=== PATIENT | female | born 1960 | race Caucasian/White ===

== ENCOUNTER → 2020-04-13 08:40 | Outpatient (REF) | payer MEDICAID, SELFPAY ==
--- NOTE | 2020-04-13 | NM_ITS ---
Myocardial perfusion study Indication: Chest pain with risk factors to evaluate for myocardial ischemia Technique: The patient was brought in for a Lexiscan perfusion study on 04/13/2020. Patient performed low-level exercise and was injected 0.4 mg of Lexiscan intravenously. Within a minute of injection, 25 mCi of sestamibi was given intravenously. Images were obtained using the SPECT gamma camera interlaced with the gating device. Images were obtained in supine position. Resting perfusion study was performed on 04/16/2020. Patient was administered 25 mCi of sestamibi intravenously at rest. Images were then obtained in supine position. Images obtained with and without CT attenuation. Total DLP 76 MGY-CM. Images were processed with the software and compared side to side in short axis, horizontal long axis and vertical long axis views. Findings: The stress perfusion study showed normal uptake of radiotracer in all segments of LV myocardium on non attenuated corrected images. There is suggestion of left ventricle hypertrophy.. The gated study shows normal LV systolic function with calculated LVEF of 63%. LV cavity is normal in size. The gated study shows normal systolic wall thickening and contraction of segments. Resting study shows no change in perfusion pattern compared to stress perfusion study on non attenuated images. Gating at rest reveals normal systolic wall motion with ejection fraction at 73%. The findings are consistent with normal myocardial perfusion. NM/NM janes perf SPECT rest & str Impression: 1. Myocardial perfusion imaging study shows normal myocardial perfusion 2. Gated LVEF is 63% 3. Transient ischemic dilatation not present EKG is nondiagnostic for ischemia
--- NOTE | 2020-04-13 08:45 | CA_ITS ---
Acquisition Time: 2020-04-13 09:14:09 Total Exercise Time: 00:02:18 Test Indications: CP Medications: SEE CHART Protocol: SÁNCHEZ Max HR: 155 BPM 96% of Pred: 161 BPM Max BP: 174/086 mmHG Max Work Load: 3.6 METS Started with exercise stress nuclear, however pt only able to stay on the Treadmill for 2 minutes. Moderate shortness of breath. Rescue inhaler used. Test switched to Lexiscan Pt tolerated well. Denies any anginal sx. EKG withouit any arrhythmias. non-diagnostic for ischemia. Nuclear images to follow. Normotyensive response to test. Test reviewed with Dr. Burch Referred By: Isaac Obando Overread By: Maurizio Chacon
== END ==
LOC: HO.CARD 08:40
PROVIDERS: Visit Provider Internal Medicine Cardiovascular Disease
DX: R07.9 Chest pain, unspecified (principal)
CPT/HCPCS: 78452; 93017; A9500; J2785

== ENCOUNTER → 2020-04-18 10:22 | Outpatient (BNVA) | payer MEDICAID, SELFPAY | PROVIDERS: PCP Family Medicine; Referring Provider Family Medicine; Visit Provider Obstetrics & Gynecology | DX: Z76.89 Persons encountering health services in other specified circumstances (principal) ==

== ENCOUNTER → 2020-05-09 14:03 | Outpatient (BNVA) | payer MEDICAID, SELFPAY | PROVIDERS: PCP Family Medicine; Visit Provider Internal Medicine | DX: J44.9 Chronic obstructive pulmonary disease, unspecified (principal); F17.210 Nicotine dependence, cigarettes, uncomplicated; Z71.6 Tobacco abuse counseling | CPT/HCPCS: 99202 ==

== ENCOUNTER 2020-05-15 10:09 | Outpatient (REF) | payer MEDICAID, SELFPAY ==
--- NOTE | 2020-05-15 10:14 | XR_ITS ---
EXAMINATION: XR CHEST CLINICAL INFORMATION: COPD COMPARISON: None TECHNIQUE: 2 views of the chest were obtained. FINDINGS: No significant abnormality is noted involving the heart, lungs, mediastinum, bony thorax or soft tissues. XR/XR chest 2V IMPRESSION: Unremarkable chest exam.
== END 2020-05-15 10:10 | disposition home or self-care (01) ==
LOC: HO.XRAY 10:09
PROVIDERS: PCP Family Medicine; Visit Provider Internal Medicine
DX: J44.9 Chronic obstructive pulmonary disease, unspecified (principal); F17.200 Nicotine dependence, unspecified, uncomplicated
CPT/HCPCS: 71046

== ENCOUNTER 2020-05-21 12:59 | Outpatient (REF) | payer MEDICAID, SELFPAY ==
--- NOTE | 2020-05-21 17:26 | PFT_ITS ---
Forced vital capacity normal. FEV1 is moderately reduced. HVM36-12 markedly reduced. Post bronchodilator therapy, no significant change. Total lung capacity and residual volume normal. Diffusion capacity, moderately decreased. CONCLUSION: Moderately severe obstructive airway disorder. No response to bronchodilator therapy. Clinical correlation recommended. Roc Saunders MD MSB/MODL / [id number]
== END 2020-05-21 13:00 | disposition home or self-care (01) ==
LOC: HO.RESP 12:59
PROVIDERS: PCP Family Medicine; Visit Provider Internal Medicine
DX: J44.9 Chronic obstructive pulmonary disease, unspecified (principal); F17.200 Nicotine dependence, unspecified, uncomplicated
CPT/HCPCS: 94060; 94727; 94729

== ENCOUNTER → 2020-06-21 10:23 | Outpatient (BNVA) | payer MEDICAID, SELFPAY | PROVIDERS: PCP Family Medicine; Visit Provider Internal Medicine | DX: J44.9 Chronic obstructive pulmonary disease, unspecified (principal); F17.210 Nicotine dependence, cigarettes, uncomplicated; Z71.6 Tobacco abuse counseling | CPT/HCPCS: 99212 ==

== ENCOUNTER → 2020-08-21 10:32 | Outpatient (BNVA) | payer MEDICAID, SELFPAY | PROVIDERS: PCP Family Medicine; Visit Provider Internal Medicine | DX: J44.9 Chronic obstructive pulmonary disease, unspecified (principal); F17.200 Nicotine dependence, unspecified, uncomplicated; Z79.899 Other long term (current) drug therapy; Z71.6 Tobacco abuse counseling | CPT/HCPCS: 99212 ==

== ENCOUNTER 2020-10-05 07:55 | Emergency (ER) | payer MEDICAID, SELFPAY ==
[2020-10-05 08:13] VITALS: BP 177/101; PULSE 97; RESP 18; TEMP 37; O2SAT 92; BMI 29.7
[2020-10-05 08:14] LABS: Glucose, Whole Blood 395 mg/dL (60-115)
--- NOTE | 2020-10-05 08:18 | ECG_ITS ---
Test Reason : GENERAL MEDICINE Blood Pressure : / mmHG Vent. Rate : 070 BPM Atrial Rate : 070 BPM P-R Int : 148 ms QRS Dur : 070 ms QT Int : 418 ms P-R-T Axes : 065 032 067 degrees QTc Int : 451 ms Normal sinus rhythm Normal ECG When compared with ECG of 30-MAY-2013 14:00, Premature atrial complexes are no longer Present T wave amplitude has decreased in Anterior leads Referred By: Caron Mosley Electronically Signed By:Lakhwinder Celeste
--- NOTE | 2020-10-05 08:37 | ED_ITS ---
HPI - General Adult General Chief complaint: General Medical Stated complaint: DIABETES EVAL Time Seen by Provider: 10/05/20 08:18 Source: patient Mode of arrival: ambulatory History of Present Illness HPI narrative: 60-year-old female with a past medical history of asthma, COPD, hepatitis C, HTN, liver cirrhosis, sent to ED from PCP for elevated blood glucose of 578 noted at office visit yesterday. Patient reports polyuria and polydipsia times a few weeks. Reports is being evaluated for bilateral lower extremity swelling, started on Bactrim yesterday for RLE cellulitis. Reports family history of diabetes, no known personal history. Denies fever, chills, cough, CP/SOB, abdominal pain, nausea/vomiting, diarrhea, numbness, tingling, headache Onset (ago): week(s) Related Data Home Medications Medication Instructions Recorded Confirmed amlodipine 5 mg tablet 5 mg PO DAILY 04/18/20 04/18/20 chlorthalidone 25 mg tablet 25 mg PO DAILY 04/18/20 04/18/20 albuterol sulfate 90 mcg/actuation 2 puff INHALATION Q6H PRN 05/09/20 aerosol inhaler methadone 40 mg soluble tablet 10 mg PO Q6-8H PRN 08/21/20 Previous Rx's Medication Instructions Recorded umeclidinium 62.5 mcg/actuation 1 inh INHALATION DAILY #30 ea 06/26/20 blister powder for inhalation blood-glucose meter [FreeStyle #1 ea 10/05/20 [place] Lite] metformin 500 mg PO BID 30 Days #60 tab 10/05/20 Allergies Allergy/AdvReac Type Severity Reaction Status Date / Time No Known Allergies Allergy Verified 08/21/20 10:40 [No Known Allergies*] Review of Systems Review of Systems: Constitutional: No Weight loss, No Fever, No Chills, No Fatigue, No Malaise ENT/Mouth: No Ear Pain, No Nasal Congestion, No Sinus Pain, No sore throat, No Rhinorrhea Eyes: No Eye Pain Cardiovascular: No Chest Pain, No SOB, No Dyspnea on Exertion, +Edema, No Palpitations Respiratory: No Cough, No Dyspnea Gastrointestinal: No Nausea, No Vomiting, No Diarrhea, No Constipation, No Abdominal pain Genitourinary: No Dysuria, + Urinary Frequency, No Hematuria, No Flank Pain Musculoskeletal: No joint pain, No Myalgias, No Joint Swelling Skin: No Skin Lesions, No rash Neuro: No Weakness, No Numbness, No Headache Endocrine: + Polyuria, + Polydipsia Yes all other systems are reviewed and are negative [facility] Past Medical History Attestation statement: The following information was validated with the patient. Medical History Asthma COPD (chronic obstructive pulmonary disease) COPD (chronic obstructive pulmonary disease) Hepatitis C HTN (hypertension) Smoker Social History Social History Alcohol intake: never Smoking Status: Current every day smoker Packs Per Day: 0.5 Cigarettes Per Day: 12 Use of substances other than those prescribed or required for medical reasons: No Advance Directives: No Advance Directives Information Provided: No Sexual orientation: Straight/Heterosexual Gender identity: female Physical Exam Vital Signs: Vital Signs: Last Vital Signs Temp 98.5 F 10/05/20 11:39 Pulse 70 10/05/20 11:39 Resp 16 10/05/20 11:39 BP 132/79 10/05/20 11:39 Pulse Ox 92 10/05/20 11:39 Body Mass Index 29.7 Const: General: cooperative and healthy appearing Orientation/consciousness: patient oriented x3 Limitations: no limitations HENMT: Head: Yes normal to inspection Ears: hearing grossly normal bilaterally General nose exam: Normal external nose present Face and sinus: Yes normal facial exam Eyes: General: appearance normal, both eyes and all related structures Pupils: Equal, round and reactive pupils present EOM: EOMs intact bilaterally Neck: Neck: Yes normal visual inspection and Yes no meningeal signs Resp: Effort & Inspection: normal respiratory effort Auscultation: clear to auscultation bilaterally, no rales, no rhonchi and no wheezes Cardio: Rate: regular rate Heart sounds: S1 normal heart sound present and S2 normal heart sound present GI: Inspection: Yes normal to inspection Palpation (GI): Soft to palpation, nontender, no guarding and not rigid Skin: Other: + picking wounds with a superficial/overlying cellulitis noted to RLE Neuro: General: patient oriented x3, gait normal, tone normal, moves all extremities, no meningeal signs and no focal motor deficits Cranial nerves: Yes Equal, round and reactive pupils present Gait exam (Neuro): Normal gait present Extrem: Other: +1 b/l LE pitting edema. No calf ttp General: Yes normal to inspection, Yes no calf tenderness and Yes normal gait Course Course Course Narrative: - Sodium low at 132 > corrected for hyperglycemia 137. Glucose 420, no anion gap, acetone negative > no evidence of DKA >> will give 2L IVF and repeat POC - AST/ALT chronically elevated, UA with glucose and ketones -Repeat POC 283 after IVF. Discussed with patient will initiate metformin, strict return precautions discussed including need for close follow-up with PCP/monitoring. She verbalized understanding feel safe for discharge home Medical Decision Making MDM Narrative Medical decision making narrative: 60-year-old female with a past medical history of asthma, COPD, hepatitis C, HTN, liver cirrhosis, sent to ED from PCP for elevated blood glucose of 578 noted at office visit yesterday. Patient reports polyuria and polydipsia times a few weeks. On exam hypertensive, NAD/ nontoxic. Concern for new onset diabetes. Rule out DKA/HHS/metabolic abnormalities. Lower concern for infectious etiology Plan: EKG, labs, UA, IVF, reassess Lab Data Result diagrams: 10/05/20 09:31 10/05/20 09:31 Labs: Lab Results 10/05/20 10/05/20 10/05/20 Range/Units 08:10 09:31 09:31 WBC 7.9 (4.8-10.8) X10*3/uL RBC 4.66 (4.20-5.50) X10*6/uL Hgb 14.3 (12.0-16.0) g/dl Hct 42.4 (37-47) % MCV 91.0 (80-98) fL MCH 30.7 (27.0-33.0) pg MCHC 33.7 (31.0-35.0) g/dl RDW 12.8 (11.0-16.0) % Plt Count 123 L (160-400) X10*3/uL MPV 10.7 (9.4-12.3) fL Immature Gran % (Auto) 0.6 H (0.0-0.4) % Neut % (Auto) 69.1 (45-73) % Lymph % (Auto) 19.3 L (20-40) % [place] % (Auto) 8.1 (2-11) % Eos % (Auto) 2.3 (0-4) % Baso % (Auto) 0.6 (0-2) % Lymph # (Auto) 1.5 (1.2-4.9) X10*3/uL [place] # (Auto) 0.6 (0.1-1.2) X10*3/uL Eos # (Auto) 0.2 (0.0-0.4) X10*3/uL Baso # (Auto) 0.1 (0.0-0.2) X10*3/uL Abs Immat Gran (auto) 0.05 H (0.00-0.03) X10*3/uL Absolute Neuts (auto) 5.5 (2.0-8.3) X10*3/uL Absolute Nucleated RBC 0.000 (0.0-0.012) X10*3/uL Nucleated RBC % (auto) 0.0 (0.0-0.2) /100WBC Hold Blue Top VBG pH (7.32-7.43) VBG pCO2 mmHg VBG pO2 mmHg VBG HCO3 (22-26) mmol/L VBG O2 Saturation % VBG Base Excess mmol/L Sodium 132 L (135-145) mmol/L Potassium 4.1 (3.3-5.1) mmol/L Chloride 89 L (96-108) mmol/L Carbon Dioxide 28 (22-29) mmol/L Anion Gap 19 (12-20) BUN 11 (9-16) mg/dL Creatinine 1.03 (0.5-1.4) mg/dL Estim Creat Clear Calc 57.5 Estimated GFR 55 POC Glucose 395 H* (60-115) mg/dL Random Glucose 420 H* (60-115) mg/dL Calcium 9.5 (8.4-10.2) mg/dL Magnesium 1.7 (1.6-2.6) mg/dL Total Bilirubin 1.2 H (0.0-1.0) mg/dL Direct Bilirubin 0.3 (0.0-0.5) mg/dL AST 76 H (5-31) U/L ALT 43 H (0-31) U/L Alkaline Phosphatase 116 (39-117) U/L B-Natriuretic Peptide (<100) pg/mL Total Protein 8.6 H (6.5-8.0) g/dL Albumin 4.0 (3.5-5.0) g/dL Lipase (8-78) U/L Urine Color Urine Appearance Urine pH (5.0-8.0) Ur Specific [place] (1.005-1.025) Urine Protein (NEG-TRACE) MG/DL Urine Glucose (UA) (NEG) MG/DL Urine Ketones (NEG) MG/DL Urine Blood (NEG) Urine Nitrite (NEG) Ur Leukocyte Esterase (NEG) Urine RBC (0) /HPF Urine WBC (0-4) /HPF Ur Squamous Epith Cells /LPF Urine Bacteria /LPF Acetone, Qual Negative (Negative) 10/05/20 10/05/20 10/05/20 Range/Units 09:31 09:31 09:31 WBC (4.8-10.8) X10*3/uL RBC (4.20-5.50) X10*6/uL Hgb (12.0-16.0) g/dl Hct (37-47) % MCV (80-98) fL MCH (27.0-33.0) pg MCHC (31.0-35.0) g/dl RDW (11.0-16.0) % Plt Count (160-400) X10*3/uL MPV (9.4-12.3) fL Immature Gran % (Auto) (0.0-0.4) % Neut % (Auto) (45-73) % Lymph % (Auto) (20-40) % [place]ink[place] % (Auto) (2-11) % Eos % (Auto) (0-4) % Baso % (Auto) (0-2) % Lymph # (Auto) (1.2-4.9) X10*3/uL [place] # (Auto) (0.1-1.2) X10*3/uL Eos # (Auto) (0.0-0.4) X10*3/uL Baso # (Auto) (0.0-0.2) X10*3/uL Abs Immat Gran (auto) (0.00-0.03) X10*3/uL Absolute Neuts (auto) (2.0-8.3) X10*3/uL Absolute Nucleated RBC (0.0-0.012) X10*3/uL Nucleated RBC % (auto) (0.0-0.2) /100WBC Hold Blue Top SEE NOTE VBG pH (7.32-7.43) VBG pCO2 mmHg VBG pO2 mmHg VBG HCO3 (22-26) mmol/L VBG O2 Saturation % VBG Base Excess mmol/L Sodium (135-145) mmol/L Potassium (3.3-5.1) mmol/L Chloride (96-108) mmol/L Carbon Dioxide (22-29) mmol/L Anion Gap (12-20) BUN (9-16) mg/dL Creatinine (0.5-1.4) mg/dL Estim Creat Clear Calc Estimated GFR POC Glucose (60-115) mg/dL Random Glucose (60-115) mg/dL Calcium (8.4-10.2) mg/dL Magnesium (1.6-2.6) mg/dL Total Bilirubin (0.0-1.0) mg/dL Direct Bilirubin (0.0-0.5) mg/dL AST (5-31) U/L ALT (0-31) U/L Alkaline Phosphatase (39-117) U/L B-Natriuretic Peptide 53 (<100) pg/mL Total Protein (6.5-8.0) g/dL Albumin (3.5-5.0) g/dL Lipase 27 (8-78) U/L Urine Color Urine Appearance Urine pH (5.0-8.0) Ur Specific [place] (1.005-1.025) Urine Protein (NEG-TRACE) MG/DL Urine Glucose (UA) (NEG) MG/DL Urine Ketones (NEG) MG/DL Urine Blood (NEG) Urine Nitrite (NEG) Ur Leukocyte Esterase (NEG) Urine RBC (0) /HPF Urine WBC (0-4) /HPF Ur Squamous Epith Cells /LPF Urine Bacteria /LPF Acetone, Qual (Negative) 10/05/20 10/05/20 10/05/20 Range/Units 09:32 09:38 11:42 WBC (4.8-10.8) X10*3/uL RBC (4.20-5.50) X10*6/uL Hgb (12.0-16.0) g/dl Hct (37-47) % MCV (80-98) fL MCH (27.0-33.0) pg MCHC (31.0-35.0) g/dl RDW (11.0-16.0) % Plt Count (160-400) X10*3/uL MPV (9.4-12.3) fL Immature Gran % (Auto) (0.0-0.4) % Neut % (Auto) (45-73) % Lymph % (Auto) (20-40) % [place] % (Auto) (2-11) % Eos % (Auto) (0-4) % Baso % (Auto) (0-2) % Lymph # (Auto) (1.2-4.9) X10*3/uL [place] # (Auto) (0.1-1.2) X10*3/uL Eos # (Auto) (0.0-0.4) X10*3/uL Baso # (Auto) (0.0-0.2) X10*3/uL Abs Immat Gran (auto) (0.00-0.03) X10*3/uL Absolute Neuts (auto) (2.0-8.3) X10*3/uL Absolute Nucleated RBC (0.0-0.012) X10*3/uL Nucleated RBC % (auto) (0.0-0.2) /100WBC Hold Blue Top VBG pH 7.40 (7.32-7.43) VBG pCO2 53 mmHg VBG pO2 60 mmHg VBG HCO3 33 H (22-26) mmol/L VBG O2 Saturation 89.0 % VBG Base Excess 7.0 mmol/L Sodium (135-145) mmol/L Potassium (3.3-5.1) mmol/L Chloride (96-108) mmol/L Carbon Dioxide (22-29) mmol/L Anion Gap (12-20) BUN (9-16) mg/dL Creatinine (0.5-1.4) mg/dL Estim Creat Clear Calc Estimated GFR POC Glucose 337 H (60-115) mg/dL Random Glucose (60-115) mg/dL Calcium (8.4-10.2) mg/dL Magnesium (1.6-2.6) mg/dL Total Bilirubin (0.0-1.0) mg/dL Direct Bilirubin (0.0-0.5) mg/dL AST (5-31) U/L ALT (0-31) U/L Alkaline Phosphatase (39-117) U/L B-Natriuretic Peptide (<100) pg/mL Total Protein (6.5-8.0) g/dL Albumin (3.5-5.0) g/dL Lipase (8-78) U/L Urine Color YELLOW Urine Appearance HAZY Urine pH 7.0 (5.0-8.0) Ur Specific [place] 1.015 (1.005-1.025) Urine Protein NEG (NEG-TRACE) MG/DL Urine Glucose (UA) 500 H (NEG) MG/DL Urine Ketones 15 (NEG) MG/DL Urine Blood 1+ H (NEG) Urine Nitrite NEG (NEG) Ur Leukocyte Esterase NEG (NEG) Urine RBC 1-4 (0) /HPF Urine WBC 0-2 (0-4) /HPF Ur Squamous Epith Cells 2+ /LPF Urine Bacteria TRACE /LPF Acetone, Qual (Negative) 10/05/20 Range/Units 12:54 WBC (4.8-10.8) X10*3/uL RBC (4.20-5.50) X10*6/uL Hgb (12.0-16.0) g/dl Hct (37-47) % MCV (80-98) fL MCH (27.0-33.0) pg MCHC (31.0-35.0) g/dl RDW (11.0-16.0) % Plt Count (160-400) X10*3/uL MPV (9.4-12.3) fL Immature Gran % (Auto) (0.0-0.4) % Neut % (Auto) (45-73) % Lymph % (Auto) (20-40) % [place] % (Auto) (2-11) % Eos % (Auto) (0-4) % Baso % (Auto) (0-2) % Lymph # (Auto) (1.2-4.9) X10*3/uL [place] # (Auto) (0.1-1.2) X10*3/uL Eos # (Auto) (0.0-0.4) X10*3/uL Baso # (Auto) (0.0-0.2) X10*3/uL Abs Immat Gran (auto) (0.00-0.03) X10*3/uL Absolute Neuts (auto) (2.0-8.3) X10*3/uL Absolute Nucleated RBC (0.0-0.012) X10*3/uL Nucleated RBC % (auto) (0.0-0.2) /100WBC Hold Blue Top VBG pH (7.32-7.43) VBG pCO2 mmHg VBG pO2 mmHg VBG HCO3 (22-26) mmol/L VBG O2 Saturation % VBG Base Excess mmol/L Sodium (135-145) mmol/L Potassium (3.3-5.1) mmol/L Chloride (96-108) mmol/L Carbon Dioxide (22-29) mmol/L Anion Gap (12-20) BUN (9-16) mg/dL Creatinine (0.5-1.4) mg/dL Estim Creat Clear Calc Estimated GFR POC Glucose 318 H (60-115) mg/dL Random Glucose (60-115) mg/dL Calcium (8.4-10.2) mg/dL Magnesium (1.6-2.6) mg/dL Total Bilirubin (0.0-1.0) mg/dL Direct Bilirubin (0.0-0.5) mg/dL AST (5-31) U/L ALT (0-31) U/L Alkaline Phosphatase (39-117) U/L B-Natriuretic Peptide (<100) pg/mL Total Protein (6.5-8.0) g/dL Albumin (3.5-5.0) g/dL Lipase (8-78) U/L Urine Color Urine Appearance Urine pH (5.0-8.0) Ur Specific [place] (1.005-1.025) Urine Protein (NEG-TRACE) MG/DL Urine Glucose (UA) (NEG) MG/DL Urine Ketones (NEG) MG/DL Urine Blood (NEG) Urine Nitrite (NEG) Ur Leukocyte Esterase (NEG) Urine RBC (0) /HPF Urine WBC (0-4) /HPF Ur Squamous Epith Cells /LPF Urine Bacteria /LPF Acetone, Qual (Negative) Discharge Plan Discharge Clinical Impression: Diabetes mellitus, new onset Patient Disposition: Home, Self-Care Instructions: Diabetes and Nutrition (ED), Diabetes and Exercise (ED) Additional Instructions: You have new onset diabetes, metformin is the oral diabetic medication, take as prescribed. You need to have close follow-up with her primary care doctor You should also be monitoring her sugars closely at home See her doctor within the next week Stay hydrated at home If he develops fever, increased urination, increased thirst, sugars are running too low, less than 100, or to hide greater than 300 return to the ED Prescriptions: New metformin 500 mg tablet 500 mg PO BID 30 Days Qty: 60 RF: 0 (DME) blood-glucose meter [FreeStyle [place] Lite] Kit See Rx Instructions .ROUTE .MEDSUPPLY Qty: 1 RF: 0 No Action Incruse Ellipta 62.5 mcg/actuation blister with device 1 inh inhalation DAILY Qty: 30 RF: 2 chlorthalidone 25 mg tablet 25 mg PO DAILY RF: 0 amlodipine 5 mg tablet 5 mg PO DAILY RF: 0 methadone 40 mg tablet,soluble 10 mg PO Q6-8H PRNRF: 0 albuterol sulfate [ProAir HFA] 90 mcg/actuation HFA aerosol inhaler 2 puff inhalation Q6H PRNRF: 0 Referrals: Adrianne Moffett MD [Primary Care Provider] - 2 days
[2020-10-05] MEDS: 0.9 % Sodium Chloride 1,000 ML 999 ML IVCONT ×2 (09:33→11:50)
[2020-10-05 09:42] LABS: Hemoglobin 14.3 g/dl (12.0-16.0); Red Cell Distribution Width 12.8 % (11.0-16.0)
[2020-10-05 09:44] LABS: Basophils Absolute Auto 0.1 X10*3/uL (0.0-0.2); Basophils Percent Auto 0.6 % (0-2); Eosinophils Absolute Auto 0.2 X10*3/uL (0.0-0.4); Eosinophils Percent Auto 2.3 % (0-4); Hematocrit 42.4 % (37-47); Imm Gran Abs Auto 0.05 X10*3/uL (0.00-0.03); Imm Gran Pct Auto 0.6 % (0.0-0.4); Lymphocytes Absolute Auto 1.5 X10*3/uL (1.2-4.9); Lymphocytes Percent Auto 19.3 % (20-40); Mean Corpuscular HGB Conc 33.7 g/dl (31.0-35.0); Mean Corpuscular Hemoglobin 30.7 pg (27.0-33.0); Mean Platelet Volume 10.7 fL (9.4-12.3); Monocytes Absolute Auto 0.6 X10*3/uL (0.1-1.2); Monocytes Percent Auto 8.1 % (2-11); Neutrophils Absolute Auto 5.5 X10*3/uL (2.0-8.3); Neutrophils Percent Auto 69.1 % (45-73); Platelet Count 123 X10*3/uL (160-400); Red Blood Count 4.66 X10*6/uL (4.20-5.50); White Blood Count 7.9 X10*3/uL (4.8-10.8)
[2020-10-05 09:45] LABS: MANUAL DIFF FLAG NO
[2020-10-05 09:46] LABS: Glucose Urine UA 500 MG/DL (NEG); Leukocyte Esterase Urine NEG (NEG); Nitrite Urine NEG (NEG); Specific Gravity - Urine 1.015 (1.005-1.025); Urine Blood 1+ (NEG); Urine Ketones 15 MG/DL (NEG); Urine Protein NEG (NEG-TRACE)
[2020-10-05 09:46] LABS: VBG HCO3 33 mmol/L (22-26); VBG pCO2 53 mmHg; VBG pO2 60 mmHg
[2020-10-05 09:47] LABS: Appearance Urine HAZY; Color Urine YELLOW
[2020-10-05 09:47] LABS: Venous Blood Gas Refer to POC result
[2020-10-05 09:58] LABS: Bacteria Urine TRACE /LPF; Squamous Epithelial Cell Urine 2+ /LPF; WBC Urine 0-2 /HPF (0-4)
[2020-10-05 10:12] LABS: Lipase 27 U/L (8-78)
[2020-10-05 10:18] LABS: Alanine Aminotransferase 43 U/L (0-31); Alkaline Phosphatase 116 U/L (39-117); Anion Gap 19 (12-20); Aspartate Amino Transferase 76 U/L (5-31); Bilirubin Direct 0.3 mg/dL (0.0-0.5); Bilirubin Total 1.2 mg/dL (0.0-1.0); Blood Urea Nitrogen 11 mg/dL (9-16); Calcium 9.5 mg/dL (8.4-10.2); Carbon Dioxide 28 mmol/L (22-29); Chloride 89 mmol/L (96-108); Creatinine Clr Calc Pharmacy 57.5; Estimated Glomerular Filt Rate 55; Glucose Random 420 mg/dL (60-115); Magnesium 1.7 mg/dL (1.6-2.6); Potassium 4.1 mmol/L (3.3-5.1); Sodium 132 mmol/L (135-145); Total Protein 8.6 g/dL (6.5-8.0)
[2020-10-05 10:19] LABS: B Type Natriuretic Peptide 53 pg/mL (<100)
[2020-10-05 10:22] LABS: Acetone, serum QL Negative (Negative)
[2020-10-05 11:39] VITALS: BP 132/79; PULSE 70; RESP 16; TEMP 36.9; O2SAT 92
[2020-10-05 11:51] LABS: Glucose, Whole Blood 337 mg/dL (60-115)
--- NOTE | 2020-10-05 11:52 | PC.NURSE ---
Pt denies complaints, requested and given water, second L of NS hung and infusing per emar. Pt appears to be no apparent distress, rr even and unlabored. Call ruiz within reach.
[2020-10-05 13:00] LABS: Glucose, Whole Blood 318 mg/dL (60-115)
--- NOTE | 2020-10-05 14:10 | PC.NURSE ---
POC 283 RN chandan Reardon
[2020-10-05 14:14] LABS: Glucose, Whole Blood 283 mg/dL (60-115)
== END 2020-10-05 14:41 | disposition home or self-care (01) ==
PROVIDERS: Physician Assistant; Emergency Provider Emergency Medicine; PCP Family Medicine
DX: E11.9 Type 2 diabetes mellitus without complications (principal); R35.8 Other polyuria; F17.210 Nicotine dependence, cigarettes, uncomplicated; Z71.6 Tobacco abuse counseling; Z79.899 Other long term (current) drug therapy
CPT/HCPCS: 36415; 80048; 80076; 81001; 82009; 82947; 83690; 83735; 83880; 85025; 93005; 96360; 99284

== ENCOUNTER 2020-10-09 15:22 | Outpatient (REF) | payer MEDICAID, SELFPAY ==
--- NOTE | ~2020-10-09 | US_ITS ---
EXAMINATION: RIGHT LOWER EXTREMITY DEEP VENOUS ULTRASOUND CLINICAL INFORMATION: Right lower extremity edema. COMPARISON: None. TECHNIQUE: Duplex Doppler imaging with compression maneuvers were performed of the right lower extremity deep venous system. FINDINGS: The visualized common femoral, femoral and popliteal veins demonstrate normal compressibility and color flow without evidence of venous thrombosis. Visualized portions of the calf veins demonstrate normal color fill-in suggesting patency. The right peroneal vein was not clearly visualized. There is no evidence of a Avendano's cyst. US/US venous duplex LE RT IMPRESSION: No evidence of deep venous thrombosis involving the right lower extremity.
== END 2020-10-09 15:23 | disposition home or self-care (01) ==
LOC: HO.US 15:22
PROVIDERS: Visit Provider Nurse Practitioner Family
DX: M25.471 Effusion, right ankle (principal)
CPT/HCPCS: 93971

== ENCOUNTER 2020-10-16 07:43 | Outpatient (REF) | payer MEDICAID, SELFPAY ==
[2020-10-16 08:57] LABS: Alanine Aminotransferase 102 U/L (0-31); Albumin Level 4.1 g/dL (3.5-5.0); Alkaline Phosphatase 85 U/L (39-117); Anion Gap 17 (12-20); Aspartate Amino Transferase 143 U/L (5-31); Blood Urea Nitrogen 11 mg/dL (9-16); Calcium 9.9 mg/dL (8.4-10.2); Carbon Dioxide 28 mmol/L (22-29); Chloride 95 mmol/L (96-108); Cholesterol 152 mg/dL; Estimated Glomerular Filt Rate 55; Glucose Random 124 mg/dL (60-115); HDL Cholesterol 16 mg/dL; LDL Cholesterol Calculated 108 mg/dl; Potassium 3.6 mmol/L (3.3-5.1); Sodium 136 mmol/L (135-145); Total Protein 8.2 g/dL (6.5-8.0); Triglycerides 142 mg/dL
[2020-10-16 08:58] LABS: Estimated Average Glucose 266 mg/dL; Hemoglobin A1c % 10.9 %
[2020-10-16 09:06] LABS: Creatinine Urine 172.28 mg/dL; Microalbum/Creatinine Ratio Ur 6.9 ug/mg cr
[2020-10-16 09:18] LABS: Thyroid Stimulating Hormone 2.98 uIU/mL (0.32-4.0)
== END 2020-10-16 07:44 | disposition home or self-care (01) ==
LOC: HO.LAB 07:43
PROVIDERS: PCP Family Medicine; Visit Provider Family Medicine
DX: E11.9 Type 2 diabetes mellitus without complications (principal)
CPT/HCPCS: 36415; 80053; 80061; 82043; 83036; 84443

== ENCOUNTER → 2020-11-28 09:49 | Outpatient (BNVA) | payer MEDICAID, SELFPAY | PROVIDERS: PCP Family Medicine; Visit Provider Nurse Practitioner Gerontology | DX: E11.9 Type 2 diabetes mellitus without complications (principal); I10 Essential (primary) hypertension; E66.3 Overweight; F17.200 Nicotine dependence, unspecified, uncomplicated; Z79.4 Long term (current) use of insulin | CPT/HCPCS: 82947; 99212 ==

== ENCOUNTER → 2020-12-27 09:58 | Outpatient (BNVA) | payer MEDICAID, SELFPAY | PROVIDERS: PCP Family Medicine; Visit Provider Internal Medicine | DX: J44.9 Chronic obstructive pulmonary disease, unspecified (principal); F17.200 Nicotine dependence, unspecified, uncomplicated | CPT/HCPCS: 99212 ==

== ENCOUNTER 2021-05-28 12:07 | Emergency (ER) | payer MEDICAID, SELFPAY ==
[2021-05-28] VITALS (7 sets, daily range): BP systolic 127–167; BP diastolic 68–93; PULSE 75–84; RESP 17–22; TEMP 36.5–36.9; O2SAT 93–95; BMI 30.6
--- NOTE | ~2021-05-28 | XR_ITS ---
EXAMINATION: XR CHEST CLINICAL INFORMATION: Shortness of breath. COMPARISON: Chest radiograph done on 05/15/2020. TECHNIQUE: 2 views of the chest were obtained. FINDINGS: Interval development of small volume right-sided pleural effusion is noted with nonspecific right lung base airspace disease. The remainder of the lung mccoy are clear, unchanged. The cardiomediastinal silhouette is within normal limit. Visualized upper abdomen is unremarkable. XR/XR chest 2V IMPRESSION: Interval development of small volume right-sided pleural effusion, new since 05/15/2020.
--- NOTE | ~2021-05-28 | CT_ITS ---
EXAMINATION: CT ANGIOGRAM OF THE CHEST WITH CONTRAST (CT PULMONARY ANGIOGRAM FOR PE) CLINICAL INFORMATION: Shortness of breath. COMPARISON: Chest CT from 07/26/2013. Chest CT from 10/12/2013 currently cannot be retrieved. CXR from 05/28/2020. TECHNIQUE: Prior to contrast administration, noncontrast localization images were obtained. Subsequently, multidetector volumetric imaging was performed from the thoracic inlet to below the diaphragms following the administration of 65 mL Omnipaque 350 intravenous contrast. No contrast reaction reported. Sagittal, coronal, and MIP oblique sagittal reformatted images were obtained on the CT workstation, uploaded to PACS, and reviewed. This CT examination was performed using dose optimization techniques as appropriate, variously including the following: *Automated exposure control *Adjustment of mA and/or kV according to patient size (this includes techniques or standardized protocols for targeted exams where dose is matched to indication/reason for exam; i.e. extremities or head) *Use of iterative reconstruction technique DLP: Total exam dose-length product 317 mGy-cm FINDINGS: LUNGS AND PLEURA: Trachea and central airways are widely patent and normal in caliber. Mild amount of mucus layers along the wall of the trachea and right mainstem bronchus. Mild centrilobular emphysema. Small 0.3 cm opacity along the left major fissure is likely a perifissural lymph node. No suspicious lung nodule or mass. Small right pleural effusion has a loculated appearance, and there is atelectasis in the periphery of the right lower lobe. Also, mild atelectasis is present in the periphery of the right middle lobe, inferior lingula and lateral left lower lobe. No focal consolidation. QUALITY OF STUDY/CONTRAST BOLUS: The contrast bolus is borderline suboptimal. A density of 175-185 HU is achieved at the level of the main pulmonary artery. CARDIOVASCULAR: Pulmonary arteries are normal in size. No evidence of embolic filling defects in the main or lobar pulmonary arteries. Also, there are no convincing emboli within the segmental vessels. The evaluation of the peripheral vessels is suboptimal. The heart size is normal. No pericardial effusion. Mild thoracic aorta atherosclerosis without aneurysm or dissection. MEDIASTINUM/LOWER NECK: The esophagus and visualized portion of the thyroid gland are normal. No mediastinal mass. LYMPHATICS: No axillary or internal mammary lymphadenopathy. A mildly enlarged subcarinal lymph node is 1.2 cm in short axis dimension. All of the visualized hilar lymph nodes measure less than 1 cm in short axis dimension. UPPER ABDOMEN: No contrast reflux into the inferior vena cava. Adrenal glands are normal. No acute findings in the visualized solid or hollow viscera of the upper abdomen. OSSEOUS STRUCTURES: The thoracic vertebra have normal height and alignment. No fracture or subluxation. No suspicious osseous lesion within the thorax. CT/CT angio chest PE protocol IMPRESSION: * The quality of the contrast bolus is not optimal for evaluation of the peripheral vessels. However, no evidence of pulmonary embolism in the central pulmonary vessels. * Small right pleural effusion has a loculated appearance. Atelectasis is present in the periphery of the right lower lobe. No focal airspace disease. No pneumonia is seen. * A mildly enlarged subcarinal lymph node of 1.2 cm short axis dimension is likely a reactive lymph node. The hilar lymph nodes are in the normal size range.
--- NOTE | 2021-05-28 14:16 | ECG_ITS ---
Test Reason : SHORTNESS OF BREATH Blood Pressure : / mmHG Vent. Rate : 071 BPM Atrial Rate : 071 BPM P-R Int : 124 ms QRS Dur : 084 ms QT Int : 440 ms P-R-T Axes : 064 026 057 degrees QTc Int : 478 ms Normal sinus rhythm Nonspecific ST abnormality Abnormal ECG When compared with ECG of 05-OCT-2020 09:03, No significant change was found Referred By: Generic ED Physician Electronically Signed By:MEGHAN DUMONT MD
[2021-05-28 14:50] LABS: MANUAL DIFF FLAG NO
[2021-05-28 14:53] LABS: Basophils Absolute Auto 0.1 X10*3/uL (0.0-0.2); Basophils Percent Auto 0.6 % (0-2); Eosinophils Absolute Auto 0.5 X10*3/uL (0.0-0.4); Eosinophils Percent Auto 3.8 % (0-4); Hematocrit 37.1 % (37.0-47.0); Hemoglobin 12.6 g/dl (12.0-16.0); Imm Gran Abs Auto 0.08 X10*3/uL (0.00-0.03); Imm Gran Pct Auto 0.6 % (0.0-0.4); Lymphocytes Absolute Auto 2.4 X10*3/uL (1.2-4.9); Mean Corpuscular Hemoglobin 31.4 pg (27.0-33.0); Mean Corpuscular Volume 92.5 fL (80.0-98.0); Mean Platelet Volume 9.2 fL (9.4-12.3); Monocytes Absolute Auto 1.1 X10*3/uL (0.1-1.2); Monocytes Percent Auto 9.1 % (2-11); Neutrophils Absolute Auto 8.4 x10*3/uL (2.0-8.3); Neutrophils Percent Auto 66.9 % (45-73); Platelet Count 186 X10*3/uL (160-400); Red Blood Count 4.01 X10*6/uL (4.20-5.50); Red Cell Distribution Width 12.8 % (11.0-16.0); White Blood Count 12.6 X10*3/uL (4.8-10.8)
[2021-05-28 15:06] LABS: Anion Gap 18 (12-20); Blood Urea Nitrogen 8 mg/dL (9-16); Calcium 9.5 mg/dL (8.4-10.2); Carbon Dioxide 27 mmol/L (22-29); Chloride 97 mmol/L (96-108); Creatinine Clr Calc Pharmacy 73.2; Estimated Glomerular Filt Rate > 60; Glucose Random 109 mg/dL (60-115); Potassium 3.5 mmol/L (3.3-5.1); Sodium 138 mmol/L (135-145)
[2021-05-28 15:11] LABS: B Type Natriuretic Peptide 38 pg/mL (<100); Troponin-I High Sensitivity 3.9 ng/L (<3.5-17.0)
--- NOTE | 2021-05-28 18:00 | PC.NURSE ---
c/o 3 days of sob. i feel like I have pneumonia skin pwd. unlabored resp at rest.
[2021-05-28] MEDS: Albuterol Sulfate (0.083%) 2.5 MG/3 ML VIAL.NEB INHALE (18:15)
--- NOTE | 2021-05-28 18:16 | ED_ITS ---
HPI - SOB/Dyspnea General Chief Complaint: Dyspnea Stated Complaint: SOB Time Seen by Provider: 05/28/21 17:56 History of Present Illness HPI Narrative: 61 years old with a history of diabetes. History of hypertension. History of COPD is a smoker for many years. Presented today with having shortness of breath slight cough. Patient vaccinated for COVID. Complaining of chest pain over the right chest worse with deep breath. No diaphoresis. No focal weakness. Never had a stress test. Patient from home. No travel history no leg swelling. Not on hormone replacement. No history of blood clots in the past. No history of cancer. Patient from home. Related Data Home Medications Medication Instructions Recorded Confirmed amlodipine 5 mg tablet 5 mg PO DAILY 04/18/20 11/28/20 chlorthalidone 25 mg tablet 25 mg PO DAILY 04/18/20 11/28/20 albuterol sulfate 90 mcg/actuation 2 puff INHALATION Q6H PRN 05/09/20 11/28/20 aerosol inhaler (ProAir HFA) methadone 40 mg soluble tablet 10 mg PO Q6-8H PRN 08/21/20 11/28/20 insulin glargine 100 unit/mL (3 10 unit SUBCUT QPM 11/28/20 11/28/20 mL) subcutaneous pen (Lantus Solostar U-100 Insulin) Previous Rx's Medication Instructions Recorded blood-glucose meter (FreeStyle #1 ea 10/05/20 Gilbert Lite) metformin 500 mg tablet 500 mg PO BID 30 Days #60 tab 10/05/20 umeclidinium 62.5 mcg/actuation 1 inh PO DAILY #30 ea 03/12/21 blister powder for inhalation (Incruse Ellipta) doxycycline hyclate 100 mg capsule 100 mg PO BID 7 Days #14 cap 05/28/21 prednisone 10 mg tablet 10 mg PO DAILY #40 tab 05/28/21 Allergies Allergy/AdvReac Type Severity Reaction Status Date / Time No Known Allergies Allergy Verified 12/27/20 10:06 [No Known Allergies*] Review of Systems Review of Systems: Positive shortness of breath positive coughing has positive history of COPD Yes all other systems are reviewed and are negative PMFSH Past Medical History Attestation statement: The following information was validated with the patient. Medical History Asthma Cirrhosis COPD (chronic obstructive pulmonary disease) COPD (chronic obstructive pulmonary disease) DM2 (diabetes mellitus, type 2) Essential hypertension Hepatitis C HTN (hypertension) Overweight Smoker Surgical History Hx of section Hx of tubal ligation Family History Family History Father No problems noted. Mother Heart problem Cancer Maternal Grandmother Diabetes Brother Diabetes Sister Diabetes Brother Diabetes Social History Social History Household Members: Friend(s) Alcohol intake: current Alcohol intake frequency: a few times a month Patient Tobacco Use Status: Current everyday Tobacco user Cigarette Packs Per Day: 0.5 Cigarettes Per Day: 12 Use of substances other than those prescribed or required for medical reasons: Yes Substance Use Type: Opiates Advance Directives: No Advance Directives Information Provided: Yes Sexual orientation: Straight/Heterosexual Gender identity: Female Physical Exam Vital Signs: Vital Signs: Last Vital Signs Temp 97.7 F 05/28/21 22:46 Pulse 76 05/28/21 22:46 Resp 17 05/28/21 22:46 BP 131/68 05/28/21 22:46 Pulse Ox 93 05/28/21 22:46 BMI result Body Mass Index 30.6 Appearance: Alert. Oriented X3. No acute distress. Eyes: Pupils equal, round and reactive to light. ENT: Pharynx normal. Neck: Normal inspection. Neck supple. No lymph nodes noted. No crepitus CVS: Normal heart rate and rhythm. Pulses normal. Normal S1 and S2 Respiratory: No respiratory distress. diminished breath sounds bilaterally. No Wheezing. No rales Abdomen: Soft and nontender. No rigidity. No distention. good BS x4 Skin: Skin warm and dry. Normal skin color. Normal skin turgor. Extremities: No lower extremity edema. Neurovascular intact to all extremities. No Lacerations. No Rash Neuro: Oriented X 3. No motor deficit. No sensory deficit. Moving all extermities. No slurred speech MDM - SOB/Dyspnea MDM Narrative Medical decision making narrative: Patient given steroid. Nebulized treatment. COVID test was negative. Symptom improved. D-dimer was elevated. CTA was done there is no gross PE noted. There is a small pleural effusion noted on the right side question that is causing patient's symptoms. Will start patient on antibiotics for upper respiratory symptoms. Will have patient closely follow up on an outpatient basis. Patient told to stop smoking. Will start patient on a steroid taper. Being discharged home with a diagnosis COPD exacerbation. Patient's EKG showed a sinus pattern heart rate was 70 RI cares QT within normal limits is nonspecific T-wave flattening noted. Patient in no distress being discharged home Differential Diagnosis Differential diagnosis: Likely acute exacerbation of chronic obstructive airways disease Medical Records Attestation: I reviewed the patient's medical records. Lab Data Attestation: I reviewed the patient's lab results. Result diagrams: 05/28/21 14:44 05/28/21 14:44 Labs: Lab Results 05/28/21 05/28/21 05/28/21 Range/Units 14:44 14:44 14:44 WBC 12.6 H (4.8-10.8) X10*3/uL RBC 4.01 L (4.20-5.50) X10*6/uL Hgb 12.6 (12.0-16.0) g/dl Hct 37.1 (37.0-47.0) % MCV 92.5 (80.0-98.0) fL MCH 31.4 (27.0-33.0) pg MCHC 34.0 (31.0-35.0) g/dl RDW 12.8 (11.0-16.0) % Plt Count 186 (160-400) X10*3/uL MPV 9.2 L (9.4-12.3) fL Immature Gran % (Auto) 0.6 H (0.0-0.4) % Neut % (Auto) 66.9 (45-73) % Lymph % (Auto) 19.0 L (20-40) % Williams % (Auto) 9.1 (2-11) % Eos % (Auto) 3.8 (0-4) % Baso % (Auto) 0.6 (0-2) % Lymph # (Auto) 2.4 (1.2-4.9) X10*3/uL Williams # (Auto) 1.1 (0.1-1.2) X10*3/uL Eos # (Auto) 0.5 H (0.0-0.4) X10*3/uL Baso # (Auto) 0.1 (0.0-0.2) X10*3/uL Abs Immat Gran (auto) 0.08 H (0.00-0.03) X10*3/uL Absolute Neuts (auto) 8.4 H (2.0-8.3) x10*3/uL Absolute Nucleated RBC 0.000 (0.0-0.012) X10*3/uL Nucleated RBC % (auto) 0.0 (0.0-0.2) /100WBC D-Dimer High Sensitivty NG/ML Sodium 138 (135-145) mmol/L Potassium 3.5 (3.3-5.1) mmol/L Chloride 97 (96-108) mmol/L Carbon Dioxide 27 (22-29) mmol/L Anion Gap 18 (12-20) BUN 8 L (9-16) mg/dL Creatinine 0.81 (0.5-1.4) mg/dL Estim Creat Clear Calc 73.2 Estimated GFR > 60 Random Glucose 109 (60-115) mg/dL Calcium 9.5 (8.4-10.2) mg/dL Troponin I High Sens 3.9 (<3.5-17.0) ng/L B-Natriuretic Peptide 38 (<100) pg/mL Urine Color Urine Appearance Urine pH (5.0-8.0) Ur Specific [place] (1.005-1.025) Urine Protein (NEG-TRACE) MG/DL Urine Glucose (UA) (NEG) MG/DL Urine Ketones (NEG) MG/DL Urine Blood (NEG) Urine Nitrite (NEG) Ur Leukocyte Esterase (NEG) Urine RBC (0) /HPF Urine WBC (0-4) /HPF Ur Squamous Epith Cells /LPF Urine Bacteria /LPF Urine Mucus /LPF COVID-19 (NAMRATA) (Negative) COVID-19 Clin Com 05/28/21 05/28/21 05/28/21 Range/Units 17:59 18:18 19:55 WBC (4.8-10.8) X10*3/uL RBC (4.20-5.50) X10*6/uL Hgb (12.0-16.0) g/dl Hct (37.0-47.0) % MCV (80.0-98.0) fL MCH (27.0-33.0) pg MCHC (31.0-35.0) g/dl RDW (11.0-16.0) % Plt Count (160-400) X10*3/uL MPV (9.4-12.3) fL Immature Gran % (Auto) (0.0-0.4) % Neut % (Auto) (45-73) % Lymph % (Auto) (20-40) % Williams % (Auto) (2-11) % Eos % (Auto) (0-4) % Baso % (Auto) (0-2) % Lymph # (Auto) (1.2-4.9) X10*3/uL Williams # (Auto) (0.1-1.2) X10*3/uL Eos # (Auto) (0.0-0.4) X10*3/uL Baso # (Auto) (0.0-0.2) X10*3/uL Abs Immat Gran (auto) (0.00-0.03) X10*3/uL Absolute Neuts (auto) (2.0-8.3) x10*3/uL Absolute Nucleated RBC (0.0-0.012) X10*3/uL Nucleated RBC % (auto) (0.0-0.2) /100WBC D-Dimer High Sensitivty 608 NG/ML Sodium (135-145) mmol/L Potassium (3.3-5.1) mmol/L Chloride (96-108) mmol/L Carbon Dioxide (22-29) mmol/L Anion Gap (12-20) BUN (9-16) mg/dL Creatinine (0.5-1.4) mg/dL Estim Creat Clear Calc Estimated GFR Random Glucose (60-115) mg/dL Calcium (8.4-10.2) mg/dL Troponin I High Sens (<3.5-17.0) ng/L B-Natriuretic Peptide (<100) pg/mL Urine Color YELLOW Urine Appearance HAZY Urine pH 6.5 (5.0-8.0) Ur Specific [place] 1.020 (1.005-1.025) Urine Protein NEG (NEG-TRACE) MG/DL Urine Glucose (UA) NEG (NEG) MG/DL Urine Ketones NEG (NEG) MG/DL Urine Blood 1+ H (NEG) Urine Nitrite NEG (NEG) Ur Leukocyte Esterase NEG (NEG) Urine RBC 0-2 (0) /HPF Urine WBC 0-2 (0-4) /HPF Ur Squamous Epith Cells 3+ /LPF Urine Bacteria 1+ /LPF Urine Mucus TRACE /LPF COVID-19 (NAMRATA) Negative (Negative) COVID-19 Clin Com See Note Discharge Plan Discharge Clinical Impression: COPD (chronic obstructive pulmonary disease), Pleural effusion, Smoker Patient Disposition: Home, Self-Care Instructions: How to Stop Smoking (ED), COPD (Chronic Obstructive Pulmonary Disease) (ED), Pleural Effusion (ED) Prescriptions: New prednisone 10 mg tablet 10 mg PO DAILY Qty: 40 RF: 0 doxycycline hyclate 100 mg capsule 100 mg PO BID 7 Days Qty: 14 RF: 0 No Action Incruse Ellipta 62.5 mcg/actuation blister with device 1 inh PO DAILY Qty: 30 RF: 2 metformin 500 mg tablet 500 mg PO BID 30 Days Qty: 60 RF: 0 (DME) blood-glucose meter [[email or web address] Gilbert Lite] Kit See Rx Instructions .ROUTE .MEDSUPPLY Qty: 1 RF: 0 Lantus Solostar U-100 Insulin 100 unit/mL (3 mL) insulin pen 10 unit subcut QPM RF: 0 chlorthalidone 25 mg tablet 25 mg PO DAILY RF: 0 amlodipine 5 mg tablet 5 mg PO DAILY RF: 0 methadone 40 mg tablet,soluble 10 mg PO Q6-8H PRNRF: 0 albuterol sulfate [ProAir HFA] 90 mcg/actuation HFA aerosol inhaler 2 puff inhalation Q6H PRNRF: 0 Referrals: Adrianne Moffett MD [Primary Care Provider] - 2 days
[2021-05-28 18:23] LABS: COVID-19 Test Negative (Negative); IDNOW Serial# 55D5AD1C
[2021-05-28 18:32] LABS: D Dimer High Sensitivity 608 NG/ML
[2021-05-28] MEDS: predniSONE 20 MG TABLET 60 MG PO (19:46)
[2021-05-28 20:13] LABS: Appearance Urine HAZY; Color Urine YELLOW; Glucose Urine UA NEG (NEG); Leukocyte Esterase Urine NEG (NEG); Nitrite Urine NEG (NEG); PH 6.5 (5.0-8.0); UACC Culture Trigger NO; Urine Blood 1+ (NEG); Urine Ketones NEG (NEG); Urine Protein NEG (NEG-TRACE)
[2021-05-28 20:19] LABS: Mucus Urine TRACE /LPF; Squamous Epithelial Cell Urine 3+ /LPF
[2021-05-28 20:20] LABS: Bacteria Urine 1+ /LPF; RBC Urine 0-2 /HPF (0); WBC Urine 0-2 /HPF (0-4)
[2021-05-28] MEDS: iohexoL 350 MG/ML 100 ML INFUS..BTL 65 ML IV (20:42)
== END 2021-05-29 00:30 | disposition home or self-care (01) ==
PROVIDERS: Emergency Provider Emergency Medicine Emergency Medical Services; PCP Family Medicine
DX: J44.9 Chronic obstructive pulmonary disease, unspecified (principal); J90 Pleural effusion, not elsewhere classified; F17.200 Nicotine dependence, unspecified, uncomplicated; Z20.822 Contact with and (suspected) exposure to COVID-19; R06.02 Shortness of breath; E11.9 Type 2 diabetes mellitus without complications; I10 Essential (primary) hypertension; E78.5 Hyperlipidemia, unspecified; Z79.4 Long term (current) use of insulin; Z79.899 Other long term (current) drug therapy
CPT/HCPCS: 36415; 71046; 71275; 80048; 81001; 83880; 84484; 85025; 85379; 87635; 93005; 94640; 99284; Q9967

== ENCOUNTER → 2021-06-13 08:25 | Outpatient (BNVA) | payer MEDICAID, SELFPAY | PROVIDERS: PCP Family Medicine; Visit Provider Nurse Practitioner Gerontology ==

== ENCOUNTER → 2021-07-12 15:50 | Outpatient (BNVA) | payer MEDICAID, SELFPAY | PROVIDERS: PCP Family Medicine; Visit Provider Registered Nurse Diabetes Educator ==

== ENCOUNTER 2021-07-24 15:05 | Outpatient (REF) | payer MEDICAID, SELFPAY ==
--- NOTE | ~2021-07-24 | US_ITS ---
EXAMINATION: US COMPLETE ABDOMEN WITH LIVER ELASTOGRAPHY CLINICAL INFORMATION: Chronic hepatitis C and history of alcohol use COMPARISON: Previous ultrasounds most recent August 2019 and MRI of the abdomen January [address] of the January 2000 and TECHNIQUE: Real-time imaging of the abdominal viscera. Noninvasive ultrasound liver fibrosis assessment is performed using [employer] ElastPQ point quantification shear wave elastography (2D-SWE) with a C5-2 MHz transducer. Multiple elastography samples are obtained. FINDINGS: PANCREAS: Not well visualized due to bowel gas ABDOMINAL AORTA: Not well visualized due to bowel gas INFERIOR VENA CAVA: Not well visualized due to bowel gas.. LIVER: Liver echotexture is increased. The liver is enlarged. The liver is normal in contour. No focal liver lesion or biliary duct dilatation. The right lobe measures 19 cm in length. The left lobe measures 14 cm in length. Portal flow is normal/hepatopedal Shear wave liver elastography median stiffness is 1.5 m/s (reference: normal median stiffness is 1.3 m/s or less). IQR/median stiffness to assess sampling precision is 0.12 (reference: good quality data set is IQR/median stiffness of 0.15 or less). GALLBLADDER: The gallbladder is contracted. No gallstones are seen. COMMON BILE DUCT: Normal in caliber measuring 0.6 cm in diameter. RIGHT KIDNEY: Normal. No hydronephrosis. No renal calculi or focal parenchymal lesions. The kidney measures 9.6 cm in maximum dimension. LEFT KIDNEY: Normal. No hydronephrosis. No renal calculi or focal parenchymal lesions. The kidney measures 10.2 cm in maximum dimension. SPLEEN: Normal. The spleen measures 10.2 cm in maximum dimension. FREE FLUID: None. US/US abdomen comp w elastography IMPRESSION: 1. Impression: Enlarged echogenic liver. Contracted gallbladder. Limited visualization of the pancreas, aorta and IVC. 2. Liver elastography: Adequate liver sampling. In the absence of other known clinical signs, rules out compensated advanced chronic liver disease. REFERENCE: Society of Radiologists in Ultrasound Liver Stiffness Thresholds (2019): LIVER STIFFNESS THRESHOLDS: *Liver Stiffness equal or less than 1.3 m/s: High probability of being normal. *Liver Stiffness less than 1.7 m/s: In the absence of other known clinical signs, rules out compensated advanced chronic liver disease. *Liver Stiffness 1.7-2.1 m/s: Suggestive of compensated advanced chronic liver disease but need further test for confirmation. *Liver Stiffness over 2.1 m/s: Rules in compensated advanced chronic liver disease. *Liver Stiffness over 2.4 m/s: Suggestive of clinically significant portal hypertension. QUALITY OF DATA SET: *IQR/Median value equal or less than 0.15 implies a quality data set. *IQR/Median value over 0.15 implies a poor quality data set. SIGNIFICANT CHANGE FROM PRIOR EXAM: Significant change if liver stiffness measurement is 10% or greater from prior exam. OTHER CONSIDERATIONS: The stage of liver fibrosis may be overestimated in the setting of acute hepatitis, liver inflammation, elevated liver function tests, hepatic vascular congestion, obstructive cholestasis, non-fasting state, and infiltrative diseases such as amyloidosis and lymphoma. In some patients with NAFLD, the liver stiffness thresholds for compensated advanced chronic liver disease may be lower. In causes other than viral hepatitis and NAFLD, liver stiffness thresholds are not well established.
== END 2021-07-24 15:06 | disposition home or self-care (01) ==
LOC: HO.US 15:05
PROVIDERS: Visit Provider Internal Medicine
DX: B18.2 Chronic viral hepatitis C (principal); K70.9 Alcoholic liver disease, unspecified
CPT/HCPCS: 76705; 76981

== ENCOUNTER → 2021-07-31 13:24 | Outpatient (BNVA) | payer MEDICAID, SELFPAY | PROVIDERS: PCP Family Medicine; Visit Provider Internal Medicine | DX: J44.9 Chronic obstructive pulmonary disease, unspecified (principal); F17.210 Nicotine dependence, cigarettes, uncomplicated | CPT/HCPCS: 99212 ==

== ENCOUNTER → 2021-08-27 14:26 | Outpatient (BNVA) | payer MEDICAID, SELFPAY | PROVIDERS: PCP Family Medicine; Visit Provider Registered Nurse Diabetes Educator | DX: E11.9 Type 2 diabetes mellitus without complications (principal); Z79.4 Long term (current) use of insulin | CPT/HCPCS: 99211 ==

== ENCOUNTER → 2021-09-16 09:46 | Outpatient (BNVA) | payer MEDICAID, SELFPAY | PROVIDERS: PCP Family Medicine; Visit Provider Nurse Practitioner Gerontology | DX: E11.9 Type 2 diabetes mellitus without complications (principal); I10 Essential (primary) hypertension; E66.3 Overweight; Z68.29 Body mass index [BMI] 29.0-29.9, adult; F17.210 Nicotine dependence, cigarettes, uncomplicated; Z79.4 Long term (current) use of insulin; Z79.899 Other long term (current) drug therapy | CPT/HCPCS: 82947; 83036; 99212 ==

== ENCOUNTER 2021-10-09 13:57 | Outpatient (REF) | payer MEDICAID, SELFPAY ==
[2021-10-12 14:45] LABS: HPV mRNA E6/E7 rflx Not Detected (Not Detected)
== END 2021-10-09 13:58 | disposition home or self-care (01) ==
LOC: HO.LAB 13:57
PROVIDERS: PCP Family Medicine; Visit Provider Obstetrics & Gynecology
DX: Z01.419 Encounter for gynecological examination (general) (routine) without abnormal findings (principal); F17.210 Nicotine dependence, cigarettes, uncomplicated
CPT/HCPCS: 87624; 88142; 99212

== ENCOUNTER → 2021-12-19 13:09 | Outpatient (BNVA) | payer MEDICAID, SELFPAY | PROVIDERS: PCP Family Medicine; Visit Provider Internal Medicine | DX: J44.9 Chronic obstructive pulmonary disease, unspecified (principal); F17.210 Nicotine dependence, cigarettes, uncomplicated | CPT/HCPCS: 99212 ==

== ENCOUNTER 2022-02-28 08:25 | Outpatient (REF) | payer MEDICAID, SELFPAY ==
[2022-02-28 09:34] LABS: Alanine Aminotransferase 25 U/L (0-31); Albumin Level 4.4 g/dL (3.5-5.0); Alkaline Phosphatase 107 U/L (39-117); Anion Gap 16 (12-20); Aspartate Amino Transferase 46 U/L (5-31); Bilirubin Total 0.5 mg/dL (0.0-1.0); Blood Urea Nitrogen 9 mg/dL (9-16); Calcium 9.4 mg/dL (8.4-10.2); Carbon Dioxide 29 mmol/L (22-29); Chloride 97 mmol/L (96-108); Cholesterol 79 mg/dL; Estimated Glomerular Filt Rate > 60; Glucose Fasting 95 mg/dL (60-99); HDL Cholesterol 24 mg/dL; LDL Cholesterol Calculated 36 mg/dl; Potassium 3.9 mmol/L (3.3-5.1); Sodium 138 mmol/L (135-145); Total Protein 8.7 g/dL (6.5-8.0); Triglycerides 96 mg/dL
[2022-02-28 09:52] LABS: Free T4 (Free Thyroxine) 0.89 ng/dL (0.71-1.85); Thyroid Stimulating Hormone 5.59 uIU/mL (0.32-4.0)
[2022-02-28 10:33] LABS: Creatinine Urine 55.65 mg/dL; Microalbumin Urine < 5.0 mg/L
[2022-03-03 02:12] LABS: LDL Cholesterol Direct 38 mg/dL (<100)
[2022-03-03 07:06] LABS: C Peptide 2.41 ng/mL (0.80-3.85)
[2022-03-07 15:27] LABS: Glutamic acid decarboxylase Ab 40 IU/mL (<5)
[2022-03-21 23:41] LABS: Islet Cell Antibody Screen NEGATIVE (NEGATIVE)
== END 2022-02-28 08:26 | disposition home or self-care (01) ==
LOC: HO.LAB 08:25
PROVIDERS: Nurse Practitioner Gerontology; PCP Family Medicine; Visit Provider Internal Medicine Endocrinology, Diabetes & Metabolism
DX: E11.9 Type 2 diabetes mellitus without complications (principal); Z79.4 Long term (current) use of insulin
CPT/HCPCS: 36415; 80053; 80061; 82043; 83721; 84439; 84443; 84681; 86255; 86341

== ENCOUNTER 2022-03-05 07:50 | Outpatient (REF) | payer MEDICAID, SELFPAY ==
[2022-03-05 08:26] LABS: Anion Gap 17 (12-20); Blood Urea Nitrogen 11 mg/dL (9-16); Calcium 9.5 mg/dL (8.4-10.2); Carbon Dioxide 29 mmol/L (22-29); Chloride 95 mmol/L (96-108); Estimated Glomerular Filt Rate > 60; Glucose Random 96 mg/dL (60-115); Potassium 3.6 mmol/L (3.3-5.1); Sodium 137 mmol/L (135-145)
[2022-03-05 08:51] LABS: Free T4 (Free Thyroxine) 1.13 ng/dL (0.71-1.85); Thyroid Stimulating Hormone 5.39 uIU/mL (0.32-4.0)
[2022-03-07 18:46] LABS: Thyroid Peroxidase Antibodies 1 IU/mL (<9)
== END 2022-03-05 07:51 | disposition home or self-care (01) ==
LOC: HO.LAB 07:50
PROVIDERS: Absent Provider Nurse Practitioner Gerontology; PCP Family Medicine; Visit Provider Internal Medicine Endocrinology, Diabetes & Metabolism
DX: E11.9 Type 2 diabetes mellitus without complications (principal); Z79.4 Long term (current) use of insulin
CPT/HCPCS: 36415; 80048; 84439; 84443; 86376

== ENCOUNTER → 2022-03-07 14:28 | Outpatient (BNVA) | payer MEDICAID, SELFPAY | PROVIDERS: PCP Family Medicine; Visit Provider Internal Medicine Endocrinology, Diabetes & Metabolism | DX: E11.9 Type 2 diabetes mellitus without complications (principal); R79.89 Other specified abnormal findings of blood chemistry; Z79.4 Long term (current) use of insulin | CPT/HCPCS: 82947; 83036; 99212 ==

== ENCOUNTER 2022-04-16 11:42 | Outpatient (REF) | payer MEDICAID, SELFPAY ==
[2022-04-16 14:32] LABS: Free T4 (Free Thyroxine) 1.19 ng/dL (0.71-1.85); Thyroid Stimulating Hormone 1.55 uIU/mL (0.32-4.0)
== END 2022-04-16 11:43 | disposition home or self-care (01) ==
LOC: HO.10HDL 11:42
PROVIDERS: Visit Provider Internal Medicine Endocrinology, Diabetes & Metabolism
DX: R79.89 Other specified abnormal findings of blood chemistry (principal)
CPT/HCPCS: 36415; 84439; 84443; 99211; 99499

== ENCOUNTER → 2022-04-30 08:43 | Outpatient (BNVA) | payer MEDICAID, SELFPAY | PROVIDERS: PCP Family Medicine; Visit Provider Registered Nurse Diabetes Educator | DX: E11.9 Type 2 diabetes mellitus without complications (principal); Z79.4 Long term (current) use of insulin | CPT/HCPCS: 99211 ==

== ENCOUNTER → 2022-06-23 13:44 | Outpatient (BNVA) | payer MEDICAID, SELFPAY | PROVIDERS: PCP Family Medicine; Visit Provider Internal Medicine | DX: J44.9 Chronic obstructive pulmonary disease, unspecified (principal); F17.210 Nicotine dependence, cigarettes, uncomplicated | CPT/HCPCS: 99212 ==

== ENCOUNTER 2022-07-04 13:36 | Outpatient (REF) | payer MEDICAID, SELFPAY ==
--- NOTE | ~2022-07-04 | CT_ITS ---
EXAMINATION: CT CHEST SCREENING CLINICAL INFORMATION: Nicotine dependence. COMPARISON: None. TECHNIQUE: Multidetector volumetric CT imaging of the chest is performed without contrast using low dose technique. Additional 2D coronal and sagittal reformatted images and axial 3D maximum intensity projection (MIP) images are generated on the CT workstation. This CT examination was performed using dose optimization techniques as appropriate, variously including the following: *Automated exposure control *Adjustment of mA and/or kV according to patient size (this includes techniques or standardized protocols for targeted exams where dose is matched to indication/reason for exam; i.e. extremities or head) *Use of iterative reconstruction technique DLP: 44 mGy-cm. FINDINGS: LUNGS: The lungs are well expanded and clear of acute pneumonic process. There is a 2 mm nodule in the lingula axial image 29/4. No additional lung nodules visualized. MEDIASTINUM: The thyroid lobes are slightly asymmetrical with right slightly larger than left. The central trachea and the bronchi are widely patent. There are small shotty lymph nodes in the mediastinum. CORONARY ARTERY CALCIFICATION: None visualized on this study. PLEURA: There is no pleural effusion. No pleural mass or thickening. AXILLA: There are small shotty lymph nodes in the axilla. The chest wall is unremarkable. UPPER ABDOMEN: Visualized liver, spleen, pancreas and bilateral adrenal glands are unremarkable. OSSEOUS STRUCTURES: Unremarkable. CT/CT lung screening IMPRESSION: 2 mm nodule in the lingula. Otherwise unremarkable. ASSESSMENT: Lung-RADS category 2: Benign. RECOMMENDATION: Low-dose annual CT chest.
== END 2022-07-04 13:37 | disposition home or self-care (01) ==
LOC: HO.CT 13:36
PROVIDERS: PCP Family Medicine; Visit Provider Physician Assistant Medical
DX: Z12.2 Encounter for screening for malignant neoplasm of respiratory organs (principal); F17.210 Nicotine dependence, cigarettes, uncomplicated
CPT/HCPCS: 71271; G0296

== ENCOUNTER → 2022-09-17 12:14 | Outpatient (BNVA) | payer MEDICAID, SELFPAY | PROVIDERS: PCP Family Medicine; Visit Provider Internal Medicine Endocrinology, Diabetes & Metabolism | DX: E11.9 Type 2 diabetes mellitus without complications (principal); R79.89 Other specified abnormal findings of blood chemistry; Z79.4 Long term (current) use of insulin | CPT/HCPCS: 82947; 83036; 99212 ==

== ENCOUNTER 2022-09-18 12:15 | Outpatient (REF) | payer MEDICAID, SELFPAY ==
[2022-09-18 14:15] LABS: Free T4 (Free Thyroxine) 0.87 ng/dL (0.71-1.85); Thyroid Stimulating Hormone 2.43 uIU/mL (0.32-4.0)
== END 2022-09-18 12:16 | disposition home or self-care (01) ==
LOC: HO.LAB 12:15
PROVIDERS: PCP Family Medicine; Visit Provider Internal Medicine Endocrinology, Diabetes & Metabolism
DX: R79.89 Other specified abnormal findings of blood chemistry (principal)
CPT/HCPCS: 36415; 84439; 84443

== ENCOUNTER 2022-11-08 08:00 | Outpatient (REF) | payer MEDICAID, SELFPAY ==
--- NOTE | ~2022-11-08 | MM_ITS ---
EXAMINATION: MM SCREENING DIGITAL BREAST TOMOSYNTHESIS, BILATERAL CLINICAL INFORMATION: Screening. Asymptomatic. History breast cancer, mother. The lifetime risk of breast cancer based on the Tyrer-Cuzick Model is 17%. COMPARISON: Mammography: 09/15/2016, 12/26/2014 TECHNIQUE: Digital breast tomosynthesis is performed in both the craniocaudal and mediolateral oblique views along with computer-aided detection (CAD). Synthesized 2D images are generated from the tomosynthesis. FINDINGS: The breasts are heterogeneously dense, which may obscure small masses (ACR BI-RADS breast composition Category c). There are no significant masses, abnormal calcifications, or other abnormalities. Parenchymal pattern is similar to prior studies. There is no developing density or architectural abnormality. The axilla and skin contours are unremarkable. No significant changes. MM/MM tomosynthesis screening BI IMPRESSION: No mammographic evidence of malignancy. ASSESSMENT: BI-RADS 1: Negative RECOMMENDATION: Routine annual mammography screening. This patient's information was entered into a reminder system with a target due date for their next mammogram.
== END 2022-11-08 08:01 | disposition home or self-care (01) ==
LOC: HO.MAMMO 08:00
PROVIDERS: PCP Family Medicine; Visit Provider Family Medicine
DX: Z12.31 Encounter for screening mammogram for malignant neoplasm of breast (principal)
CPT/HCPCS: 77063; 77067

== ENCOUNTER 2022-11-21 09:54 | Emergency (ER) | payer MEDICAID, SELFPAY ==
[2022-11-21 10:01] VITALS: BP 116/39; PULSE 83; RESP 19; TEMP 36.1; O2SAT 96; BMI 30.1
--- NOTE | 2022-11-21 10:49 | ED.GENADULT ---
HPI - General Adult General Chief complaint: General Medical Stated complaint: both leg pain Time Seen by Provider: 11/21/22 10:47 Source: patient Mode of arrival: ambulatory Limitations: no limitations History of Present Illness HPI narrative: Patient is 62 years old with history of ASD, hypertension, hepatitis-C, COPD, alcoholic cirrhosis comes in for 6 months of leg swelling and abdominal fullness and about 35 lb weight gain with no shortness of breath no kidney problems patient has decreased drinking alcohol now. Patient able to see her PCP since swelling started no chest pain or palpitation Related Data Home Medications Medication Instructions Recorded Confirmed chlorthalidone 25 mg tablet 25 mg PO DAILY 04/18/20 06/23/22 albuterol sulfate 90 mcg/actuation 2 puff inhalation Q6H PRN Wheezing 05/09/20 06/23/22 aerosol inhaler (ProAir HFA) amlodipine 2.5 mg tablet 2.5 mg PO DAILY 09/16/21 06/23/22 atorvastatin 40 mg tablet 40 mg PO BEDTIME 12/19/21 06/23/22 triamcinolone acetonide 0.5 % appl topical BID 12/19/21 06/23/22 topical cream nicotine 21 mg/24 hr daily 1 patch topical DAILY 03/07/22 06/23/22 transdermal patch clonidine HCl 0.1 mg tablet 0.1 mg PO BEDTIME 09/17/22 cyclobenzaprine 10 mg tablet 10 mg PO Q8H PRN 09/17/22 trazodone 50 mg tablet 50 mg PO BEDTIME PRN insomnia 09/17/22 Previous Rx's Medication Instructions Recorded lancets 28 gauge (FreeStyle #200 ea 09/16/21 Lancets) blood sugar diagnostic (FreeStyle #120 ea 10/22/21 Lite Strips) acetone (urine) test (Ketone Urine #50 ea 04/16/22 Test strips) insulin lispro 100 unit/mL 8 unit (0.08 mL) subcut TID #15 mL 06/03/22 subcutaneous pen umeclidinium 62.5 mcg/actuation 1 inh inhalation DAILY copd #30 ea 06/23/22 blister powder for inhalation (Incruse Ellipta) levothyroxine 75 mcg tablet 75 mcg PO DAILY #90 tabs 09/01/22 blood-glucose meter (FreeStyle #1 ea 09/17/22 [place] Lite kit) flash glucose scanning reader #1 ea 09/17/22 (FreeStyle Leonardo 2 [place]) flash glucose sensor (FreeStyle #2 ea 09/17/22 Leonardo 2 Sensor kit) pen needle, diabetic 32 gauge x #125 ea 09/17/22 (BD Ultra-Fine Nimco Pen Needle) insulin glargine 100 unit/mL (3 20 unit (0.2 mL) subcut QPM #15 mL 10/09/22 mL) subcutaneous pen (Lantus Solostar U-100 Insulin) magnesium oxide 400 mg PO DAILY #30 tabs 11/21/22 potassium chloride 20 mEq 20 meq PO DAILY #30 tabs 11/21/22 tablet,extended release spironolactone 50 mg tablet 50 mg PO QAM #30 tabs 11/21/22 Allergies Allergy/AdvReac Type Severity Reaction Status Date / Time No Known Allergies Allergy Verified 11/21/22 10:01 [No Known Allergies*] Review of Systems Review of Systems: Yes all other systems are reviewed and are negative PMFSH Past Medical History Medical History Cirrhosis COPD (chronic obstructive pulmonary disease) Diabetes mellitus (~2020) Dysplasia of cervix, low grade (SHELLIE 1) (~2016) Elevated TSH Essential hypertension Hepatitis C HTN (hypertension) Nicotine dependence, cigarettes, uncomplicated Osteopenia (~2014) Overweight Tubular adenoma of colon (~2014) Surgical History History of cervical biopsy (~2016) History of section History of colonoscopy (~2014) History of liver biopsy (~2008) History of tubal ligation History of unilateral salpingectomy Family History Family History Father No problems noted. Mother Heart problem Cancer Maternal Grandmother Diabetes Brother Diabetes Sister Diabetes Brother Diabetes Social History Social History Household Members: Friend(s) Alcohol intake: current Alcohol intake frequency: a few times a month Patient Tobacco Use Status: Current everyday Tobacco user Cigarette Packs Per Day: 0.5 Years Smoked: (onset 12yo, x 50yrs, max 2ppd, now 1/2ppd - 50+PYH) Substance Use Type: Opiates Advance Directives: Yes Advance Directives Information Provided: Yes Advance Directives on File: No Sexual orientation: Straight/Heterosexual Gender identity: Female Physical Exam ED Vital Signs: Vital Signs - 24 hr 11/21/22 10:01 11/21/22 10:56 11/21/22 11:52 Temperature 97 F 97.8 F Pulse Rate 83 82 71 Respiratory Rate 19 18 16 Blood Pressure 116/39 L 122/66 101/54 L Pulse Oximetry 96 96 98 Oxygen Delivery Method Room Air Room Air BMI result Body Mass Index 30.1 Appearance: Alert. Oriented X3. No acute distress. Eyes: PERRLA, No Nystagmus no pallor or icterus ENT: Pharynx normal. Oral Mucosa moist Neck: Normal inspection. Neck supple. CVS: Normal heart rate and rhythm. Pulses normal. Respiratory: No respiratory distress. Equal air entry bilateral, no wheezing/rales/rhonchi Abdomen: Soft and nontender. Ascites++ hepatomegaly Bowel sounds are present, no CVA tenderness Skin: Skin warm and dry. Normal skin color. Normal skin turgor. Extremities: 3+ lower extremity edema. No calf tenderness Neuro: Oriented X 3. No motor deficit. No sensory deficit.No cerebellar signs , cranial nerves II-XII intact Medications Administered Discontinued Medications Generic Name Dose Route Start Last Admin Trade Name Freq PRN Reason Stop Dose Admin Potassium Chloride 40 meq in 100 mls @ 100 mls/hr 11/21/22 12:16 11/21/22 14:17 Potassium Chloride/H20 IV 11/21/22 13:15 Not Given ONCE ONE Magnesium Sulfate/Dextrose 1 gm in 100 mls @ 100 mls/hr 11/21/22 12:16 11/21/22 15:53 Magnesium Sulfate/D5w IV 11/21/22 13:15 Infused ONCE ONE Infusion Potassium Chloride 10 meq in 100 mls @ 100 mls/hr 11/21/22 13:45 11/21/22 15:49 Potassium Chloride/H20 IV 11/21/22 15:44 100 mls/hr Q1H GAYLA Administration Magnesium Oxide 400 mg 11/21/22 12:19 11/21/22 12:27 Magnesium Oxide 400 Mg Tablet PO 11/21/22 12:20 400 mg ONCE ONE Administration Potassium Bicarbonate 50 meq 11/21/22 12:19 11/21/22 12:27 Potassium Bicarbonate/Cit Ac 25 Meq Tablet.Eff PO 11/21/22 12:20 50 meq ONCE ONE Administration Potassium Bicarbonate 25 meq 11/21/22 15:18 11/21/22 15:49 Potassium Bicarbonate/Cit Ac 25 Meq Tablet.Eff PO 11/21/22 15:19 25 meq ONCE ONE Administration Spironolactone 25 mg 11/21/22 12:16 11/21/22 12:27 Spironolactone 25 Mg Tablet PO 11/21/22 12:17 25 mg ONCE ONE Administration Protocol Medical Decision Making Medical Decision Making [facility] Narrative: Patient with hypokalemia and hypomagnesemia with background of alcoholic cirrhosis with peripheral edema and ascites. With stable vitals will replace potassium and magnesium discharge patient home on spironolactone advised to follow-up with president [employer] Lab Data [facility] Lab Attestation statement: I reviewed the patient's lab results. 11/21/22 11:21 11/21/22 11:21 Labs: Lab Results 11/21/22 11/21/22 11/21/22 Range/Units 11:21 11:21 11:21 WBC 8.4 (4.8-10.8) X10*3/uL RBC 3.82 L (4.20-5.50) X10*6/uL Hgb 10.0 L D (12.0-16.0) g/dl Hct 31.4 L (37.0-47.0) % MCV 82.2 (80.0-98.0) fL MCH 26.2 L (27.0-33.0) pg MCHC 31.8 (31.0-35.0) g/dl RDW 15.6 (11.0-16.0) % Plt Count 215 (160-400) X10*3/uL MPV 10.4 (9.4-12.3) fL Immature Gran % (Auto) 0.6 H (0.0-0.4) % Neut % (Auto) 73.6 H (45-73) % Lymph % (Auto) 14.3 L (20-40) % [place] % (Auto) 7.9 (2-11) % Eos % (Auto) 2.9 (0-4) % Baso % (Auto) 0.7 (0-2) % Lymph # (Auto) 1.2 (1.2-4.9) X10*3/uL [place] # (Auto) 0.7 (0.1-1.2) X10*3/uL Eos # (Auto) 0.2 (0.0-0.4) X10*3/uL Baso # (Auto) 0.1 (0.0-0.2) X10*3/uL Abs Immat Gran (auto) 0.05 H (0.00-0.03) X10*3/uL Absolute Neuts (auto) 6.2 (2.0-8.3) x10*3/uL Absolute Nucleated RBC 0.000 (0.0-0.012) X10*3/uL Nucleated RBC % (auto) 0.0 (0.0-0.2) /100WBC PT 14.1 H (10.0-13.1) SEC INR 1.2 H (0.9-1.1) Sodium 131 L (135-145) mmol/L Potassium 2.6 L D (3.3-5.1) mmol/L Chloride 87 L (96-108) mmol/L Carbon Dioxide 33 H (22-29) mmol/L Anion Gap 14 (12-20) BUN 6 L (9-16) mg/dL Creatinine 0.79 (0.5-1.4) mg/dL Estim Creat Clear Calc 73.5 Estimated GFR > 60 Random Glucose 238 H (60-115) mg/dL Calcium 8.8 D (8.4-10.2) mg/dL Magnesium 1.4 L* (1.6-2.6) mg/dL Total Bilirubin 0.8 (0.0-1.0) mg/dL AST 53 H (5-31) U/L ALT 33 H (0-31) U/L Alkaline Phosphatase 99 (39-117) U/L Ammonia (13-55) umol/L Troponin I High Sens (<3.5-17.0) ng/L B-Natriuretic Peptide (<100) pg/mL Total Protein 6.9 (6.5-8.0) g/dL Albumin 3.1 L (3.5-5.0) g/dL 11/21/22 11/21/22 11/21/22 Range/Units 11:21 11:21 11:21 WBC (4.8-10.8) X10*3/uL RBC (4.20-5.50) X10*6/uL Hgb (12.0-16.0) g/dl Hct (37.0-47.0) % MCV (80.0-98.0) fL MCH (27.0-33.0) pg MCHC (31.0-35.0) g/dl RDW (11.0-16.0) % Plt Count (160-400) X10*3/uL MPV (9.4-12.3) fL Immature Gran % (Auto) (0.0-0.4) % Neut % (Auto) (45-73) % Lymph % (Auto) (20-40) % [place] % (Auto) (2-11) % Eos % (Auto) (0-4) % Baso % (Auto) (0-2) % Lymph # (Auto) (1.2-4.9) X10*3/uL [place] # (Auto) (0.1-1.2) X10*3/uL Eos # (Auto) (0.0-0.4) X10*3/uL Baso # (Auto) (0.0-0.2) X10*3/uL Abs Immat Gran (auto) (0.00-0.03) X10*3/uL Absolute Neuts (auto) (2.0-8.3) x10*3/uL Absolute Nucleated RBC (0.0-0.012) X10*3/uL Nucleated RBC % (auto) (0.0-0.2) /100WBC PT (10.0-13.1) SEC INR (0.9-1.1) Sodium (135-145) mmol/L Potassium (3.3-5.1) mmol/L Chloride (96-108) mmol/L Carbon Dioxide (22-29) mmol/L Anion Gap (12-20) BUN (9-16) mg/dL Creatinine (0.5-1.4) mg/dL Estim Creat Clear Calc Estimated GFR Random Glucose (60-115) mg/dL Calcium (8.4-10.2) mg/dL Magnesium (1.6-2.6) mg/dL Total Bilirubin (0.0-1.0) mg/dL AST (5-31) U/L ALT (0-31) U/L Alkaline Phosphatase (39-117) U/L Ammonia 25 (13-55) umol/L Troponin I High Sens 7.1 (<3.5-17.0) ng/L B-Natriuretic Peptide 173 H (<100) pg/mL Total Protein (6.5-8.0) g/dL Albumin (3.5-5.0) g/dL Independent Interpretation I performed an independent interpretation of an: EKG Interpretation: Normal sinus rhythm heart rate 81 beats per minute normal axis normal intervals nonspecific ST T wave changes no acute ischemia Discharge Plan Discharge Clinical Impression: Cirrhosis of liver, Leg edema, Acute hypokalemia, Hypomagnesemia Patient Disposition: Home, Self-Care Instructions: Cirrhosis (ED), Hypokalemia (ED), Hypomagnesemia (ED), Edema (ED) Additional Instructions: Follow-up with president [employer] for further evaluation Spironolactone 1 tablet daily Potassium tablets and magnesium tablets daily Stop drinking alcohol Prescriptions: New spironolactone 50 mg tablet 50 mg PO QAM Qty: 30 0RF magnesium oxide 400 mg magnesium tablet 400 mg PO DAILY Qty: 30 0RF potassium chloride 20 mEq tablet extended release 20 meq PO DAILY Qty: 30 0RF No Action (DME) FreeStyle Lite Strips Strip See Rx Instructions Not Applicable BID Qty: 120 11RF Rx Instructions: As directed 4 x/day (DME) Ketone Urine Test Strip See Rx Instructions .Route Qty: 50 3RF Rx Instructions: As directed insulin lispro 100 unit/mL insulin pen 8 unit subcut TID Qty: 15 4RF levothyroxine 75 mcg tablet 75 mcg PO DAILY Qty: 90 1RF (DME) pen needle, diabetic [BD Ultra-Fine Nimco Pen Needle] 32 gauge x 5/32 needle See Rx Instructions .ROUTE .MEDSUPPLY Qty: 125 11RF Rx Instructions: As directed four times a day insulin glargine [Lantus Solostar U-100 Insulin] 100 unit/mL (3 mL) insulin pen 20 unit subcut QPM Qty: 15 4RF chlorthalidone 25 mg tablet 25 mg PO DAILY albuterol sulfate [ProAir HFA] 90 mcg/actuation HFA aerosol inhaler 2 puff inhalation Q6H PRN (Reason: Wheezing) triamcinolone acetonide 0.5 % cream topical BID atorvastatin 40 mg tablet 40 mg PO BEDTIME Incruse Ellipta 62.5 mcg/actuation blister with device 1 inh inhalation DAILY Qty: 30 5RF cyclobenzaprine 10 mg tablet 10 mg PO Q8H PRN clonidine HCl 0.1 mg tablet 0.1 mg PO BEDTIME trazodone 50 mg tablet 50 mg PO BEDTIME PRN (Reason: insomnia) (DME) FreeStyle Leonardo 2 [place] Misc See Rx Instructions .Route Qty: 1 0RF Rx Instructions: As directed (DME) FreeStyle Leonardo 2 Sensor Kit See Rx Instructions .Route Qty: 2 6RF Rx Instructions: As directed change every 14 days (DME) blood-glucose meter [FreeStyle [place] Lite] Kit See Rx Instructions .ROUTE .MEDSUPPLY Qty: 1 0RF Rx Instructions: As directed amlodipine 2.5 mg tablet 2.5 mg PO DAILY (DME) lancets [FreeStyle Lancets] 28 gauge misc See Rx Instructions .ROUTE .MEDSUPPLY Qty: 200 11RF Rx Instructions: 4 times a day nicotine 21 mg/24 hr patch 24 hour 1 patch topical DAILY Referrals: Moses El MD [Physician] - 1 week
[2022-11-21 10:56] VITALS: BP 122/66; PULSE 82; RESP 18; O2SAT 96
--- NOTE | 2022-11-21 10:57 | ECG_ITS ---
Test Reason : EDEMA Blood Pressure : / mmHG Vent. Rate : 081 BPM Atrial Rate : 081 BPM P-R Int : 154 ms QRS Dur : 072 ms QT Int : 410 ms P-R-T Axes : 075 049 061 degrees QTc Int : 476 ms Normal sinus rhythm Nonspecific ST abnormality Abnormal ECG When compared with ECG of 28-MAY-2021 15:53, No significant change was found Referred By: Jose Frias Electronically Signed By:Lakhwinder Celeste
--- NOTE | 2022-11-21 11:28 | PC.NURSE ---
Pt reporting hx of ETOH, and treated hep c, pt reporting she has a dx of ascites, at bedside, labs ordered and obtained
[2022-11-21 11:36] LABS: MANUAL DIFF FLAG NO
[2022-11-21 11:42] LABS: Basophils Absolute Auto 0.1 X10*3/uL (0.0-0.2); Basophils Percent Auto 0.7 % (0-2); Eosinophils Absolute Auto 0.2 X10*3/uL (0.0-0.4); Eosinophils Percent Auto 2.9 % (0-4); Hematocrit 31.4 % (37.0-47.0); Imm Gran Abs Auto 0.05 X10*3/uL (0.00-0.03); Imm Gran Pct Auto 0.6 % (0.0-0.4); Lymphocytes Absolute Auto 1.2 X10*3/uL (1.2-4.9); Lymphocytes Percent Auto 14.3 % (20-40); Mean Corpuscular HGB Conc 31.8 g/dl (31.0-35.0); Mean Corpuscular Hemoglobin 26.2 pg (27.0-33.0); Mean Corpuscular Volume 82.2 fL (80.0-98.0); Mean Platelet Volume 10.4 fL (9.4-12.3); Monocytes Absolute Auto 0.7 X10*3/uL (0.1-1.2); Monocytes Percent Auto 7.9 % (2-11); Neutrophils Absolute Auto 6.2 x10*3/uL (2.0-8.3); Neutrophils Percent Auto 73.6 % (45-73); Platelet Count 215 X10*3/uL (160-400); Red Blood Count 3.82 X10*6/uL (4.20-5.50); Red Cell Distribution Width 15.6 % (11.0-16.0); White Blood Count 8.4 X10*3/uL (4.8-10.8)
[2022-11-21 11:51] LABS: Ammonia 25 umol/L (13-55); INTERNATIONAL NORM RATIO 1.2 (0.9-1.1); Prothrombin Time 14.1 SEC (10.0-13.1)
[2022-11-21 11:52] VITALS: BP 101/54; PULSE 71; RESP 16; TEMP 36.6; O2SAT 98
[2022-11-21 12:02] LABS: Alanine Aminotransferase 33 U/L (0-31); Albumin Level 3.1 g/dL (3.5-5.0); Alkaline Phosphatase 99 U/L (39-117); Anion Gap 14 (12-20); Aspartate Amino Transferase 53 U/L (5-31); Bilirubin Total 0.8 mg/dL (0.0-1.0); Blood Urea Nitrogen 6 mg/dL (9-16); Calcium 8.8 mg/dL (8.4-10.2); Carbon Dioxide 33 mmol/L (22-29); Chloride 87 mmol/L (96-108); Creatinine Clr Calc Pharmacy 73.5; Estimated Glomerular Filt Rate > 60; Glucose Random 238 mg/dL (60-115); Magnesium 1.4 mg/dL (1.6-2.6); Potassium 2.6 mmol/L (3.3-5.1); Sodium 131 mmol/L (135-145); Total Protein 6.9 g/dL (6.5-8.0)
[2022-11-21 12:03] LABS: B Type Natriuretic Peptide 173 pg/mL (<100)
[2022-11-21 12:06] LABS: Troponin-I High Sensitivity 7.1 ng/L (<3.5-17.0)
[2022-11-21] MEDS: Magnesium Oxide 400 MG TABLET PO (12:27)
[2022-11-21] MEDS: Magnesium Sulfate/D5W 1 GM/100 ML PIGGYBACK IV (12:27)
[2022-11-21] MEDS: Spironolactone 25 MG TABLET PO (12:27)
[2022-11-21] MEDS: Potassium Bicarbonate/Cit AC 25 MEQ TABLET.EFF 50 MEQ PO (12:27)
[2022-11-21] MEDS: Potassium Chloride/H20 10 MEQ/100 ML PIGGYBACK 100 MEQ IV ×2 (14:17→15:49)
[2022-11-21] MEDS: Potassium Bicarbonate/Cit AC 25 MEQ TABLET.EFF PO (15:49)
[2022-11-21 15:56] VITALS: BP 106/59; PULSE 92; RESP 16; O2SAT 93
== END 2022-11-21 17:59 | disposition home or self-care (01) ==
PROVIDERS: Emergency Provider Internal Medicine; PCP Family Medicine
DX: K74.60 Unspecified cirrhosis of liver (principal); E83.42 Hypomagnesemia; R60.0 Localized edema; R06.02 Shortness of breath; R94.31 Abnormal electrocardiogram [ECG] [EKG]; I10 Essential (primary) hypertension; Z79.899 Other long term (current) drug therapy
CPT/HCPCS: 36415; 80053; 82140; 83735; 83880; 84484; 85025; 85610; 93005; 96365; 96366; 96375; 99285; J3475

== ENCOUNTER → 2022-12-05 08:19 | Outpatient (BNVA) | payer MEDICAID, SELFPAY | PROVIDERS: PCP Family Medicine; Visit Provider Registered Nurse Diabetes Educator | DX: E11.9 Type 2 diabetes mellitus without complications (principal) | CPT/HCPCS: 99211 ==

== ENCOUNTER 2023-07-27 09:10 | Outpatient (REF) | payer MEDICAID, SELFPAY ==
[2023-07-27 09:51] LABS: MANUAL DIFF FLAG NO
[2023-07-27 10:03] LABS: Basophils Absolute Auto 0.1 X10*3/uL (0.0-0.2); Basophils Percent Auto 0.7 % (0-2); Eosinophils Absolute Auto 0.2 X10*3/uL (0.0-0.4); Eosinophils Percent Auto 1.7 % (0-4); Hematocrit 43.2 % (37.0-47.0); Hemoglobin 14.3 g/dl (12.0-16.0); Imm Gran Abs Auto 0.08 X10*3/uL (0.00-0.03); Imm Gran Pct Auto 0.6 % (0.0-0.4); Lymphocytes Absolute Auto 1.9 X10*3/uL (1.2-4.9); Lymphocytes Percent Auto 14.9 % (20-40); Mean Corpuscular HGB Conc 33.1 g/dl (31.0-35.0); Mean Corpuscular Hemoglobin 28.1 pg (27.0-33.0); Mean Platelet Volume 10.1 fL (9.4-12.3); Monocytes Absolute Auto 0.6 X10*3/uL (0.1-1.2); Monocytes Percent Auto 5.1 % (2-11); Neutrophils Absolute Auto 9.7 x10*3/uL (2.0-8.3); Platelet Count 180 X10*3/uL (160-400); Red Blood Count 5.08 X10*6/uL (4.20-5.50); White Blood Count 12.6 X10*3/uL (4.8-10.8)
[2023-07-27 10:12] LABS: INTERNATIONAL NORM RATIO 1.2 (0.9-1.1)
[2023-07-27 10:41] LABS: B Type Natriuretic Peptide 66 pg/mL (<100)
[2023-07-27 12:14] LABS: Alanine Aminotransferase 10 U/L (0-31); Albumin Level 3.9 g/dL (3.5-5.0); Alkaline Phosphatase 105 U/L (39-117); Anion Gap 17 (12-20); Aspartate Amino Transferase 30 U/L (5-31); Bilirubin Direct 0.5 mg/dL (0.0-0.5); Bilirubin Total 0.9 mg/dL (0.0-1.0); Blood Urea Nitrogen 14 mg/dL (9-16); Carbon Dioxide 31 mmol/L (22-29); Chloride 85 mmol/L (96-108); Cholesterol 123 mg/dL (<200); Estimated Glomerular Filt Rate 39; Glucose Random 283 mg/dL (60-115); HDL Cholesterol 17 mg/dL (>40); LDL Cholesterol Calculated 76 mg/dL (<100); Potassium 3.4 mmol/L (3.3-5.1); Sodium 130 mmol/L (135-145); Total Protein 9.1 g/dL (6.5-8.0); Triglycerides 153 mg/dL (<150)
[2023-07-27 12:18] LABS: Calcium 14.2 mg/dL (8.4-10.2)
[2023-07-27 13:12] LABS: Free T4 (Free Thyroxine) 0.99 ng/dL (0.71-1.85)
[2023-07-27 14:15] LABS: Creatinine Urine 94.88 mg/dL; Microalbum/Creatinine Ratio Ur 10.5 ug/mg cr (<30)
[2023-07-28 12:38] LABS: Alpha Fetoprotein 5.7 ng/mL
== END 2023-07-27 09:11 | disposition home or self-care (01) ==
LOC: HO.LAB 09:10
PROVIDERS: PCP Family Medicine; Visit Provider Family Medicine
DX: R60.0 Localized edema (principal); E13.9 Other specified diabetes mellitus without complications; I10 Essential (primary) hypertension; B18.2 Chronic viral hepatitis C
CPT/HCPCS: 36415; 80048; 80061; 80076; 82043; 82105; 82570; 83880; 84439; 84443; 85025; 85610

== ENCOUNTER 2023-08-20 09:23 | Outpatient (AMB) | payer MEDICAID, SELFPAY ==
[2023-08-20 09:24] VITALS: BP 118/72; PULSE 62; BMI 24.3
--- NOTE | 2023-08-20 09:24 | MHC.OFFVIS ---
Intake Vital Signs 08/20/23 09:24 Height 5 ft 3 in Weight 137 lb 2.04 oz BMI 24.3 BP 118/72 Blood Pressure Location Lt brachial Position Sitting Pulse 62 Pulse Source Pulse Oximeter Intake Visit Reasons: DM- Intake Note: Patient presents today to follow up on D2MT. Last Diabetic Eye exam:11/2022 Last Podiatry Visit: Doesn't have one Random Glucose: 171 mg/dl HgA1c: 11.1% Film Critic Required: No Accompanied by: Self / Same As Patient Allergies No Known Allergies [No Known Allergies*] Allergy (Verified 08/20/23 09:31) Medication List - Last Reconciled 08/20/23 by Jhoan Victoria MD acetone (urine) test (Ketone Urine Test strips) As directed albuterol sulfate 90 mcg/actuation (ProAir HFA) 2 puffs inhalation Q6H PRN amlodipine 2.5 mg PO DAILY atorvastatin 40 mg PO BEDTIME blood sugar diagnostic (FreeStyle Lite Strips) As directed 4 x/day blood-glucose meter (FreeStyle [place] Lite kit) As directed chlorthalidone 25 mg PO DAILY clonidine HCl 0.1 mg PO BEDTIME flash glucose scanning reader (FreeStyle Leonardo 2 [place]) As directed flash glucose sensor (FreeStyle Leonardo 2 Sensor kit) DIRECTED CHANGE EVERY 14 DAYS insulin lispro 8 units (0.08 mL) subcut TID lancets (FreeStyle Lancets) 4 times a day Lantus Solostar U-100 Insulin (insulin glargine) 30 units (0.3 mL) subcut QPM NS levothyroxine 75 mcg PO DAILY nicotine 1 patch topical DAILY pen needle, diabetic (BD Ultra-Fine Nimco Pen Needle) As directed four times a day spironolactone 50 mg PO QAM triamcinolone acetonide 0.5% appl topical BID umeclidinium 62.5 mcg/actuation (Incruse Ellipta) 1 inh inhalation DAILY HPI HPI Comments History of Present Illness Details Patient is 63-year-old female with DM type 1 JT diagnosed 10/05/2020, who presents for management of diabetes. Past medical history: Diabetes type 1, hypertension, COPD, asthma, hepatitis-C, cirrhosis Micro and macrovascular complications: Diabetes medications: Lantus 20 units daily, Humalog 8-6-8 units ac Blood glucose monitoring: Leonardo download shows she is using the sensor 70% of the time. Average glucose is 283 with G mi of 10.1% and variability 25.8%. Glucose is in target range 12% of the time with hyperglycemia occurring 88% of the time and no hypoglycemia. Pen shows elevated points of care throughout the day with spike in blood sugar post-breakfast No hypoglycemia Symptoms reported: denies numbness, denies tingling, cramping in lower extremities Hypoglycemia: denies symptoms, no nightmares Hyperglycemia: denies urinary frequency, +nocturia 0-2 times, occasional polydypsia Sister and brother and grandmother have Type 2 Last ophthalmology evaluation: 11/2022 Laboratory Tests 10/16/20 05/28/21 08:00 14:44 Creatinine 0.81 Estimated GFR > 60 Hemoglobin A1c % 10.9 Some wt gain and muscle aches Not Taking 75 ug of levothyroxine QD for hypothyroidism [facility] Medical History (Updated 08/20/23 @ 09:37 by Jhoan Victoria MD) Uncontrolled type 1 diabetes mellitus with hyperglycemia, with long-term current use of insulin Diabetes mellitus (~2020) Osteopenia (~2014) Nicotine dependence, cigarettes, uncomplicated Tubular adenoma of colon (~2014) Elevated TSH Dysplasia of cervix, low grade (SHELLIE 1) (~2016) Overweight Cirrhosis Essential hypertension COPD (chronic obstructive pulmonary disease) HTN (hypertension) Hepatitis C Surgical History History of unilateral salpingectomy History of section History of tubal ligation History of cervical biopsy (~2016) History of colonoscopy (~2014) History of liver biopsy (~2008) Family History Father No problems noted. Mother Heart problem Cancer Maternal Grandmother Diabetes Brother Diabetes Sister Diabetes Brother Diabetes Social History Household Members: Friend(s) Alcohol intake: current Alcohol intake frequency: a few times a month Patient Tobacco Use Status: Current everyday Tobacco user Cigarette Packs Per Day: 0.5 Years Smoked: (onset 12yo, x 50yrs, max 2ppd, now 1/2ppd - 50+PYH) Substance Use Type: Opiates Sexual orientation: Straight/Heterosexual Gender identity: Female Female Reproductive History Menstrual Age of Menarche: 13 Physical Exam Vital Signs: Last Vital Signs Pulse 62 08/20/23 09:24 BP 118/72 08/20/23 09:24 BMI result Body Mass Index 24.3 Absence of Cushingoid features. Absence of acromegalic features. Neck exam reveals nl size thyroid about 15 gms. No thyroid nodules palpable. No carotid bruits present. Lungs CTA. Heart S1 S2, Reg R/R. No M/R/ G. Skin exam reveals absence of vitiligo or acanthosis nigricans. Abdominal exam reveals Soft NT/ND with NA BS. No organomegaly present. Neck Other: . Extrem Other: Visual exam of foot performed. No ulcerations or open lesions. No onchomycosis, no callouses.Pulses 2 + distally Sensation intact to monofilament exam. Vibratory sensation sensed is idecreased with 128 Hz tuning fork Results AMB Hemoglobin A1c AMB Hemoglobin A1c 11.1 % Last Edit by CLINT Vickers on 08/20/23 09:53 Results Reviewed Results Reviewed: Laboratory Last Values Glucose (Clinic) 171 mg/dL (60-115) H 08/20/23 09:35 Hgb A1c (Clinic) 11.1 % (4.0-6.0) H 08/20/23 09:52 Assessment & Plan Assessment & Plan (1) DM2 (diabetes mellitus, type 2): Onset Date: ~2020 Code(s): E11.9 - Type 2 diabetes mellitus without complications Qualifiers: Diabetes mellitus complication status: without complication Diabetes mellitus watermaster insulin use: with watermaster use Qualified Code(s): E11.9 - Type 2 diabetes mellitus without complications; Z79.4 - assisted (current) use of insulin Plan: See plan for type 1 diabetes (2) Elevated TSH: Code(s): R79.89 - Other specified abnormal findings of blood chemistry Plan: Will restart levothyroxine 75 mcg recheck TSH and free T4 in 6 weeks time (3) Diabetes mellitus: Onset Date: ~2020 Comment: (Type 1 DM - dx 2020 - on insulin) Code(s): E11.9 - Type 2 diabetes mellitus without complications Plan: See plan for type 1 diabetes (4) Uncontrolled type 1 diabetes mellitus with hyperglycemia, with long-term current use of insulin: Code(s): E10.65 - Type 1 diabetes mellitus with hyperglycemia Plan: This is a 63-year-old white female with a history of type 1 diabetes Jt in the setting of liver failure and cirrhosis currently being treated with basal-bolus insulin with poor glycemic control and no known microvascular or macrovascular complication Plan is to increase the Lantus to 40 units . . Will have patient follow up with health promotion educator. Could consider use of a iLet pump in this patient who will be long-term insulin dependent. Orders: Orders Thyroid Stimulating Hormone 6 Weeks R7. - Other specified abnormal findings of blood chemistry AMB Hemoglobin A1c Today E10.65 - Type 1 diabetes mellitus with hyperglycemia, E11.9 - Type 2 diabetes mellitus without complications, Z13.9 - Encounter for screening, unspecified Free T4 (Free Thyroxine) 6 Weeks R7. - Other specified abnormal findings of blood chemistry Medications: New levothyroxine 75 mcg PO DAILY 30 tabs 5RF Changed From Lantus Solostar U-100 Insulin (insulin glargine) 20 units (0.2 mL) subcut QPM 15 mL 4RF NS To Lantus Solostar U-100 Insulin (insulin glargine) 30 units (0.3 mL) subcut QPM 15 mL 4RF NS Coding Level of Care Code Est Pt Level 4 (91891) Diagnoses Type 2 diabetes mellitus without complication, with long-term current use of insulin E11.9; Z79.4 Diabetes mellitus complication status: without complication Diabetes mellitus [facility] insulin use: with [facility] use Elevated TSH R79.89 Diabetes mellitus E11.9 Uncontrolled type 1 diabetes mellitus with hyperglycemia, with long-term current use of insulin E10.65
[2023-08-20 09:40] LABS: Glucose, Whole Blood 171 mg/dL (60-115)
== END 2023-08-20 09:48 | disposition home or self-care (01) ==
PROVIDERS: PCP Family Medicine; Referring Provider Family Medicine; Visit Provider Internal Medicine Endocrinology, Diabetes & Metabolism
DX: E13.65 Other specified diabetes mellitus with hyperglycemia (principal); Z79.4 Long term (current) use of insulin; R79.89 Other specified abnormal findings of blood chemistry
CPT/HCPCS: 99214

== ENCOUNTER → 2023-08-20 09:23 | Outpatient (BNVA) | payer MEDICAID, SELFPAY | PROVIDERS: PCP Family Medicine; Referring Provider Family Medicine; Visit Provider Internal Medicine Endocrinology, Diabetes & Metabolism | DX: E10.65 Type 1 diabetes mellitus with hyperglycemia (principal); R79.89 Other specified abnormal findings of blood chemistry; Z79.4 Long term (current) use of insulin | CPT/HCPCS: 82947; 83036; 99212 ==

== ENCOUNTER 2023-09-03 11:24 | Outpatient (REF) | payer MEDICAID, SELFPAY ==
[2023-09-03 12:45] LABS: Parathyroid Hormone Intact 10.5 pg/mL (8.7-77.1)
[2023-09-03 12:46] LABS: Estimated Glomerular Filt Rate > 60
[2023-09-03 13:02] LABS: Free T4 (Free Thyroxine) 0.99 ng/dL (0.71-1.85)
[2023-09-03 13:05] LABS: Thyroid Stimulating Hormone 2.04 uIU/mL (0.32-4.0); Vitamin D 25-OH Total 22.9 ng/mL (>30)
== END 2023-09-03 11:25 | disposition home or self-care (01) ==
LOC: HO.LAB 11:24
PROVIDERS: Internal Medicine Endocrinology, Diabetes & Metabolism; PCP Family Medicine; Visit Provider Family Medicine
DX: E83.52 Hypercalcemia (principal); R79.89 Other specified abnormal findings of blood chemistry
CPT/HCPCS: 36415; 82306; 82310; 82565; 83970; 84439; 84443

== ENCOUNTER 2023-09-08 12:21 | Outpatient (AMB) | payer MEDICAID, SELFPAY ==
--- NOTE | 2023-09-08 12:41 | A.OFFVIS_ITS ---
Intake Intake Visit Reasons: DM/CONFIRMED Brand Development Manager Required: No Accompanied by: Self / Same As Patient Allergies No Known Allergies [No Known Allergies*] Allergy (Verified 08/20/23 09:31) HPI Comprehensive Diabetes Asmnt Most Recent Diabetes Results: Microalb/Creat Ratio 10.5 ug/mg cr (<30) 07/27/23 Cholesterol 123 mg/dL (<200) 07/27/23 HDL Cholesterol 17 mg/dL (>40) L 07/27/23 Triglycerides 153 mg/dL (<150) H 07/27/23 Creatinine 0.83 mg/dL (0.5-1.4) 09/03/23 Blood Urea Nitrogen 14 mg/dL (9-16) 07/27/23 Sodium 130 mmol/L (135-145) L 07/27/23 Potassium 3.4 mmol/L (3.3-5.1) 07/27/23 Chloride 85 mmol/L (96-108) L 07/27/23 Carbon Dioxide 31 mmol/L (22-29) H 07/27/23 Calcium 10.0 mg/dL (8.4-10.2) 09/03/23 AST 30 U/L (5-31) 07/27/23 ALT 10 U/L (0-31) 07/27/23 Total Protein 9.1 g/dL (6.5-8.0) H 07/27/23 Albumin 3.9 g/dL (3.5-5.0) 07/27/23 [facility] Medical History (Updated 08/20/23 @ 09:37 by Jhoan Victoria MD) Uncontrolled type 1 diabetes mellitus with hyperglycemia, with long-term current use of insulin Diabetes mellitus (~2020) Osteopenia (~2014) Nicotine dependence, cigarettes, uncomplicated Tubular adenoma of colon (~2014) Elevated TSH Dysplasia of cervix, low grade (SHELLIE 1) (~2016) Overweight Cirrhosis Essential hypertension COPD (chronic obstructive pulmonary disease) HTN (hypertension) Hepatitis C Surgical History History of unilateral salpingectomy History of section History of tubal ligation History of cervical biopsy (~2016) History of colonoscopy (~2014) History of liver biopsy (~2008) Family History Father No problems noted. Mother Heart problem Cancer Maternal Grandmother Diabetes Brother Diabetes Sister Diabetes Brother Diabetes Social History Household Members: Friend(s) Alcohol intake: current Alcohol intake frequency: a few times a month Patient Tobacco Use Status: Current everyday Tobacco user Cigarette Packs Per Day: 0.5 Years Smoked: (onset 12yo, x 50yrs, max 2ppd, now 1/2ppd - 50+PYH) Substance Use Type: Opiates Sexual orientation: Straight/Heterosexual Gender identity: Female Female Reproductive History Menstrual Age of Menarche: 13 Assessment & Plan Assessment & Plan (1) Uncontrolled type 1 diabetes mellitus with hyperglycemia, with long-term current use of insulin: Code(s): E10.65 - Type 1 diabetes mellitus with hyperglycemia Plan: Pump Assessment: Type of DM: JT Dx at age: 61 Previous DKA: no Current Insulin Rx: MDI Patient takes insulin as prescribed: yes Patient?uses [facility] to did not bring reader to today's visit for sina fernandez Patient? reports glycemic control as: poor Most recent Hgb A1C: .1%, 08/20/23 Frequency of low BG: A few times a week Low BG treatment: Fruit juice Frequency of high BG: Daily Does patient check Ketones? No Has pt been on a pump in the past? No Patient reports her glucoses have improved since Dr. Victoria raised her Lantus to 30 units daily She is currently taking Humalog 8 units before meals, although reports frequently skipping lunch Instructed patient not to take Humalog if she is not eating TDD: 57 units Reviewed insulin pump basics today with Patient. Explained pros and cons of insulin pumps. Showed pt various pumps, infusion sets, and cgms currently available. Reviewed need to wear pump 24/7 and need to change infusion set every 3 days. Also stressed importance of frequent BG checks, 4x daily minimum or use pump that is integrated with CGM.? Patient demonstrated motivation for continued insulin pump education and understands the need to complete education prior to starting insulin pump for best outcome. Pt is interested in the iLet, is not ready to commit will follow-up with clinical staff educator in 1 month Patient Instructions: Bring [facility] Follow-up with clinical staff educator in 1 month Coding Level of Care Code Est Pt Level 1 (71876) Diagnoses Uncontrolled type 1 diabetes mellitus with hyperglycemia, with long-term current use of insulin E10.65
== END 2023-09-08 12:44 | disposition home or self-care (01) ==
PROVIDERS: PCP Family Medicine; Visit Provider Registered Nurse Diabetes Educator
DX: E10.65 Type 1 diabetes mellitus with hyperglycemia (principal)

== ENCOUNTER → 2023-09-08 12:21 | Outpatient (BNVA) | payer MEDICAID, SELFPAY | PROVIDERS: PCP Family Medicine; Visit Provider Registered Nurse Diabetes Educator | DX: E10.65 Type 1 diabetes mellitus with hyperglycemia (principal); Z46.81 Encounter for fitting and adjustment of insulin pump; Z79.4 Long term (current) use of insulin | CPT/HCPCS: 99211 ==

== ENCOUNTER 2023-12-03 09:48 | Inpatient (IN) | payer MEDICAID, SELFPAY ==
--- NOTE | ~2023-12-03 | CT_ITS ---
EXAMINATION: CT ABDOMEN AND PELVIS WITH CONTRAST CLINICAL INFORMATION: Vomiting. Weight loss. COMPARISON: Previous CT of the abdomen from 2007, MRI of the abdomen from 2007 and abdominal ultrasound most recent 2021 TECHNIQUE: Multidetector volumetric images were obtained from the superior aspect of the liver through the pubic symphysis following administration 85 mL of Omnipaque 350 intravenous contrast. Sagittal and coronal reformatted images were obtained on the technologist's workstation. Oral contrast: Yes This CT examination was performed using dose optimization techniques as appropriate, variously including the following: *Automated exposure control *Adjustment of mA and/or kV according to patient size (this includes techniques or standardized protocols for targeted exams where dose is matched to indication/reason for exam; i.e. extremities or head) *Use of iterative reconstruction technique DLP: 402 mGy-cm FINDINGS: LUNG BASES: The visualized lung bases are unremarkable. LIVER, GALLBLADDER, AND BILIARY TREE: Slightly enlarged fatty liver. Liver normal in contour. No focal hepatic lesion or intrahepatic biliary duct dilatation. The proximal common bile duct does not appear dilated measuring 6 mm. There is dilatation of the distal common bile duct measuring up to 1.3 cm. This is a new finding from previous MRI from 2007. The gallbladder is enlarged. No gallstones are seen. There is trace ascites adjacent to the liver. PANCREAS: Slightly prominent main pancreatic duct measuring 4 mm. Pancreas otherwise normal. SPLEEN: Unremarkable. ADRENAL GLANDS: Unremarkable. KIDNEYS AND URETERS: The kidneys are normal in size, shape, and attenuation. No hydronephrosis, hydroureter. Small 1 mm nonobstructing stone in the lower pole of the left kidney. No perinephric stranding. BLADDER: Unremarkable. GASTROINTESTINAL TRACT: [place] mild colitis of the distal colon small and large bowel otherwise normal. The appendix is not seen. ABDOMINAL WALL: Small periportal, peripancreatic and retroperitoneal lymph nodes. No enlarged lymph nodes. LYMPH NODES: Normal. VASCULAR: Unremarkable. PELVIC VISCERA: Unremarkable. OSSEOUS STRUCTURES: Degenerative changes of the spine and hip joints. CT/CT abdomen pelvis w IV con IMPRESSION: Slightly enlarged fatty liver. Dilated distal common bile duct. No intrahepatic biliary duct dilatation and the proximal common bile duct is normal in caliber. This is a new finding from previous MRI 2007. Distended gallbladder. No gallstones seen by CT. Follow-up ultrasound and MRCP recommended. Question mild colitis of the distal colon. Fleischner guidelines were followed.
--- NOTE | ~2023-12-03 | US_ITS ---
EXAMINATION: US ABDOMEN LIMITED CLINICAL INFORMATION: Vomiting. Abnormal CT.. COMPARISON: None available. TECHNIQUE: Real-time imaging of the gallbladder and common bile duct only per order. FINDINGS: GALLBLADDER: There is a ring down artifact at the fundus of the gallbladder consistent with a focus of adenomyomatosis. Tumefactive sludge at the fundus of the gallbladder measuring 1.7 cm. No gallstone. No gallbladder wall thickening or pericholecystic fluid. COMMON BILE DUCT: Normal in caliber measuring 0.6 cm in diameter. FREE FLUID: None. US/US abdomen limited IMPRESSION: Tumefactive sludge at the fundus of the gallbladder. No gallstone or acute change of gallbladder wall. No bile duct dilatation.
--- NOTE | ~2023-12-03 | XR_ITS ---
EXAMINATION: XR CHEST CLINICAL INFORMATION: Unexpected weight loss COMPARISON: 05/28/2021 TECHNIQUE: Frontal view of the chest was obtained. FINDINGS: Lungs are well expanded and clear. No evidence of pulmonary mass, consolidation or pleural effusion. Cardiomediastinal silhouette has normal size and contour. Pulmonary vascular pattern is normal. No acute osseous abnormality. XR/XR chest 1V IMPRESSION: No evidence of pulmonary mass or hilar lymphadenopathy. No acute cardiopulmonary disease.
[2023-12-03 10:27] VITALS: BP 118/76; PULSE 117; RESP 16; TEMP 36; O2SAT 95; BMI 23.6
--- NOTE | 2023-12-03 11:08 | ECG_ITS ---
Test Reason : WEAKNESS Blood Pressure : / mmHG Vent. Rate : 115 BPM Atrial Rate : 115 BPM P-R Int : 128 ms QRS Dur : 070 ms QT Int : 376 ms P-R-T Axes : 075 058 062 degrees QTc Int : 520 ms Sinus tachycardia with Premature atrial complexes with Aberrant conduction Biatrial enlargement Nonspecific ST abnormality Prolonged QT Abnormal ECG When compared with ECG of 21-NOV-2022 11:30, Premature ventricular complexes Nonspecific ST changes Referred By: Carmen Collins Electronically Signed By:Lakhwinder Celeste
--- NOTE | 2023-12-03 11:17 | ED.NAVMDI ---
HPI - Nausea/Vomiting/Diarrhea General Chief complaint: Nausea/Vomiting/Diarrhea Stated complaint: Vomiting Time Seen by Provider: 12/03/23 10:54 Source: patient Mode of arrival: ambulatory Limitations: no limitations History of Present Illness ED Provider: FADUMO MORFIN Narrative: 63 yo female with PMH of DM on insulin, COPD, HTN, osteopenia here with c/o vomiting x 3 weeks no fevers, diarrhea, pain, notes she looks at food tries to eat and vomits. No change in meds. This has never happened before. MD elicited complaint: nausea and vomiting Onset (ago): week(s) (3) Description of vomiting: food contents and watery Associated abdominal pain: No Location of pain: none Severity: moderate Exacerbating factors: eating Relieving factors: none Associated symptoms: loss of appetite, malaise, nausea/vomiting, weakness and other (weight loss) Related Data Home Medications ?Medication ?Instructions ?Recorded ?Confirmed chlorthalidone 25 mg tablet 25 mg PO DAILY 04/18/20 06/23/22 albuterol sulfate 90 mcg/actuation 2 puff inhalation Q6H PRN Wheezing 05/09/20 06/23/22 aerosol inhaler (ProAir HFA) amlodipine 2.5 mg tablet 2.5 mg PO DAILY 09/16/21 06/23/22 atorvastatin 40 mg tablet 40 mg PO BEDTIME 12/19/21 06/23/22 triamcinolone acetonide 0.5 % appl topical BID 12/19/21 06/23/22 topical cream nicotine 21 mg/24 hr daily 1 patch topical DAILY 03/07/22 06/23/22 transdermal patch clonidine HCl 0.1 mg tablet 0.1 mg PO BEDTIME 09/17/22 Previous Rx's ?Medication ?Instructions ?Recorded lancets 28 gauge (FreeStyle #200 ea 09/16/21 Lancets) blood sugar diagnostic (FreeStyle #120 ea 10/22/21 Lite Strips) acetone (urine) test (Ketone Urine #50 ea 04/16/22 Test strips) umeclidinium 62.5 mcg/actuation 1 inh inhalation DAILY copd #30 ea 06/23/22 blister powder for inhalation (Incruse Ellipta) blood-glucose meter (FreeStyle #1 ea 09/17/22 [place] Lite kit) flash glucose scanning reader #1 ea 09/17/22 (FreeStyle Leonardo 2 [place]) spironolactone 50 mg tablet 50 mg PO QAM #30 tabs 11/21/22 insulin lispro 100 unit/mL 8 unit (0.08 mL) subcut TID #15 mL 07/02/23 subcutaneous pen Lantus Solostar U-100 Insulin 100 30 unit (0.3 mL) subcut QPM #15 mL 08/20/23 unit/mL (3 mL) subcutaneous pen (insulin glargine) levothyroxine 75 mcg tablet 75 mcg PO DAILY #30 tabs 08/20/23 pen needle, diabetic 32 gauge x #120 ea 10/15/23 (BD Nimco 2nd Gen Pen Needle) flash glucose sensor (FreeStyle #2 kits 11/26/23 Leonardo 2 Sensor kit) Allergies Allergy/AdvReac Type Severity Reaction Status Date / Time No Known Allergies Allergy Verified 12/03/23 10:30 [No Known Allergies*] Review of Systems Review of Systems: Constitutional : No Fever, No Chills, pos fatigue, pos weight loss ENT/Mouth : No sore throat, No Rhinorrhea Eyes: No Swelling, No Redness Cardiovascular : No Chest Pain, No SOB, NoEdema Respiratory : No Cough, No Sputum, No Wheezing Gastrointestinal : Positive Nausea, Positive Vomiting, no Diarrhea, positive abdominal Pain, No Hematochezia, No Melena Genitourinary : No Dysuria, No Urinary Frequency, No Hematuria, No Urgency Musculoskeletal : No joint pain, No Myalgias, No Joint Swelling Skin : No Skin Lesions, No rash Neuro : pos Weakness, No Numbness, No Dizziness, No Headache Psych : No Anxiety/Panic, No Depression All other systems reviewed and are negative. [facility] Past Medical History Attestation statement: The following information was validated with the patient. Source: old records reviewed Medical History Uncontrolled type 1 diabetes mellitus with hyperglycemia, with long-term current use of insulin Diabetes mellitus (~2020) Osteopenia (~2014) Nicotine dependence, cigarettes, uncomplicated Tubular adenoma of colon (~2014) Elevated TSH Dysplasia of cervix, low grade (SHELLIE 1) (~2016) Overweight Cirrhosis Essential hypertension COPD (chronic obstructive pulmonary disease) HTN (hypertension) Hepatitis C Surgical History History of unilateral salpingectomy History of section History of tubal ligation History of cervical biopsy (~2016) History of colonoscopy (~2014) History of liver biopsy (~2008) Family History Family History Father No problems noted. Mother Heart problem Cancer Maternal Grandmother Diabetes Brother Diabetes Sister Diabetes Brother Diabetes Social History Social History Household Members: Friend(s) Alcohol intake: current Alcohol intake frequency: a few times a month Patient Tobacco Use Status: Current everyday Tobacco user Cigarette Packs Per Day: 0.5 Years Smoked: (onset 12yo, x 50yrs, max 2ppd, now 1/2ppd - 50+PYH) Substance Use Type: Opiates Advance Directives: No Advance Directives Information Provided: Yes Sexual orientation: Straight/Heterosexual Gender identity: Female Physical Exam Vital Signs: Vital Signs: Last Vital Signs Temp 98.2 F 12/03/23 14:31 Pulse 100 12/03/23 14:31 Resp 15 12/03/23 14:31 BP 123/77 12/03/23 14:31 Pulse Ox 94 12/03/23 14:31 O2 Del Method Room Air 12/03/23 14:31 BMI result Body Mass Index 23.6 Appearance: Alert. Oriented X3. No acute distress. frail and thin Eyes: Pupils equal, round and reactive to light. ENT: Pharynx very dry MM Neck: Normal inspection. Neck supple. CVS: Normal heart rate and rhythm. Pulses normal. Respiratory: No respiratory distress. Breath sounds normal. Abdomen: Soft and nontender. Skin: Skin warm and dry. Normal skin color. poor skin turgor. Extremities: No lower extremity edema. No calf ttp Neuro: Oriented X 3. No motor deficit. No sensory deficit. Course Course Course Narrative: given lactic and wbc count possible infection suspected 1244pm IV ceftriaxone ordered Reevaluation(s) Reevaluation #1: signed out to Altagracia pending US Medications Administered Generic Name Dose Route Start Last Admin Trade Name Freq PRN Reason Stop Dose Admin Potassium Chloride 10 meq in 100 mls @ 100 mls/hr 12/03/23 12:45 12/03/23 15:10 Potassium Chloride/H20 IV 12/03/23 16:44 100 mls/hr Q1H GAYLA Administration Discontinued Medications Generic Name Dose Route Start Last Admin Trade Name Magan PRN Reason Stop Dose Admin Sodium Chloride 1,000 mls @ 999 mls/hr 12/03/23 11:08 12/03/23 12:45 Ns IV 12/03/23 12:08 Infused .Q1H1M ONE Infusion Magnesium Sulfate 2 gm in 50 mls @ 25 mls/hr 12/03/23 11:21 12/03/23 14:04 Magnesium Sulfate/H2o IV 12/03/23 13:20 Infused ONCE ONE Infusion Sodium Chloride 1,000 mls @ 999 mls/hr 12/03/23 12:36 12/03/23 14:44 Ns IV 12/03/23 13:36 Infused .Q1H1M ONE Infusion Ceftriaxone Sodium 1 gm/ 50 mls @ 100 mls/hr 12/03/23 12:36 12/03/23 14:04 Sodium Chloride IV 12/03/23 13:05 Infused ONCE ONE Infusion Iohexol 100 ml 12/03/23 13:31 12/03/23 13:32 Iohexol 350 Mg/Ml 100 Ml Infus..Btl IV 12/03/23 13:32 85 ml ONCE ONE Administration Ondansetron HCl 4 mg 12/03/23 11:08 12/03/23 11:45 Ondansetron Hcl 4 Mg/2 Ml Vial IVPUSH 12/03/23 11:09 4 mg ONCE ONE Administration Potassium Chloride 40 meq 12/03/23 14:53 12/03/23 15:19 Potassium Chloride Packet 20 Meq Packet PO 12/03/23 14:54 40 meq ONCE ONE Administration Medical Decision Making Medical Decision Making [facility] Narrative: 63 yo female with PMH of DM on insulin, COPD, HTN, osteopenia here with c/o n/v and poor PO intake with 30lb weight loss she is a smoker denies new med changes at this time will need basic labs, IVF, given qtc lyte check and magnesium empirically. CXR and CT scan for mass ordered. Possible dehydration, mass, lyte abnormality, gastritis. Differential Diagnosis Differential Diagnoses: The differential diagnosis associated with the presentation includes gastritis, dehydration, lyte abnormality, mass Admission/Observation Consideration of admission/observation: Escalation of care including admission/observation considered plan to admit given lyte abnormalities Lab Data [facility] Lab Attestation statement: I reviewed the patient's lab results. 12/03/23 11:18 12/03/23 12:06 Labs: Lab Results 12/03/23 12/03/23 12/03/23 Range/Units 11:18 12:06 12:31 WBC 18.7 H (4.8-10.8) X10*3/uL RBC 5.02 (4.20-5.50) X10*6/uL Hgb 14.8 (12.0-16.0) g/dl Hct 41.8 (37.0-47.0) % MCV 83.3 (80.0-98.0) fL MCH 29.5 (27.0-33.0) pg MCHC 35.4 H (31.0-35.0) g/dl RDW 13.0 (11.0-16.0) % Plt Count 228 D (160-400) X10*3/uL MPV 9.3 L (9.4-12.3) fL Immature Gran % (Auto) 0.6 H (0.0-0.4) % Neut % (Auto) 87.4 H (45-73) % Lymph % (Auto) 6.9 L (20-40) % Schleicher % (Auto) 4.4 (2-11) % Eos % (Auto) 0.2 (0-4) % Baso % (Auto) 0.5 (0-2) % Lymph # (Auto) 1.3 (1.2-4.9) X10*3/uL Schleicher # (Auto) 0.8 (0.1-1.2) X10*3/uL Eos # (Auto) 0.0 (0.0-0.4) X10*3/uL Baso # (Auto) 0.1 (0.0-0.2) X10*3/uL Abs Immat Gran (auto) 0.11 H (0.00-0.03) X10*3/uL Absolute Neuts (auto) 16.4 H (2.0-8.3) x10*3/uL Absolute Nucleated RBC 0.000 (0.0-0.012) X10*3/uL Nucleated RBC % (auto) 0.0 (0.0-0.2) /100WBC Sodium 131 L (135-145) mmol/L Potassium 2.5 L* D (3.3-5.1) mmol/L Chloride 80 L (96-108) mmol/L Carbon Dioxide 37 H (22-29) mmol/L Anion Gap 17 (12-20) BUN 10 (9-16) mg/dL Creatinine 0.93 (0.5-1.4) mg/dL Estim Creat Clear Calc 51.9 Estimated GFR > 60 POC Glucose (60-115) mg/dL Random Glucose 109 (60-115) mg/dL Lactic Acid 3.1 H* (0.5-2.0) mmol/L Lactic Acid F/U @ 2Hr (0.5-2.0) mmol/L Calcium 10.3 H (8.4-10.2) mg/dL Magnesium 1.2 L* (1.6-2.6) mg/dL Total Bilirubin 1.0 (0.0-1.0) mg/dL Direct Bilirubin 0.6 H (0.0-0.5) mg/dL AST 44 H (5-31) U/L ALT 13 (0-31) U/L Alkaline Phosphatase 108 (39-117) U/L Total Protein 8.3 H (6.5-8.0) g/dL Albumin 3.7 (3.5-5.0) g/dL Lipase 12 (8-78) U/L Urine Color Yellow Urine Appearance Clear Urine pH 7.5 (5.0-9.0) Ur Specific [place] <= 1.005 (1.005-1.025) Urine Protein Negative (Neg-Trace) mg/dL Urine Glucose (UA) Negative (Negative) mg/dL Urine Ketones Negative (Negative) mg/dL Urine Blood Negative (Negative) Urine Nitrite Negative (Negative) Ur Leukocyte Esterase Negative (Negative) 12/03/23 12/03/23 Range/Units 14:06 14:36 WBC (4.8-10.8) X10*3/uL RBC (4.20-5.50) X10*6/uL Hgb (12.0-16.0) g/dl Hct (37.0-47.0) % MCV (80.0-98.0) fL MCH (27.0-33.0) pg MCHC (31.0-35.0) g/dl RDW (11.0-16.0) % Plt Count (160-400) X10*3/uL MPV (9.4-12.3) fL Immature Gran % (Auto) (0.0-0.4) % Neut % (Auto) (45-73) % Lymph % (Auto) (20-40) % Schleicher % (Auto) (2-11) % Eos % (Auto) (0-4) % Baso % (Auto) (0-2) % Lymph # (Auto) (1.2-4.9) X10*3/uL Schleicher # (Auto) (0.1-1.2) X10*3/uL Eos # (Auto) (0.0-0.4) X10*3/uL Baso # (Auto) (0.0-0.2) X10*3/uL Abs Immat Gran (auto) (0.00-0.03) X10*3/uL Absolute Neuts (auto) (2.0-8.3) x10*3/uL Absolute Nucleated RBC (0.0-0.012) X10*3/uL Nucleated RBC % (auto) (0.0-0.2) /100WBC Sodium (135-145) mmol/L Potassium (3.3-5.1) mmol/L Chloride (96-108) mmol/L Carbon Dioxide (22-29) mmol/L Anion Gap (12-20) BUN (9-16) mg/dL Creatinine (0.5-1.4) mg/dL Estim Creat Clear Calc Estimated GFR POC Glucose 104 (60-115) mg/dL Random Glucose (60-115) mg/dL Lactic Acid (0.5-2.0) mmol/L Lactic Acid F/U @ 2Hr 2.2 H* (0.5-2.0) mmol/L Calcium (8.4-10.2) mg/dL Magnesium (1.6-2.6) mg/dL Total Bilirubin (0.0-1.0) mg/dL Direct Bilirubin (0.0-0.5) mg/dL AST (5-31) U/L ALT (0-31) U/L Alkaline Phosphatase (39-117) U/L Total Protein (6.5-8.0) g/dL Albumin (3.5-5.0) g/dL Lipase (8-78) U/L Urine Color Urine Appearance Urine pH (5.0-9.0) Ur Specific [place] (1.005-1.025) Urine Protein (Neg-Trace) mg/dL Urine Glucose (UA) (Negative) mg/dL Urine Ketones (Negative) mg/dL Urine Blood (Negative) Urine Nitrite (Negative) Ur Leukocyte Esterase (Negative) Independent Interpretation I performed an independent interpretation of an: EKG and CT Scan (CBD and GB abnormalities - US reccomended) Interpretation: Rate: 115 Rhythm: sinus tach [place]: normal Normal P waves. Normal JAMES. Normal QRS complex. ST T wave : no GERMAN, nonspecific ST T wave changes likely due to prolonged qtc qTC: 520 prior studies: qtc prolonged The study has been interpreted contemporaneously by me. . Radiology Impression Discussion of test interpretation with radiology: I have reviewed the radiologist's reading. Independent Historian Clinical information obtained from an independent historian. History obtained from or confirmed by: Friend Critical Care Time Critical Care Time Critical Care Time: Yes Total Critical Care Time: 60 Attestation: IV magnesium replacement, IV potassium, IVF x 2L, review of records I attest to this time spent taking care of the patient Discharge Plan Discharge Clinical Impression: Hypokalemia, Hypomagnesemia Nausea & vomiting Qualifiers: Vomiting type: unspecified Qualified Code(s): R11.2 - Nausea with vomiting, unspecified Patient Disposition: Admitted As Inpatient Print Language: Tuvaluan
[2023-12-03 11:32] LABS: MANUAL DIFF FLAG NO
[2023-12-03 11:33] LABS: Basophils Absolute Auto 0.1 X10*3/uL (0.0-0.2); Basophils Percent Auto 0.5 % (0-2); Eosinophils Percent Auto 0.2 % (0-4); Hematocrit 41.8 % (37.0-47.0); Hemoglobin 14.8 g/dl (12.0-16.0); Imm Gran Abs Auto 0.11 X10*3/uL (0.00-0.03); Imm Gran Pct Auto 0.6 % (0.0-0.4); Lymphocytes Absolute Auto 1.3 X10*3/uL (1.2-4.9); Lymphocytes Percent Auto 6.9 % (20-40); Mean Corpuscular HGB Conc 35.4 g/dl (31.0-35.0); Mean Corpuscular Hemoglobin 29.5 pg (27.0-33.0); Mean Corpuscular Volume 83.3 fL (80.0-98.0); Mean Platelet Volume 9.3 fL (9.4-12.3); Monocytes Absolute Auto 0.8 X10*3/uL (0.1-1.2); Monocytes Percent Auto 4.4 % (2-11); Neutrophils Absolute Auto 16.4 x10*3/uL (2.0-8.3); Neutrophils Percent Auto 87.4 % (45-73); Platelet Count 228 X10*3/uL (160-400); Red Blood Count 5.02 X10*6/uL (4.20-5.50); White Blood Count 18.7 X10*3/uL (4.8-10.8)
[2023-12-03] MEDS: 0.9 % Sodium Chloride 1,000 ML 999 ML IV ×2 (11:38→13:39)
[2023-12-03] MEDS: ondansetron HCL 4 MG/2 ML VIAL IVPUSH (11:45)
[2023-12-03] MEDS: Magnesium Sulfate/H2O 2 GM/50 ML PIGGYBACK IV ×3 (11:58→23:46)
[2023-12-03 12:37] LABS: Appearance Urine Clear; Color Urine Yellow; Glucose Urine UA Negative (Negative); Leukocyte Esterase Urine Negative (Negative); Nitrite Urine Negative (Negative); PH 7.5 (5.0-9.0); Specific Gravity - Urine <= 1.005 (1.005-1.025); Urine Blood Negative (Negative); Urine Ketones Negative (Negative); Urine Protein Negative (Neg-Trace)
[2023-12-03 12:37] LABS: Alanine Aminotransferase 13 U/L (0-31); Albumin Level 3.7 g/dL (3.5-5.0); Alkaline Phosphatase 108 U/L (39-117); Anion Gap 17 (12-20); Aspartate Amino Transferase 44 U/L (5-31); Bilirubin Direct 0.6 mg/dL (0.0-0.5); Blood Urea Nitrogen 10 mg/dL (9-16); Calcium 10.3 mg/dL (8.4-10.2); Carbon Dioxide 37 mmol/L (22-29); Chloride 80 mmol/L (96-108); Creatinine Clr Calc Pharmacy 51.9; Estimated Glomerular Filt Rate > 60; Glucose Random 109 mg/dL (60-115); Lipase 12 U/L (8-78); Magnesium 1.2 mg/dL (1.6-2.6); Potassium 2.5 mmol/L (3.3-5.1); Sodium 131 mmol/L (135-145); Total Protein 8.3 g/dL (6.5-8.0)
[2023-12-03 12:38] LABS: Lactic Acid 3.1 mmol/L (0.5-2.0)
[2023-12-03] MEDS: iohexoL 350 MG/ML 100 ML INFUS..BTL IV (13:32)
[2023-12-03] MEDS: cefTRIAXone sodium 1 GM in 0.9 % Sodium Chloride 50 ML IV (13:38)
[2023-12-03] MEDS: Potassium Chloride/H20 10 MEQ/100 ML PIGGYBACK 100 MEQ IV ×4 (14:02→17:21)
[2023-12-03 14:10] LABS: Glucose, Whole Blood 104 mg/dL (60-115)
[2023-12-03 14:12] LABS: Reflex Lactate? Lactic Acid Added
[2023-12-03 14:31] VITALS: BP 123/77; PULSE 100; RESP 15; TEMP 36.8; O2SAT 94
[2023-12-03 14:54] LABS: ~Lactic Acid-LAB USE ONLY 2.2 mmol/L (0.5-2.0)
[2023-12-03] MEDS: Potassium Chloride Packet 20 MEQ PACKET 40 MEQ PO (15:19)
[2023-12-03 16:00] VITALS: BP 117/77; PULSE 95; RESP 16; TEMP 36.6; O2SAT 95
[2023-12-03 16:39] LABS: Reflex Lactate? 2 Y
--- NOTE | 2023-12-03 17:08 | PM.IMHP ---
History of Present Illness Date of Service: 12/03/23 Attending physician on admission: [facility] [employer] Chief Complaint: Nausea, vomiting x3 weeks Pt is a 63-year-old female with a PMH significant for HTN, insulin-dependent type 2 diabetes,?hypothyroidism, and alcohol use disorder who presents to the ED for evaluation of nausea and vomiting x3 weeks. Reports not eating or drinking much of anything during this time; states gets nauseous just at the sight of food, and will vomit whenever she eats or drinks anything. States she is never experienced similar prolonged episode before. Does get some lightheadedness and dizziness if she gets up too fast. Denies fever, chills. No diarrhea or abdominal pain. However, patient states she has continued to drink alcohol during this time. States she drinks ?two white Russians? daily, though admits to occasionally waking up with tremors that are alleviated with alcohol. Reports beginning drinking around 10:00 and then throughout the rest of the day. Denies past history of alcohol withdrawal. No headache. Denies diaphoresis or increased anxiety. No auditory or visual hallucinations. In the ED pt was tachycardia up to 117, vitals otherwise WNL and stable. Labs were significant for leukocytosis of 18.7, sodium 131, potassium 2.5, chloride 80, bicarb 37, lactic acid 3.1 with repeat 2.2, magnesium 1.2, and AST 44. UA negative for UTI. CXR showed no acute cardiopulmonary disease. CT?of abdomen and pelvis found slightly enlarged fatty liver with dilated distal CBD, and question of mild colitis of distal colon. Abdominal ultrasound found tumefactive sludge at fundus of the gallbladder with no gallstone or acute change of gallbladder wall and no bile duct dilation. EKG demonstrated sinus tachycardia with PACs and aberrant conduction and prolonged QTc of 520. Pt was treated with IVF, ondansetron, magnesium, ceftriaxone, potassium chloride 40 mEq IV and 40 mEq p.o. Pt will be admitted to the hospital for treatment and further evaluation of significant electrolyte abnormalities in the setting of intractable nausea and vomiting. Review of Systems Review of Systems: Nausea, vomiting x3 weeks Lightheadedness and dizziness Denies fever, chills No abdominal pain Denies chest pain/pressure, palpitations No shortness a breath or difficulty breathing FORMERLY [facility], [facility] Medical History Uncontrolled type 1 diabetes mellitus with hyperglycemia, with long-term current use of insulin Diabetes mellitus (~2020) Osteopenia (~2014) Nicotine dependence, cigarettes, uncomplicated Tubular adenoma of colon (~2014) Elevated TSH Dysplasia of cervix, low grade (SHELLIE 1) (~2016) Overweight Cirrhosis Essential hypertension COPD (chronic obstructive pulmonary disease) HTN (hypertension) Hepatitis C Family History Father No problems noted. Mother Heart problem Cancer Maternal Grandmother Diabetes Brother Diabetes Sister Diabetes Brother Diabetes Surgical History History of unilateral salpingectomy History of section History of tubal ligation History of cervical biopsy (~2016) History of colonoscopy (~2014) History of liver biopsy (~2008) Social History Household Members: Children Household Members Other:: adult step- son and pt. sister. Housing: House Do you presently have visiting nurse or other home services: No Alcohol intake: current Alcohol intake frequency: 0-2 drinks per day Alcohol type: hard liquor Patient Tobacco Use Status: Current everyday Tobacco user Tobacco use type: Cigarette Cigarette Packs Per Day: 0.5 Years Smoked: (onset 12yo, x 50yrs, max 2ppd, now 1/2ppd - 50+PYH) Smoked in Last 30 Days: Yes Patient Interested in Nicotine Replacement: Yes Patient Given Instructions on How to Stop Smoking: Yes Date Education Initiated: 12/03/23 Second Hand Smoke Exposure: Yes Use of substances other than those prescribed or required for medical reasons: No Substance Use Type: Opiates Any prior treatment program specific to substance use: No Have you been hit, kicked, punched, or otherwise hurt by someone within the past year? If so, by whom?: No Do you feel safe in your current relationship?: Yes Is there a partner from a previous relationship who is making you feel unsafe now?: No Advance Directives: No Advance Directives Information Provided: Yes Do you have a plan to hurt others: No Plan Recently lost weight without trying: Yes How much weight loss: 24-33 pounds Eating poorly because of decreased appetite: Yes Nutrition screen score: 6 Nutrition Risks: Anorexia and Poor intake 0-25% >4 days Patient : No : No Poor oral hygiene: No Sexual orientation: Straight/Heterosexual Gender identity: Female Meds Allergies Allergy/AdvReac Type Severity Reaction Status Date / Time No Known Allergies Allergy Verified 12/03/23 10:30 [No Known Allergies*] Active Medications: Current Medications Pharmacy Consult (Consult Rx Etoh Phenob Im/Po) 1 each MISCELLANE ONCE PRN; Protocol PRN Reason: Consult order Phenobarbital (Phenobarbital 15 Mg Tablet) 45 mg PO BID GAYLA; Protocol Stop: 12/05/23 21:01 Phenobarbital (Phenobarbital 30 Mg Tablet) 30 mg PO BID GAYLA; Protocol Stop: 12/07/23 21:01 Phenobarbital (Phenobarbital 30 Mg Tablet) 30 mg PO DAILY GAYLA; Protocol Stop: 12/09/23 09:01 Phenobarbital Sodium (Phenobarbital Sodium 130 Mg/Ml Vial Im Q3hx2) 157 mg IM Q3H GAYLA; Protocol Stop: 12/03/23 23:01 Home Medications ?Medication ?Instructions ?Recorded ?Confirmed ?Last Taken ?Type chlorthalidone 25 mg tablet 25 mg PO BEDTIME 04/18/20 12/03/23 Unknown History amlodipine 2.5 mg tablet 2.5 mg PO DAILY 09/16/21 12/03/23 12/03/23 09:00 History triamcinolone acetonide 0.5 % 1 appl topical BID 12/19/21 12/03/23 12/03/23 09:00 History topical cream nicotine 21 mg/24 hr daily 1 patch topical DAILY 03/07/22 12/03/23 Unknown History transdermal patch cholecalciferol (vitamin D3) 25 25 mcg PO DAILY 12/03/23 12/03/23 12/03/23 09:00 History mcg (1,000 unit) tablet (Vitamin D3) insulin glargine 100 unit/mL (3 20 unit subcut BEDTIME 12/03/23 12/03/23 Unknown History mL) subcutaneous pen (Lantus Solostar U-100 Insulin) insulin lispro 100 unit/mL 6 unit subcut BID@1200,1700 12/03/23 12/03/23 Unknown History subcutaneous pen insulin lispro 100 unit/mL 8 unit subcut DAILY@0800 12/03/23 12/03/23 12/03/23 08:00 History subcutaneous pen levothyroxine 75 mcg tablet 75 mcg PO DAILY@0600 12/03/23 12/03/23 12/03/23 06:00 History spironolactone 50 mg tablet 50 mg PO BEDTIME 12/03/23 12/03/23 Unknown History Physical Exam Vital Signs and Narrative: Vital Signs: Last Vital Signs Temp 97.8 F 12/03/23 16:00 Pulse 95 12/03/23 16:00 Resp 16 12/03/23 16:00 BP 117/77 12/03/23 16:00 Pulse Ox 95 12/03/23 16:00 O2 Del Method Room Air 12/03/23 16:00 BMI result Body Mass Index 23.6 Constitutional: Alert, in no acute distress. Mental Status: Oriented to person, place and time. Eyes: Pupils are equal, round, and reactive to light. Ear, Nose, and Throat: Oropharynx clear, mucous membranes moist. Ears and nose without deformities. Trachea midline. Respiratory: Clear to auscultation bilaterally. No wheezing, rales, or rhonchi. Cardiovascular: S1, S2 regular. No murmurs, rubs, or gallops. Gastrointestinal: Abdomen soft, non-tender, non-distended. Normal bowel sounds. Neurologic: Cranial nerves II-XII are grossly intact bilaterally. No focal neurological deficits. Moves all extremities spontaneously. No tremors noted. Skin: Warm, dry. Extremities: No edema. Psychiatric: Normal mood and affect. Results Labs 12/03/23 11:18 12/03/23 19:18 Labs: Laboratory Results - last 24 hr 12/03/23 12/03/23 12/03/23 11:18 12:06 12:31 MCV 83.3 MCH 29.5 MCHC 35.4 H RDW 13.0 Plt Count 228 D MPV 9.3 L Immature Gran % (Auto) 0.6 H Neut % (Auto) 87.4 H Lymph % (Auto) 6.9 L [place]son % (Auto) 4.4 Eos % (Auto) 0.2 Baso % (Auto) 0.5 Lymph # (Auto) 1.3 [place]son # (Auto) 0.8 Eos # (Auto) 0.0 Baso # (Auto) 0.1 Abs Immat Gran (auto) 0.11 H Absolute Neuts (auto) 16.4 H Absolute Nucleated RBC 0.000 Nucleated RBC % (auto) 0.0 Anion Gap 17 Estim Creat Clear Calc 51.9 Estimated GFR > 60 POC Glucose Random Glucose 109 Lactic Acid 3.1 H* Lactic Acid F/U @ 2Hr Calcium 10.3 H Magnesium 1.2 L* Total Bilirubin 1.0 Direct Bilirubin 0.6 H AST 44 H ALT 13 Alkaline Phosphatase 108 Total Protein 8.3 H Albumin 3.7 Lipase 12 Urine Color Yellow Urine Appearance Clear Urine pH 7.5 Ur Specific [place] <= 1.005 Urine Protein Negative Urine Glucose (UA) Negative Urine Ketones Negative Urine Blood Negative Urine Nitrite Negative Ur Leukocyte Esterase Negative 12/03/23 12/03/23 14:06 14:36 MCV MCH MCHC RDW Plt Count MPV Immature Gran % (Auto) Neut % (Auto) Lymph % (Auto) Woodson % (Auto) Eos % (Auto) Baso % (Auto) Lymph # (Auto) [place]son # (Auto) Eos # (Auto) Baso # (Auto) Abs Immat Gran (auto) Absolute Neuts (auto) Absolute Nucleated RBC Nucleated RBC % (auto) Anion Gap Estim Creat Clear Calc Estimated GFR POC Glucose 104 Random Glucose Lactic Acid Lactic Acid F/U @ 2Hr 2.2 H* Calcium Magnesium Total Bilirubin Direct Bilirubin AST ALT Alkaline Phosphatase Total Protein Albumin Lipase Urine Color Urine Appearance Urine pH Ur Specific [place] Urine Protein Urine Glucose (UA) Urine Ketones Urine Blood Urine Nitrite Ur Leukocyte Esterase Imaging Radiologist's Impressions: Impressions Chest X-Ray 12/03/23 11:17 IMPRESSION: No evidence of pulmonary mass or hilar lymphadenopathy. No acute cardiopulmonary disease. Abdomen/Pelvis CT 12/03/23 13:33 IMPRESSION: Slightly enlarged fatty liver. Dilated distal common bile duct. No intrahepatic biliary duct dilatation and the proximal common bile duct is normal in caliber. This is a new finding from previous MRI 2007. Distended gallbladder. No gallstones seen by CT. Follow-up ultrasound and MRCP recommended. Question mild colitis of the distal colon. Fleischner guidelines were followed. Abdomen Ultrasound 12/03/23 15:51 IMPRESSION: Tumefactive sludge at the fundus of the gallbladder. No gallstone or acute change of gallbladder wall. No bile duct dilatation. Assessment and Plan (1) Hypomagnesemia: Status: Acute (2) Hypokalemia: Status: Acute (3) Nausea & vomiting: Qualifiers: Vomiting type: unspecified Qualified Code(s): R11.2 - Nausea with vomiting, unspecified Status: Acute Plan Pt is a 63-year-old female with a PMH significant for HTN, insulin-dependent type 2 diabetes,?hypothyroidism, and alcohol use disorder who presents to the ED for evaluation of nausea and vomiting x3 weeks. Pt will be admitted to the hospital for treatment and further evaluation of significant electrolyte abnormalities in the setting of intractable nausea and vomiting. Intractable nausea and vomiting Unclear etiology: CT and U/S negative for acute abdomen Possibly secondary to alcohol use disorder Patient received IVF and ondansetron in the ED Was started on broad-spectrum antibiotics However, no clear indication for acute infection: UA negative, CXR negative, CT/ultrasound negative Does not meet sepsis criteria: No clear acute infection, tachycardia secondary to dehydration, leukocytosis reactive due to N/V Will hold on additional antibiotics at this time Will treat with antiemetics Clear liquid diet for now, advance as tolerated Blood cultures Hypokalemia Patient's potassium 2.5 at time of presentation In the setting intractable nausea and vomiting with reduced p.o. intake, continuing chlorthalidone Received 40 mEq IV and 40 mEq p.o. in the ED Follow up potassium, replenish as necessary Hypomagnesemia Magnesium 1.2 presentation In the setting intractable nausea and vomiting with reduced p.o. intake, continuing chlorthalidone Received 2 mg IV in the ED Will give additional mg IV x2 doses Follow Mag Lactic acidosis, resolved Initial lactic 3.1 with repeat 2.2 and 1.9 after IVF Secondary to N/V, not sepsis Hyponatremia Sodium 131 at time presentation In the setting intractable nausea and vomiting with reduced p.o. intake, continuing chlorthalidone Patient received IVF in the ED Follow BMP Alcohol use disorder Pt reports drinking at least 2 white Russians daily Currently not in withdrawal, but at high risk for potential withdrawal Started on phenobarb protocol in the ED Will monitor on CIWA Check lytes, Mag, I/O Thiamine, multivitamin, folic acid Addiction medicine consult Monitor on telemetry Insulin-dependent type [address] on sliding scale insulin for now Hold Lantus due to reduced p.o. intake, currently unclear liquid diet Resume basal insulin as warranted Hypothyroidism Continue levothyroxine HTN Continue amlodipine, spironolactone Hold chlorthalidone DNR/DNI, verified with patient Attending:?Dr. Araujo DVT Prophylaxis: Lovenox Pt will require a hospitalization of at least two nights for treatment of?hypokalemia and hypomagnesemia in the setting of intractable nausea vomiting. Due to patient's significant electrolyte abnormalities, she will require close monitoring of labs, electrolyte resuscitation as warranted, and close monitoring of cardiac functioning. Quality Stroke Does the patient have a stroke diagnosis?: No VTE Prior VTE?: No VTE Risk Level:: Medical - moderate - high VTE Device Contraindication: Treatment Not Indicated VTE Drug Contraindication: N/A - Med Ordered
--- NOTE | 2023-12-03 17:22 | PHA.MEDREC ---
Pharmacy Consult ? Medication Reconciliation Pharmacy has completed the medication reconciliation.
[2023-12-03 17:24] LABS: ~Lactic Acid-LAB USE ONLY 1.9 mmol/L (0.5-2.0)
[2023-12-03] MEDS: PHENobarbitaL sodium 130 MG/ML IM ONCE 209 MG IM (17:28)
[2023-12-03 17:29] LABS: Cancel Lactic Acid Canceled
[2023-12-03] MEDS: Thiamine HCL 100 MG TABLET PO (18:36)
[2023-12-03] MEDS: Folic Acid 1 MG TABLET PO (18:37)
[2023-12-03] MEDS: Nicotine 21 MG PATCH.TD24 TRANSDERMA (18:37)
[2023-12-03] MEDS: Multivitamin TABLET 1 TAB PO (18:37)
--- NOTE | 2023-12-03 19:21 | PC.NURSE ---
63 year old female presenting from home with 3 weeks of nausea/vomiting and minimal PO intake. Pt sts that she feeld dehydrated on arrival to exam room. Pt denies constipation/ diarrhea, no complaints of pain. a&o x4, able to ambulate independently.
[2023-12-03 19:41] VITALS: BP 126/82; PULSE 86; RESP 18; TEMP 36.4; O2SAT 93
[2023-12-03 19:44] LABS: Anion Gap 15 (12-20); Carbon Dioxide 27 mmol/L (22-29); Chloride 92 mmol/L (96-108); Magnesium 1.8 mg/dL (1.6-2.6); Potassium 3.1 mmol/L (3.3-5.1); Sodium 131 mmol/L (135-145)
[2023-12-03] MEDS: PHENobarbitaL sodium 130 MG/ML VIAL IM Q3Hx2 157 MG IM ×2 (20:15→23:31)
[2023-12-03] MEDS: Famotidine 20 MG TABLET PO (20:18)
--- NOTE | 2023-12-03 20:29 | PC.NURSE ---
report given to SENTHIL Antonio
[2023-12-03 20:52] LABS: Glucose, Whole Blood 107 mg/dL (60-115)
[2023-12-03 21:27] LABS: Glucose, Whole Blood 125 mg/dL (60-115)
[2023-12-03 21:40] VITALS: BP 139/78; PULSE 95; RESP 22; TEMP 36.3; O2SAT 92
[2023-12-03] MEDS: 0.9 % Sodium Chloride Flush 3 ML SYRINGE IVFLUSH (23:32)
[2023-12-04] VITALS: BP 121/77; PULSE 77; RESP 20; TEMP 36.1; O2SAT 92
[2023-12-04 03:42] VITALS: BP 125/71; PULSE 91; RESP 20; TEMP 36.1; O2SAT 96
[2023-12-04 07:18] LABS: Hematocrit 37.4 % (37.0-47.0); Hemoglobin 13.3 g/dl (12.0-16.0); Mean Corpuscular HGB Conc 35.6 g/dl (31.0-35.0); Mean Corpuscular Hemoglobin 30.3 pg (27.0-33.0); Mean Corpuscular Volume 85.2 fL (80.0-98.0); Mean Platelet Volume 10.1 fL (9.4-12.3); Platelet Count 181 X10*3/uL (160-400); Red Blood Count 4.39 X10*6/uL (4.20-5.50); Red Cell Distribution Width 13.2 % (11.0-16.0); White Blood Count 12.2 X10*3/uL (4.8-10.8)
[2023-12-04 07:25] LABS: Anion Gap 12 (12-20); Blood Urea Nitrogen 9 mg/dL (9-16); Carbon Dioxide 27 mmol/L (22-29); Chloride 94 mmol/L (96-108); Creatinine Clr Calc Pharmacy 61.8; Estimated Glomerular Filt Rate > 60; Glucose Random 127 mg/dL (60-115); Potassium 3.1 mmol/L (3.3-5.1); Sodium 130 mmol/L (135-145)
[2023-12-04 07:26] LABS: Glucose, Whole Blood 144 mg/dL (60-115)
[2023-12-04 07:30] VITALS: BP 125/74; PULSE 88; RESP 18; TEMP 36; O2SAT 98
[2023-12-04 07:40] LABS: Calcium 8.9 mg/dL (8.4-10.2)
[2023-12-04 08:07] LABS: Magnesium 2.1 mg/dL (1.6-2.6)
[2023-12-04] MEDS: Potassium Chloride ER 20 MEQ TAB.ER.PRT 40 MEQ PO (08:43)
[2023-12-04] MEDS: Folic Acid 1 MG TABLET PO (08:43)
[2023-12-04] MEDS: amLODIPine Besylate 2.5 MG TABLET PO (08:43)
[2023-12-04] MEDS: Thiamine HCL 100 MG TABLET PO (08:43)
[2023-12-04] MEDS: Famotidine 20 MG TABLET PO (08:43)
[2023-12-04] MEDS: Spironolactone 25 MG TABLET PO (08:43)
[2023-12-04] MEDS: Cholecalciferol (Vitamin D3) 25 MCG TABLET PO (08:44)
[2023-12-04] MEDS: Multivitamin TABLET 1 TAB PO (08:44)
[2023-12-04] MEDS: PHENobarbitaL 15 MG TABLET 45 MG PO (08:45)
[2023-12-04] MEDS: 0.9 % Sodium Chloride Flush 3 ML SYRINGE IVFLUSH ×2 (08:45→16:32)
[2023-12-04] MEDS: Nicotine 21 MG PATCH.TD24 TRANSDERMA (08:46)
--- NOTE | 2023-12-04 09:32 | MHC.CM.PN ---
Pt self-care, lives at home with her sister and step-son. Pt has a HCP, copy requested. Pt will transport herself home (car is in lot). PCP: Dr. Adrianne Moffett
[2023-12-04 10:11] VITALS: BMI 23.6
--- NOTE | 2023-12-04 10:15 | MHC.CLN ---
RE: CONSULT PT IS MODERATELY MALNOURISHED-NONSEVERE MALNUTRITION IN THE CONTEXT OF SOCIAL/ENVIRONMENTAL/BEHAVIOR PT WITH MILDLY DEPLETED SUBCUTANEOUS FAT AND MUSCLE MASS WITH 22% SIGNIFICANT WT LOSS X1 YEAR AND AT LEAST 3 WEEKS OF POOR PO INTAKE R/T N/V DIET RX: REGULAR-APPROPRIATE RECOMMEND ADDING ENSURE BID TO INCREASE KCALS SUPP TO PROVIDE 700KCALS, 40G PROTEIN MONITOR PO INTAKE AND ENCOURAGE SUPPLEMENTS SEE ALSO FULL CLINICAL NUTRITION ASSESSMENT
[2023-12-04 11:10] LABS: Glucose, Whole Blood 149 mg/dL (60-115)
[2023-12-04 11:26] VITALS: BP 109/79; PULSE 91; RESP 18; TEMP 36.1; O2SAT 96
--- NOTE | 2023-12-04 13:20 | MHC.RECOVRN ---
Met with pt in 470 after consult placed to Addiction Medicine for alcohol use. Pt had presented to the ED reporting nausea and vomiting x 3 weeks with no PO intake. Upon evaluation, pt admitted for electrolyte abnormalities and nausea/vomiting. Pt had been initiated on phenobarbital protocol. Pt sitting in bed, awake, alert, easily engages in conversation, appears comfortable. Pt reports feeling much better. Pt reports alcohol use, 2 white Russians daily x 6 months. Pt reports her significant other almost a year ago and she has been battling depression. Pt states I'm doing much better though. Pt reports she recently has increased motivation and is getting out of her room, going around the house, going in the pool. Pt reports prior to 6 months ago she only had alcohol on special occasions. Pt reports she has never had a problem with alcohol in the past. Has not received any treatment for AUD. Pt denies concerns regarding her alcohol use, states I can stop, denies needing support. Pt denies hx alcohol withdrawal symptoms. Pt reports she lives with her sister and her step son who are both very supportive and do not drink alcohol. Pt reports family hx AUD-mother. Pt is accepting of written recovery resources and information as well as t/w contact information if needed. Pt denies questions or concerns for t/w. Discussed with Yvette Coffman APRN.
[2023-12-04 15:25] LABS: Anion Gap 14 (12-20); Carbon Dioxide 27 mmol/L (22-29); Chloride 94 mmol/L (96-108); Potassium 3.3 mmol/L (3.3-5.1); Sodium 132 mmol/L (135-145)
[2023-12-04 15:44] VITALS: BP 114/73; PULSE 98; RESP 18; TEMP 36.6; O2SAT 96
[2023-12-04 16:35] LABS: Glucose, Whole Blood 119 mg/dL (60-115)
--- NOTE | 2023-12-08 14:28 | P.DS_ITS ---
DS: Providers Provider Date of Service: 12/04/23 Date of admission: 12/03/23 17:40 Primary care physician: Adrianne Moffett MD Consults: 12/03/23 18:09 Addiction Medicine Routine Consulting Provider: Addiction Covering Reason for consultation: Alcohol use disorder DS: Diagnosis Discharge Diagnosis (1) Hypomagnesemia: Status: Acute (2) Hypokalemia: Status: Acute (3) Nausea & vomiting: Status: Acute DS: Summary Status at Discharge Cognitive/behavioral status at discharge: admission Chief Complaint: Nausea, vomiting x3 weeks Pt is a 63-year-old female with a PMH significant for HTN, insulin-dependent type 2 diabetes,?hypothyroidism, and alcohol use disorder who presents to the ED for evaluation of nausea and vomiting x3 weeks. Reports not eating or drinking much of anything during this time; states gets nauseous just at the sight of food, and will vomit whenever she eats or drinks anything. States she is never experienced similar prolonged episode before. Does get some lightheadedness and dizziness if she gets up too fast. Denies fever, chills. No diarrhea or abdominal pain. However, patient states she has continued to drink alcohol during this time. States she drinks ?two white Russians? daily, though admits to occasionally waking up with tremors that are alleviated with alcohol. Reports beginning drinking around 10:00 and then throughout the rest of the day. Denies past history of alcohol withdrawal. No headache. Denies diaphoresis or increased anxiety. No auditory or visual hallucinations. In the ED pt was tachycardia up to 117, vitals otherwise WNL and stable. Labs were significant for leukocytosis of 18.7, sodium 131, potassium 2.5, chloride 80, bicarb 37, lactic acid 3.1 with repeat 2.2, magnesium 1.2, and AST 44. UA negative for UTI. CXR showed no acute cardiopulmonary disease. CT?of abdomen and pelvis found slightly enlarged fatty liver with dilated distal CBD, and question of mild colitis of distal colon. Abdominal ultrasound found tumefactive sludge at fundus of the gallbladder with no gallstone or acute change of gallbladder wall and no bile duct dilation. EKG demonstrated sinus tachycardia with PACs and aberrant conduction and prolonged QTc of 520. Pt was treated with IVF, ondansetron, magnesium, ceftriaxone, potassium chloride 40 mEq IV and 40 mEq p.o. Pt will be admitted to the hospital for treatment and further evaluation of significant electrolyte abnormalities in the setting of intractable nausea and v omiting. Hospital course: She presented with nausea and vomitting in the setting of alcohol use and found to have low potassium and low magnessium and was admitted for replacement and was phenobarbital to prevent alcohol. Her potassium and magnesium were replaced and by the next day she was doing better and discharged home with potassium and magnesium supplement and stop drinking Time Attestation Discharge Coordination Time (in mins): 35 Quality: Safe Use of Opioids Does Pt have an Active Cancer Diagnosis on the Problem List?: No Quality: Stroke Does the patient have a stroke diagnosis?: No Physical Exam Vital Signs: Vital Signs: Last Vital Signs Temp 97.8 F 12/04/23 15:44 Pulse 98 12/04/23 15:44 Resp 18 12/04/23 15:44 BP 114/73 12/04/23 15:44 Pulse Ox 96 12/04/23 15:44 O2 Del Method Room Air 12/04/23 15:44 BMI result Body Mass Index 23.6 Discharge Plan Discharge Anticipated Discharge Date/Time: 12/04/23 17:15 Patient Disposition: Home, Self-Care Discharge Diagnosis: Hypomagnesemia, hypokalemia, nausea vomiting Referrals: Adrianne Moffett MD [Primary Care Provider] - 1 Week Discharge Medications: New amlodipine [Norvasc] 5 mg tablet 5 mg PO DAILY Qty: 90 0RF Continued (DME) FreeStyle Lite Strips Strip See Rx Instructions Not Applicable BID Qty: 120 11RF Rx Instructions: As directed 4 x/day (DME) Ketone Urine Test Strip See Rx Instructions .Route Qty: 50 3RF Rx Instructions: As directed (DME) pen needle, diabetic [BD Nimco 2nd Gen Pen Needle] 32 gauge x 5/32 needle See Rx Instructions .ROUTE .COMPLEX Qty: 120 12RF Dose Instruction: DIRECTED 4 TIMES A DAY Rx Instructions: DIRECTED 4 TIMES A DAY (DME) FreeStyle Leonardo 2 Sensor Kit See Rx Instructions .ROUTE .COMPLEX Qty: 2 6RF Dose Instruction: DIRECTED CHANGE EVERY 14 DAYS Rx Instructions: DIRECTED CHANGE EVERY 14 DAYS levothyroxine 75 mcg tablet 75 mcg PO DAILY@0600 spironolactone 50 mg tablet 50 mg PO BEDTIME insulin glargine [Lantus Solostar U-100 Insulin] 100 unit/mL (3 mL) insulin pen 20 unit subcut BEDTIME insulin lispro 100 unit/mL insulin pen 6 unit subcut BID@1200,1700 cholecalciferol (vitamin D3) [Vitamin D3] 25 mcg (1,000 unit) Tablet 25 mcg PO DAILY insulin lispro 100 unit/mL insulin pen 8 unit subcut DAILY@0800 triamcinolone acetonide 0.5 % cream 1 appl topical BID (DME) FreeStyle Leonardo 2 [employer] Misc See Rx Instructions .Route Qty: 1 0RF Rx Instructions: As directed (DME) blood-glucose meter [FreeStyle [place] Lite] Kit See Rx Instructions .ROUTE .MEDSUPPLY Qty: 1 0RF Rx Instructions: As directed (DME) lancets [FreeStyle Lancets] 28 gauge misc See Rx Instructions .ROUTE .MEDSUPPLY Qty: 200 11RF Rx Instructions: 4 times a day nicotine 21 mg/24 hr patch 24 hour 1 patch topical DAILY Discontinued chlorthalidone 25 mg tablet 25 mg PO BEDTIME amlodipine 2.5 mg tablet 2.5 mg PO DAILY Discharge Orders: Discharge Order (Routine); Ordered 12/04/23 Ordered By: Shahriar Araujo Diet: Diabetic diet Activity on Discharge: As tolerated Stand Alone Forms: Patient Portal Discharge page Print Language: Nigerian Care Plan Goals: recovery from nausea, vomiting, low sodium low potassium Health Concerns: alchol use, hypokalemia, hypomagnesemia Plan of Treatment: avoid alcohol, drink plenty of fluid, if nausea vomitting return, come back to emergency stop taking Chlorthalidone this is causeing your potassium to be low Norvasc dose is increased to 5 mg daily to bettre control your blood pressure Assessment: see above Discharge Date/Time: 12/04/23 17:38
--- NOTE | 2023-12-08 15:28 | PM.EVENT ---
Event Note Date of Service: 12/08/23 Event Note: Got call from lab about low potassium of 2.6 and mag of 1.4, patient was recently discharged and given potassium and mag supplement. I reached her by phone and she said she has not taken the potassium or mag. I told her given low level of potassium and magnesium that she should come to the ED for replacement and that she's at risk of arrhythmia and possibly if potassium and or magnesium get much lower, she wanted to go see her doctor instead next week and I told her it was urgent for her to to have treatment today and therefore should seek emergency care. Time Spent With Patient Time: Total time managing care of this patient today ____ minutes.
== END 2023-12-04 17:38 | disposition home or self-care (01) | DRG 425 ==
LOC: HO.ED 16:06 → HO.EDOVER 17:54 → HO.IMC 20:21
PROVIDERS: Emergency Medicine; Admitting Provider Student in an Organized Health Care Education/Training Program; Emergency Provider Internal Medicine; PCP Family Medicine; Visit Provider Internal Medicine
DX: E83.42 Hypomagnesemia (principal); E03.9 Hypothyroidism, unspecified; E87.6 Hypokalemia; F17.210 Nicotine dependence, cigarettes, uncomplicated; F10.90 Alcohol use, unspecified, uncomplicated; R11.2 Nausea with vomiting, unspecified; Z71.6 Tobacco abuse counseling; E11.9 Type 2 diabetes mellitus without complications; Z79.4 Long term (current) use of insulin; Z79.890 Hormone replacement therapy; Z79.899 Other long term (current) drug therapy
CPT/HCPCS: 36415; 71045; 74177; 76705; 80048; 80051; 80076; 81003; 82947; 83605; 83690; 83735; 85025; 85027; 87040; 93005; 99222; 99285; J0696; J2405; J2560; J3475; J3480; Q9967

== ENCOUNTER → 2023-12-03 11:08 | Outpatient (BNV) | payer MEDICAID, SELFPAY | PROVIDERS: Admitting Provider Student in an Organized Health Care Education/Training Program; Emergency Provider Internal Medicine; PCP Family Medicine; Visit Provider Internal Medicine Cardiovascular Disease | DX: R53.1 Weakness (principal) | CPT/HCPCS: 93010 ==

== ENCOUNTER → 2023-12-03 17:40 | Outpatient (BNV) | payer MEDICAID, SELFPAY | PROVIDERS: Admitting Provider Student in an Organized Health Care Education/Training Program; Emergency Provider Internal Medicine; PCP Family Medicine; Visit Provider Student in an Organized Health Care Education/Training Program | DX: E83.42 Hypomagnesemia (principal); E87.6 Hypokalemia; R11.2 Nausea with vomiting, unspecified | CPT/HCPCS: 99223; 99239; 99499 ==

== ENCOUNTER 2023-12-08 11:10 | Outpatient (REF) | payer MEDICAID, SELFPAY ==
[2023-12-08 12:49] LABS: Anion Gap 16 (12-20); Blood Urea Nitrogen 4 mg/dL (9-16); Calcium 8.5 mg/dL (8.4-10.2); Carbon Dioxide 29 mmol/L (22-29); Chloride 94 mmol/L (96-108); Estimated Glomerular Filt Rate > 60; Glucose Fasting 152 mg/dL (60-99); Sodium 136 mmol/L (135-145)
[2023-12-08 13:10] LABS: Magnesium 1.4 mg/dL (1.6-2.6); Potassium 2.6 mmol/L (3.3-5.1)
== END 2023-12-08 11:11 | disposition home or self-care (01) ==
LOC: HO.LAB 11:10
PROVIDERS: PCP Family Medicine; Visit Provider Internal Medicine
DX: E83.42 Hypomagnesemia (principal); E87.6 Hypokalemia
CPT/HCPCS: 36415; 80048; 83735

== ENCOUNTER 2024-01-01 14:22 | Outpatient (AMB) | payer MEDICAID, SELFPAY ==
--- NOTE | 2024-01-01 14:23 | A.OFFVIS_ITS ---
Vital Signs 01/01/24 14:24 Height 5 ft 3 in Weight 119 lb 0.794 oz BMI 21.1 BP 112/72 Blood Pressure Location Rt brachial Position Sitting Pulse 82 Pulse Source Pulse Oximeter Intake Visit Reasons: Type 2 DM-confirmed Intake Note: New Patient presents today to establish treatment for Type 2 Diabetes Mellitus: Last diabetic eye exam was on: Jan, 2023 Last Podiatry Exam was on: Does not see a Head Of Housekeeping Most recent HbA1c: 5.8%, 01/01/2024 Random Glucose- 138mg/dL, Today Insole And Heel Stiffener Required: No Accompanied by: Self / Same As Patient Allergies No Known Allergies [No Known Allergies*] Allergy (Verified 01/01/24 14:23) HPI Comments Details: Patient is 63-year-old female with DM type 1 JT diagnosed 10/05/2020, who presents for management of diabetes. She was hospitalized at the end of November after 3 weeks of nausea and vomiting and little food intake. Magnesium and potassium were low, lactic acid elevated. She had started consuming alcohol this spring has result of the stress of losing her old man . She has not had any alcohol this month. Dexcom average glucose: [115 ] Glucose Managment indicator - % TIme in range: [ Thinks0 % ] % very high (above 250) Three % high ?(181-250) 95% target [2 ] % low (69-55) [0 ] % ?very low (below 54) Details [ she is running slightly low at night and low after lunch] Past medical history: Diabetes type 1, hypertension, COPD, asthma, hepatitis-C, cirrhosis Micro and macrovascular complications: Diabetes medications: Lantus 20 units daily, Humalog 8-6-6 unit No hypoglycemia s Symptoms reported: + numbness, + tingling, cramping in lower extremities smokes 1/2 pack per day Hypoglycemia: denies symptoms, no nightmares Hyperglycemia: denies urinary frequency, +nocturia 0-2 times, occasional polydypsia Sister and brother and grandmother have Type 2 She would like referral to Podiatry as she has thickened and elongated nails. She is followed by a liver specialist (Dr. Villarreal) and sees a vascular surgeon on an annual basis. She has had prior stenting in the past. Last ophthalmology evaluation: 11/2022 [facility] Medical History (Updated 01/01/24 @ 17:18 by Jeni Guerrero NP) Hypothyroidism Congenital hypothyroidism Uncontrolled type 1 diabetes mellitus with hyperglycemia, with long-term current use of insulin Diabetes mellitus (~2020) Osteopenia (~2014) Nicotine dependence, cigarettes, uncomplicated Tubular adenoma of colon (~2014) Elevated TSH Dysplasia of cervix, low grade (SHELLIE 1) (~2016) Overweight Cirrhosis Essential hypertension COPD (chronic obstructive pulmonary disease) HTN (hypertension) Hepatitis C Surgical History History of unilateral salpingectomy History of section History of tubal ligation History of cervical biopsy (~2016) History of colonoscopy (~2014) History of liver biopsy (~2008) Family History Father No problems noted. Mother Heart problem Cancer Maternal Grandmother Diabetes Brother Diabetes Sister Diabetes Brother Diabetes Social History Household Members: Children Household Members Other:: adult step- son and pt. sister. Housing: House Do you presently have visiting nurse or other home services: No Alcohol intake: current Alcohol intake frequency: 0-2 drinks per day Alcohol type: hard liquor Patient Tobacco Use Status: Current everyday Tobacco user Tobacco use type: Cigarette Cigarette Packs Per Day: 0.5 Years Smoked: (onset 12yo, x 50yrs, max 2ppd, now 1/2ppd - 50+PYH) Second Hand Smoke Exposure: Yes Substance Use Type: Opiates service: No Sexual orientation: Straight/Heterosexual Gender identity: Female Female Reproductive History Menstrual Age of Menarche: 13 Physical Exam Vital Signs: Last Vital Signs Pulse 82 01/01/24 14:24 BP 112/72 01/01/24 14:24 BMI result Body Mass Index 21.1 Const General: cooperative Orientation/consciousness: oriented to person Limitations: no limitations Neck Thyroid: Thyroid normal Resp Effort & Inspection: normal respiratory effort Auscultation: clear to auscultation bilaterally Cardio Rate: regular rate Rhythm: regular rhythm Heart sounds: S1 normal heart sound present and S2 normal heart sound present Neuro General: oriented to person Extrem Other: Visual exam of foot performed. No ulcerations or open lesions. + onchomycosis, + callouses. Sensation intact to monofilament exam. Vibratory sensation is normal with 128 Hz tuning fork. Results AMB Hemoglobin A1c AMB Hemoglobin A1c 5.8 % Last Edit by CLINT Kraft on 01/01/24 14:46 Results Reviewed Results Reviewed: Laboratory Last Values Glucose (Clinic) 138 mg/dL (60-115) H 01/01/24 14:32 Hgb A1c (Clinic) 5.8 % (4.0-6.0) 01/01/24 14:45 Laboratory Tests 09/17/22 11/21/22 08/20/23 12:39 11:21 09:52 Potassium Creatinine Estimated GFR Hgb A1c (Clinic) 13.5 H 11.1 H Lactic Acid F/U @ 2Hr Lactic Acid F/U @ 4Hr Calcium Magnesium AST 53 H ALT 33 H 25-OH Vitamin D Total TSH Free T4 PTH Intact 09/03/23 12/03/23 12/03/23 11:40 14:36 16:56 Potassium Creatinine Estimated GFR Hgb A1c (Clinic) Lactic Acid F/U @ 2Hr 2.2 H* Lactic Acid F/U @ 4Hr 1.9 Calcium Magnesium AST ALT 25-OH Vitamin D Total 22.9 L TSH 2.04 Free T4 0.99 PTH Intact 10.5 12/04/23 12/04/23 12/08/23 06:32 15:04 11:24 Potassium 3.3 2.6 L* D Creatinine 0.83 Estimated GFR > 60 Hgb A1c (Clinic) Lactic Acid F/U @ 2Hr Lactic Acid F/U @ 4Hr Calcium 8.9 D Magnesium 2.1 1.4 L* AST ALT 25-OH Vitamin D Total TSH Free T4 PTH Intact Assessment & Plan Assessment & Plan (1) Uncontrolled type 1 diabetes mellitus with hyperglycemia, with long-term current use of insulin: Code(s): E10.65 - Type 1 diabetes mellitus with hyperglycemia Category: Medical Plan: A1c 5.9% with some overnight lows and lows after lunch. We will change medications as follows: Change Lantus to Tresiba 18 units Humalog Breakfast 8 units Lunch 4 units Supper 6 units Changed to a freestyle Leonardo 3. She will contact us if she continues to have lows. Counseled to continue to abstain from all alcohol and encouraged to attend AA meetings. She feels like she is doing better with her grief and has social supports. I will refer to podiatry.. (2) Hypothyroidism: Code(s): E03.9 - Hypothyroidism, unspecified Category: Medical Plan: Has been taking thyroid medication daily on an empty stomach. Due for labs. Orders: Orders AMB Hemoglobin A1c Today E11.9 - Type 2 diabetes mellitus without complications Thyroid Stimulating Hormone 2 Weeks E10.65 - Type 1 diabetes mellitus with hyperglycemia Creatinine Urine 2 Weeks E10.65 - Type 1 diabetes mellitus with hyperglycemia Lipid Panel 2 Weeks E10.65 - Type 1 diabetes mellitus with hyperglycemia Free T4 (Free Thyroxine) 2 Weeks E10.65 - Type 1 diabetes mellitus with hyperglycemia Comprehensive [place]. Panel Fast 2 Weeks E10.65 - Type 1 diabetes mellitus with hyperglycemia Microalbumin, Random (w Creat) 2 Weeks E10.65 - Type 1 diabetes mellitus with hyperglycemia Medications: New insulin degludec (Tresiba FlexTouch U-100 insulin) 18 units (0.18 mL) subcut DAILY 30 days 6 mL 6RF E10.65 - Type 1 diabetes mellitus with hyperglycemia blood-glucose meter,continuous (FreeStyle Leonardo 3 [place]) As directed 1 ea 0RF blood-glucose sensor (FreeStyle Leonardo 3 Sensor device) As directed 2 ea 11RF Refilled acetone (urine) test (Ketone Urine Test strips) As directed 50 ea 3RF Discontinued flash glucose scanning reader (FreeStyle Leonardo 2 [place]) Discontinued Reason: Doctor's Order As directed 1 ea 0RF flash glucose sensor (FreeStyle Leonardo 2 Sensor kit) Discontinued Reason: Doctor's Order DIRECTED CHANGE EVERY 14 DAYS 2 kits 6RF Coding Level of Care Code Est Pt Level 5 (08510) Complex EM visit Add On G2211 Diagnoses Uncontrolled type 1 diabetes mellitus with hyperglycemia, with long-term current use of insulin E10.65 Hypothyroidism E03.9 Time Spent (min) 45 Comment Time spent reviewing labs/previous provider notes, face to face, chart documentation
[2024-01-01 14:24] VITALS: BP 112/72; PULSE 82; BMI 21.1
[2024-01-01 14:36] LABS: Glucose, Whole Blood 138 mg/dL (60-115)
== END 2024-01-01 14:57 | disposition home or self-care (01) ==
PROVIDERS: PCP Family Medicine; Visit Provider Nurse Practitioner Adult Health
DX: E10.65 Type 1 diabetes mellitus with hyperglycemia (principal); E03.9 Hypothyroidism, unspecified; E11.9 Type 2 diabetes mellitus without complications
CPT/HCPCS: 99215

== ENCOUNTER → 2024-01-01 14:22 | Outpatient (BNVA) | payer MEDICAID, SELFPAY | PROVIDERS: PCP Family Medicine; Visit Provider Physician Assistant | DX: E10.65 Type 1 diabetes mellitus with hyperglycemia (principal); E03.9 Hypothyroidism, unspecified; Z79.4 Long term (current) use of insulin | CPT/HCPCS: 82947; 83036; 99212 ==

== ENCOUNTER 2024-03-26 10:03 | Inpatient (IN) | payer MEDICAID, SELFPAY ==
[2024-03-26] VITALS (14 sets, daily range): BP systolic 105–152; BP diastolic 63–92; PULSE 74–104; RESP 12–18; TEMP 34.5–37.1; O2SAT 94–96; BMI 20.4
--- NOTE | ~2024-03-26 | CT_ITS ---
CT HEAD WITHOUT IV CONTRAST CLINICAL INFORMATION: AMS, etoh COMPARISON: No prior CT scan available for comparison. TECHNIQUE: Department standard protocol. This CT examination was performed using dose optimization techniques as appropriate, variously including the following: *Automated exposure control *Adjustment of mA and/or kV according to patient size (this includes techniques or standardized protocols for targeted exams where dose is matched to indication/reason for exam; i.e. extremities or head) *Use of iterative reconstruction technique DLP: 584 mGy-cm FINDINGS: CEREBRAL HEMISPHERES: There is no evidence of intra-axial or extra-axial mass, hemorrhage or acute infarct. BRAIN PARENCHYMA: Normal perez-white matter differentiation. SUBDURAL SPACE: No bleed. BASAL GANGLIA AND PINEAL GLAND: Unremarkable VENTRICLES: Symmetric and normal in size. CEREBELLUM AND BRAINSTEM: No space-occupying mass, hemorrhage or acute infarct. CEREBELLOPONTINE ANGLES: No lesion found. ORBITS: No intraorbital mass. VESSELS: Unremarkable SKULL BASE: Unremarkable INCLUDED SINUSES AT SKULL BASE: Clear SKULL AND SKIN: No fracture or bone lesion found. CT/CT head/brain wo IV con IMPRESSION: No CT evidence of intracranial space-occupying mass, bleed or infarct. Electronically signed by: Africa Sweeney MD 03/26/2024 12:33 PM EDT
--- NOTE | ~2024-03-26 | XR_ITS ---
EXAMINATION: XR CHEST 1 VIEW CLINICAL INFORMATION: ams COMPARISON: Prior x-ray December 03, 2023 TECHNIQUE: Single portable frontal view. Tubes and lines: None Lungs and pleura: Nonspecific mild interstitial reticulonodular opacification middle and lower lobes, no dense focal consolidation lobar pneumonia. Heart and mediastinum: The mediastinum is within normal limits.. Bones/soft tissue: Skeletal structures included are normal for patient's age. XR/XR chest 1V IMPRESSION: 1. Nonspecific mild interstitial reticulonodular opacification middle and lower lobes. 2. No dense focal consolidation lobar pneumonia. 3. No pleural effusion. Electronically signed by: Africa Sweeney MD 03/26/2024 12:28 PM EDT
--- NOTE | 2024-03-26 10:10 | ED_ITS ---
HPI - Recheck/Abnormal Lab/Rx General Chief Complaint: Recheck/Abnormal Lab/Rx Stated Complaint: LOW BLOOD SUGAR Time Seen by Provider: 03/26/24 10:10 Source: patient, family, EMS, RN notes reviewed and old records reviewed Mode of arrival: EMS History of Present Illness ED Provider: Caron Jenkins PA-C HPI narrative: 64-year-old female with a past medical history of hypothyroid, insulin-dependent diabetic, cirrhosis, HTN, COPD, hepatitis-C, ETOH abuse, presenting to the ED via EMS s/p sister called due to patient being unresponsive with altered mental status and ?witnessed seizure-like activity with whole-body shaking and 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 Patient hypoglycemic with a POC if 31 on EMS arrival, improved to 72 after 100 mL of D10. Most history obtained from aunt/sister, state patient with decreased p.o. intake, drinks ETOH daily, 1-2 cups, last drink this morning. Aunt states glucose was 60 prior to bed last night and she did not eat. Patient is poor historian, notably confused. Patient does not know why she is in the emergency department, and did not know that she was a diabetic on this internal communications writer's evaluation Related Data Home Medications ?Medication ?Instructions ?Recorded ?Confirmed levothyroxine 75 mcg tablet 75 mcg PO DAILY@0600 12/03/23 03/26/24 spironolactone 50 mg tablet 50 mg PO BEDTIME 12/03/23 03/26/24 insulin lispro 100 unit/mL 8 unit subcut TID 03/26/24 03/26/24 subcutaneous pen Previous Rx's ?Medication ?Instructions ?Recorded lancets 28 gauge (FreeStyle #200 ea 09/16/21 Lancets) blood sugar diagnostic (FreeStyle #120 ea 10/22/21 Lite Strips) blood-glucose meter (FreeStyle #1 ea 09/17/22 [place] Lite kit) pen needle, diabetic 32 gauge x #120 ea 10/15/23 (BD Nimco 2nd Gen Pen Needle) amlodipine 5 mg tablet (Norvasc) 5 mg PO DAILY #90 tabs 12/04/23 acetone (urine) test (Ketone Urine #50 ea 01/01/24 Test strips) blood-glucose meter,continuous #1 ea 01/01/24 (FreeStyle Leonardo 3 [place]) blood-glucose sensor (FreeStyle #2 ea 01/01/24 Leonardo 3 Sensor device) insulin degludec 100 unit/mL (3 18 unit (0.18 mL) subcut DAILY 30 01/01/24 mL) subcutaneous pen (Tresiba days #6 mL FlexTouch U-100 insulin) Allergies Allergy/AdvReac Type Severity Reaction Status Date / Time No Known Allergies Allergy Verified 03/26/24 10:07 [No Known Allergies*] Review of Systems 2 Review of Systems: Yes all other systems are reviewed and are negative Constitutional: Constitutional: Reports as per [facility] Past Medical History Attestation statement: The following information was validated with the patient. Source: old records reviewed Medical History Hypothyroidism Congenital hypothyroidism Uncontrolled type 1 diabetes mellitus with hyperglycemia, with long-term current use of insulin Diabetes mellitus (~2020) Osteopenia (~2014) Nicotine dependence, cigarettes, uncomplicated Tubular adenoma of colon (~2014) Elevated TSH Dysplasia of cervix, low grade (SHELLIE 1) (~2016) Overweight Cirrhosis Essential hypertension COPD (chronic obstructive pulmonary disease) HTN (hypertension) Hepatitis C Surgical History History of unilateral salpingectomy History of section History of tubal ligation History of cervical biopsy (~2016) History of colonoscopy (~2014) History of liver biopsy (~2008) Family History Family History Father No problems noted. Mother Heart problem Cancer Maternal Grandmother Diabetes Brother Diabetes Sister Diabetes Brother Diabetes Social History Social History Household Members: Children Household Members Other:: adult step- son and pt. sister. Housing: House Do you presently have visiting nurse or other home services: No Alcohol intake: current Alcohol intake frequency: 3 or more drinks per day Alcohol type: hard liquor Patient Tobacco Use Status: Current everyday Tobacco user Tobacco use type: Cigarette Cigarette Packs Per Day: 0.5 Years Smoked: (onset 12yo, x 50yrs, max 2ppd, now 1/2ppd - 50+PYH) Smoked in Last 30 Days: Yes Second Hand Smoke Exposure: Yes Use of substances other than those prescribed or required for medical reasons: Unknown Substance Use Type: Opiates Advance Directives: Yes Advance Directives Information Provided: No Advance Directives on File: No Do you have a plan to hurt others: No Plan Nutrition Risks: No Nutritional Risk Patient : No service: No Sexual orientation: Straight/Heterosexual Gender identity: Female Physical Exam 2 Vital Signs: Vital Signs: Last Vital Signs Temp 98.4 F 03/26/24 15:55 Pulse 91 03/26/24 15:55 Resp 16 03/26/24 15:55 BP 114/76 03/26/24 15:55 Pulse Ox 94 03/26/24 15:55 O2 Del Method Room Air 03/26/24 15:55 BMI result Body Mass Index 20.4 Const: Other: + ETOH odor on breath General: cooperative, healthy appearing and no acute distress O rientation/consciousness: oriented to person, oriented to place and No oriented to time (did not know year or President) HEENT: Head: Yes normal to inspection and Yes atraumatic Ears: hearing grossly normal bilaterally General nose exam: Normal external nose present Face and sinus: Yes normal facial exam Throat: Yes posterior oropharynx normal Eyes: General: appearance normal, both eyes and all related structures P upils: Equal, round and reactive pupils present EOM: EOMs intact bilaterally Neck: Neck: Yes normal visual inspection and Yes no meningeal signs Resp: Effort & Inspection: normal respiratory effort and no respiratory distress Auscultation: clear to auscultation bilaterally Cardio: Rate: regular rate Heart sounds: S1 normal heart sound present and S2 normal heart sound present GI: Inspection: Yes normal to inspection Palpation (GI): Soft to palpation, nontender, no guarding, not rigid and Ascites present : General: Yes no CVA tenderness Back/Spine/Pelvis: Other: No midline cervical/thoracic/lumbar spinous tenderness/step-off or deformity Back: no CVA tenderness Skin: Rashes: no rashes Wounds: no wounds Neuro: General: oriented to person, oriented to place, No oriented to time (did not know year or President), tone normal and no meningeal signs Cranial nerves: Yes CN's II-XII intact bilaterally and Yes Equal, round and reactive pupils present Gait exam (Neuro): Normal gait present Extrem: Other: Bilateral LE nonpitting edema Course Course Course Narrative: -1158--WBC count 11.8. Potassium low at 2.9 > p.o. repletion ordered AST/alk phos mildly elevated likely from chronic ETOH -troponin > 5.6 will obtain 3 hour repeat -ethanol 29. Lactic acid 5.2 > likely from alcoholic ketosis -viral studies negative XR chest 1V IMPRESSION: 1. Nonspecific mild interstitial reticulonodular opacification middle and lower lobes. 2. No dense focal consolidation lobar pneumonia. 3. No pleural effusion. > empiric IV cefepime given CT head/brain wo IV con IMPRESSION: No CT evidence of intracranial space-occupying mass, bleed or infarct. > plan to admit for further management. Will initiate phenobarb protocol -continued low suspicion for meningitis/encephalitis. No photophobia, headache, stiff neck Medications Administered Generic Name Dose Route Start Last Admin Trade Name Freq PRN Reason Stop Dose Admin Clonidine HCl 0.1 mg 03/26/24 15:00 03/26/24 14:10 Clonidine Hcl 0.1 Mg Tablet PO 0.1 mg TID GAYLA Administration Protocol Folic Acid 1 mg 03/26/24 13:45 03/26/24 14:05 Folic Acid 1 Mg Tablet PO 03/29/24 13:44 1 mg DAILY GAYLA Administration Piperacillin Sod/Tazobactam 50 mls @ 100 mls/hr 03/26/24 13:45 03/26/24 14:47 Sod 3.375 gm/ Sodium Chloride IV Infused Q6H GAYLA Infusion Insulin Human Lispro 0 unit 03/26/24 16:30 03/26/24 16:10 Insulin Lispro 100 Unit/Ml 3 Ml Vial SUBCUT Not Given [facility] Protocol Multivitamins/Vitamin C 1 tab 03/26/24 13:45 03/26/24 14:06 Multivitamin Tablet PO 03/29/24 13:44 1 tab DAILY GAYLA Administration Nicotine 21 mg 03/26/24 14:45 03/26/24 15:57 Nicotine 21 Mg Patch.Td24 TRANSDERMA 21 mg DAILY GAYLA Administration Omeprazole 20 mg 03/26/24 13:45 03/26/24 14:06 Omeprazole 20 Mg Capsule.Dr PO 20 mg DAILY@0630 GAYLA Administration Potassium Chloride 40 meq 03/26/24 16:00 03/26/24 15:57 Potassium Chloride Er 20 Meq Tab.Er.Prt PO 03/26/24 20:01 40 meq Q4H GAYLA Administration Sodium Chloride 3 ml 03/26/24 16:00 03/26/24 15:53 0.9 % Sodium Chloride Flush 3 Ml Syringe IVFLUSH Not Given QSHIFT GAYLA Thiamine HCl 100 mg 03/26/24 13:45 03/26/24 14:06 Thiamine Hcl 100 Mg Tablet PO 03/29/24 13:44 100 mg DAILY GAYLA Administration Discontinued Medications Generic Name Dose Route Start Last Admin Trade Name Freq PRN Reason Stop Dose Admin Sodium Chloride 1,000 mls @ 999 mls/hr 03/26/24 10:30 03/26/24 12:30 Ns IV 03/26/24 11:30 Infused .Q1H1M GAYLA Infusion Cefepime HCl 2 gm in 50 mls @ 100 mls/hr 03/26/24 10:27 03/26/24 11:58 Maxipime IV 03/26/24 10:56 Infused ONCE ONE Infusion Lactated Ringer's 1,000 mls @ 999 mls/hr 03/26/24 11:30 03/26/24 13:13 Lr IV 03/26/24 12:30 Infused .Q1H1M GAYLA Infusion Magnesium Sulfate/Dextrose 1 gm in 100 mls @ 100 mls/hr 03/26/24 13:34 03/26/24 15:05 Magnesium Sulfate/D5w IV 03/26/24 14:33 Infused ONCE ONE Infusion Lorazepam 1 mg 03/26/24 10:58 03/26/24 12:20 Lorazepam 1 Mg Tablet PO 1 mg Q4H PRN Administration Alcohol Withdrawal Phenobarbital Sodium 228 mg 03/26/24 14:00 03/26/24 14:06 Phenobarbital Sodium 130 Mg/Ml Im Once IM 03/26/24 14:01 228 mg ONCE ONE Administration Protocol Potassium Chloride 60 meq 03/26/24 12:00 03/26/24 12:12 Potassium Chloride Er 20 Meq Tab.Er.Prt PO 03/26/24 12:01 60 meq ONCE ONE Administration Medical Decision Making Medical Decision Making MDM Narrative: 64-year-old female with a past medical history of hypothyroid, insulin-dependent diabetic, cirrhosis, HTN, COPD, hepatitis-C, ETOH abuse, presenting to the ED via EMS s/p sister called due to patient being unresponsive with altered mental status and ?witnessed seizure-like activity with whole-body shaking and 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 Patient hypoglycemic with a POC if 31. On exam tachycardic, hypotensive 94.9 rectally, A&O x2, confused, poor historian, EtOH odor on breath. Concern for ETOH withdrawal seizure vs alcohol intoxication vs encephalopathy vs ICH vs metabolic/infectious etiologies. Low suspicion for severe sepsis at this time. Lower suspicion for encephalitis/meningitis Plan: EKG, labs, UA, CXR, head CT, tox screen, anticipate admission Please refer to course for remaining clinical decision making, interpretation of labs/imaging results, and discussions with consultants and/or family members. Differential Diagnosis Differential Diagnoses: The differential diagnosis associated with the presentation includes As above Admission/Observation Consideration of admission/observation: Escalation of care including admission/observation considered Consult Healthcare Provider Management of the patient was discussed with: Hospitalist Lab Data MDM Lab Attestation statement: I reviewed the patient's lab results. 03/26/24 10:48 03/26/24 11:04 Labs: Lab Results 03/26/24 03/26/24 03/26/24 Range/Units 10:08 10:20 10:34 WBC (4.8-10.8) X10*3/uL RBC (4.20-5.50) X10*6/uL Hgb (12.0-16.0) g/dl Hct (37.0-47.0) % MCV (80.0-98.0) fL MCH (27.0-33.0) pg MCHC (31.0-35.0) g/dl RDW (11.0-16.0) % Plt Count (160-400) X10*3/uL MPV (9.4-12.3) fL Immature Gran % (Auto) (0.0-0.4) % Neut % (Auto) (45-73) % Lymph % (Auto) (20-40) % [place] % (Auto) (2-11) % Eos % (Auto) (0-4) % Baso % (Auto) (0-2) % Lymph # (Auto) (1.2-4.9) X10*3/uL [place] # (Auto) (0.1-1.2) X10*3/uL Eos # (Auto) (0.0-0.4) X10*3/uL Baso # (Auto) (0.0-0.2) X10*3/uL Abs Immat Gran (auto) (0.00-0.03) X10*3/uL Absolute Neuts (auto) (2.0-8.3) x10*3/uL Absolute Nucleated RBC (0.0-0.012) X10*3/uL Nucleated RBC % (auto) (0.0-0.2) /100WBC Hold Purple Top PT (10.9-12.4) SEC INR (0.9-1.1) Sodium (135-145) mmol/L Potassium (3.3-5.1) mmol/L Chloride (96-108) mmol/L Carbon Dioxide (22-29) mmol/L Anion Gap (12-20) BUN (9-16) mg/dL Creatinine (0.5-1.4) mg/dL Estim Creat Clear Calc Estimated GFR POC Glucose 46 L* 40 L* 200 H (60-115) mg/dL Random Glucose (60-115) mg/dL Lactic Acid (0.5-2.0) mmol/L Calcium (8.4-10.2) mg/dL Magnesium (1.6-2.6) mg/dL Total Bilirubin (0.0-1.0) mg/dL Direct Bilirubin (0.0-0.5) mg/dL AST (5-31) U/L ALT (0-31) U/L Alkaline Phosphatase (39-117) U/L Ammonia (13-55) umol/L Total Creatine Kinase (26-140) U/L Troponin I High Sens (<3.5-17.0) ng/L B-Natriuretic Peptide (<100) pg/mL Total Protein (6.5-8.0) g/dL Albumin (3.5-5.0) g/dL Lipase (8-78) U/L Ethyl Alcohol mg/dL Influenza Type A (PCR) (Negative) Influenza Type B (PCR) (Negative) RSV RNA Qual (PCR) (Negative) SARS-CoV-2 RNA (RT-PCR) (Negative) 03/26/24 03/26/24 03/26/24 Range/Units 10:48 11:04 11:37 WBC 11.8 H (4.8-10.8) X10*3/uL RBC 4.44 (4.20-5.50) X10*6/uL Hgb 13.2 (12.0-16.0) g/dl Hct 38.5 (37.0-47.0) % MCV 86.7 (80.0-98.0) fL MCH 29.7 (27.0-33.0) pg MCHC 34.3 (31.0-35.0) g/dl RDW 15.6 (11.0-16.0) % Plt Count 237 D (160-400) X10*3/uL MPV 9.2 L (9.4-12.3) fL Immature Gran % (Auto) 0.8 H (0.0-0.4) % Neut % (Auto) 75.1 H (45-73) % Lymph % (Auto) 15.2 L (20-40) % [place] % (Auto) 7.1 (2-11) % Eos % (Auto) 0.9 (0-4) % Baso % (Auto) 0.9 (0-2) % Lymph # (Auto) 1.8 (1.2-4.9) X10*3/uL [place] # (Auto) 0.8 (0.1-1.2) X10*3/uL Eos # (Auto) 0.1 (0.0-0.4) X10*3/uL Baso # (Auto) 0.1 (0.0-0.2) X10*3/uL Abs Immat Gran (auto) 0.09 H (0.00-0.03) X10*3/uL Absolute Neuts (auto) 8.9 H (2.0-8.3) x10*3/uL Absolute Nucleated RBC 0.000 (0.0-0.012) X10*3/uL Nucleated RBC % (auto) 0.0 (0.0-0.2) /100WBC Hold Purple Top SEE NOTE PT 13.4 H (10.9-12.4) SEC INR 1.2 H (0.9-1.1) Sodium 138 (135-145) mmol/L Potassium 2.9 L* (3.3-5.1) mmol/L Chloride 101 (96-108) mmol/L Carbon Dioxide 26 (22-29) mmol/L Anion Gap 14 (12-20) BUN 6 L (9-16) mg/dL Creatinine 0.77 (0.5-1.4) mg/dL Estim Creat Clear Calc 65.5 Estimated GFR > 60 POC Glucose 116 H (60-115) mg/dL Random Glucose 152 H (60-115) mg/dL Lactic Acid 5.2 H* (0.5-2.0) mmol/L Calcium 8.4 (8.4-10.2) mg/dL Magnesium 1.7 (1.6-2.6) mg/dL Total Bilirubin 0.4 (0.0-1.0) mg/dL Direct Bilirubin 0.2 (0.0-0.5) mg/dL AST 33 H (5-31) U/L ALT 14 (0-31) U/L Alkaline Phosphatase 180 H (39-117) U/L Ammonia 38 (13-55) umol/L Total Creatine Kinase 35 (26-140) U/L Troponin I High Sens 5.6 (<3.5-17.0) ng/L B-Natriuretic Peptide 80 (<100) pg/mL Total Protein 6.8 (6.5-8.0) g/dL Albumin 2.8 L (3.5-5.0) g/dL Lipase 12 (8-78) U/L Ethyl Alcohol 29 mg/dL Influenza Type A (PCR) NEGATIVE (Negative) Influenza Type B (PCR) NEGATIVE (Negative) RSV RNA Qual (PCR) NEGATIVE (Negative) SARS-CoV-2 RNA (RT-PCR) NEGATIVE (Negative) Independent Interpretation I performed an independent interpretation of an: EKG (My interpretation EKG normal sinus rhythm rate of 94. QTC 510. Nonspecific change in ST segment in inferior leads. No STEMI. ), Plain X-Ray and CT Scan Radiology Impression Discussion of test interpretation with radiology: I have reviewed the radiologist's reading. Independent Historian Clinical information obtained from an independent historian. History obtained from or confirmed by: EMS and Other (aunt and sister) External Record Review External record reviewed: Inpatient record, Office record, Outpatient record, Prior outpatient labs, Prior outpatient radiology, Primary care record and Outside ED record Tests considered The following testing was considered but not selected: As above Chronic Conditions Patient?s care impacted by: Other Social Determinants Patient?s care significantly limited by Social Determinants of Health including: Inadequate housing, Low income, Alcoholism and drug addiction in family, Problems related to primary support group, Unemployment, Problems related to employment and Other Social Determinant of Health Discharge Plan Discharge Clinical Impression: Encephalopathy Qualifiers: Encephalopathy type: metabolic Qualified Code(s): G93.41 - Metabolic encephalopathy Hypothermia Qualifiers: Encounter type: initial encounter Qualified Code(s): T68.XXXA - Hypothermia, initial encounter Alcohol withdrawal seizure Qualifiers: Complication of substance-induced condition: uncomplicated Qualified Code(s): F 10.930 - Alcohol use, unspecified with withdrawal, uncomplicated Pneumonia Qualifiers: Pneumonia type: aspiration pneumonia Aspiration pneumonia type: due to gastric secretions Laterality: bilateral Patient Disposition: Admitted As Inpatient
--- NOTE | 2024-03-26 10:15 | PC.NURSE ---
ana from home after sister called d/t pt not acting right/not responding x 1 hr. hx DM - POC 31mg/dL upon EMS arrival. s/p 100ml of D10 - POC = 72mg/dL. per pt's sister, pt is compliant w/ insulin but decreased PO intake lately. upon ED arrival - pt presents as a poor historian - AMS. alert and oriented to name only. unable to state where she is, why she's here or unable to guess the date. when asking pt what year it is, she states, i don't have a guess. POC = 46mg/dL upon ED arrival. provider aware. 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 hypotensive. pt noted to be hypothermic after she was noted to be cold to the touch. rectal temp obtained displaying 94.7 - bear hugger applied. effectiveness pending. alcohol noted from pt's breath. provider bedside assessing pt. pt otherwise resting in no apparent distress. no sob/wob noted. respirations even/unlabored.
--- NOTE | 2024-03-26 10:20 | PC.NURSE ---
pt provided w/ orange juice/sugar/crackers after obtaining initial POC upon ED arrival. repeat POC decreased to 40mg/dL. provider notified/aware.
--- NOTE | 2024-03-26 10:22 | ECG_ITS ---
Test Reason : AMS Blood Pressure : / mmHG Vent. Rate : 094 BPM Atrial Rate : 094 BPM P-R Int : 146 ms QRS Dur : 066 ms QT Int : 408 ms P-R-T Axes : 081 072 083 degrees QTc Int : 510 ms Normal sinus rhythm Prolonged QT Abnormal ECG When compared with ECG of 03-DEC-2023 11:16, Aberrant conduction is no longer Present Non-specific change in ST segment in Inferior leads Referred By: Caron Jenkins Electronically Signed By:MEGHAN DUMONT MD
--- NOTE | 2024-03-26 10:35 | PC.NURSE ---
Addendum entered by Lizette Mathias 03/26/24 13:06: *unable to scan dextrose amp as provider is not able to put it in the system. pt did receive entire amp of 25g of 50% dextrose via IV by this RN. Original Note: POC = 200mg/dL post amp of dextrose. provider notified/aware. will reassess shortly.
[2024-03-26 10:56] LABS: MANUAL DIFF FLAG NO
[2024-03-26 10:57] LABS: Basophils Absolute Auto 0.1 X10*3/uL (0.0-0.2); Basophils Percent Auto 0.9 % (0-2); Eosinophils Absolute Auto 0.1 X10*3/uL (0.0-0.4); Eosinophils Percent Auto 0.9 % (0-4); Hematocrit 38.5 % (37.0-47.0); Hemoglobin 13.2 g/dl (12.0-16.0); Imm Gran Abs Auto 0.09 X10*3/uL (0.00-0.03); Imm Gran Pct Auto 0.8 % (0.0-0.4); Lymphocytes Absolute Auto 1.8 X10*3/uL (1.2-4.9); Lymphocytes Percent Auto 15.2 % (20-40); Mean Corpuscular HGB Conc 34.3 g/dl (31.0-35.0); Mean Corpuscular Hemoglobin 29.7 pg (27.0-33.0); Mean Corpuscular Volume 86.7 fL (80.0-98.0); Mean Platelet Volume 9.2 fL (9.4-12.3); Monocytes Absolute Auto 0.8 X10*3/uL (0.1-1.2); Monocytes Percent Auto 7.1 % (2-11); Neutrophils Absolute Auto 8.9 x10*3/uL (2.0-8.3); Neutrophils Percent Auto 75.1 % (45-73); Platelet Count 237 X10*3/uL (160-400); Red Blood Count 4.44 X10*6/uL (4.20-5.50); Red Cell Distribution Width 15.6 % (11.0-16.0); White Blood Count 11.8 X10*3/uL (4.8-10.8)
[2024-03-26 11:03] LABS: Ammonia 38 umol/L (13-55)
[2024-03-26 11:17] LABS: Lactic Acid 5.2 mmol/L (0.5-2.0)
[2024-03-26 11:22] LABS: INTERNATIONAL NORM RATIO 1.2 (0.9-1.1); Prothrombin Time 13.4 SEC (10.9-12.4)
[2024-03-26] MEDS: cefEPime HCl/D5W 2 GM/50 ML PIGGYBACK IV (11:28)
[2024-03-26] MEDS: 0.9 % Sodium Chloride 1,000 ML 999 ML IV (11:29)
--- NOTE | 2024-03-26 11:33 | PC.NURSE ---
pt remains seemingly confused as she continues to ask if she arrived today or yesterday. attempted to reorient but pt remains pleasantly confused. able to follow commands appropriately. neuros intact. pt remains on bear hugger d/t being hypothermic. otherwise vss and up to date. nsr on the quality assurance monitor chassis. IVF/abx administered per provider order. repeat POC = 116 mg/dL. provider notified/aware. no sob/wob noted. respirations remain even/unlabored. plan of care ongoing.
[2024-03-26 11:35] LABS: Influenza A PCR NEGATIVE (Negative); Influenza B PCR NEGATIVE (Negative); Resp Syncy Virus RNA Qual PCR NEGATIVE (Negative); SARS COV2 PCR INHOUSE NEGATIVE (Negative)
[2024-03-26 11:38] LABS: Glucose, Whole Blood 40 mg/dL (60-115)
[2024-03-26 11:38] LABS: Glucose, Whole Blood 200 mg/dL (60-115)
[2024-03-26 11:38] LABS: Glucose, Whole Blood 46 mg/dL (60-115)
[2024-03-26 11:42] LABS: Glucose, Whole Blood 116 mg/dL (60-115)
[2024-03-26 11:44] LABS: Alanine Aminotransferase 14 U/L (0-31); Albumin Level 2.8 g/dL (3.5-5.0); Alkaline Phosphatase 180 U/L (39-117); Anion Gap 14 (12-20); Aspartate Amino Transferase 33 U/L (5-31); Bilirubin Direct 0.2 mg/dL (0.0-0.5); Bilirubin Total 0.4 mg/dL (0.0-1.0); Blood Urea Nitrogen 6 mg/dL (9-16); Calcium 8.4 mg/dL (8.4-10.2); Carbon Dioxide 26 mmol/L (22-29); Chloride 101 mmol/L (96-108); Creatinine Clr Calc Pharmacy 65.5; Estimated Glomerular Filt Rate > 60; Ethanol 29 mg/dL; Glucose Random 152 mg/dL (60-115); Lipase 12 U/L (8-78); Magnesium 1.7 mg/dL (1.6-2.6); Potassium 2.9 mmol/L (3.3-5.1); Sodium 138 mmol/L (135-145); Total Protein 6.8 g/dL (6.5-8.0)
[2024-03-26 11:54] LABS: Troponin-I High Sensitivity 5.6 ng/L (<3.5-17.0)
--- NOTE | 2024-03-26 11:55 | PC.NURSE ---
pt to CT at this time. plan of care ongoing.
[2024-03-26 12:09] LABS: B Type Natriuretic Peptide 80 pg/mL (<100)
[2024-03-26] MEDS: Lactated Ringers 1,000 ML 999 ML IV (12:12)
[2024-03-26] MEDS: Potassium Chloride ER 20 MEQ TAB.ER.PRT 60 MEQ PO (12:12)
[2024-03-26] MEDS: LORazepam 1 MG TABLET PO (12:20)
--- NOTE | 2024-03-26 12:23 | PC.NURSE ---
IVF/medication administered per provider order. prn ativan utilized for withdrawal sx. updated CIWA = 12. provider notified/aware. effectiveness pending in regards to prn utilization. otherwise pt remains hypothermic/on bear hugger. sinus tachy on the campus monitor - HR 100-110bpm. denies chest pain/palpitations. otherwise vss. no sob/wob noted. respirations remain even/unlabored. plan of care ongoing.
[2024-03-26 12:54] LABS: Reflex Lactate? Lactic Acid Added
--- NOTE | 2024-03-26 13:04 | PC.NURSE ---
pt provided w/ orange juice/sugar/crackers during after obtaining initial POC upon ED arrival. repeat POC decreased to 40mg/dL. provider notified/aware.
--- NOTE | 2024-03-26 13:24 | PC.NURSE ---
pt continues to remain hypothermic but temperature via rectally continues to increase. pt remains on bear hugger at this time. otherwise vss and up to date.
[2024-03-26 13:44] LABS: Glucose, Whole Blood 120 mg/dL (60-115)
--- NOTE | 2024-03-26 13:53 | PM.IMHP ---
History of Present Illness Date of Service: 03/26/24 Attending physician on admission: Krystle Wood Chief Complaint: I was brought in because my sister found me unresponsive This is a 64-year-old female with a past medical history significant for uncontrolled at diabetes mellitus type 1, hypertension, COPD with continued nicotine dependence, history of alcohol abuse with withdrawal and metabolic encephalopathy presents to the emergency department today via EMS for an evaluation of unresponsiveness. Sister reportedly called EMS as she found patient unresponsive and question whole-body shaking and foaming at the mouth with concern for seizure-like activity. On EMS arrival blood sugar was noted to be 31, patient is found to be hypothermic and confused. At time of my assessment/interview, patient is observed sitting up in stretcher, she is sleeping however easily arousable to verbal stimuli. She reports that she was brought to the emergency department because ?my sister family unresponsive?. Patient reports that she drank ?a few nips apparent liquor yesterday?. She reports depression however denies SI/HI and denies this being a suicide attempt. CT brain without: No CT evidence of intracranial space occupying mass, bleed or infarct. Chest x-ray:1. Nonspecific mild interstitial reticulonodular opacification middle and lower lobes. 2. No dense focal consolidation lobar pneumonia. 3. No pleural effusion. Initial laboratory results: WBC is 11.8, PT/INR 13.4/1.2, K+ 2.9, BUN/creatinine 6/0.77, POC 116, random glucose 152, lactic acid 5.2 blood cultures obtained and pending, AST/ALT 32/14, alk-phos 180. In the emergency department the above special arm, patient received 228 mg IM phenobarbital once, was started on 170 mg IM phenobarbital x3 doses followed by a p.o. taper, 2 g cefepime, 1 L NS, 1 L LR, 6 mEq p.o. K+ chloride and 25 g D50 was given. The decision was made to admit patient for medical management. Review of Systems Review of Systems: A complete 12 point review of systems was performed and are negative if not noted in HPI. [facility] Medical History Hypothyroidism Congenital hypothyroidism Uncontrolled type 1 diabetes mellitus with hyperglycemia, with long-term current use of insulin Diabetes mellitus (~2020) Osteopenia (~2014) Nicotine dependence, cigarettes, uncomplicated Tubular adenoma of colon (~2014) Elevated TSH Dysplasia of cervix, low grade (SHELLIE 1) (~2016) Overweight Cirrhosis Essential hypertension COPD (chronic obstructive pulmonary disease) HTN (hypertension) Hepatitis C Family History Father No problems noted. Mother Heart problem Cancer Maternal Grandmother Diabetes Brother Diabetes Sister Diabetes Brother Diabetes Surgical History History of unilateral salpingectomy History of section History of tubal ligation History of cervical biopsy (~2016) History of colonoscopy (~2014) History of liver biopsy (~2008) Social History Household Members: Children Household Members Other:: adult step- son and pt. sister. Housing: House Do you presently have visiting nurse or other home services: No Alcohol intake: current Alcohol intake frequency: 3 or more drinks per day Alcohol type: hard liquor Patient Tobacco Use Status: Current everyday Tobacco user Tobacco use type: Cigarette Cigarette Packs Per Day: 0.5 Years Smoked: (onset 12yo, x 50yrs, max 2ppd, now 1/2ppd - 50+PYH) Smoked in Last 30 Days: Yes Second Hand Smoke Exposure: Yes Use of substances other than those prescribed or required for medical reasons: Unknown Substance Use Type: Opiates Advance Directives: Yes Advance Directives Information Provided: No Advance Directives on File: No Do you have a plan to hurt others: No Plan Nutrition Risks: No Nutritional Risk Patient : No service: No Sexual orientation: Straight/Heterosexual Gender identity: Female Meds Allergies Allergy/AdvReac Type Severity Reaction Status Date / Time No Known Allergies Allergy Verified 03/26/24 10:07 [No Known Allergies*] Active Medications: Current Medications Acetaminophen (Acetaminophen 325 Mg Tablet) 650 mg PO Q6H PRN PRN Reason: Pain, Mild (Pain Scale 1-3), fever or headache Acetaminophen (Acetaminophen 325 Mg Tablet) 650 mg PO Q6H PRN PRN Reason: fever Clonidine HCl (Clonidine Hcl 0.1 Mg Tablet) 0.1 mg PO TID GAYLA; Protocol Famotidine (Famotidine 20 Mg Tablet) 20 mg PO BID PRN PRN Reason: heartburn Folic Acid (Folic Acid 1 Mg Tablet) 1 mg PO DAILY [facility] Stop: 03/29/24 13:44 Glucose (Glucose Gel 15 Gm Gel..Gram.) 15 gm PO Q15M PRN; Protocol PRN Reason: per Hypoglycemia Standing Ord. Hydroxyzine HCl (Hydroxyzine Hcl 50 Mg Tablet) 50 mg PO Q8H PRN PRN Reason: anxiety Dextrose (D10) 250 mls @ 750 mls/hr IV Q15M PRN PRN Reason: per Hypoglycemia Standing Ord. Magnesium Sulfate/Dextrose (Magnesium Sulfate/D5w) 1 gm in 100 mls @ 100 mls/hr IV ONCE ONE Stop: 03/26/24 14:33 Dextrose (D10) 250 mls @ 750 mls/hr IV Q15M PRN; Protocol PRN Reason: per Hypoglycemia Standing Ord. Piperacillin Sod/Tazobactam (Sod 3.375 gm/ Sodium Chloride) 50 mls @ 100 mls/hr IV Q6H [facility] Insulin Human Lispro (Insulin Lispro 100 Unit/Ml 3 Ml Vial) 0 unit SUBCUT QIDACHS [facility]; Protocol Lorazepam (Lorazepam 2 Mg/Ml Vial) 2 mg IVPUSH Q15M PRN PRN Reason: status epilepticus Multivitamins/Vitamin C (Multivitamin Tablet) 1 tab PO DAILY [facility] Stop: 03/29/24 13:44 Omeprazole (Omeprazole 20 Mg Capsule.Dr) 20 mg PO DAILY@0630 [facility] Ondansetron HCl (Ondansetron Hcl 4 Mg/2 Ml Vial) 4 mg IVPUSH Q8H PRN PRN Reason: Nausea and Vomiting Pharmacy Consult (Consult Rx Etoh Phenob Im/Po) 1 each MISCELLANE ONCE PRN; Protocol PRN Reason: Consult order Phenobarbital (Phenobarbital 15 Mg Tablet) 45 mg PO BID [facility]; Protocol Stop: 03/28/24 21:01 Phenobarbital (Phenobarbital 15 Mg Tablet) 15 mg PO DAILY [facility]; Protocol Stop: 04/01/24 09:01 Phenobarbital (Phenobarbital 15 Mg Tablet) 15 mg PO BID [facility]; Protocol Stop: 03/30/24 21:01 Phenobarbital Sodium (Phenobarbital Sodium 130 Mg/Ml Im Once) 228 mg IM ONCE ONE; Protocol Stop: 03/26/24 14:01 Phenobarbital Sodium (Phenobarbital Sodium 130 Mg/Ml Vial Im Q3hx2) 170 mg IM Q3H [facility]AY[facility]; Protocol Stop: 03/26/24 20:01 Potassium Chloride (Potassium Chloride Er 20 Meq Tab.Er.Prt) 40 meq PO Q4H [facility] Stop: 03/26/24 20:01 Senna (Sennosides 8.6 Mg Tablet) 17.2 mg PO BEDTIME PRN PRN Reason: constipation Sodium Chloride (0.9 % Sodium Chloride Flush 3 Ml Syringe) 3 ml IVFLUSH QSHIFT [facility]AY[facility] Thiamine HCl (Thiamine Hcl 100 Mg Tablet) 100 mg PO DAILY [facility] Stop: 03/29/24 13:44 Home Medications ?Medication ?Instructions ?Recorded ?Confirmed ?Last Taken ?Type levothyroxine 75 mcg tablet 75 mcg PO DAILY@0600 12/03/23 03/26/24 12/03/23 06:00 History spironolactone 50 mg tablet 50 mg PO BEDTIME 12/03/23 03/26/24 Unknown History insulin lispro 100 unit/mL 8 unit subcut TID 03/26/24 03/26/24 Unknown History subcutaneous pen Physical Exam Vital Signs and Narrative: Vital Signs: Last Vital Signs Temp 96.3 F L 03/26/24 13:24 Pulse 88 03/26/24 13:24 Resp 12 03/26/24 13:24 BP 127/86 03/26/24 13:24 Pulse Ox 95 03/26/24 13:24 O2 Del Method Room Air 03/26/24 13:24 BMI result Body Mass Index 20.4 Const: Other: General: Appears older than stated age, in no acute distress, sleepy however easily arouses to verbal stimuli then answers questions accurately and appropriately. Skin: Warm and well perfused, ecchymotic areas noted to upper extremities Cardiology: Regular rate and rhythm to tachycardia and monitor, no murmurs, rubs, gallops or clicks, no JVD or carotid bruits appreciated Respiratory: Diminished lung sounds throughout, no rales or rhonchi, no increased accessory muscle use noted Abdomen: Soft, non distended, nontender, bowel sounds active in all 4 quadrants, no abdominal guarding or Marsing sign Bilateral upper extremities: No asterixis noted Bilateral lower extremities: No pitting edema noted, no redness, tenderness or swelling noted to bilateral lower extremities. Neuro: Alert and oriented x3, no obvious focal deficits Psych: Currently Calm, appropriate, follows commands, no agitation restlessness noted Results Labs 03/26/24 10:48 03/26/24 11:04 Labs: Laboratory Results - last 24 hr 03/26/24 03/26/24 03/26/24 10:08 10:20 10:34 MCV MCH MCHC RDW Plt Count MPV Immature Gran % (Auto) Neut % (Auto) Lymph % (Auto) Johnson % (Auto) Eos % (Auto) Baso % (Auto) Lymph # (Auto) Johnson # (Auto) Eos # (Auto) Baso # (Auto) Abs Immat Gran (auto) Absolute Neuts (auto) Absolute Nucleated RBC Nucleated RBC % (auto) Hold Purple Top PT INR Anion Gap Estim Creat Clear Calc Estimated GFR POC Glucose 46 L* 40 L* 200 H Random Glucose Lactic Acid Calcium Magnesium Total Bilirubin Direct Bilirubin AST ALT Alkaline Phosphatase Ammonia Total Creatine Kinase Troponin I High Sens B-Natriuretic Peptide Total Protein Albumin Lipase Ethyl Alcohol Influenza Type A (PCR) Influenza Type B (PCR) RSV RNA Qual (PCR) SARS-CoV-2 RNA (RT-PCR) 03/26/24 03/26/24 03/26/24 10:48 11:04 11:37 MCV 86.7 MCH 29.7 MCHC 34.3 RDW 15.6 Plt Count 237 D MPV 9.2 L Immature Gran % (Auto) 0.8 H Neut % (Auto) 75.1 H Lymph % (Auto) 15.2 L Johnson % (Auto) 7.1 Eos % (Auto) 0.9 Baso % (Auto) 0.9 Lymph # (Auto) 1.8 Johnson # (Auto) 0.8 Eos # (Auto) 0.1 Baso # (Auto) 0.1 Abs Immat Gran (auto) 0.09 H Absolute Neuts (auto) 8.9 H Absolute Nucleated RBC 0.000 Nucleated RBC % (auto) 0.0 Hold Purple Top SEE NOTE PT 13.4 H INR 1.2 H Anion Gap 14 Estim Creat Clear Calc 65.5 Estimated GFR > 60 POC Glucose 116 H Random Glucose 152 H Lactic Acid 5.2 H* Calcium 8.4 Magnesium 1.7 Total Bilirubin 0.4 Direct Bilirubin 0.2 AST 33 H ALT 14 Alkaline Phosphatase 180 H Ammonia 38 Total Creatine Kinase 35 Troponin I High Sens 5.6 B-Natriuretic Peptide 80 Total Protein 6.8 Albumin 2.8 L Lipase 12 Ethyl Alcohol 29 Influenza Type A (PCR) NEGATIVE Influenza Type B (PCR) NEGATIVE RSV RNA Qual (PCR) NEGATIVE SARS-CoV-2 RNA (RT-PCR) NEGATIVE 03/26/24 13:40 MCV MCH MCHC RDW Plt Count MPV Immature Gran % (Auto) Neut % (Auto) Lymph % (Auto) Johnson % (Auto) Eos % (Auto) Baso % (Auto) Lymph # (Auto) Johnson # (Auto) Eos # (Auto) Baso # (Auto) Abs Immat Gran (auto) Absolute Neuts (auto) Absolute Nucleated RBC Nucleated RBC % (auto) Hold Purple Top PT INR Anion Gap Estim Creat Clear Calc Estimated GFR POC Glucose 120 H Random Glucose Lactic Acid Calcium Magnesium Total Bilirubin Direct Bilirubin AST ALT Alkaline Phosphatase Ammonia Total Creatine Kinase Troponin I High Sens B-Natriuretic Peptide Total Protein Albumin Lipase Ethyl Alcohol Influenza Type A (PCR) Influenza Type B (PCR) RSV RNA Qual (PCR) SARS-CoV-2 RNA (RT-PCR) Imaging Radiologist's Impressions: Impressions Head CT 03/26/24 10:21 IMPRESSION: No CT evidence of intracranial space-occupying mass, bleed or infarct. Electronically signed by: Africa Sweeney MD 03/26/2024 12:33 PM EDT Chest X-Ray 03/26/24 10:22 IMPRESSION: 1. Nonspecific mild interstitial reticulonodular opacification middle and lower lobes. 2. No dense focal consolidation lobar pneumonia. 3. No pleural effusion. Electronically signed by: Africa Sweeney MD 03/26/2024 12:28 PM EDT RP Assessment and Plan (1) Severe sepsis with acute organ dysfunction: Status: Acute (2) Pneumonia: Qualifiers: Aspiration pneumonia type: due to gastric secretions Laterality: bilateral Pneumonia type: aspiration pneumonia Status: Acute (3) Alcohol withdrawal seizure: Qualifiers: Complication of substance-induced condition: uncomplicated Qualified Code(s): F10.930 - Alcohol use, unspecified with withdrawal, uncomplicated; R56.9 - Unspecified convulsions Status: Acute (4) Hypothermia: Qualifiers: Encounter type: initial encounter Qualified Code(s): T68.XXXA - Hypothermia, initial encounter Status: Acute (5) Encephalopathy: Qualifiers: Encephalopathy type: metabolic Qualified Code(s): G93.41 - Metabolic encephalopathy Status: Acute (6) COPD (chronic obstructive pulmonary disease): Qualifiers: COPD type: unspecified COPD Qualified Code(s): J44.9 - Chronic obstructive pulmonary disease, unspecified Status: Acute (7) Essential hypertension: Status: Acute (8) Diabetes mellitus with hypoglycemia without coma: Qualifiers: Diabetes mellitus type: type 1 Qualified Code(s): E10.649 - Type 1 diabetes mellitus with hypoglycemia without coma Status: Acute Plan ACUTE MEDICAL ISSUES: Severe sepsis with acute organ dysfunction Pneumonia, likely aspiration - On EMS arrival patient meets severe sepsis with acute organ dysfunction as her temperature was documented as 94.1 degrees F, she was tachycardic with a heart rate above 90, lactic acid 5.2 - blood cultures obtained and pending -source of infection being pneumonia. - Continue IV fluids. Repeat lactic in a.m.. - Change antibiotics from cefepime to Zosyn. - Aspiration precautions placed, head of bed to remain elevated 30 degrees Alcohol abuse with withdrawal Alcohol withdrawal seizure? - Alcohol level 29 on arrival. Sister found the patient unresponsive and reported seizure-like activity - Seizure precautions placed. Patient denies alcohol withdrawal seizures previously. - Ativan ordered p.r.n. status epilepticus. Thiamine, folic acid and multivitamin were ordered. - Seizure likely secondary to alcohol withdrawal. Consider Neurology consult if seizures continue. Patient educated on alcohol abstinence. Hypothermia - Temperature documented as 94.1 degrees F in ED arrival - Most recent temperature documented at 97 degrees rectally. - Rosibel lisa. Monitor temperature. Hypokalemia -K+ on arrival 2.9. Will be replaced. Recheck in a.m.. -Patient's magnesium level also noted to be on the lower side of normal, currently 1.7. We will give 1 g magnesium sulfate. Acute metabolic encephalopathy -Likely secondary to all of the above. Ammonia level and range. Currently patient is alert and oriented and is answering my questions appropriately. -CT brain without acute findings. -Fall and aspiration precautions placed. Elevated LFTs -AST/ALT 33/14, alk-phos 180, likely secondary to alcohol use/abuse. -IV fluids ordered. Continue to trend. Patient educated on the importance of abstaining/stopping alcohol use. Diabetes mellitus type 1 with hypoglycemia - On EMS arrival to patient's house earlier today, patient's blood glucose was noted to be 31. - Glucose and ATFL greater than 116, patient did receive dextrose. - Insulin sliding scale with nutrition a.c./HS. Hypoglycemia protocol place. Depression -Patient does report depression however denies SI/HI. -Consider psychiatric consult however at this time she is declining. CHRONISC MEDICAL ISSUES Hypertension -patient reports she takes amlodipine 10 mg p.o. daily, I am unsure if this is accurate, family reports she takes 5 mg, it looks like she was recently discharged in December of this year with 2.5 mg. -we will continue 5 mg for now with holding parameters. Patient also takes spironolactone was held due to hypokalemia. COPD -Not hypoxic or appearing exacerbated. Albuterol ordered p.r.n.. Continue to monitor due to aspiration. Hypothyroidism -patient reports she has not taken her levothyroxine and over a month. Add on TSH levels. Consider resuming prior to discharge. Tobacco abuse Tobacco abuse counseling -Patient reports that she smokes 1 pack of cigarettes daily. Patient was educated on the importance of abstaining/cutting down from nicotine use. -3-10 minutes were spent on smoking cessation. NRT therapy was offered. Patient was confirmed to be a DNR/DNI today at time of admission HCP/emergency contact is patient's daughter Myron Vergara, Quality Stroke Does the patient have a stroke diagnosis?: No VTE Prior VTE?: No VTE Risk Level:: Medical - moderate - high VTE Device Contraindication: N/A - Device Ordered VTE Drug Contraindication: Treatment Not Indicated
[2024-03-26] MEDS: Magnesium Sulfate/D5W 1 GM/100 ML PIGGYBACK IV (14:05)
[2024-03-26] MEDS: Folic Acid 1 MG TABLET PO (14:05)
[2024-03-26] MEDS: Multivitamin TABLET 1 TAB PO (14:06)
[2024-03-26] MEDS: Thiamine HCL 100 MG TABLET PO (14:06)
[2024-03-26] MEDS: PHENobarbitaL sodium 130 MG/ML IM ONCE 228 MG IM (14:06)
[2024-03-26] MEDS: Omeprazole 20 MG CAPSULE.DR PO (14:06)
[2024-03-26] MEDS: cloNIDine HCL 0.1 MG TABLET PO ×2 (14:10→19:57)
[2024-03-26 14:11] LABS: Troponin-I High Sensitivity 4.5 ng/L (<3.5-17.0)
[2024-03-26] MEDS: Piperacillin Sodium/Tazobactam 3.375 GM in 0.9 % Sodium Chloride 50 ML IV ×2 (14:16→19:54)
--- NOTE | 2024-03-26 14:17 | PC.NURSE ---
seizure precautions now in place. medication administered per provider order. pt waiting for bed assignment at this time.
--- NOTE | 2024-03-26 14:17 | PHA.MEDREC ---
Pharmacy Consult ? Medication Reconciliation Pharmacy has completed the medication reconciliation. Pt is AMS, called family at home and confirmed medications she takes at home. Pt's Aunt and Son were able to read off bottles they found at home. Pt has recent claims for amlodipine 2.5 mg, however the only bottles she had at home were for amlodipine 5mg. Family also confirmed Spirinolactone, Insulin lispro 8 units TID, and Tresibe 18 units daily. When asked about Vitamins and Levothyroxine, they denied she was on them, as they do not see any bottles for them. I left levothyroxine on the med rec with recent claims from 11/21/23 for 90 days.
[2024-03-26 14:28] LABS: ~Lactic Acid-LAB USE ONLY 2.2 mmol/L (0.5-2.0)
--- NOTE | 2024-03-26 14:46 | PC.NURSE ---
rectal temp displaying 97.9 - pt taken off of bear hugger at this time per provider order.
[2024-03-26 15:48] LABS: Reflex Lactate? 2 Y
[2024-03-26] MEDS: Potassium Chloride ER 20 MEQ TAB.ER.PRT 40 MEQ PO ×2 (15:57→19:58)
[2024-03-26] MEDS: Nicotine 21 MG PATCH.TD24 TRANSDERMA (15:57)
[2024-03-26 16:10] LABS: Glucose, Whole Blood 83 mg/dL (60-115)
--- NOTE | 2024-03-26 16:10 | PC.NURSE ---
pt's POC noted to be trending downward. most recent POC = 83mg/dL. pt provided w/ orange juice, sugar packets, and crackers. effectiveness pending. vs remains stable/up to date. nsr on the potline monitor. remains on RA w/o difficulty. respirations remain even/unlabored. pt waiting for bed assignment. plan of care ongoing. call ruiz placed within reach.
[2024-03-26 16:15] LABS: ~Lactic Acid-LAB USE ONLY 1.2 mmol/L (0.5-2.0)
[2024-03-26] MEDS: PHENobarbitaL sodium 130 MG/ML VIAL IM Q3Hx2 170 MG IM ×2 (17:42→19:54)
--- NOTE | 2024-03-26 17:54 | PC.NURSE ---
1:1 assist need to ambulate to the bathroom as pt has an unsteady gait. urine obtained/sent to lab.
[2024-03-26 18:05] LABS: Glucose, Whole Blood 70 mg/dL (60-115)
[2024-03-26 18:10] LABS: Appearance Urine Cloudy; Color Urine Yellow; Glucose Urine UA 100 mg/dL (Negative); Leukocyte Esterase Urine Trace (Negative); Nitrite Urine Negative (Negative); PH 8.5 (5.0-9.0); Specific Gravity - Urine 1.015 (1.005-1.025); UMIC TRIGGER UACC YES; Urine Blood Negative (Negative); Urine Ketones Negative (Negative); Urine Protein Negative (Neg-Trace)
[2024-03-26 18:15] LABS: Bacteria Urine 1+ (None Seen); Hyaline Casts Urine 0-2 /LPF (0-2); RBC Urine 0-2 /HPF (0-2); WBC Urine 0-5 /HPF (0-5)
[2024-03-26 18:18] LABS: Amphetamine Screen Urine Not Detected (Not Detect); Barbiturates, Urine POSITIVE (Not Detect); Benzodiazepines Screen Urine Not Detected (Not Detect); Buprenorphine Scr Not Detected (Not Detect); Cannabinoid Screen Urine Not Detected (Not Detect); Cocaine Screen Urine POSITIVE (Not Detect); Fentanyl, urine POSITIVE (Not Detect); Methadone Screen, Urine Not Detected (Not Detect); Opiate Screen Urine POSITIVE (Not Detect); Oxycodone Screen Urine Not Detected (Not Detect); Phencyclidine Screen Urine Not Detected (Not Detect)
[2024-03-26 19:07] LABS: Glucose, Whole Blood 60 mg/dL (60-115)
[2024-03-26] MEDS: Dextrose 10 % 250 ML 750 ML IV ×2 (19:07→22:03)
--- NOTE | 2024-03-26 19:08 | PC.NURSE ---
poc 60, prn dextrose started. aware.
[2024-03-26] MEDS: Dextrose 5 % and Lactated Ring 1,000 ML 80 ML IVCONT (19:43)
[2024-03-26 19:54] LABS: Glucose, Whole Blood 137 mg/dL (60-115)
[2024-03-26 21:02] LABS: Glucose, Whole Blood 85 mg/dL (60-115)
[2024-03-26 21:40] LABS: Glucose, Whole Blood 66 mg/dL (60-115)
--- NOTE | 2024-03-26 21:51 | PM.EVENT ---
Event Note Date of Service: 03/26/24 Event Note: Patient with persistent hypoglycemia. Initiated D5 Time Spent With Patient Time: Total time managing care of this patient today ____ minutes.
--- NOTE | 2024-03-26 22:02 | PC.NURSE ---
poc as documented. MD made aware. gave prn dextrose and per MD increased D5LR infusion rate. pt is arousable to name axox4 nad. call ruiz within reach.
[2024-03-26 22:06] LABS: Glucose, Whole Blood 68 mg/dL (60-115)
[2024-03-26 22:41] LABS: Glucose, Whole Blood 173 mg/dL (60-115)
[2024-03-26 23:04] LABS: Anion Gap 9 (12-20); Carbon Dioxide 25 mmol/L (22-29); Chloride 105 mmol/L (96-108); Magnesium 1.7 mg/dL (1.6-2.6); Potassium 4.8 mmol/L (3.3-5.1); Sodium 134 mmol/L (135-145)
[2024-03-27] VITALS (7 sets, daily range): BP systolic 99–134; BP diastolic 62–82; PULSE 74–86; RESP 16–20; TEMP 36.1–37; O2SAT 95–97; BMI 21.8
[2024-03-27] MEDS: Dextrose 5 % and Lactated Ring 1,000 ML 125 ML IVCONT ×3 (01:01→21:09)
[2024-03-27 01:26] LABS: Glucose, Whole Blood 57 mg/dL (60-115)
[2024-03-27] MEDS: Piperacillin Sodium/Tazobactam 3.375 GM in 0.9 % Sodium Chloride 50 ML IV ×4 (01:33→20:51)
[2024-03-27 03:46] LABS: Glucose, Whole Blood 106 mg/dL (60-115)
[2024-03-27] MEDS: Levothyroxine Sodium 75 MCG TABLET PO (05:46)
[2024-03-27] MEDS: Omeprazole 20 MG CAPSULE.DR PO (05:46)
[2024-03-27 06:25] LABS: Lactic Acid 1.9 mmol/L (0.5-2.0)
[2024-03-27 06:30] LABS: Alanine Aminotransferase 12 U/L (0-31); Albumin Level 2.3 g/dL (3.5-5.0); Alkaline Phosphatase 151 U/L (39-117); Anion Gap 11 (12-20); Aspartate Amino Transferase 27 U/L (5-31); Bilirubin Total 0.5 mg/dL (0.0-1.0); Blood Urea Nitrogen 7 mg/dL (9-16); Calcium 7.9 mg/dL (8.4-10.2); Carbon Dioxide 24 mmol/L (22-29); Chloride 103 mmol/L (96-108); Creatinine Clr Calc Pharmacy 67.1; Estimated Glomerular Filt Rate > 60; Glucose Random 106 mg/dL (60-115); Magnesium 1.8 mg/dL (1.6-2.6); Potassium 4.9 mmol/L (3.3-5.1); Sodium 133 mmol/L (135-145); Total Protein 5.8 g/dL (6.5-8.0)
[2024-03-27 07:20] LABS: Hematocrit 35.4 % (37.0-47.0); Hemoglobin 11.9 g/dl (12.0-16.0); Mean Corpuscular HGB Conc 33.6 g/dl (31.0-35.0); Mean Corpuscular Hemoglobin 29.5 pg (27.0-33.0); Mean Corpuscular Volume 87.6 fL (80.0-98.0); Mean Platelet Volume 9.3 fL (9.4-12.3); Platelet Count 201 X10*3/uL (160-400); Red Blood Count 4.04 X10*6/uL (4.20-5.50); Red Cell Distribution Width 15.5 % (11.0-16.0); White Blood Count 15.6 X10*3/uL (4.8-10.8)
[2024-03-27 07:46] LABS: Glucose, Whole Blood 103 mg/dL (60-115)
[2024-03-27 08:05] LABS: Estimated Average Glucose 94 mg/dL; Hemoglobin A1C 88.8835 umol/L; Hemoglobin A1c % 4.9 % (<6.0); Total Hemoglobin (HGBA1C) 2946.0751 umol/L
[2024-03-27] MEDS: Folic Acid 1 MG TABLET PO (08:08)
[2024-03-27] MEDS: Multivitamin TABLET 1 TAB PO (08:08)
[2024-03-27] MEDS: cloNIDine HCL 0.1 MG TABLET PO (08:08)
[2024-03-27] MEDS: amLODIPine Besylate 5 MG TABLET PO (08:08)
[2024-03-27] MEDS: PHENobarbitaL 15 MG TABLET 45 MG PO ×2 (08:09→20:54)
[2024-03-27] MEDS: Nicotine 21 MG PATCH.TD24 TRANSDERMA (08:09)
[2024-03-27] MEDS: 0.9 % Sodium Chloride Flush 3 ML SYRINGE IVFLUSH ×3 (08:10→21:14)
[2024-03-27 08:23] LABS: Procalcitonin 0.05 ng/mL
--- NOTE | 2024-03-27 11:22 | P.PNIM_ITS ---
Subjective Subjective Date of Service: 03/27/24 Interval History: hypoglycemic overnight, started D5 feels well this AM, mild tremors, no N/V, interested in sobriety Review of Systems Review of Systems: Yes all other systems are reviewed and are negative Physical Exam 2 Vital Signs: Vital Signs: Last Vital Signs Temp 98.2 F 03/27/24 07:47 Pulse 79 03/27/24 07:47 Resp 20 03/27/24 07:47 BP 118/72 03/27/24 07:47 Pulse Ox 95 03/27/24 07:47 O2 Del Method Room Air 03/27/24 07:47 BMI result Body Mass Index 21.8 Gen: in no acute distress HEENT: sclera anicteric, moist mucus membranes Neck: supple Lungs: diminished Heart: regular rate and rhythm, no murmurs Abd: soft, non-tender, non-distended Ext: no edema Skin: warm/well-perfused Neuro: alert and oriented x3, no focal findings, mildly tremulous Psych: appropriate affect Objective Data Active Medications Acetaminophen (Acetaminophen 325 Mg Tablet) 650 mg PO Q6H PRN PRN Reason: Pain, Mild (Pain Scale 1-3), fever or headache Amlodipine Besylate (Amlodipine Besylate 5 Mg Tablet) 5 mg PO DAILY [facility]; Protocol Last Admin: 03/27/24 08:08 Dose: 5 mg Documented By: GWENDOLYN Clonidine HCl (Clonidine Hcl 0.1 Mg Tablet) 0.1 mg PO TID [facility]; Protocol Last Admin: 03/27/24 08:08 Dose: 0.1 mg Documented By: GWENDOLYN Famotidine (Famotidine 20 Mg Tablet) 20 mg PO BID PRN PRN Reason: heartburn Folic Acid (Folic Acid 1 Mg Tablet) 1 mg PO DAILY [facility] Stop: 03/29/24 13:44 Last Admin: 03/27/24 08:08 Dose: 1 mg Documented By: GWENDOLYN Glucose (Glucose Gel 15 Gm Gel..Gram.) 15 gm PO Q15M PRN; Protocol PRN Reason: per Hypoglycemia Standing Ord. Hydroxyzine HCl (Hydroxyzine Hcl 50 Mg Tablet) 50 mg PO Q8H PRN PRN Reason: anxiety Dextrose (D10) 250 mls @ 750 mls/hr IV Q15M PRN PRN Reason: per Hypoglycemia Standing Ord. Last Infusion: 03/26/24 19:30 Dose: Infused Documented By: JOSÉ Dextrose (D10) 250 mls @ 750 mls/hr IV Q15M PRN; Protocol PRN Reason: per Hypoglycemia Standing Ord. Last Infusion: 03/26/24 22:30 Dose: Infused Documented By: JOSÉ Piperacillin Sod/Tazobactam (Sod 3.375 gm/ Sodium Chloride) 50 mls @ 100 mls/hr IV Q6H [facility] Last Infusion: 03/27/24 08:54 Dose: Infused Documented By: GWENDOLYN Dextrose/Lactated Ringer's (D5lr) 1,000 mls @ 125 mls/hr IVCONT .Q8H [facility] Last Admin: 03/27/24 01:01 Dose: 125 mls/hr Documented By: YENNY Thiamine HCl 100 mg/ Sodium (Chloride) 101 mls @ 202 mls/hr IV BID [facility] Insulin Human Lispro (Insulin Lispro 100 Unit/Ml 3 Ml Vial) 0 unit SUBCUT QIDACHS [facility]; Protocol Last Admin: 03/27/24 07:53 Dose: Not Given Documented By: GWENDOLYN Non-Admin Reason: No Insulin Coverage Levothyroxine Sodium (Levothyroxine Sodium 75 Mcg Tablet) 75 mcg PO DAILY@0600 [facility] Last Admin: 03/27/24 05:46 Dose: 75 mcg Documented By: YENNY Lorazepam (Lorazepam 2 Mg/Ml Vial) 2 mg IVPUSH Q15M PRN PRN Reason: status epilepticus Multivitamins/Vitamin C (Multivitamin Tablet) 1 tab PO DAILY [facility] Stop: 03/29/24 13:44 Last Admin: 03/27/24 08:08 Dose: 1 tab Documented By: GWENDOLYN Nicotine (Nicotine 21 Mg Patch.Td24) 21 mg TRANSDERMA DAILY [facility] Last Admin: 03/27/24 08:09 Dose: 21 mg Documented By: GWENDOLYN Omeprazole (Omeprazole 20 Mg Capsule.Dr) 20 mg PO DAILY@0630 [facility] Last Admin: 03/27/24 05:46 Dose: 20 mg Documented By: YENNY Ondansetron HCl (Ondansetron Hcl 4 Mg/2 Ml Vial) 4 mg IVPUSH Q8H PRN PRN Reason: Nausea and Vomiting Pharmacy Consult (Consult Rx Etoh Phenob Im/Po) 1 each MISCELLANE ONCE PRN; Protocol PRN Reason: Consult order Phenobarbital (Phenobarbital 15 Mg Tablet) 45 mg PO BID [facility]; Protocol Stop: 03/28/24 21:01 Last Admin: 03/27/24 08:09 Dose: 45 mg Documented By: GWENDOLYN Phenobarbital (Phenobarbital 15 Mg Tablet) 15 mg PO DAILY [facility]; Protocol Stop: 04/01/24 09:01 Phenobarbital (Phenobarbital 15 Mg Tablet) 15 mg PO BID [facility]; Protocol Stop: 03/30/24 21:01 Senna (Sennosides 8.6 Mg Tablet) 17.2 mg PO BEDTIME PRN PRN Reason: constipation Sodium Chloride (0.9 % Sodium Chloride Flush 3 Ml Syringe) 3 ml IVFLUSH QSHIFT [facility] Last Admin: 03/27/24 08:10 Dose: 3 ml Documented By: GWENDOLYN Labs 03/27/24 05:51 03/27/24 05:51 Labs: Laboratory Results - last 24 hr 03/26/24 03/26/24 03/26/24 10:08 10:20 10:34 MCV MCH MCHC RDW Plt Count MPV Absolute Nucleated RBC Nucleated RBC % (auto) Hold Purple Top PT INR Anion Gap Estim Creat Clear Calc Estimated GFR POC Glucose 46 L* 40 L* 200 H Random Glucose Estimat Average Glucose Hemoglobin A1c % Lactic Acid Lactic Acid F/U @ 2Hr Lactic Acid F/U @ 4Hr Calcium Magnesium Total Bilirubin Direct Bilirubin AST ALT Alkaline Phosphatase Total Creatine Kinase Troponin I High Sens B-Natriuretic Peptide Total Protein Albumin Lipase Procalcitonin TSH Urine Color Urine Appearance Urine pH Ur Specific Pender Urine Protein Urine Glucose (UA) Urine Ketones Urine Blood Urine Nitrite Ur Leukocyte Esterase Urine RBC Urine WBC Ur Squamous Epith Cells Urine Bacteria Hyaline Casts Urine Opiates Screen Ur Buprenorphine Scrn Ur Oxycodone Screen Urine Methadone Screen Urine Fentanyl Screen Ur Barbiturates Screen Ur Phencyclidine Scrn Ur Amphetamines Screen U Benzodiazepines Scrn Urine Cocaine Screen U Marijuana (THC) Screen Ethyl Alcohol Influenza Type A (PCR) Influenza Type B (PCR) RSV RNA Qual (PCR) SARS-CoV-2 RNA (RT-PCR) 03/26/24 03/26/24 03/26/24 10:48 11:04 11:37 MCV MCH MCHC RDW Plt Count MPV Absolute Nucleated RBC Nucleated RBC % (auto) Hold Purple Top SEE NOTE PT 13.4 H INR 1.2 H Anion Gap 14 Estim Creat Clear Calc 65.5 Estimated GFR > 60 POC Glucose 116 H Random Glucose 152 H Estimat Average Glucose Hemoglobin A1c % Lactic Acid Lactic Acid F/U @ 2Hr Lactic Acid F/U @ 4Hr Calcium 8.4 Magnesium 1.7 Total Bilirubin 0.4 Direct Bilirubin 0.2 AST 33 H ALT 14 Alkaline Phosphatase 180 H Total Creatine Kinase 35 Troponin I High Sens 5.6 B-Natriuretic Peptide 80 Total Protein 6.8 Albumin 2.8 L Lipase 12 Procalcitonin TSH Urine Color Urine Appearance Urine pH Ur Specific Pender Urine Protein Urine Glucose (UA) Urine Ketones Urine Blood Urine Nitrite Ur Leukocyte Esterase Urine RBC Urine WBC Ur Squamous Epith Cells Urine Bacteria Hyaline Casts Urine Opiates Screen Ur Buprenorphine Scrn Ur Oxycodone Screen Urine Methadone Screen Urine Fentanyl Screen Ur Barbiturates Screen Ur Phencyclidine Scrn Ur Amphetamines Screen U Benzodiazepines Scrn Urine Cocaine Screen U Marijuana (THC) Screen Ethyl Alcohol 29 Influenza Type A (PCR) NEGATIVE Influenza Type B (PCR) NEGATIVE RSV RNA Qual (PCR) NEGATIVE SARS-CoV-2 RNA (RT-PCR) NEGATIVE 03/26/24 03/26/24 03/26/24 13:40 13:44 15:57 MCV MCH MCHC RDW Plt Count MPV Absolute Nucleated RBC Nucleated RBC % (auto) Hold Purple Top PT INR Anion Gap Estim Creat Clear Calc Estimated GFR POC Glucose 120 H Random Glucose Estimat Average Glucose Hemoglobin A1c % Lactic Acid Lactic Acid F/U @ 2Hr 2.2 H* Lactic Acid F/U @ 4Hr 1.2 Calcium Magnesium Total Bilirubin Direct Bilirubin AST ALT Alkaline Phosphatase Total Creatine Kinase Troponin I High Sens 4.5 B-Natriuretic Peptide Total Protein Albumin Lipase Procalcitonin TSH Urine Color Urine Appearance Urine pH Ur Specific Pender Urine Protein Urine Glucose (UA) Urine Ketones Urine Blood Urine Nitrite Ur Leukocyte Esterase Urine RBC Urine WBC Ur Squamous Epith Cells Urine Bacteria Hyaline Casts Urine Opiates Screen Ur Buprenorphine Scrn Ur Oxycodone Screen Urine Methadone Screen Urine Fentanyl Screen Ur Barbiturates Screen Ur Phencyclidine Scrn Ur Amphetamines Screen U Benzodiazepines Scrn Urine Cocaine Screen U Marijuana (THC) Screen Ethyl Alcohol Influenza Type A (PCR) Influenza Type B (PCR) RSV RNA Qual (PCR) SARS-CoV-2 RNA (RT-PCR) 03/26/24 03/26/24 03/26/24 16:05 17:57 18:01 MCV MCH MCHC RDW Plt Count MPV Absolute Nucleated RBC Nucleated RBC % (auto) Hold Purple Top PT INR Anion Gap Estim Creat Clear Calc Estimated GFR POC Glucose 83 70 Random Glucose Estimat Average Glucose Hemoglobin A1c % Lactic Acid Lactic Acid F/U @ 2Hr Lactic Acid F/U @ 4Hr Calcium Magnesium Total Bilirubin Direct Bilirubin AST ALT Alkaline Phosphatase Total Creatine Kinase Troponin I High Sens B-Natriuretic Peptide Total Protein Albumin Lipase Procalcitonin TSH Urine Color Yellow Urine Appearance Cloudy Urine pH 8.5 Ur Specific Pender 1.015 Urine Protein Negative Urine Glucose (UA) 100 H Urine Ketones Negative Urine Blood Negative Urine Nitrite Negative Ur Leukocyte Esterase Trace H Urine RBC 0-2 Urine WBC 0-5 Ur Squamous Epith Cells 6-10 Urine Bacteria 1+ Hyaline Casts 0-2 Urine Opiates Screen POSITIVE H Ur Buprenorphine Scrn Not Detected Ur Oxycodone Screen Not Detected Urine Methadone Screen Not Detected Urine Fentanyl Screen POSITIVE H Ur Barbiturates Screen POSITIVE H Ur Phencyclidine Scrn Not Detected Ur Amphetamines Screen Not Detected U Benzodiazepines Scrn Not Detected Urine Cocaine Screen POSITIVE H U Marijuana (THC) Screen Not Detected Ethyl Alcohol Influenza Type A (PCR) Influenza Type B (PCR) RSV RNA Qual (PCR) SARS-CoV-2 RNA (RT-PCR) 03/26/24 03/26/24 03/26/24 19:03 19:49 20:58 MCV MCH MCHC RDW Plt Count MPV Absolute Nucleated RBC Nucleated RBC % (auto) Hold Purple Top PT INR Anion Gap Estim Creat Clear Calc Estimated GFR POC Glucose 60 137 H 85 Random Glucose Estimat Average Glucose Hemoglobin A1c % Lactic Acid Lactic Acid F/U @ 2Hr Lactic Acid F/U @ 4Hr Calcium Magnesium Total Bilirubin Direct Bilirubin AST ALT Alkaline Phosphatase Total Creatine Kinase Troponin I High Sens B-Natriuretic Peptide Total Protein Albumin Lipase Procalcitonin TSH Urine Color Urine Appearance Urine pH Ur Specific Pender Urine Protein Urine Glucose (UA) Urine Ketones Urine Blood Urine Nitrite Ur Leukocyte Esterase Urine RBC Urine WBC Ur Squamous Epith Cells Urine Bacteria Hyaline Casts Urine Opiates Screen Ur Buprenorphine Scrn Ur Oxycodone Screen Urine Methadone Screen Urine Fentanyl Screen Ur Barbiturates Screen Ur Phencyclidine Scrn Ur Amphetamines Screen U Benzodiazepines Scrn Urine Cocaine Screen U Marijuana (THC) Screen Ethyl Alcohol Influenza Type A (PCR) Influenza Type B (PCR) RSV RNA Qual (PCR) SARS-CoV-2 RNA (RT-PCR) 03/26/24 03/26/24 03/26/24 21:37 22:02 22:37 MCV MCH MCHC RDW Plt Count MPV Absolute Nucleated RBC Nucleated RBC % (auto) Hold Purple Top PT INR Anion Gap Estim Creat Clear Calc Estimated GFR POC Glucose 66 68 173 H Random Glucose Estimat Average Glucose Hemoglobin A1c % Lactic Acid Lactic Acid F/U @ 2Hr Lactic Acid F/U @ 4Hr Calcium Magnesium Total Bilirubin Direct Bilirubin AST ALT Alkaline Phosphatase Total Creatine Kinase Troponin I High Sens B-Natriuretic Peptide Total Protein Albumin Lipase Procalcitonin TSH Urine Color Urine Appearance Urine pH Ur Specific Pender Urine Protein Urine Glucose (UA) Urine Ketones Urine Blood Urine Nitrite Ur Leukocyte Esterase Urine RBC Urine WBC Ur Squamous Epith Cells Urine Bacteria Hyaline Casts Urine Opiates Screen Ur Buprenorphine Scrn Ur Oxycodone Screen Urine Methadone Screen Urine Fentanyl Screen Ur Barbiturates Screen Ur Phencyclidine Scrn Ur Amphetamines Screen U Benzodiazepines Scrn Urine Cocaine Screen U Marijuana (THC) Screen Ethyl Alcohol Influenza Type A (PCR) Influenza Type B (PCR) RSV RNA Qual (PCR) SARS-CoV-2 RNA (RT-PCR) 03/26/24 03/27/24 03/27/24 22:45 01:22 03:41 MCV MCH MCHC RDW Plt Count MPV Absolute Nucleated RBC Nucleated RBC % (auto) Hold Purple Top PT INR Anion Gap 9 L Estim Creat Clear Calc Estimated GFR POC Glucose 57 L* 106 Random Glucose Estimat Average Glucose Hemoglobin A1c % Lactic Acid Lactic Acid F/U @ 2Hr Lactic Acid F/U @ 4Hr Calcium Magnesium 1.7 Total Bilirubin Direct Bilirubin AST ALT Alkaline Phosphatase Total Creatine Kinase Troponin I High Sens B-Natriuretic Peptide Total Protein Albumin Lipase Procalcitonin TSH Urine Color Urine Appearance Urine pH Ur Specific Pender Urine Protein Urine Glucose (UA) Urine Ketones Urine Blood Urine Nitrite Ur Leukocyte Esterase Urine RBC Urine WBC Ur Squamous Epith Cells Urine Bacteria Hyaline Casts Urine Opiates Screen Ur Buprenorphine Scrn Ur Oxycodone Screen Urine Methadone Screen Urine Fentanyl Screen Ur Barbiturates Screen Ur Phencyclidine Scrn Ur Amphetamines Screen U Benzodiazepines Scrn Urine Cocaine Screen U Marijuana (THC) Screen Ethyl Alcohol Influenza Type A (PCR) Influenza Type B (PCR) RSV RNA Qual (PCR) SARS-CoV-2 RNA (RT-PCR) 03/27/24 03/27/24 05:51 07:12 MCV 87.6 MCH 29.5 MCHC 33.6 RDW 15.5 Plt Count 201 MPV 9.3 L Absolute Nucleated RBC 0.000 Nucleated RBC % (auto) 0.0 Hold Purple Top PT INR Anion Gap 11 L Estim Creat Clear Calc 67.1 Estimated GFR > 60 POC Glucose 103 Random Glucose 106 Estimat Average Glucose 94 Hemoglobin A1c % 4.9 Lactic Acid 1.9 Lactic Acid F/U @ 2Hr Lactic Acid F/U @ 4Hr Calcium 7.9 L Magnesium 1.8 Total Bilirubin 0.5 Direct Bilirubin AST 27 ALT 12 Alkaline Phosphatase 151 H Total Creatine Kinase Troponin I High Sens B-Natriuretic Peptide Total Protein 5.8 L Albumin 2.3 L Lipase Procalcitonin 0.05 TSH 2.30 Urine Color Urine Appearance Urine pH Ur Specific Pender Urine Protein Urine Glucose (UA) Urine Ketones Urine Blood Urine Nitrite Ur Leukocyte Esterase Urine RBC Urine WBC Ur Squamous Epith Cells Urine Bacteria Hyaline Casts Urine Opiates Screen Ur Buprenorphine Scrn Ur Oxycodone Screen Urine Methadone Screen Urine Fentanyl Screen Ur Barbiturates Screen Ur Phencyclidine Scrn Ur Amphetamines Screen U Benzodiazepines Scrn Urine Cocaine Screen U Marijuana (THC) Screen Ethyl Alcohol Influenza Type A (PCR) Influenza Type B (PCR) RSV RNA Qual (PCR) SARS-CoV-2 RNA (RT-PCR) Assessment and Plan (1) Alcohol withdrawal seizure: Status: Acute Plan d2 for 64yo F with DM1, HTN, COPD, AUD with hx withdrawal presenting after found unresponsive and seizing by sister; found to be hypothermic, hypoglycemic, and confused.; septic from pneumonia sepsis due to aspiration PNA - 03/26- pip/gisela; follow BCx; trend PCT; sepsis not severe; lactic acidosis due to seizure acute lactic acidosis - due to seizure; resolved metabolic encephalopathy - due to EtOH + hypoglycemia; resolving hypoK - repleted EtOH withdrawal seizure AUD - seizure precautions, phenobarbital taper, Addiction Medicine consult hypoglycemia - due to EtOH-induced malnutrition; on D5LR until oral intake can support her hypothermia - due to seizure; resolved DM1 - A1c only 4.9; question this diagnosis and now hypoglycemic HTN - amlodipine + spironolactone COPD not in acute exac - prn albuterol hypothyroidism - continue LT4 tobacco abuse - NRT VTE prophylaxis - enoxaparin dispo - TBD In my clinical judgment, the patient requires continued inpatient hospitalization for the following reasons: IV ABX, hypoglycemia Total time managing care of this patient today: 40 minutes. Quality Stroke Does the patient have a stroke diagnosis?: No VTE Prior VTE?: No VTE Risk Level:: Medical - moderate - high VTE Device Contraindication: N/A - Device Ordered VTE Drug Contraindication: Treatment Not Indicated
[2024-03-27 11:24] LABS: Glucose, Whole Blood 118 mg/dL (60-115)
--- NOTE | 2024-03-27 12:07 | MHC.RECOVRN ---
Went to visit pt. n [id number] following consult received for ETOH use. Pt declined visit but accepted resources left. ACS team available PRN
[2024-03-27] MEDS: Thiamine HCL 100 MG in 0.9 % Sodium Chloride 100 ML 202 MG IV ×2 (12:30→21:09)
--- NOTE | 2024-03-27 14:24 | MHC.CM.PN ---
Pt self-care, lives at home with her aunt, sister, and step-son. Pts family will transport her home at discharge. Pt states she would like to complete a HCP, but is not ready to do it today. PCP: Dr. Adrianne Moffett
[2024-03-27 16:57] LABS: Glucose, Whole Blood 156 mg/dL (60-115)
[2024-03-27] MEDS: Insulin Lispro 100 UNIT/ML 3 ML VIAL SUBCUT (17:29)
[2024-03-27 20:50] LABS: Glucose, Whole Blood 65 mg/dL (60-115)
[2024-03-27] MEDS: Spironolactone 25 MG TABLET 50 MG PO (20:54)
[2024-03-28] VITALS (7 sets, daily range): BP systolic 109–143; BP diastolic 69–94; PULSE 80–94; RESP 16–20; TEMP 36.5–37.2; O2SAT 97–100
[2024-03-28] MEDS: Piperacillin Sodium/Tazobactam 3.375 GM in 0.9 % Sodium Chloride 50 ML IV ×4 (01:35→19:10)
[2024-03-28] MEDS: Dextrose 5 % and Lactated Ring 1,000 ML 125 ML IVCONT (05:40)
[2024-03-28] MEDS: Omeprazole 20 MG CAPSULE.DR PO (05:41)
[2024-03-28] MEDS: Levothyroxine Sodium 75 MCG TABLET PO (05:41)
[2024-03-28 06:40] LABS: Hematocrit 34.4 % (37.0-47.0); Hemoglobin 11.8 g/dl (12.0-16.0); Mean Corpuscular HGB Conc 34.3 g/dl (31.0-35.0); Mean Corpuscular Hemoglobin 29.9 pg (27.0-33.0); Mean Corpuscular Volume 87.3 fL (80.0-98.0); Mean Platelet Volume 9.4 fL (9.4-12.3); Platelet Count 182 X10*3/uL (160-400); Red Blood Count 3.94 X10*6/uL (4.20-5.50); Red Cell Distribution Width 15.5 % (11.0-16.0); White Blood Count 11.1 X10*3/uL (4.8-10.8)
[2024-03-28 07:00] LABS: Anion Gap 13 (12-20); Blood Urea Nitrogen 6 mg/dL (9-16); Calcium 8.4 mg/dL (8.4-10.2); Carbon Dioxide 26 mmol/L (22-29); Chloride 103 mmol/L (96-108); Creatinine Clr Calc Pharmacy 63.5; Estimated Glomerular Filt Rate > 60; Glucose Random 91 mg/dL (60-115); Magnesium 1.7 mg/dL (1.6-2.6); Potassium 5.3 mmol/L (3.3-5.1); Sodium 137 mmol/L (135-145)
[2024-03-28 07:25] LABS: Glucose, Whole Blood 98 mg/dL (60-115)
[2024-03-28] MEDS: PHENobarbitaL 15 MG TABLET 45 MG PO ×2 (07:54→20:08)
[2024-03-28] MEDS: Folic Acid 1 MG TABLET PO (07:54)
[2024-03-28] MEDS: amLODIPine Besylate 5 MG TABLET PO (07:54)
[2024-03-28] MEDS: Multivitamin TABLET 1 TAB PO (07:54)
[2024-03-28] MEDS: Thiamine HCL 100 MG in 0.9 % Sodium Chloride 100 ML 202 MG IV ×2 (07:57→20:07)
--- NOTE | 2024-03-28 11:28 | P.PNIM_ITS ---
Subjective Subjective Date of Service: 03/28/24 Interval History: seen and examined feeling better reports no new issues does not recall events that led her to hospital Review of Systems Negative except HPI/interval history. Physical Exam 2 Vital Signs: Vital Signs: Last Vital Signs Temp 98.7 F 03/28/24 07:31 Pulse 80 03/28/24 07:31 Resp 20 03/28/24 07:31 BP 126/84 03/28/24 07:31 Pulse Ox 98 03/28/24 07:31 O2 Del Method Room Air 03/28/24 07:31 BMI result Body Mass Index 21.8 Const: Other: General - no acute distress, appears comfortable Cardiovascular - regular rate and rhythm, S1-S2 Lungs - normal respiratory effort, clear to auscultation bilaterally, no wheezing Abdomen - soft, nontender, no rebound or guarding Extremities - no edema bilaterally Neuro - awake and alert, no focal deficits Objective Data Active Medications Acetaminophen (Acetaminophen 325 Mg Tablet) 650 mg PO Q6H PRN PRN Reason: Pain, Mild (Pain Scale 1-3), fever or headache Amlodipine Besylate (Amlodipine Besylate 5 Mg Tablet) 5 mg PO DAILY [facility]; Protocol Last Admin: 03/28/24 07:54 Dose: 5 mg Documented By: SAGAR Famotidine (Famotidine 20 Mg Tablet) 20 mg PO BID PRN PRN Reason: heartburn Folic Acid (Folic Acid 1 Mg Tablet) 1 mg PO DAILY [facility] Stop: 03/29/24 13:44 Last Admin: 03/28/24 07:54 Dose: 1 mg Documented By: SAGAR Glucose (Glucose Gel 15 Gm Gel..Gram.) 15 gm PO Q15M PRN; Protocol PRN Reason: per Hypoglycemia Standing Ord. Hydroxyzine HCl (Hydroxyzine Hcl 50 Mg Tablet) 50 mg PO Q8H PRN PRN Reason: anxiety Dextrose (D10) 250 mls @ 750 mls/hr IV Q15M PRN PRN Reason: per Hypoglycemia Standing Ord. Last Infusion: 03/26/24 19:30 Dose: Infused Documented By: JOSÉ Dextrose (D10) 250 mls @ 750 mls/hr IV Q15M PRN; Protocol PRN Reason: per Hypoglycemia Standing Ord. Last Infusion: 03/26/24 22:30 Dose: Infused Documented By: JOSÉ Piperacillin Sod/Tazobactam (Sod 3.375 gm/ Sodium Chloride) 50 mls @ 100 mls/hr IV Q6H [facility] Last Infusion: 03/28/24 09:18 Dose: Infused Documented By: SAGAR Dextrose/Lactated Ringer's (D5lr) 1,000 mls @ 125 mls/hr IVCONT .Q8H [facility] Last Admin: 03/28/24 05:40 Dose: 125 mls/hr Documented By: MIKA Thiamine HCl 100 mg/ Sodium (Chloride) 101 mls @ 202 mls/hr IV BID [facility] Last Infusion: 03/28/24 09:19 Dose: Infused Documented By: SAGAR Insulin Human Lispro (Insulin Lispro 100 Unit/Ml 3 Ml Vial) 0 unit SUBCUT QIDACHS [facility]; Protocol Last Admin: 03/28/24 07:32 Dose: Not Given Documented By: SAGAR Non-Admin Reason: No Insulin Coverage Levothyroxine Sodium (Levothyroxine Sodium 75 Mcg Tablet) 75 mcg PO DAILY@0600 [facility] Last Admin: 03/28/24 05:41 Dose: 75 mcg Documented By: MIKA Lorazepam (Lorazepam 2 Mg/Ml Vial) 2 mg IVPUSH Q15M PRN PRN Reason: status epilepticus Multivitamins/Vitamin C (Multivitamin Tablet) 1 tab PO DAILY [facility] Stop: 03/29/24 13:44 Last Admin: 03/28/24 07:54 Dose: 1 tab Documented By: SAGAR Nicotine (Nicotine 21 Mg Patch.Td24) 21 mg TRANSDERMA DAILY [facility] Last Admin: 03/28/24 07:59 Dose: Not Given Documented By: SAGAR Non-Admin Reason: Patient Refused Omeprazole (Omeprazole 20 Mg Capsule.Dr) 20 mg PO DAILY@0630 [facility] Last Admin: 03/28/24 05:41 Dose: 20 mg Documented By: MIKA Ondansetron HCl (Ondansetron Hcl 4 Mg/2 Ml Vial) 4 mg IVPUSH Q8H PRN PRN Reason: Nausea and Vomiting Pharmacy Consult (Consult Rx Etoh Phenob Im/Po) 1 each MISCELLANE ONCE PRN; Protocol PRN Reason: Consult order Phenobarbital (Phenobarbital 15 Mg Tablet) 45 mg PO BID [facility]; Protocol Stop: 03/28/24 21:01 Last Admin: 03/28/24 07:54 Dose: 45 mg Documented By: SAGAR Phenobarbital (Phenobarbital 15 Mg Tablet) 15 mg PO DAILY [facility]; Protocol Stop: 04/01/24 09:01 Phenobarbital (Phenobarbital 15 Mg Tablet) 15 mg PO BID [facility]; Protocol Stop: 03/30/24 21:01 Senna (Sennosides 8.6 Mg Tablet) 17.2 mg PO BEDTIME PRN PRN Reason: constipation Sodium Chloride (0.9 % Sodium Chloride Flush 3 Ml Syringe) 3 ml IVFLUSH QSHIFT [facility] Last Admin: 03/28/24 07:58 Dose: Not Given Documented By: SAGAR Non-Admin Reason: IV Running Spironolactone (Spironolactone 25 Mg Tablet) 50 mg PO BEDTIME [facility]; Protocol Last Admin: 03/27/24 20:54 Dose: 50 mg Documented By: MIKA Labs 03/28/24 05:45 03/28/24 05:45 Labs: Laboratory Results - last 24 hr 03/27/24 03/27/24 03/28/24 16:50 20:42 05:45 MCV 87.3 MCH 29.9 MCHC 34.3 RDW 15.5 Plt Count 182 MPV 9.4 Absolute Nucleated RBC 0.000 Nucleated RBC % (auto) 0.0 Anion Gap 13 Estim Creat Clear Calc 63.5 Estimated GFR > 60 POC Glucose 156 H 65 Random Glucose 91 Calcium 8.4 D Magnesium 1.7 03/28/24 07:12 MCV MCH MCHC RDW Plt Count MPV Absolute Nucleated RBC Nucleated RBC % (auto) Anion Gap Estim Creat Clear Calc Estimated GFR POC Glucose 98 Random Glucose Calcium Magnesium Microbiology Microbiology Results: Microbiology 03/26/24 11:04 Blood Culture - Preliminary Blood - Venous No growth after 24 hours. 03/26/24 10:48 Blood Culture - Preliminary Blood - Venous No growth after 24 hours. Assessment and Plan (1) Alcohol withdrawal seizure: Status: Acute Plan 64yo F with DM1, HTN, COPD, AUD with hx withdrawal presenting after found unresponsive and seizing by sister; found to be hypothermic, hypoglycemic, and confused.; septic from pneumonia sepsis due to aspiration PNA - 03/26- pip/gisela; follow BCx - negative to date; sepsis not severe; lactic acidosis due to seizure augmenti upon discharge acute lactic acidosis - due to seizure; resolved metabolic encephalopathy - due to EtOH + hypoglycemia; apppears impvoed hypoK now mildly hyperK repleted initially, now will monitor; hold aldactone today EtOH withdrawal seizure AUD - seizure precautions, phenobarbital taper, Addiction Medicine consult pending hypoglycemia - due to EtOH-induced malnutrition will stop d5 and monitor glucose + change diet to regular hypothermia - due to seizure; resolved DM1 - A1c only 4.9; question this diagnosis and now hypoglycemic; stop all insulin for now pt reports mealtime + lantus at home HTN - amlodipine + spironolactone COPD not in acute exac - prn albuterol hypothyroidism - continue LT4 tobacco abuse - NRT VTE prophylaxis - enoxaparin dispo - TBD In my clinical judgment, the patient requires continued inpatient hospitalization for the following reasons: IV ABX, hypoglycemia, alcohol withdrawal, addiction med consult Total time managing care of this patient today: 40 minutes. Quality Stroke Does the patient have a stroke diagnosis?: No VTE Prior VTE?: No VTE Risk Level:: Medical - moderate - high VTE Device Contraindication: N/A - Device Ordered VTE Drug Contraindication: Treatment Not Indicated
[2024-03-28 11:34] LABS: Glucose, Whole Blood 93 mg/dL (60-115)
[2024-03-28 16:47] LABS: Glucose, Whole Blood 83 mg/dL (60-115)
[2024-03-28] MEDS: 0.9 % Sodium Chloride Flush 3 ML SYRINGE IVFLUSH ×2 (17:37→20:09)
[2024-03-28 21:23] LABS: Glucose, Whole Blood 98 mg/dL (60-115)
[2024-03-28] MEDS: hydrOXYzine HCL 50 MG TABLET PO (23:11)
[2024-03-29] MEDS: Piperacillin Sodium/Tazobactam 3.375 GM in 0.9 % Sodium Chloride 50 ML IV ×2 (00:17→07:34)
[2024-03-29 04:00] VITALS: BP 123/80; PULSE 83; RESP 20; TEMP 36.8; O2SAT 98
[2024-03-29] MEDS: Levothyroxine Sodium 75 MCG TABLET PO (05:26)
[2024-03-29] MEDS: Omeprazole 20 MG CAPSULE.DR PO (05:26)
[2024-03-29 07:13] VITALS: BP 139/93; PULSE 81; RESP 18; TEMP 36.3; O2SAT 96
[2024-03-29 07:19] LABS: Glucose, Whole Blood 75 mg/dL (60-115)
[2024-03-29] MEDS: amLODIPine Besylate 5 MG TABLET PO (07:33)
[2024-03-29] MEDS: PHENobarbitaL 15 MG TABLET PO (07:33)
[2024-03-29] MEDS: Folic Acid 1 MG TABLET PO (07:33)
[2024-03-29] MEDS: Multivitamin TABLET 1 TAB PO (07:33)
[2024-03-29] MEDS: 0.9 % Sodium Chloride Flush 3 ML SYRINGE IVFLUSH (07:34)
[2024-03-29] MEDS: hydrOXYzine HCL 50 MG TABLET PO (07:34)
[2024-03-29] MEDS: Thiamine HCL 100 MG in 0.9 % Sodium Chloride 100 ML 202 MG IV (08:12)
[2024-03-29 11:04] VITALS: BP 126/80; PULSE 79; RESP 18; TEMP 36.7; O2SAT 100
[2024-03-29 11:09] LABS: Glucose, Whole Blood 105 mg/dL (60-115)
[2024-03-29 11:10] LABS: Potassium 4.2 mmol/L (3.3-5.1)
--- NOTE | 2024-03-29 11:37 | MHC.CM.PN ---
Patient has been medically cleared for dc to home today, self care.
[2024-03-29] MEDS: Amoxicillin/Potassium Clav 875 MG TABLET PO (11:43)
--- NOTE | 2024-03-29 12:02 | P.DS_ITS ---
DS: Providers Provider Date of Service: 03/29/24 Date of admission: 03/26/24 13:36 Date of discharge: 03/29/24 Primary care physician: Adrianne Moffett MD Consults: 03/27/24 07:46 Addiction Medicine Routine Consulting Provider: Addiction Covering Reason for consultation: etoh] Attending physician on discharge: Thomas Tompkins Discharging clinician: Thomas Tompkins DS: Diagnosis Discharge Diagnosis (1) Alcohol withdrawal seizure: Status: Acute DS: Summary Hospital Course Hospital Course: HPI:64-year-old female with a past medical history significant for uncontrolled at diabetes mellitus type 1, hypertension, COPD with continued nicotine dependence, history of alcohol abuse with withdrawal and metabolic encephalopat hy presents to the emergency department today via EMS for an evaluation of unresponsiveness. Sister reportedly called EMS as she found patient unresponsive and question whole-body shaking and foaming at the mouth with concern for seizure-like activity. On EMS arrival blood sugar was noted to be 31, patient is found to be hypothermic and confused. At time of my assessment/interview, patient is observed sitting up in stretcher, she is sleeping however easily arousable to verbal stimuli. She reports that she was brought to the emergency department because ?my sister family unresponsive?. Patient reports that she drank ?a few nips apparent liquor yesterday?. She reports depression however denies SI/HI and denies this being a suicide attempt. CT brain without: No CT evidence of intracranial space occupying mass, bleed or infarct. Chest x-ray:1. Nonspecific mild interstitial reticulonodular opacification middle and lower lobes. 2. No dense focal consolidation lobar pneumonia. 3. No pleural effusion. Initial laboratory results: WBC is 11.8, PT/INR 13.4/1.2, K+ 2.9, BUN/creatinine 6/0.77, POC 116, random glucose 152, lactic acid 5.2 blood cultures obtained and pending, AST/ALT 32/14, alk-phos 180. In the emergency department the above special arm, patient received 228 mg IM phenobarbital once, was started on 170 mg IM phenobarbital x3 doses followed by a p.o. taper, 2 g cefepime, 1 L NS, 1 L LR, 6 mEq p.o. K+ chloride and 25 g D50 was given. The decision was made to admit patient for medical management. Hospital course: 64yo F with DM1, HTN, COPD, AUD with hx withdrawal presenting after found unresponsive and seizing by sister; found to be hypothermic, hypoglycemic, and confused.; septic from pneumonia sepsis due to aspiration PNA- started on 03/26- pip/gisela; follow BCx sent, sepsis not severe; lactic acidosis due to seizure. seems to be improved with above -leucocytosis improving ,patient switched to augmentin upon discharge. acute lactic acidosis- due to seizure; resolved. metabolic encephalopathy- due to EtOH + hypoglycemia; apppears improved . hypoK -afterwrads mildly hyperK repleted initially, now will monitor; hold aldactone 2 days ,repeat bmp outpatient . EtOH withdrawal seizure/AUD:- seizure precautions, given phenobarbital - improved. hypothermia- due to seizure; resolved. Strongly advised to abstain from alcohol. hypoglycemia- due to EtOH-induced malnutrition Improved with D5W, currently asymptomatic, fingersticks are running mostly 90- 100 range(90's to 110's ) Strongly advised to abstain from alcohol, encouraged for p.o. intake. 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 Strongly advised to abstain from alcohol, encouraged for p.o. intake. she says she has [facility] devise to moniter her fs closely. plan: complete course of augmentin 875 mg po bid x5 days.please repeat chest imaging in 3-4 weeks to see resolution of pneumonia. dm with hypoglycemia (due to EtOH-induced malnutrition) received d5 ivf -seems improved , hba1c is 4.9 , will dc insulin ,patient was strongly advised to moniter fs moniter at least tid and also start lantus /lispro (half doses ) recheck hb a1c outpatient. Strongly advised to abstain from to avoid further hypoglycemia. intially hypokalemia then hyperkalemia -due to oral potassium replatecement and sprinolactone ,will hold sprinolactone for 2 days . moniter bmp closely with pcp. follow up with pcp and [facility] [place] [place].patient says that she has en docrinology outpatient in on . d/w patient in detail-advised her to monitor for hypoglycemia signs, encouraged for p.o. intake, strongly advised to abstain from alcohol, and in detail recom mended to monitor fingersticks and use of Lantus and lispro as above. Above conversation witnessed over the phone by Dr pardo with me. Above management discussed with the patient in detail length she understand and in agreement with the above plan, time spent 40 minutes and 50% time spent on counseling. Time Attestation Total time managing care of this patient today: 40 mintues. Discharge Coordination Time (in mins): 40 min Quality: Safe Use of Opioids Does Pt have an Active Cancer Diagnosis on the Problem List?: No Quality: Stroke Does the patient have a stroke diagnosis?: No Physical Exam Vital Signs: Vital Signs: Last Vital Signs Temp 98.0 F 03/29/24 11:04 Pulse 79 03/29/24 11:04 Resp 18 03/29/24 11:04 BP 126/80 03/29/24 11:04 Pulse Ox 100 03/29/24 11:04 O2 Del Method Room Air 03/29/24 11:04 BMI result Body Mass Index 21.8 General - no acute distress, appears comfortable Cardiovascular - regular rate and rhythm, S1-S2 Lungs - normal respiratory effort, clear to auscultation bilaterally, no wheezing Abdomen - soft, nontender, no rebound or guarding Extremities - no edema bilaterally Neuro - awake and alert, no focal deficits DS: Data Data Completed and Pending Completed studies during hospitalization [Text1]: Procedures Detoxification Services for Substance Abuse Treatment (12/03/23) Labs on day of discharge: Laboratory Results - last 24 hr 03/28/24 03/28/24 03/29/24 16:38 21:00 07:15 Potassium POC Glucose 83 98 75 03/29/24 03/29/24 10:38 11:06 Potassium 4.2 D POC Glucose 105 Preliminary micro results at discharge 03/26/24 11:04 Blood Culture - Preliminary Blood - Venous No growth after 48 hours. 03/26/24 10:48 Blood Culture - Preliminary Blood - Venous No growth after 48 hours. Imaging Chest x-ray: Radiologist's impression: ITS Impressions Head CT 03/26/24 10:21 IMPRESSION: No CT evidence of intracranial space-occupying mass, bleed or infarct. Electronically signed by: Africa Sweeney MD 03/26/2024 12:33 PM EDT RP Chest X-Ray 03/26/24 10:22 IMPRESSION: 1. Nonspecific mild interstitial reticulonodular opacification middle and lower lobes. 2. No dense focal consolidation lobar pneumonia. 3. No pleural effusion. Electronically signed by: Africa Sweeney MD 03/26/2024 12:28 PM EDT RP Discharge Plan Discharge Anticipated Discharge Date/Time: 03/29/24 11:30 Patient Disposition: Home, Self-Care Discharge Diagnosis: sepsis sec to aspirational pneumonia ,dm with hypoglycemia Referrals: Adrianne Moffett MD [Primary Care Provider] - 1 Week Discharge Medications: New multivitamin [Daily-Yosi] Tablet 1 tab PO DAILY Qty: 30 0RF folic acid 1 mg Tablet 1 mg PO DAILY Qty: 30 0RF amoxicillin-pot clavulanate 875-125 mg Tablet 1 tab PO Q12H Qty: 10 0RF Continued (DME) FreeStyle Lite Strips Strip See Rx Instructions Not Applicable BID Qty: 120 11RF Rx Instructions: As directed 4 x/day (DME) pen needle, diabetic [BD Nimco 2nd Gen Pen Needle] 32 gauge x 32 needle See Rx Instructions .ROUTE .COMPLEX Qty: 120 12RF Dose Instruction: DIRECTED 4 TIMES A DAY Rx Instructions: DIRECTED 4 TIMES A DAY levothyroxine 75 mcg tablet 75 mcg PO DAILY@0600 amlodipine [Norvasc] 5 mg tablet 5 mg PO DAILY Qty: 90 0RF (DME) blood-glucose meter [FreeStyle [place] Lite] Kit See Rx Instructions .ROUTE .MEDSUPPLY Qty: 1 0RF Rx Instructions: As directed (DME) lancets [FreeStyle Lancets] 28 gauge misc See Rx Instructions .ROUTE .MEDSUPPLY Qty: 200 11RF Rx Instructions: 4 times a day (DME) Ketone Urine Test Strip See Rx Instructions .Route Qty: 50 3RF Rx Instructions: As directed (DME) FreeStyle Leonardo 3 [place] Misc See Rx Instructions .ROUTE .MEDSUPPLY Qty: 1 0RF Rx Instructions: As directed (DME) FreeStyle Leonardo 3 Sensor Device See Rx Instructions .ROUTE .MEDSUPPLY Qty: 2 11RF Rx Instructions: As directed Held spironolactone 50 mg tablet 50 mg PO BEDTIME Hold Instructions: Resume on 03/31/24. Discontinued insulin lispro 100 unit/mL insulin pen 8 unit subcut TID insulin degludec [Tresiba FlexTouch U-100] 100 unit/mL (3 mL) insulin pen 18 unit subcut DAILY 30 Days Qty: 6 6RF Discharge Orders: Discharge Order (Routine); Ordered 03/29/24 Ordered By: Thomas Tompkins Diet: Advance to usual diet Activity on Discharge: As tolerated Stand Alone Forms: Patient Portal Discharge page Print Language: Setswana Other Ambulatory Orders: Basic Metabolic Panel (Routine) Timeframe: 1 Week Facility: [facility] - Location: Laboratory Ordered By: Thomas Tompkins Hemoglobin A1c (Routine) Timeframe: 1 Week Facility: [facility] - Location: Laboratory Ordered By: Thomas Tompkins Magnesium (Routine) Timeframe: 1 Week Facility: [facility] - Location: Laboratory Ordered By: Thomas Tompkins Care Plan Goals: complete course of augmentin 875 mg po bid x5 days.please repeat chest imaging in 3-4 weeks to see resolution of pneumonia. dm with hypoglycemia (due to EtOH-induced malnutrition) received d5 ivf -seems improved , hba1c is 4.9 , will dc insulin ,patient was strongly advised to moniter fs at home( fs moniter qidac if persistently elevated fs above 200 - consider dm meds, continue dm diet. recheck hb a1c outpatient. intiall hypokalemia then hyperkalemia -due to oral potassium replatecement and sprinolactone ,will hold sprinolactone for 2 days ,moniter bmp closely with pcp. follow up with pcp and [facility] [place] outpatient. Health Concerns: as above. Plan of Treatment: as above. Assessment: as above. Patient Instructions: Hypoglycemia in a Person with Diabetes (DC), Pneumonia (DC) Discharge Date/Time: 03/29/24 12:18
[2024-03-29 12:54] LABS: Alcohol, Ethyl Urine Screen NEGATIVE
[2024-03-31 18:09] LABS: Strep Pneumo Ag urine Not Detected (Not Detected)
[2024-04-03 05:18] LABS: Legionella Ag Urine Detected (Not Detected)
== END 2024-03-29 12:18 | disposition home or self-care (01) | DRG 720 ==
LOC: HO.ED 13:07 → HO.EDOVER 13:58 → HO.IMC 23:11
PROVIDERS: Family Medicine; Physician Assistant; Admitting Provider Registered Nurse; Emergency Provider Emergency Medicine; PCP Family Medicine; Visit Provider Internal Medicine
DX: A41.9 Sepsis, unspecified organism (principal); J69.0 Pneumonitis due to inhalation of food and vomit; G93.41 Metabolic encephalopathy; E46 Unspecified protein-calorie malnutrition; E87.21 Acute metabolic acidosis; R68.0 Hypothermia, not associated with low environmental temperature; F10.139 Alcohol abuse with withdrawal, unspecified; E87.6 Hypokalemia; E10.649 Type 1 diabetes mellitus with hypoglycemia without coma; E03.9 Hypothyroidism, unspecified; I10 Essential (primary) hypertension; Z68.21 Body mass index [BMI] 21.0-21.9, adult; R56.9 Unspecified convulsions; Y90.1 Blood alcohol level of 20-39 mg/100 ml; F17.210 Nicotine dependence, cigarettes, uncomplicated; Z71.6 Tobacco abuse counseling; Z79.4 Long term (current) use of insulin; Z79.899 Other long term (current) drug therapy
CPT/HCPCS: 0241U; 36415; 70450; 71045; 80048; 80051; 80053; 80076; 80307; 81001; 82140; 82550; 82947; 83036; 83605; 83690; 83735; 83880; 84132; 84145; 84443; 84484; 85025; 85027; 85610; 87040; 87449; 87899; 93005; 99285; J0692; J2543; J2560; J3411; J3475; J7120

== ENCOUNTER → 2024-03-26 10:22 | Outpatient (BNV) | payer MEDICAID, SELFPAY | PROVIDERS: Admitting Provider Registered Nurse; Emergency Provider Emergency Medicine; PCP Family Medicine; Visit Provider Internal Medicine Cardiovascular Disease | DX: R41.82 Altered mental status, unspecified (principal); I45.81 Long QT syndrome | CPT/HCPCS: 93010 ==

== ENCOUNTER → 2024-03-26 13:36 | Outpatient (BNV) | payer MEDICAID, SELFPAY | PROVIDERS: Admitting Provider Registered Nurse; Emergency Provider Emergency Medicine; PCP Family Medicine; Visit Provider Registered Nurse | DX: F10.930 Alcohol use, unspecified with withdrawal, uncomplicated (principal); R56.9 Unspecified convulsions | CPT/HCPCS: 99223; 99232; 99239; 99499 ==

== ENCOUNTER 2024-04-01 14:02 | Outpatient (AMB) | payer MEDICAID, SELFPAY ==
--- NOTE | 2024-04-01 13:06 | A.OFFVIS_ITS ---
Vital Signs 04/01/24 14:11 Height 5 ft 3 in Weight 119 lb 0.794 oz BMI 21.1 BP 120/78 Blood Pressure Location Rt brachial Position Sitting Pulse 75 Pulse Source Pulse Oximeter Intake Visit Reasons: T2DM/RSCHL Intake Note: Patient presents today for a follow-up on Type 2 Diabetes Mellitus: Last diabetic eye exam was on: Jan, 2023 Last Podiatry Exam was on: Does not see a Apparel Manager Most recent HbA1c: 4.9%, 03/27/2024 Random Glucose- 77mg/dL, Today [facility] Required: No Accompanied by: Self / Same As Patient Allergies No Known Allergies [No Known Allergies*] Allergy (Verified 04/01/24 14:08) HPI Comments Details: Patient is 64 year-old female with DM type 1 JT diagnosed 10/05/2020, who presents for management of diabetes. She was hospitalized at the end of November after 3 weeks of nausea and vomiting and little food intake. She had started consuming alcohol this spring as a result of the stress of losing her old man . She has stopped all alcohol consumption since her hospitalization. Since that time she has been on basal bolus insulin and has been having multiple symptomatic lows. She had a glucose 40 and was unresponsive and taken to the hospital. She has not been requiring insulin with the exception of several days which she took 9 units of Tresiba and 4 of lispro. She has been following a better diet Diabetes medications: Tresiba 9 units prn Humalog 4 unit with meals as needed Freestyle lisa sensor 3 average glucose: 113 14 day continuous glucose sensor report reviewed Glucose Management indicator 6 % Time in ranges: 0 % very high (above 250) 4 % high (181-250) 89 % in range (70-180] 4 % low (69-55) 3 % very low (below 54) 31.5% Glucose variability (target <36%) Interpretation of CGMS [well-controlled with lows 7% of the time and no postprandial increases ] smokes 1/2 pack per day Hypoglycemia: denies symptoms, no nightmares Hyperglycemia: denies urinary frequency, +nocturia 0-2 times, occasional polydypsia Sister and brother and grandmother have Type 2 Last ophthalmology evaluation: 11/2022 Has neuropathy: Has numbness and tingling in the lower extremities no cramping. She would like referral to Podiatry as she has thickened and elongated nails. No nephropathy: 07/27/2023 microalbumin 10.0 03/28/2024 eGFR>60 She is followed by a liver specialist (Dr. Villarreal) and sees a vascular surgeon on an annual basis. She has had prior stenting in the past. [facility] Medical History Hypothyroidism Congenital hypothyroidism Uncontrolled type 1 diabetes mellitus with hyperglycemia, with long-term current use of insulin Diabetes mellitus (~2020) Osteopenia (~2014) Nicotine dependence, cigarettes, uncomplicated Tubular adenoma of colon (~2014) Elevated TSH Dysplasia of cervix, low grade (SHELLIE 1) (~2016) Overweight Cirrhosis Essential hypertension COPD (chronic obstructive pulmonary disease) HTN (hypertension) Hepatitis C Surgical History History of unilateral salpingectomy History of section History of tubal ligation History of cervical biopsy (~2016) History of colonoscopy (~2014) History of liver biopsy (~2008) Family History Father No problems noted. Mother Heart problem Cancer Maternal Grandmother Diabetes Brother Diabetes Sister Diabetes Brother Diabetes Social History Household Members: Family Household Members Other:: sister and aunt and step son Housing: House Do you presently have visiting nurse or other home services: No Alcohol intake: current Alcohol intake frequency: 3 or more drinks per day Alcohol type: hard liquor Patient Tobacco Use Status: Current everyday Tobacco user Tobacco use type: Cigarette Cigarette Packs Per Day: 1.5 Cigarettes Per Day: 30.0 Years Smoked: (onset 12yo, x 50yrs, max 2ppd, now 1/2ppd - 50+PYH) Second Hand Smoke Exposure: Yes Substance Use Type: Opiates service: No Sexual orientation: Straight/Heterosexual Gender identity: Female Female Reproductive History Menstrual Age of Menarche: 13 Physical Exam Vital Signs: Last Vital Signs Pulse 75 04/01/24 14:11 BP 120/78 04/01/24 14:11 BMI result Body Mass Index 21.1 Const Other: Absence of Cushingoid features. Absence of acromegalic features. Neck exam reveals nl size thyroid about 15 gms. No thyroid nodules palpable. No carotid bruits present. Lungs CTA. Heart S1 S2, Reg R/R. No M/R G. Skin exam reveals absence of vitiligo or acanthosis nigricans. No edema Visual exam of foot performed. No ulcerations or open lesions. No inter digit maceration or fissuring. Nails elongated. no callouses. Sensation intact to monofilament exam. Vibratory sensation is normal with 128 Hz tuning fork. Office Procedures Glucose Monitoring Details Details: See [facility] - Glucose monitoring, continuous-physician I&R Procedure code (CPT) selection complete Results Reviewed Results Reviewed: Laboratory Last Values Glucose (Clinic) 77 mg/dL (60-115) 04/01/24 14:12 Assessment & Plan Assessment & Plan (1) Diabetes mellitus with hypoglycemia without coma: Code(s): E11.649 - Type 2 diabetes mellitus with hypoglycemia without coma Category: Medical Qualifiers: Diabetes mellitus type: type 1 Qualified Code(s): E10.649 - Type 1 diabetes mellitus with hypoglycemia without coma Plan: Type 2 diabetic with diminishing insulin requirements and an episode of unresponsive hypoglycemia. She was advised to only take insulin on a p.r.n. basis. Tresiba 4 units at bedtime hold if less than 150. Reason 6 sliding scale Humalog with meals 151-201, 201-250 2 units, 250 in up take 3 units. She would was advised to call our office if she has any lows under 80 or for freestyle average is over 180. The patient had an opportunity to ask questions regarding treatment plan. The patient expressed understanding and agreement with the above treatment plan. The patient is aware they should contact our office by phone for worsening glucose readings or for any low blood sugars which may warrant a change in diabetes medication. Compliance is encouraged with medications and any followup testing/consults which may have been ordered. Orders: Orders AMB Glucose Monitoring Today E10.649 - Type 1 diabetes mellitus with hypoglycemia without coma Patient Instructions: The patient was counseled to always carry a source of sugar and on the rule of 15's: Take 3 glucose tablets and repeat again in 15 minutes if blood sugar is not in normal range. Continue to repeat every 15 minutes until blood sugar is normal. Coding Level of Care Code Est Pt Level 4 (77085) Diagnoses Type 1 diabetes mellitus with hypoglycemia and without coma E10.649 Diabetes mellitus type: type 1 CPT Codes Details - CPT: 96238 - Glucose monitoring, continuous-physician I&R ([id number]) Time Spent (min) 35 Comment Time spent reviewing labs/provider notes, glucose,sensor reports, face to face, chart doc
[2024-04-01 14:11] VITALS: BP 120/78; PULSE 75; BMI 21.1
[2024-04-01 14:18] LABS: Glucose, Whole Blood 77 mg/dL (60-115)
== END 2024-04-01 14:35 | disposition home or self-care (01) ==
PROVIDERS: PCP Family Medicine; Visit Provider Nurse Practitioner Adult Health
DX: E10.649 Type 1 diabetes mellitus with hypoglycemia without coma (principal)
CPT/HCPCS: 95251; 99214

== ENCOUNTER 2024-04-07 13:41 | Outpatient (AMB) | payer MEDICAID, SELFPAY ==
--- NOTE | 2024-04-07 08:54 | A.OFFVIS_ITS ---
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 She was hospitalized at the end of November after 3 weeks of nausea and vomiting and little food intake. She had started consuming alcohol this spring as a result of the stress of losing her old man . She has stopped all alcohol consumption since her hospitalization. Since that time she had been on basal bolus insulin and had been having multiple symptomatic low one of which was 40 and required trip to ER. Diabetes medications: Tresiba 4 units at bedtime hold if less than 150 She has only needed tresiba once and is not using humalog Humalog with meals 151-201 1 unit, 201-250 2 units, 250 in up take 3 units. Dexcom average glucose: [114 ] 14 day average smokes 1/2 pack per day Hypoglycemia: denies symptoms, no nightmares Hyperglycemia: denies urinary frequency, +nocturia 0-2 times, occasional polydypsia Sister and brother and grandmother have Type 2 Last ophthalmology evaluation: 11/2022 Has neuropathy: Has numbness and tingling in the lower extremities no cramping. She would like referral to Podiatry as she has thickened and elongated nails. No nephropathy: 07/27/2023 microalbumin 10.0 03/28/2024 eGFR>60 She is followed by a liver specialist (Dr. Villarreal) and sees a vascular surgeon on an annual basis. She has had prior stenting in the past. [facility] Medical History Hypothyroidism Congenital hypothyroidism Uncontrolled type 1 diabetes mellitus with hyperglycemia, with long-term current use of insulin Diabetes mellitus (~2020) Osteopenia (~2014) Nicotine dependence, cigarettes, uncomplicated Tubular adenoma of colon (~2014) Elevated TSH Dysplasia of cervix, low grade (SHELLIE 1) (~2016) Overweight Cirrhosis Essential hypertension COPD (chronic obstructive pulmonary disease) HTN (hypertension) Hepatitis C Surgical History History of unilateral salpingectomy History of section History of tubal ligation History of cervical biopsy (~2016) History of colonoscopy (~2014) History of liver biopsy (~2008) Family History Father No problems noted. Mother Heart problem Cancer Maternal Grandmother Diabetes Brother Diabetes Sister Diabetes Brother Diabetes Social History Household Members: Family Household Members Other:: sister and aunt and step son Housing: House Do you presently have visiting nurse or other home services: No Alcohol intake: current Alcohol intake frequency: 3 or more drinks per day Alcohol type: hard liquor Patient Tobacco Use Status: Current everyday Tobacco user Tobacco use type: Cigarette Cigarette Packs Per Day: 1.5 Cigarettes Per Day: 30.0 Years Smoked: (onset 12yo, x 50yrs, max 2ppd, now 1/2ppd - 50+PYH) Second Hand Smoke Exposure: Yes Substance Use Type: Opiates service: No Sexual orientation: Straight/Heterosexual Gender identity: Female Female Reproductive History Menstrual Age of Menarche: 13 Physical Exam Vital Signs: Last Vital Signs BP 110/76 04/07/24 14:08 BMI result Body Mass Index 23.3 Const General: cooperative Orientation/consciousness: oriented to person, oriented to place and oriented to time Cardio Jugular venous distension: no JVD Rate: regular rate Rhythm: regular rhythm Heart sounds: S1 normal heart sound present and S2 normal heart sound present Neuro General: oriented to person, oriented to place and oriented to time Extrem Other: Nails elongated and thickened no interdigit maceration or fissuring slight diminished on monofilament Results Reviewed Results Reviewed: Laboratory Last Values Glucose (Clinic) 132 mg/dL (60-115) H 04/07/24 14:12 Assessment & Plan Assessment & Plan (1) Uncontrolled type 1 diabetes mellitus with hyperglycemia, with long-term current use of insulin: Code(s): E10.65 - Type 1 diabetes mellitus with hyperglycemia Category: Medical Plan: Continue current dosing in insulin (take 4 units of tresiba if over 150 low dose sliding scale Referred to podiatry. Orders: Referrals Podiatry Referral E10.649 - Type 1 diabetes mellitus with hypoglycemia without coma Medications: Discontinued insulin lispro (Humalog Tempo Pen (U-100) Insulin) 151-200 1 unit, 201-250 2 units over 250 3 units Discontinued Reason: Doctor's Order 1 sliding scale dose subcut USEASDIRECTD 30 days PRN 3 mL 1RF Glucose above 151 Patient Instructions: Contact office for any hypoglycemia target average 150-160 Coding Level of Care Code Est Pt Level 3 (66463) Complex EM visit Add On G2211 Diagnoses Uncontrolled type 1 diabetes mellitus with hyperglycemia, with long-term current use of insulin E10.65 Time Spent (min) 30 Comment face to herbert chart doc lab review documentation
[2024-04-07 14:08] VITALS: BP 110/76; BMI 23.3
[2024-04-07 14:18] LABS: Glucose, Whole Blood 132 mg/dL (60-115)
== END 2024-04-07 14:31 | disposition home or self-care (01) ==
PROVIDERS: PCP Family Medicine; Visit Provider Nurse Practitioner Adult Health
DX: E10.65 Type 1 diabetes mellitus with hyperglycemia (principal)
CPT/HCPCS: 99213

== ENCOUNTER → 2024-04-07 13:41 | Outpatient (BNVA) | payer MEDICAID, SELFPAY | PROVIDERS: PCP Family Medicine; Visit Provider Nurse Practitioner Adult Health | DX: E10.649 Type 1 diabetes mellitus with hypoglycemia without coma (principal); E10.65 Type 1 diabetes mellitus with hyperglycemia; Z79.4 Long term (current) use of insulin | CPT/HCPCS: 82947; 99212 ==

== ENCOUNTER 2024-05-04 12:22 | Outpatient (REF) | payer MEDICAID, SELFPAY ==
[2024-05-04 12:42] LABS: MANUAL DIFF FLAG NO
[2024-05-04 12:57] LABS: Basophils Absolute Auto 0.1 X10*3/uL (0.0-0.2); Basophils Percent Auto 0.9 % (0-2); Eosinophils Absolute Auto 0.2 X10*3/uL (0.0-0.4); Eosinophils Percent Auto 1.4 % (0-4); Hematocrit 40.5 % (37.0-47.0); Hemoglobin 13.2 g/dl (12.0-16.0); Imm Gran Abs Auto 0.03 X10*3/uL (0.00-0.03); Imm Gran Pct Auto 0.3 % (0.0-0.4); Lymphocytes Absolute Auto 1.9 X10*3/uL (1.2-4.9); Lymphocytes Percent Auto 17.2 % (20-40); Mean Corpuscular HGB Conc 32.6 g/dl (31.0-35.0); Mean Corpuscular Hemoglobin 28.3 pg (27.0-33.0); Mean Corpuscular Volume 86.7 fL (80.0-98.0); Mean Platelet Volume 9.1 fL (9.4-12.3); Monocytes Absolute Auto 0.7 X10*3/uL (0.1-1.2); Neutrophils Absolute Auto 8.1 x10*3/uL (2.0-8.3); Neutrophils Percent Auto 74.2 % (45-73); Platelet Count 296 X10*3/uL (160-400); Red Blood Count 4.67 X10*6/uL (4.20-5.50)
[2024-05-04 13:02] LABS: INTERNATIONAL NORM RATIO 1.1 (0.9-1.1)
[2024-05-04 13:56] LABS: Alanine Aminotransferase 8 U/L (0-31); Albumin Level 3.5 g/dL (3.5-5.0); Alkaline Phosphatase 119 U/L (39-117); Anion Gap 14 (12-20); Aspartate Amino Transferase 39 U/L (5-31); Bilirubin Direct 0.2 mg/dL (0.0-0.5); Bilirubin Total 0.5 mg/dL (0.0-1.0); Blood Urea Nitrogen 6 mg/dL (9-16); Calcium 9.5 mg/dL (8.4-10.2); Carbon Dioxide 29 mmol/L (22-29); Chloride 100 mmol/L (96-108); Estimated Glomerular Filt Rate > 60; Glucose Random 130 mg/dL (60-115); Potassium 4.1 mmol/L (3.3-5.1); Sodium 139 mmol/L (135-145); Total Protein 8.3 g/dL (6.5-8.0)
== END 2024-05-04 12:23 | disposition home or self-care (01) ==
LOC: HO.LAB 12:22
PROVIDERS: PCP Family Medicine; Visit Provider Family Medicine
DX: I10 Essential (primary) hypertension (principal); K70.9 Alcoholic liver disease, unspecified; E03.9 Hypothyroidism, unspecified
CPT/HCPCS: 36415; 80048; 80076; 84443; 85025; 85610

== ENCOUNTER 2024-06-29 14:32 | Outpatient (AMB) | payer MEDICAID, SELFPAY ==
--- NOTE | 2024-06-29 14:39 | A.OFFVIS_ITS ---
Vital Signs 06/29/24 14:40 Height 5 ft 3 in Weight 105 lb 13.15 oz BMI 18.7 BP 104/60 Blood Pressure Location Rt brachial Position Sitting Pulse 112 H Pulse Source Pulse Oximeter Intake Visit Reasons: Type 1 diabetes mellitus with hyperglycemia Intake Note: Patient presents today for a follow-up on Type 1 Diabetes Mellitus: Last diabetic eye exam was on: Jan, 2023 Last Podiatry Exam was on: Does not see a Second Crusher Most recent HbA1c: 6.4%, 06/29/2024 Random Glucose- 117 mg/dL, Today Private Branch Exchange Installer Required: No Accompanied by: Self / Same As Patient Allergies No Known Allergies [No Known Allergies*] Allergy (Verified 06/29/24 14:42) HPI Comments Details: Patient is 64 year-old female with DM type 1 JT diagnosed 10/05/2020, who presents for management of diabetes. She is + CORAL antibodies however c peptide is over 2.0 She was hospitalized at the end of November after 3 weeks of nausea and vomiting and little food intake. She had started consuming alcohol this spring as a result of the stress of losing her old man . She has stopped all alcohol consumption since her hospitalization. Since that time she had been on basal bolus insulin and had been having multiple symptomatic low one of which was 40 and required trip to ER. She was last seen 04/07 Diabetes medications: Tresiba 4 units at bedtime hold if less than 150 She has only needed tresiba twice over the past month Humalog with meals 151-201 1 unit, 201-250 2 units, 250 in up take 3 units. too k twice last month, none this month smokes 1/2 pack per day Hypoglycemia: denies symptoms, no nightmares Hyperglycemia: denies urinary frequency, +nocturia 0-2 times, occasional polydypsia Sister and brother and grandmother have Type 2 Last ophthalmology evaluation: 11/2022 Has neuropathy: Has numbness and tingling in the lower extremities no cramping. She is getting Podiatry referral from PCP as she has thickened and elongated nails. No nephropathy: 07/27/2023 microalbumin 10.0 03/28/2024 eGFR>60 She is followed by a liver specialist (Dr. Villarreal) and sees a vascular surgeon had stent in the past. She has had prior stenting in the past. weight today is 105, Arcelia was 119 which she reports was secondary to edema [facility] Medical History Hypothyroidism Congenital hypothyroidism Uncontrolled type 1 diabetes mellitus with hyperglycemia, with long-term current use of insulin Diabetes mellitus (~2020) Osteopenia (~2014) Nicotine dependence, cigarettes, uncomplicated Tubular adenoma of colon (~2014) Elevated TSH Dysplasia of cervix, low grade (SHELLIE 1) (~2016) Overweight Cirrhosis Essential hypertension COPD (chronic obstructive pulmonary disease) HTN (hypertension) Hepatitis C Surgical History History of unilateral salpingectomy History of section History of tubal ligation History of cervical biopsy (~2016) History of colonoscopy (~2014) History of liver biopsy (~2008) Family History Father No problems noted. Mother Heart problem Cancer Maternal Grandmother Diabetes Brother Diabetes Sister Diabetes Brother Diabetes Social History Household Members: Family Household Members Other:: sister and aunt and step son Housing: House Do you presently have visiting nurse or other home services: No Alcohol intake: current Alcohol intake frequency: 3 or more drinks per day Alcohol type: hard liquor Patient Tobacco Use Status: Current everyday Tobacco user Tobacco use type: Cigarette Cigarette Packs Per Day: 1.5 Cigarettes Per Day: 30.0 Years Smoked: (onset 12yo, x 50yrs, max 2ppd, now 1/2ppd - 50+PYH) Second Hand Smoke Exposure: Yes Substance Use Type: Opiates service: No Sexual orientation: Straight/Heterosexual Gender identity: Female Female Reproductive History Menstrual Age of Menarche: 13 Physical Exam Vital Signs: Last Vital Signs Pulse 112 H 06/29/24 14:40 BP 104/60 06/29/24 14:40 BMI result Body Mass Index 18.7 Const Other: Absence of Cushingoid features. Absence of acromegalic features. Neck exam reveals nl size thyroid about 15 gms. No thyroid nodules palpable. Heart S1 S2, Reg R/R. No M/R G. Skin exam reveals absence of vitiligo or acanthosis nigricans. Visual exam of foot performed. No ulcerations or open lesions. No inter digit maceration or fissuring. No onychomycosis, no callouses. Sensation intact to monofilament exam. Vibratory sensation is normal with 128 Hz tuning fork. bunion left foot. good cap refill Results AMB Hemoglobin A1c AMB Hemoglobin A1c 6.4 % Last Edit by CLINT Kraft on 06/29/24 15:04 Results Reviewed Results Reviewed: Laboratory Last Values Glucose (Clinic) 117 mg/dL (60-115) H 06/29/24 14:45 Assessment & Plan Assessment & Plan (1) Diabetes mellitus: Onset Date: ~2020 Comment: (Type 1 DM - dx 2020 - on insulin) Code(s): E11.9 - Type 2 diabetes mellitus without complications Category: Medical Plan: 64-year-old patient with diabetes with negative coral antibodies however C-peptide over 2.0. She is currently taking Tresiba or Humalog just 1-2 times per month in her A1c 6.4%. Her weight is down from 119-105. She reports when she weighed 119 that she had edema and that 105-110 is her baseline weight. I advised that she check her weight weekly and if she has any additional weight loss to contact her PCP. She reports she will be scheduling a colonoscopy Had prior stent in the past and she will schedule a follow up with vascular surgery. Per patient primary care provider has placed podiatry referral. The patient had an opportunity to ask questions regarding treatment plan. The patient expressed understanding and agreement with the above treatment plan. The patient is aware they should contact our office by phone for worsening glucose readings or for any low blood sugars which may warrant a change in diabetes medication. Compliance is encouraged with medications and any followup testing/consults which may have been ordered. Plan . Orders: Orders AMB Hemoglobin A1c Today E10.65 - Type 1 diabetes mellitus with hyperglycemia Medications: Refilled blood-glucose sensor (FreeStyle Leonardo 3 Plus Sensor device) As directed every 15 days 2 ea 11RF Patient Instructions: The patient was counseled to achieve a target A1C of 7% (154 avg). Fasting blood sugars should be 90-130 in the morning and less than 180 two hours after meals. Reviewed the relationship between poor diabetic control and the development of complications. SHe will be changing to FS leonardo 3 The patient was counseled to always carry a source of sugar and on the rule of 15's: Take 3 glucose tablets and repeat again in 15 minutes if blood sugar is not in normal range. Continue to repeat every 15 minutes until blood sugar is normal. Check your feet daily looking for any signs of infection, ulceration and seek m edical attention if this occurs. Break in shoes gradually and do not wear open- toed shoes or walk barefooted. Coding Level of Care Code Est Pt Level 4 (33346) Complex EM visit Add On G2211 Diagnoses Diabetes mellitus E11.9 Time Spent (min) 30 Comment Time spent reviewing labs/provider notes, face to face, chart doc
[2024-06-29 14:40] VITALS: BP 104/60; PULSE 112; BMI 18.7
[2024-06-29 14:50] LABS: Glucose, Whole Blood 117 mg/dL (60-115)
== END 2024-06-29 15:13 | disposition home or self-care (01) ==
LOC: HO.ENCR 14:32
PROVIDERS: PCP Family Medicine; Visit Provider Nurse Practitioner Adult Health
DX: E11.9 Type 2 diabetes mellitus without complications (principal); E10.65 Type 1 diabetes mellitus with hyperglycemia
CPT/HCPCS: 99214

== ENCOUNTER → 2024-06-29 14:32 | Outpatient (BNVA) | payer MEDICAID, SELFPAY | PROVIDERS: PCP Family Medicine; Visit Provider Nurse Practitioner Adult Health | DX: E10.65 Type 1 diabetes mellitus with hyperglycemia (principal); Z79.4 Long term (current) use of insulin; Z79.899 Other long term (current) drug therapy | CPT/HCPCS: 82947; 83036; 99212 ==

== ENCOUNTER 2025-01-24 13:02 | Outpatient (AMB) | payer MEDICAID, SELFPAY ==
--- NOTE | 2025-01-24 13:04 | MHC.OFFVIS ---
Vital Signs 01/24/25 13:18 Height 5 ft 3 in Weight 123 lb 3.814 oz BMI 21.8 BP 102/70 Blood Pressure Location Lt brachial Position Sitting Pulse 74 Pulse Source Pulse Oximeter Pulse Oximetry (%) 98 Oxygen Delivery Method Room Air Intake Visit Reasons: T1DM Intake Note: Patient present today to follow up on Type 1 Diabetes Mellitus. Last seen by Jeni Guerrero on 06/29/2024. Patient receives Leonardo 3 plus supplies through: [facility] Last Diabetic Eye exam: Due, needs to make an appointment. Last Podiatry Visit: Does not see a Engineering Director Random Glucose: 120 mg/dl HgA1C: 5.6% 01/24/2025 Chemical Sprayer Required: No Accompanied by: Self / Same As Patient Allergies No Known Allergies (No Known Allergies*) Allergy (Verified 01/24/25 13:18) Medication List - Last Reconciled 01/24/25 by Jhoan Victoria MD acetone (urine) test (Ketone Urine Test strips) As directed amlodipine (Norvasc) 5 mg PO DAILY amoxicillin-pot clavulanate 875-125 mg 1 tab PO Q12H blood sugar diagnostic (FreeStyle Lite Strips) As directed 4 x/day blood-glucose meter (FreeStyle [place] Lite kit) As directed blood-glucose,supervisor telephone information,cont (FreeStyle Leonardo 3 [place]) As directed blood-glucose sensor (FreeStyle Leonardo 3 Plus Sensor device) As directed every 15 days blood-glucose sensor (FreeStyle Leonardo 3 Sensor device) As directed dextrose (Glucose Bits) 1 g PO Q15M PRN folic acid 1 mg PO DAILY glucagon HCl (Glucagon (HCl) Emergency Kit) 1 mg subcut Q20M PRN insulin degludec (Tresiba FlexTouch U-100 insulin) 4 units subcut DAILY PRN insulin lispro (Humalog KwikPen (U-100) Insulin) 151-200 1 unit, 201-250 2 units, over 250 3 units tid with meals 30 days MDD 9 units maximum dosing lancets (FreeStyle Lancets) 4 times a day levothyroxine 75 mcg PO DAILY multivitamin (Daily-Yosi tablet) 1 tab PO DAILY pen needle, diabetic (BD Nimco 2nd Gen Pen Needle) DIRECTED 4 TIMES A DAY spironolactone 50 mg PO BEDTIME Held on 03/29/24. Instructions: Resume on 03/31/24. HPI Comments Details: Patient is 64 year-old female with DM type 1 JT diagnosed 10/05/2020, who presents for management of diabetes. She is + CORAL antibodies however c peptide is over 2.0 She was hospitalized at the end of November 2023 after 3 weeks of nausea and vomiting and little food intake. She had started consuming alcohol this spring as a result of the stress of losing her old man . She has stopped all alcohol consumption since her hospitalization. . She was last seen 06/29/24 by Jeni Franco NP Diabetes medications: Tresiba 4 units at bedtime hold if less than 150 She has only needed tresiba twice over the past month Humalog with meals 151-201 1 unit, 201-250 2 units, 250 in up take 3 units. took twice last month, none this month Unfortunately, patient did not bring sensor, log book a glucometer to follow up visit smokes 1/2 pack per day Hypoglycemia: denies symptoms, no nightmares Hyperglycemia: denies urinary frequency, +nocturia 0-2 times, occasional polydypsia Sister and brother and grandmother have Type 2 Last ophthalmology evaluation: needs appt Has neuropathy: Has numbness and tingling in the lower extremities no cramping. She is getting Podiatry referral from PCP as she has thickened and elongated nails. No nephropathy: 07/27/2023 microalbumin 10.0 03/28/2024 eGFR>60 She is followed by a liver specialist (Dr. Villarreal) and sees a vascular surgeon had stent in the past. She has had prior stenting in the past. [facility] Medical History Hypothyroidism Congenital hypothyroidism Uncontrolled type 1 diabetes mellitus with hyperglycemia, with long-term current use of insulin Diabetes mellitus (~2020) Osteopenia (~2014) Nicotine dependence, cigarettes, uncomplicated Tubular adenoma of colon (~2014) Elevated TSH Dysplasia of cervix, low grade (SHELLIE 1) (~2016) Overweight Cirrhosis Essential hypertension COPD (chronic obstructive pulmonary disease) HTN (hypertension) Hepatitis C Surgical History History of unilateral salpingectomy History of section History of tubal ligation History of cervical biopsy (~2016) History of colonoscopy (~2014) History of liver biopsy (~2008) Family History Father No problems noted. Mother Heart problem Cancer Maternal Grandmother Diabetes Brother Diabetes Sister Diabetes Brother Diabetes Social History Household Members: Family Household Members Other:: sister and aunt and step son Housing: House Do you presently have visiting nurse or other home services: No Alcohol intake: current Alcohol intake frequency: 3 or more drinks per day Alcohol type: hard liquor Patient Tobacco Use Status: Current everyday Tobacco user Tobacco use type: Cigarette Cigarette Packs Per Day: 1.5 Cigarettes Per Day: 30.0 Years Smoked: (onset 12yo, x 50yrs, max 2ppd, now 1/2ppd - 50+PYH) Second Hand Smoke Exposure: Yes Substance Use Type: Opiates service: No Sexual orientation: Straight/Heterosexual Gender identity: Female Female Reproductive History Menstrual Age of Menarche: 13 Physical Exam Vital Signs: Last Vital Signs Pulse 74 01/24/25 13:18 BP 102/70 01/24/25 13:18 Pulse Ox 98 01/24/25 13:18 Oxygen Delivery Method Room Air 01/24/25 13:18 BMI result Body Mass Index 21.8 Results AMB Hemoglobin A1c AMB Hemoglobin A1c 5.6 % Last Edit by CLINT Davis on 01/24/25 13:34 Assessment & Plan Assessment & Plan (1) Uncontrolled type 1 diabetes mellitus with hyperglycemia, with long-term current use of insulin: Code(s): E10.65 - Type 1 diabetes mellitus with hyperglycemia Category: Medical Plan: This is a 64-year-old white female with a history of type 1 diabetes Jt in the setting of liver failure and cirrhosis currently being treated with basal-bolus insulin with excellent glycemic control and no known microvascular or macrovascular complication Plan is to continue current regimen . Reiniate Leonardo 3 sensor. Gave pt reader. Will have f/u in 4 mos Orders: Orders AMB Hemoglobin A1c Today E11.9 - Type 2 diabetes mellitus without complications Referrals Podiatry Referral E10.649 - Type 1 diabetes mellitus with hypoglycemia without coma, E10.65 - Type 1 diabetes mellitus with hyperglycemia Coding Level of Care Code Est Pt Level 4 (34527) Diagnoses Uncontrolled type 1 diabetes mellitus with hyperglycemia, with long-term current use of insulin E10.65
[2025-01-24 13:18] VITALS: BP 102/70; PULSE 74; O2SAT 98; BMI 21.8
[2025-01-24 13:28] LABS: Glucose, Whole Blood 120 mg/dL (60-115)
--- OUTSIDE RECORDS SUMMARY | 2025-01-24 13:52 | XMS_ITS | Patient Health Record ---
Author Organization [facility] Address [address] [place] [address] Care Team Providers Care Starch Mangle Tender Name Role Phone Adrianne Moffett MD Primary Care Provider Keyonna vailable Henna Villarreal Unavailable [phone] Allergies No Known Allergies Reason For Referral Referring Provider First Name Adrianne Referring Provider Last Name [place] Referring Provider Speciality Family Med icine Referred Organization [facility] Referred Provider Henna Villarreal Referred Address [address],[place],[address],[place] Referred Provider Specialty Gastroentero logy General Notes Kayla Rey 025 03:52:57 PM EST > requested a [facility] referral from [facility] for visit with Dr. Villarreal on 08-24-24 [phone] Referral Priority Routine Medications Medication SIG (Take, Route, Frequency, Duration) Notes Start Date End Date Status metFORMIN HCl ER 500 MG 1 tablet with ev ening meal Orally Once a day for 30 day(s) Active Triamcinolone Acetonide 2 X 40 MG/ML 1.6 ml Injection for 30 day(s) Active Atorvastatin Calcium 40 MG 1 tablet Oral ly Once a day for 30 day(s) Active Spiriva HandiHaler 18 MCG 1 capsule Inha lation Once a day Active Albuterol Sulfate HFA 108 (90 Base) MCG/ACT 2 puffs as needed Inhalation every 4 hrs Active Methadone HCl 10 MG/5ML 5 ml as needed O rally every 12 hrs Active ProAir HFA 108 (90 Base) MCG/ACT 1 puff as needed Inhalation every 4 hrs Active Nicotine 14 MG/24HR 1 patch to skin Transdermal Once a day for 30 day(s) Active amLODIPine Besy-Benazepril HCl 2.5-10 MG as directed Orally Active Chlorthalidone 25 MG 1 tablet in the mor javier with food Orally Once a day for 30 day(s) Active Immunizations Vaccine Route Administration Date Status Comme nts Influenza Unknown 05/22/2021 Refused Problems Problem Type SNOMED Code ICD Code Onset Dates Problem Status W/U Status Risk Notes Problem 860975983 Encounter for screening for malignant neoplasm of colon (Z12.11) Active confirmed Problem 356007336 History of adenomatous polyp of colon (Z86.010) Active confirmed Problem 086988850 Chronic hepatitis C without hepatic coma (B18.2) Active confirmed Problem 83800499 Alcoholic liver disease (K70.9) Active confirmed Encounters Encounter Location Date Provider Diagnosis [facility] [address] [place] [address] 04/29/2024 Henna Villarreal [facility] [address] [place] [address] 08/24/2024 Henna Villarreal Plan Of Treatment Pending Test Test Name Order Date LIVER PROFILE 05/22/2021 LIVER PROFILE 10/10/2014 CBC w DIFF 05/22/2021 CBC w DIFF 10/10/2014 PROTHROMBIN TIME (PT, INR) 05/22/2021 HEPATITIS C VIRAL LOAD 10/10/2014 HEPATITIS C VIRAL LOAD 05/22/2021 HCV FIBROSURE 11/08/2014 HCV LIVER FIBROSIS, FIBRO TEST US ABDOMEN COMP WITH ELASTOGRAPHY 2020 Alpha Fetoprotein 05/22/2021 Future Test Test Name Order Date COLONOSCOPY 04/11/2014 COLONOSCOPY 05/22/2021 Insurance Providers Payer Name Payer Address Payer Phone Subscriber Number Group Number Insured Name Patient Relationship to Insured Coverage Start Date Coverage End Date [facility] [address] [place] [phone] [id number] CAMERON TAYLOR Self - patient is the insured Medical (General) History Medical History History ICD Code Chronic hepatitis C--Genotyp e 3--Liver bx in 09/2008 with Grade 1-2/4 and Stage I-II/IV; s/p treatment with 12 weeks of Epclusa in 2019 by her PCP with success and she had a nondetectable hepatitis C viral load in March of 2019 and in June of 2019, after a hepatitis C viral load of over 300,000 and January 2019 EtOH-induced liver disease with elevated LFT's Denies NV,CVA,renal disease Asthma Pneumonia in 05/2013-in hospital for 5 d ays Screening colonoscopy in 06/16 015--flat tubular adenoma removed from the cecum; also had a small lipoma in the sigmoid colon, sigmoid diverticulosis, and internal hemorrhoids IDDM COPD Ovarian cysts Surgical History Surgery Date(Month/Year) Ectopic
== END 2025-01-24 13:38 | disposition home or self-care (01) ==
LOC: HO.ENCR 13:03
PROVIDERS: PCP Family Medicine; Visit Provider Internal Medicine Endocrinology, Diabetes & Metabolism
DX: E10.65 Type 1 diabetes mellitus with hyperglycemia (principal); E11.9 Type 2 diabetes mellitus without complications
CPT/HCPCS: 99214

== ENCOUNTER → 2025-01-24 13:02 | Outpatient (BNVA) | payer MEDICAID, SELFPAY | PROVIDERS: PCP Family Medicine; Visit Provider Internal Medicine Endocrinology, Diabetes & Metabolism | DX: E10.65 Type 1 diabetes mellitus with hyperglycemia (principal) | CPT/HCPCS: 82947; 83036; 99212 ==

== ENCOUNTER 2025-02-07 09:04 | Outpatient (REF) | payer MEDICAID, SELFPAY ==
--- OUTSIDE RECORDS SUMMARY | 2023-10-09 09:40 | XMS_ITS ---
Author Organization [facility] Address [address] [place] [address] Care Team Providers Care Train Operations Manager Name Role Phone Betina MÁRQUEZ, Adrianne Primary Care Provider Keyonna Henna Schmid Unavailable [phone] REASON FOR VISIT Patient presents today for cirrhosis Encounters Encounter Location Date Provider Diagnosis [facility] [address] [place] [address] 10/09/2023 Henna Villarreal Plan Of Treatment No Information Progress Notes * TORI TAYLORMALIKOB:[birth year] (64 yo F)Acc No.[id number]:10/09/2023 Progress Notes Patient: CAMERON XAVIER Provider: Klaus Villarreal MD :1960 A ge:63 Y S ex:Female Date:10/09/2023 Address:[address] [id number] Pcp:Adrianne Moffett MD Subjective: * Chief Complaints: * 1 . Patient presents today for cirrhosis. * Medical History: Objective: * Vitals: Assessment: Plan: * Treatment: * * The named appointment provid er may or may not be the originator of this progress note, and it is not deemed complete until electronically signed by the appointment provider. Sign off status: Pending * Provider: Klaus Villarreal MD Date: 0 10/09/2023 Generated for Printi ng/Faxing/eTransmitting on: 0 02/07/2025 09:25 AM EDT
--- OUTSIDE RECORDS SUMMARY | 2024-08-17 09:20 | XMS_ITS ---
Author Organization [facility] Address [address] [place] [address] Care Team Providers Care Marine Engine Machinist Apprentice Name Role Phone Betina MÁRQUEZ, Adrianne Primary Care Provider Keyonna Henna Schmid Unavailable [phone] REASON FOR VISIT weight loss colonoscopy Encounters Encounter Location Date Provider Diagnosis [facility] [address] [place] [address] 08/17/2024 Henna Villarreal Plan Of Treatment No Information Progress Notes * TORI TAYLORMALIKOB:[birth year] (64 yo F)Acc No.[id number]:08/17/2024 Progress Notes Patient: CAMERON XAVIER Provider: Klaus Villarreal MD :1960 A ge:64 Y S ex:Female Date:08/17/2024 Address:[address] [id number] Pcp:Adrianne Moffett MD Subjective: * Chief Complaints: * 1 . Weight loss colonoscopy. * Medical History: Objective: * Vitals: Assessment: Plan: * Treatment: * * The named appointment provid er may or may not be the originator of this progress note, and it is not deemed complete until electronically signed by the appointment provider. Sign off status: Pending * Provider: Klaus Villarreal MD Date: 0 08/17/2024 Generated for Leonardoi ng/Fatachog/eTransmitting on: 0 02/07/2025 09:25 AM EDT
--- OUTSIDE RECORDS SUMMARY | 2024-08-24 10:20 | XMS_ITS ---
Author Organization [facility] Address [address] [place] [address] Care Team Providers Care Hat Lining Blocker Name Role Phone Betina MÁRQUEZ, Adrianne Primary Care Provider Keyonna Henna Schmid Unavailable [phone] REASON FOR VISIT Patient presents today for weight loss, colonoscopy Encounters Encounter Location Date Provider Diagnosis [facility] [address] [place] [address] 08/24/2024 Henna Villarreal Plan Of Treatment No Information Progress Notes * TORI TAYLORMALIKOB:[birth year] (64 yo F)Acc No.[id number]:08/24/2024 Progress Notes Patient: CAMERON XAVIER Provider: Klaus Villarreal MD :1960 A ge:64 Y S ex:Female Date:08/24/2024 Address:[address] [id number] Pcp:Adrianne Moffett MD Subjective: * Chief Complaints: * 1 . Patient presents today for weight loss, colonoscopy. * Medical History: Objective: * Vitals: Assessment: Plan: * Treatment: * * The named appointment provid er may or may not be the originator of this progress note, and it is not deemed complete until electronically signed by the appointment provider. Sign off status: Pending * Provider: Klaus Villarreal MD Date: 0 08/24/2024 Generated for Printi ng/Faxing/eTransmitting on: 0 02/07/2025 09:25 AM EDT
--- OUTSIDE RECORDS SUMMARY | 2025-02-07 09:25 | XMS_ITS | Encounter Summary ---
Author Organization [employer] Address [address] [facility] 7t [place] [address] Care Team Providers Care Emergency Management Coordinator Name Role Phone Adrianne Moffett MD Primary Care Provider [phone] Jemal Tay Unavailable Ivana Morales RN Unavailable [phone] Jhoan Villarreal MD Unavailable Vicotr Hugo Priest Unavailable Morgan El MD Unavailable Jhoan Victoria MD Unavailable [phone] Encounter Details Date Type Department Care Team (Late st Contact Info) Description 04/19/2024 Telephone [facility] [address] [place] [address] Katia Olivares, PharmD [address] [place] [address] Social History Tobacco Use Types Packs/Day Years Used Date Smoking Tobacco: Every Day Cigarettes Passive Smoke Exposure: Current Alcohol Use Standard Drinks/Week Comments Not Currently 0 (1 standard drink = 0.6 oz pur e alcohol) Alcohol Answer Date Recorded How often do you have a drink containing alcohol ? 1 04/20/2024 Average Number of Drinks Not on file 024 Frequency of Binge Drinking Not on file 11/2023 Depression Answer Date Recorded Patient Health Questionnaire-9 Score 1 04/20/2024 Patient Health Questionnaire-9 Score 1 04/20/2024 Last PHQ-9: Questionnaire Data Not on file 1 06/20/2023 Housing Stability Answer Date Recorded What is your housing situation today? I have ran bateman 12/14/[address] you li ve. Do you have problems with any of the following? None of the above 12/14/2023 Food Insecurity Answer Date Recorded Within the past 12 months, y ou worried that your food would run out before you got money to buy more: Never True 04/20/2024 Within the past 12 months,th e food you bought just didn't last and you didn't have enough money to get more: Never True 11/2023 Transportation Answer Date Recorded In the past 12 months, has l ack of transportation kept you from medical appts, meetings, work or from getting things needed for daily living? No 04/05/2024 Utilities Answer Date Recorded In the past 12 months, has t he electric, gas, oil or water company threatened to shut off services in your home? No 04/01/2023 Depression Answer Date Recorded Patient Health Questionnaire-2 Score 0 04/20/2024 Internet Access Answer Date Recorded Internet Access Q1 Yes 04/20/2024 Internet Access Q2 I do not want or need it 11/2023 Comments Unknown Sex and Gender Information Value Date Recorded Sex Assigned at Female 04/14/2022 10:15 AM EDT Legal Sex Female 10:15 AM EDT Gender Identity Female 04/14/2022 10:15 AM EDT Sexual Orientation Straight 04/14/2022 10 :15 AM EDT documented as of this encounter Functional Status * Over the past 2 weeks, how often have you been bothered by any of the following problems? Question Answer Date of Assessment Author Patient Health Questionnaire -2 Score 0 04/20/2024 10:12 AM Stephanie Miranda MA * If you checked off any problems on this questionnaire so far, Question Answer Date of Assessment Author How difficult have these problems made it for you to do your work, take care of things at home, or get along with other people? Not difficult at all 04/20/2024 10:12 AM Robyn Miranda MA * Over the last 2 weeks, how often have you been bothered by any of the following problems? Question Answer Date of Assessment Author Feeling nervous, anxious, or on edge 0 04/20/2024 10:12 AM Stephanie Miranda MA Not being able to stop or co ntrol worrying 0 04/20/2024 10:12 AM Stephanie Miranda MA Worrying too much about diff erent things 2 04/20/2024 10:12 AM Stephanie Miranda MA Trouble relaxing 2 04/20/2024 10:12 AM Stephanie Miranda MA Being so restless that it is hard to sit still 0 04/20/2024 10:12 AM Stephanie Miranda MA Becoming easily annoyed or irritable 0 04/20/2024 10:12 AM Stephanie Miranda MA Feeling afraid as if somethi ng awful might happen 0 04/20/2024 10:12 AM Stephanie Miranda MA CORAL-7 Total Score 4 04/20/2024 10:12 AM Stephanie Miranda MA * Over the past 2 weeks, how often have you been bothered by any of the following problems? Question Answer Date of Assessment Author Little interest or pleasure in doing things Not at all 04/20/2024 10:12 AM Stephanie Miranda MA Feeling down, depressed, or hopeless Not at all 04/20/2024 10:12 AM Stephanie Miranda MA Trouble falling or staying asleep, or sleeping too much Not at all 04/20/2024 10:12 AM Stephanie Miranda MA Feeling tired or having little energy Not at all 04/20/2024 10:12 AM Stephanie Miranda MA Poor appetite or overeating Not at all 04/20/2024 10 :12 AM Stephanie Miranda MA Feeling bad about yourself - or that you are a failure or have let yourself or your family down Not at all 04/20/2024 10:12 AM Stephanie Miranda MA Trouble concentrating on things, such as reading the newspaper or watching television Several days 04/20/2024 10:12 AM Stephanie Miranda MA Moving or speaking so slowly that other people could have noticed? Or the opposite - being so fidgety or restless that you have been moving around a lot more than usual. Not at all 04/20/2024 10:12 AM Stephanie Miranda MA Thoughts that you would be better off or hurting yourself in some way Not at all 04/20/2024 10:12 AM EST Robyn Rivera MA Patient Health Questionnaire-9 Score 1 04/20/2024 10:12 AM Sybil Miranda ra, [place] documented as of this encounter Miscellaneous Notes * Telephone Encounter - Donna Trevino RN - 04/19/2024 11:35 AM EST Triage call Pt reports hasn't been taking aldactone since hospital admission. Pt reports some slight ankle swelling. Pt is scheduled to see PCP 04/20/24 @ 900am. Pt is advised to ask PCP at that time about restarting medication. Pt also has questions about brown spots appearing on hands. Pt advised to write on paper all questions and bring to apt tomorrow morning for PCP to address and Pt agrees. No triage needed at this time. Protocol Used: Information Only Call - No Triage (Adult) Protocol-Based Disposition: Home Care Positive Triage Question: * General information question, no triage required and triager able to answer question * All higher-acuity triage questions were negative Care Advice Discussed: * Reasons To Call Back - New symptoms develop - You have more questions - You become worse * Telephone Encounter - Katia Olivares PharmD - 04/19/2024 11:06 AM EST Patient reports that they have discontinued their spironolactone since hospital discharge on 03/29/2024. They now report swelling with redness of the calves and feet with brown spots. Please assist, thank you documented in this encounter Plan of Treatment Upcoming Encounters Date Type Department Care Team (Late st Contact Info) Description 02/09/2025 11:15 AM EDT Office Visit [facility] MEDICINE [address] [place] [address] Adrianne Moffett MD [address] [place] [address] documented as of this encounter Visit Diagnoses Not on filedocumented in this encounter Additional Health Concerns Assessment Noted Time PHQ-9 Depression Total Score: 0 02/10/20 23 11:35 AM EDT documented as of this encounter Care Teams Emergency Management Coordinator Relationship Specialty Start Date End Date Adrianne Moffett MD [address] [place] [address] PCP - General Family Medicine 08/26/12 Jemal Tay Community Health Worker 12/14/23 Ivana Morales, SENTHIL [address] [place] [address] Ammunition Assembly Ii Laborer 12/14/23 Jhoan Villarreal MD [address] [facility] [address] [place] [address] Gastroenterology 06/16/24 Victor Hugo Priest [address] [place] [address] Vascular 06/16/24 Morgan El MD [address] [place] [address] [address] [place] [address] Obstetrics and Gynecology 06/16/24 Jhoan Victoria MD [address] [place] [address] Endocrinology 01/25/25 Jeni Guerrero [facility] [place] Endocrinology 06/16/24 documented as of this encounter
--- OUTSIDE RECORDS SUMMARY | 2025-02-07 09:25 | XMS_ITS | Patient Health Record ---
Author Organization [facility] Address [address] [place] [address] Care Team Providers Care Commercial Cleaner Name Role Phone Adrianne Moffett MD Primary Care Provider Keyonna vailable Henna Villarreal Unavailable [phone] Allergies No Known Allergies Reason For Referral Referring Provider First Name Adrianne Referring Provider Last Name Asotin Referring Provider Speciality Family Med icine Referred Organization [facility] Referred Provider Henna Villarreal Referred Address [address],[place],[address],[place] Referred Provider Specialty Gastroentero logy General Notes Kayla Rey 025 03:52:57 PM EST > [facility] for [facility] with Dr. Villarreal on 08-24-24 [phone] Referral Priority Routine Medications Medication SIG (Take, [...] Problem Status W/U Status Risk Notes Problem [id number] Encounter for screening for malignant neoplasm of colon (Z12.11) Active confirmed Problem [id number] History of adenomatous polyp of colon (Z86.010) Active confirmed Problem [id number] Chronic hepatitis C without hepatic coma (B18.2) Active confirmed Problem [id number] Alcoholic liver disease (K70.9) Active confirmed Encounters Encounter Location Date Provider Diagnosis [facility] [address] [place] [address] 04/29/2024 Henna Villarreal [facility] [address] [place] [address] 08/24/2024 Henna Villarreal Plan Of Treatment Pending Test Test Name Order Date LIVER PROFILE 05/22/2021 LIVER PROFILE 10/10/2014 CBC w DIFF 10/10/2014 CBC w DIFF 05/22/2021 PROTHROMBIN TIME (PT, INR) 05/22/2021 HEPATITIS C [...] Start Date Coverage End Date MEDICAID [facility] [address] [place] [phone] [id number] CAMERON TAYLOR Self - patient is the [...] EtOH-induced liver disease with elevated LFT's Denies ID,CVA,renal disease Asthma Pneumonia in 05/2013-in hospital for 5 d ays Screening colonoscopy in 06/16 015--flat tubular adenoma removed from the cecum; also had a small lipoma in the sigmoid colon, sigmoid diverticulosis, and internal hemorrhoids IDDM COPD Ovarian cysts Surgical History Surgery Date(Month/Year) Ectopic
--- OUTSIDE RECORDS SUMMARY | 2025-02-07 09:25 | XMS_ITS | Encounter Summary ---
Author Organization [employer] Address [address] [facility] 7t [place] [address] Care Team Providers Care Tire Curer Name Role Phone Adrianne Moffett MD Primary Care Provider [phone] Jemal Tay Unavailable Ivana Morales RN Unavailable [phone] Jhoan Villarreal MD Unavailable Victor Hugo Priest Unavailable Morgan El MD Unavailable Jhoan Victoria MD Unavailable [phone] Reason for Visit * Reason Onset Date Comments requesting a call back 06/20/2022 Encounter Details Date Type Department Care Team (Late st Contact Info) Description 06/20/2022 Telephone [facility] MEDICINE [address] [place], [place] [id number] Adrianne Moffett MD [address] [place] [address] requesting a call back Social History Tobacco Use Types Packs/Day Years Used Date Smoking Tobacco: Never Assessed Comments Unknown Sex and Gender Information Value Date Recorded Sex Assigned at Female 04/14/2022 10:15 AM EDT Legal Sex Female 10:15 AM EDT Gender Identity Female 04/14/2022 10:15 AM EDT Sexual Orientation Straight 04/14/2022 10 :15 AM EDT documented as of this encounter Miscellaneous Notes * Telephone Encounter - Sherrill Soto RN - 06/24/2022 10:37 AM EST Telephone call to pt in regards to wanting to speak with PCP. Pt wants physical, stated has not seen PCP in 2 years. Advised pt to call back with any questions or concerns. Pt verbalizes understanding and agrees with plan. * Telephone Encounter - Sherrill Soto RN - 06/23/2022 2:14 PM EST T/C placed to pt x1 PM re below lab results and POC. No answer, left V/M. Will retask to [facility] for second attempt * Telephone Encounter - Dat Jacques - 06/20/2022 2:39 PM EST Tc from pt requesting to speak with PCP pt did not want to disclose any information with service writer advisor. Advertising Internship advice will forward a message Please contact pt at [phone] documented in this encounter Plan of Treatment Upcoming Encounters Date Type Department Care Team (Late st Contact Info) Description 02/09/2025 11:15 AM EDT Office Visit [facility] MEDICINE [address] [place] [address] Adrianne Moffett MD [address] [place] [address] documented as of this encounter Visit Diagnoses Not on filedocumented in this encounter Care Teams Tire Curer Relationship Specialty Start Date End Date Adrianne Moffett MD [address] [place] [address] PCP - General Family Medicine 08/26/12 Jemal Tay Community Health Worker 12/14/23 Ivana Morales RN [address] [place] [address] Foundry Laborer Coreroom 12/14/23 Jhoan Villarreal MD [address] [place] [address] Gastroenterology 06/16/24 Victor Hugo Priest [address] [place] [address] Vascular 06/16/24 Morgan El MD [address] [place] [address] [address] [place] [address] Obstetrics and Gynecology 06/16/24 Jhoan Victoria MD [address] [facility] [address] [place] [address] Endocrinology 01/25/25 Jeni Guerrero [facility] Endocrinology Endocrinology 06/16/24 documented as of this encounter
--- OUTSIDE RECORDS SUMMARY | 2025-02-07 09:25 | XMS_ITS | Encounter Summary ---
Author Organization [employer] Address [address] [facility] 7t [place] [address] Care Team Providers Care Lusterer Name Role Phone Adrianne Moffett MD Primary Care Provider [phone] Jemal Tay Unavailable Ivana Morales RN Unavailable [phone] Jhoan Villarreal MD Unavailable Victor Hugo Priest Unavailable Morgan El MD Unavailable Jhoan Victoria MD Unavailable [phone] Reason for Visit * Reason Comments Med Refill Encounter Details Date Type Department Care Team (Late st Contact Info) Description 01/23/2024 Refill [facility] [address] [place] [address] Sharon De León MD [address] [place] [address] Social History Tobacco Use Types Packs/Day Years Used Date Smoking Tobacco: Every Day Cigarettes Passive Smoke Exposure: Current Alcohol Use Standard Drinks/Week Comments Not Currently 0 (1 standard drink = 0.6 oz pur e alcohol) Depression Answer Date Recorded Patient Health Questionnaire-9 Score 0 02/09/2023 Housing Stability Answer Date Recorded What is [...] got money to buy more: Never True 04/01/2023 Within the past 12 months,th e food you bought just didn't last and you didn't have enough money to get more: Never True Transportation Answer Date Recorded In the past 12 months, has l ack of transportation kept you from medical appts, meetings, work or from getting things needed for daily living? Yes, it has kept me from medical appointments or getting medications. 12/14/2023 Utilities Answer Date Recorded In the past 12 months, has t he electric, gas, oil or water company threatened to shut off services in your home? No 04/01/2023 Depression Answer Date Recorded Patient Health Questionnaire-2 Score 0 02/09/2023 Comments Unknown Sex and Gender Information Value Date Recorded Sex Assigned at Female 04/14/2022 10:15 AM EDT Legal Sex Female 10:15 AM EDT Gender Identity Female 04/14/2022 10:15 AM EDT Sexual Orientation Straight 04/14/2022 10 :15 AM EDT documented as of this encounter Plan of Treatment Upcoming Encounters Date Type Department Care Team (Late st Contact Info) Description 02/09/2025 11:15 AM EDT Office Visit [facility] MEDICINE [address] [place] [address] Adrianne Moffett MD [address] [place] [address] documented as of this encounter Visit Diagnoses Not on filedocumented in this encounter Additional Health Concerns Assessment Noted Time PHQ-9 Depression Total Score: 0 02/10/20 23 11:35 AM EDT documented as of this encounter Care Teams Lusterer Relationship Specialty Start Date End Date Adrianne Moffett MD [address] [place] [address] PCP - General Family Medicine 08/26/12 Jemal Tay Community Health Worker 12/14/23 Ivana Morales RN [address] [place] [address] Advisory Services Associate 12/14/23 Jhoan Villarreal MD [address] [place] [address] Gastroenterology 06/16/24 Victor Hugo Priest [address] [place] [address] Vascular 06/16/24 Morgan El MD [address] [place] [address] [address] [place] [address] Obstetrics and Gynecology 06/16/24 Jhoan Victoria MD [address] [facility] [address] [place] [address] Endocrinology 01/25/25 Jeni Guerrero KEYBOARD SPECIALIST [facility] [place] Endocrinology 06/16/24 documented as of this encounter
--- OUTSIDE RECORDS SUMMARY | 2025-02-07 09:25 | XMS_ITS | Encounter Summary ---
Author Organization [employer] Address [address] [facility] 7t [place] [address] Care Team Providers Care Assistant Chief Engineer Name Role Phone Adrianne Moffett MD Primary Care Provider [phone] Jemal Tay Unavailable Ivana Morales RN Unavailable [phone] Jhoan Villarreal MD Unavailable Victor Hugo Priest Unavailable Morgan El MD Unavailable Jhoan Victoria MD Unavailable [phone] Reason for Visit * Reason Comments Med Refill Encounter Details Date Type Department Care Team (Late st Contact Info) Description 12/22/2023 Refill [facility] MED[facility]INE [address] [place], [place] [phone] Adrianne Moffett MD [address] [place] [address] Social History Tobacco Use Types Packs/Day Years Used Date Smoking Tobacco: Every Day Cigarettes Passive Smoke Exposure: Current Alcohol Use Standard Drinks/Week Comments Not Currently 0 (1 standard drink = 0.6 oz pur e alcohol) Depression Answer Date Recorded Patient Health Questionnaire-9 Score 0 02/09/2023 Housing Stability Answer Date Recorded What is your housing situation today? I have ran fransico 12/14/[address] you li [...] Description 02/09/2025 11:15 AM EDT Office Visit [facility] MEDICINE [address] [place] [address] Adrianne Moffett MD [address] [place] [address] documented as of this encounter Visit Diagnoses Not on filedocumented in this encounter Additional Health Concerns Assessment Noted Time PHQ-9 Depression Total Score: 0 02/10/20 23 11:35 AM EDT documented as of this encounter Care Teams Assistant Chief Engineer Relationship Specialty Start Date End Date Adrianne Moffett MD [address] [place] [address] PCP - General Family Medicine 08/26/12 Jemal Tay Community Health Worker 12/14/23 Ivana Morales RN [address] [place] [address] Canned Food Reconditioning Inspector 12/14/23 Jhoan Villarreal MD [address] [place] [address] Gastroenterology 06/16/24 Victor Hugo Priest [address] [place] [address] Vascular 06/16/24 Morgan El MD [address] [place] [address] [address] [place] [address] Obstetrics and Gynecology 06/16/24 Jhoan Victoria MD [address] [facility] [address] [place] [address] Endocrinology 01/25/25 Jeni Guerrero [facility] [place] Endocrinology Endocrinology 06/16/24 documented as of this encounter
--- OUTSIDE RECORDS SUMMARY | 2025-02-07 09:25 | XMS_ITS | Encounter Summary ---
Author Organization [employer] Address [address] [facility] 7t [place] [address] Care Team Providers Care Informatica Developer Name Role Phone Adrianne Moffett MD Primary Care Provider [phone] Jemal Tay Unavailable Ivana Morales RN Unavailable [phone] Jhoan Villarreal MD Unavailable Victor Hugo Priest Unavailable Morgan El MD Unavailable Jhoan Victoria MD Unavailable Reason for Visit * Reason Comments Med Refill Encounter Details Date Type Department Care Team (Late st Contact Info) Description 10/25/[address] [facility] [address] [place], [place] [phone] Adrianne Moffett MD [address] [place], [place] [phone] Rash Social History Tobacco Use Types Packs/Day Years [...] Description 02/09/2025 11:15 AM EDT Office Visit [facility] MEDICINE [address] [place] [address] Adrianne Moffett MD [address] [place] [address] documented as of this encounter Visit Diagnoses Diagnosis Rash Rash and other nonspecific skin eruption documented in this encounter Additional Health Concerns Assessment Noted Time PHQ-9 Depression Total Score: 1 04/20/20 24 10:12 AM EST documented as of this encounter Care Teams Informatica Developer Relationship Specialty Start Date End Date Adrianne Moffett MD [address] [place] [address] PCP - General Family Medicine 08/26/12 Jemal Tay Community Health Worker 12/14/23 Ivana Morales RN [address] [place] [address] Steward/Stewardess Third Class 12/14/23 Jhoan Villarreal MD [address] [place] [address] Gastroenterology 06/16/24 Victor Hugo Priest 22 [place] [address] Vascular 06/16/24 Morgan El MD [address] [place] [address] [address] [place] [address] Obstetrics and Gynecology 06/16/24 Jhoan Victoria MD [address] [place] [address] Endocrinology 01/25/25 Jeni Guerrero LAUNDRY BAG PUNCH OPERATOR [facility] [place] Endocrinology 06/16/24 documented as of this encounter
--- OUTSIDE RECORDS SUMMARY | 2025-02-07 09:25 | XMS_ITS | Encounter Summary ---
Author Organization DeviceAuthority Address [address] [facility] [address] [place] [address] Care Team Providers Care Shell Reprint Operator Name Role Phone Adrianne Moffett MD Primary Care Provider [phone] Jemal Tay Unavailable Ivana Morales RN Unavailable [phone] Jhoan Villarreal MD Unavailable Victor Hugo Priest Unavailable Morgan El MD Unavailable Jhoan Victoria MD Unavailable [phone] Encounter Details Date Type Department Care Team (Late st Contact Info) Description 07/01/2022 Abstract [facility] [address] [place] [address] [phone] Adrianne Moffett MD [address], [place] [phone] Social History Tobacco Use Types Packs/Day Years [...] Description 02/09/2025 11:15 AM EDT Office Visit [facility] [address] [place], [place] [phone] Adrianne Moffett MD [address], [place] [phone] documented as of this encounter Procedures Procedure Name Priority Date/Time Associated Diagnosis Comments HPV HIGH RISK PCR Routine 10/09/2021 12: 00 AM EDT PAP SMEAR Routine 10/09/2021 12:00 AM EDT MAMMOGRAPHY Routine 09/16/2016 COLONOSCOPY Routine 07/10/2014 documented in this encounter Results * HPV High Risk PCR (10/09/2021 12:00 AM EDT) Swab Cervical swab / Unknown Morgan El MD LAB MICROBIOLOGY - GENERAL ORDER ANI Final Result Performing Organization Address [facility] Co de Phone Number [facility] [address] [place] [phone] * Pap Smear (10/09/2021 12:00 AM EDT) Swab Morgan El MD LAB CYTOLOGY ORDERABLES Final Re sult Performing Organization Address [facility]/ZIP Co de Phone Number [facility] [address] [place] [phone] * Mammography (09/16/2016) Mammogram BIRADS 1 Anatomical Region Laterality Modality Other Historical Provider HEALTH MAINTENANCE Final Result * Colonoscopy (07/10/2014) Colonoscopy Tubular Adenoma with Dr. Villarreal Historical Provider HEALTH MAINTENANCE Final Result documented in this encounter Visit Diagnoses Not on filedocumented in this encounter Care Teams Shell Reprint Operator Relationship Specialty Start Date End Date Adrianne Moffett MD [address] [place] [phone] PCP - General Family Medicine 08/26/12 Jemal Tay Community Health Worker 12/14/23 Ivana Morales RN [address] [place] [phone] Elevated Work Platform Operator 12/14/23 Jhoan Villarreal MD [address] [place] [address] Gastroenterology 06/16/24 Victor Hugo Priest [address] [place] [address] Vascular 06/16/24 Morgan El MD [address] [place] [address] [address] [place] [address] Obstetrics and Gynecology 06/16/24 Jhoan Victoria MD [address] [place] [address] Endocrinology 01/25/25 Jeni Guerrero EPIC TRAINER [facility] [place] Endocrinology 06/16/24 documented as of this encounter
--- OUTSIDE RECORDS SUMMARY | 2025-02-07 09:25 | XMS_ITS | Clinical Summary ---
Author Organization [employer] Address [address] [facility] [address] [place] [address] Care Team Providers Care Installation Technician Name Role Phone Adrianne Moffett MD Primary Care Provider Jemal Tay Unavailable Ivana Morales RN Unavailable [phone] Jhoan Villarreal MD Unavailable Victor Hugo Priest Unavailable Morgan El MD Unavailable Jhoan Victoria MD Unavailable [phone] Allergies No known active allergies Medications Insulin Lispro 100 UNIT/ML solutionIndicati ons:Diabetes type 1, no ocular involvement (CMS/HCC) Inject as directed. Per Dr. Victoria Active levothyroxine (Synthroid, Levoxyl) 75 MCG tabletIndication s:Hypothyroidism , unspecified type Take by mouth before breakfast. Per Dr. Victoria Active furosemide (Lasix) 20 MG tabletIndication s:Alcoholic liver disease (CMS/HCC) Take 1 tablet (20 mg) by mouth Once per day. 30 tablet 11 04/20/2024 5 Active spironolactone (Aldactone) 50 MG tabletIndication s:Alcoholic cirrhosis of liver with ascites (CMS/HCC),Alcoho lic liver disease (CMS/HCC) Take 1 tablet (50 mg) by mouth in the morning. 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 30 tablet 11 05/05/2024 5 Active glucose blood (FREESTYLE LITE) test stripIndications :Diabetes type 1, no ocular involvement (CMS/HCC) Check bs bid 50 strip 11 06/16/2024 Active Active Problems Problem Noted Date Diagnosed Date Alcoholic cirrhosis of liver with ascites 2023 Overview (01/04/2025): Follows with [facility] for cirrhosis. Last visit was on 10/09/23, but pt no showed. Lab Results Component Value Date TOTALBILIRUB 0.5 05/04/2024 AST 39 (H) 05/04/2024 ALT 8 05/04/2024 ALT 34 (H) 10/03/2020 ALP 119 (H) 05/04/2024 AFP 5.7 07/27/2023 Reported worsening leg swelling on 04/20/24. Started on Spironolactone 04/20/24. Since has had significant improvement. -follow-up and repeat labs in 3 weeks. Assessment & Plan (06/30/2024 10:55 AM EST): Follows with [facility] for cirrhosis. Last visit was on 10/09/23, but pt no showed. Lab Results Component Value Date TOTALBILIRUB 0.5 05/04/2024 AST 39 (H) 05/04/2024 ALT 8 05/04/2024 ALT 34 (H) 10/03/2020 ALP 119 (H) 05/04/2024 AFP 5.7 07/27/2023 Reported worsening leg swelling on 04/20/24. Started on Spironolactone 04/20/24. Since has had significant improvement. -follow-up and repeat labs in 3 weeks. Assessment & Plan (05/05/2024 11:28 AM EST): Follows with [facility] for cirrhosis. Last visit was on 10/09/23, but pt no showed. Lab Results Component Value Date TOTALBILIRUB 0.5 05/04/2024 AST 39 (H) 05/04/2024 ALT 8 05/04/2024 ALT 34 (H) 10/03/2020 ALP 119 (H) 05/04/2024 AFP 5.7 07/27/2023 Reported worsening leg swelling on 04/20/24. Started on Spironolactone 04/20/24. Since has had significant improvement. -follow-up and repeat labs in 3 weeks. Cardiac risk counseling 05/04/2024 Overview (06/30/2024): Calculated 06/30/24 The ASCVD Risk score (Deonte PEREZ, et al., 2019) failed to calculate for the following reasons: The valid total cholesterol range is 130 to 320 mg/dL Lab Results Component Value Date LDLCHOLCAL 55 04/01/2024 LDLCHOLCAL 76 07/27/2023 -Atherosclerotic Cardiovascular Disease (ASCVD) Risk Calculator is intended for a person age 40-79 without ASCVD and with LDL-cholesterol < 190/mg/dl to assesses the chances of developing heart disease over the next 10 years. -ACC/AHA risk categories based on a person's estimated 10-year risk of CVD: ?Low - <5 percent ?Borderline risk - 5 to 7.4 percent ?Intermediate risk- 7.5 to 19.9 percent ?High risk- >=20 percent -Tobacco cessation: discussed -Statin therapy: Start Atorvastatin 20 mg 05/05/24 -Importance of moderate physical activity and nutrition interventions discussed. Assessment & Plan (06/30/2024 10:56 AM EST): Calculated 06/30/24 The ASCVD Risk score (Deonte PEREZ, et al., 2019) failed to calculate for the following reasons: The valid total cholesterol range is 130 to 320 mg/dL Lab Results Component Value Date LDLCHOLCAL 55 04/01/2024 LDLCHOLCAL 76 07/27/2023 -Atherosclerotic Cardiovascular Disease (ASCVD) Risk Calculator is intended for a person age 40-79 without ASCVD and with LDL-cholesterol < 190/mg/dl to assesses the chances of developing heart disease over the next 10 years. -ACC/AHA risk categories based on a person's estimated 10-year risk of CVD: ?Low - <5 percent ?Borderline risk - 5 to 7.4 percent ?Intermediate risk- 7.5 to 19.9 percent ?High risk- >=20 percent -Tobacco cessation: discussed -Statin therapy:Start Atorvastatin 20 mg 05/05/24 -Importance of moderate physical activity and nutrition interventions discussed. Assessment & Plan (05/05/2024 11:31 AM EST): Calculated 05/05/24 The ASCVD Risk score (Deonte PEREZ, et al., 2019) failed to calculate for the following reasons: The valid total cholesterol range is 130 to 320 mg/dL Lab Results Component Value Date LDLCHOLCAL 55 04/01/2024 LDLCHOLCAL 76 07/27/2023 -Atherosclerotic Cardiovascular Disease (ASCVD) Risk Calculator is intended for a person age 40-79 without ASCVD and with LDL-cholesterol < 190/mg/dl to assesses the chances of developing heart disease over the next 10 years. -ACC/AHA risk categories based on a person's estimated 10-year risk of CVD: ?Low - <5 percent ?Borderline risk - 5 to 7.4 percent ?Intermediate risk- 7.5 to 19.9 percent ?High risk- >=20 percent -Tobacco cessation: discussed -Statin therapy:Start Atorvastatin 20 mg 05/05/24 -Importance of moderate physical activity and nutrition interventions discussed. Alcohol use, unspecified with withdrawal, unspec ified 04/19/2024 Overview (04/20/2024): Long standing history of alcohol abuse. Hx of seizures from withdrawals. -Admitted to [facility] 12/03/23 for EtOh withdrawal, nausea, vomiting and abdominal pain. -Gallbladder US showed: Tumefactive sludge at the fundus of the gallbladder. No gallstone or acute change of gallbladder wall. No bile duct dilatation. -Denies alcohol use 04/20/24 -Most recent admission to [facility] (03/26/24 - 03/29/24) Assessment & Plan (06/30/2024 10:55 AM EST): Long standing history of alcohol abuse. Hx of seizures from withdrawals. -Admitted to [facility] 12/03/23 for EtOh withdrawal, nausea, vomiting and abdominal pain. -Gallbladder US showed: Tumefactive sludge at the fundus of the gallbladder. No gallstone or acute change of gallbladder wall. No bile duct dilatation. -Denies alcohol use 04/20/24 -Most recent admission to [facility] (03/26/24 - 03/29/24) Assessment & Plan (04/20/2024 12:39 PM EST): Long standing history of alcohol abuse. Hx of seizures from withdrawals. -Admitted to [facility] 12/03/23 for EtOh withdrawal, nausea, vomiting and abdominal pain. -Gallbladder US showed: Tumefactive sludge at the fundus of the gallbladder. No gallstone or acute change of gallbladder wall. No bile duct dilatation. -Denies alcohol use 04/20/24 -Most recent admission to [facility] (03/26/24 - 03/29/24) History of alcohol withdrawal syndrome Overview (12/06/2023): Admitted to [facility] 12/03/23 for EtOh withdrawal, nausea, vomiting and abdominal pain. -Gb US showed : Tumefactive sludge at the fundus of the gallbladder. No gallstone or acute change of gallbladder wall. No bile duct dilatation. Other specified health status 02/09/2023 Overview (06/16/2024): -next comprehensive annual evaluation due after 04/20/25 -eye care facilitated by [facility] -has dentures -chemo care proxy filed 04/20/24 Assessment & Plan (04/20/2024 9:45 AM EST): -next comprehensive annual evaluation due after 04/20/25 -eye care facilitated by [facility] -has dentures. -chemo care proxy given and filed 04/20/24 Assessment & Plan (02/09/2023 11:47 AM EDT): -next physical exam due after 2024 -eye care facilitated by -dental home is Venous stasis 02/09/2023 Overview (02/09/2023): Compression stocking sand cream given 02/09/2023. Assessment & Plan (02/09/2023 12:02 PM EDT): Compression stocking sand cream given 02/09/2023. Leg edema 02/09/2023 Overview (06/30/2024): Bilateral lower extremity edema, acute on chronic. Differential includes chronic venous insufficiency, medication induced, capillary dilation from warmer weather, lymphedema, and lipedema. Less likely but also on differential is fluid overload from untreated LUCERO or heart failure, low oncotic pressure, DVT, neuromuscular causes, cellulitis, ruptured popliteal cyst, or May Thurner syndrome. -Stemmers sign negative (able to pinch skin on the dorsum of foot) -No evidence of heart failure or untreated LUCERO, JVP flat, lungs clear -Wells score -No evidence of cellulitis or ruptured popliteal cyst -Reveiwed chronic veous insufficiency is the most common cuse. Edema may be a sign cardiopulmonary, renal, hepatic, or thyroid dysfunction. -Management includes compression, elevation, and avoidance of exacerbating medications. -Medicaions -Compression stockings -Advised diuretics may not be helpful in the absence of volume overload. They are not effective at mitigating edema caused by calcium channel blockers. -Start Lasix 20 mg 04/20/24 additionally already on Spironolactone 50 mg -Improvement with leg swelling since starting Spironolactone 05/05/24. -well controlled on diuretics 06/30/24 Assessment & Plan (06/30/2024 10:55 AM EST): Bilateral lower extremity edema, acute on chronic. Differential includes chronic venous insufficiency, medication induced, capillary dilation from warmer weather, lymphedema, and lipedema. Less likely but also on differential is fluid overload from untreated LUCERO or heart failure, low oncotic pressure, DVT, neuromuscular causes, cellulitis, ruptured popliteal cyst, or May Thurner syndrome. -Stemmers sign negative (able to pinch skin on the dorsum of foot) -No evidence of heart failure or untreated LUCERO, JVP flat, lungs clear -Wells score -No evidence of cellulitis or ruptured popliteal cyst -Reveiwed chronic veous insufficiency is the most common cuse. Edema may be a sign cardiopulmonary, renal, hepatic, or thyroid dysfunction. -Management includes compression, elevation, and avoidance of exacerbating medications. -Medicaions -Compression stockings -Advised diuretics may not be helpful in the absence of volume overload. They are not effective at mitigating edema caused by calcium channel blockers. -Start Lasix 20 mg 04/20/24 additionally already on Spironolactone 50 mg -Improvement with leg swelling since starting Spironolactone 05/05/24. -well controlled on diuretics 06/30/24 Assessment & Plan (05/05/2024 11:37 AM EST): Bilateral lower extremity edema, acute on chronic. Differential includes chronic venous insufficiency, medication induced, capillary dilation from warmer weather, lymphedema, and lipedema. Less likely but also on differential is fluid overload from untreated LUCERO or heart failure, low oncotic pressure, DVT, neuromuscular causes, cellulitis, ruptured popliteal cyst, or May Thurner syndrome. -Stemmers sign negative (able to pinch skin on the dorsum of foot) -No evidence of heart failure or untreated LUCERO, JVP flat, lungs clear -Wells score -No evidence of cellulitis or ruptured popliteal cyst -Reveiwed chronic veous insufficiency is the most common cuse. Edema may be a sign cardiopulmonary, renal, hepatic, or thyroid dysfunction. -Management includes compression, elevation, and avoidance of exacerbating medications. -Medicaions -Compression stockings -Advised diuretics may not be helpful in the absence of volume overload. They are not effective at mitigating edema caused by calcium channel blockers. -Start Lasix 20 mg 04/20/24 additionally already on Spironolactone 50 mg -Improvement with leg swelling since starting Spironolactone 05/05/24. Assessment & Plan (02/09/2023 12:02 PM EDT): Bilateral lower extremity edema, acute on chronic. Differential includes chronic venous insufficiency, medication induced, capillary dilation from warmer weather, lymphedema, and lipedema. Less likely but also on differential is fluid overload from untreated LUCERO or heart failure, low oncotic pressure, DVT, neuromuscular causes, cellulitis, ruptured popliteal cyst, or May Thurner syndrome. -Stemmers sign negative (able to pinch skin on the dorsum of foot) -No evidence of heart failure or untreated LUCERO, JVP flat, lungs clear -Wells score -No evidence of cellulitis or ruptured popliteal cyst -Reveiwed chronic veous insufficiency is the most common cuse. Edema may be a sign cardiopulmonary, renal, hepatic, or thyroid dysfunction. -Management includes compression, elevation, and avoidance of exacerbating medications. -Medicaions -Compression stockings -Advised diuretics may not be helpful in the absence of volume overload. They are not effective at mitigating edema caused by calcium channel blockers. 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 We will change medications as follows: Change Lantus to Tresiba 18 units Humalog Breakfast 8 units Lunch 4 units Supper 6 units Changed to a freestyle Leonardo 3. 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 -Irving/Arb: -Statin therapy: Start Atorvastatin 20 mg 05/05/24 -Diabetic eye exam: encouraged to schedule appt. 04/20/24 -Diabetic foot exam: per podiatry, referred by esthela 01/04/24. Done 01/05/25. See exam findings on visit note. Encouraged elevation and compression stockings. Hx of interventions with Vascular. -Continue lifestyle modifications -Continue current medications -Ordered labs 01/05/25 Assessment & Plan (01/05/2025 2:00 PM EDT): Diabetes is controlled. Lab Results Component Value Date HGBA1C 6.4 (A) 06/29/2024 HGBA1C 4.8 04/01/2024 HGBA1C 5.9 01/04/2024 Lab Results Component Value Date CREATININE 0.76 05/04/2024 EGFR >60 05/04/2024 MICROALBCREU 4.8 04/01/2024 MICROALBCREU 10.5 07/27/2023 LDLCHOLCAL 55 04/01/2024 Seen by endo 01/04/24 A1c 5.9% with some overnight lows and lows after lunch. We will change medications as follows: Change Lantus to Tresiba 18 units Humalog Breakfast 8 units Lunch 4 units Supper 6 units Changed to a freestyle Leonardo 3. 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 -Irving/Arb: -Statin therapy: Start Atorvastatin 20 mg 05/05/24 -Diabetic eye exam: encouraged to schedule appt. 04/20/24 -Diabetic foot exam: per podiatry, referred by endo 01/04/24. Done 01/05/25. See exam findings on visit note. Encouraged elevation and compression stockings. Hx of interventions with Vascular. -Continue lifestyle modifications -Continue current medications -Ordered labs 01/05/25 Orders: Albumin, Random Urine W/Creatinine; Future TSH W/Reflex to FT4; Future Syphilis Screen; Future Assessment & Plan (06/30/2024 10:55 AM EST): Diabetes is controlled. Lab Results Component Value Date HGBA1C 6.4 (A) 06/29/2024 HGBA1C 4.8 04/01/2024 HGBA1C 5.9 01/04/2024 Lab Results Component Value Date CREATININE 0.76 05/04/2024 EGFR >60 05/04/2024 MICROALBCREU 4.8 04/01/2024 MICROALBCREU 10.5 07/27/2023 LDLCHOLCAL 55 04/01/2024 Seen by endo 01/04/24 A1c 5.9% with some overnight lows and lows after lunch. We will change medications as follows: Change Lantus to Tresiba 18 units Humalog Breakfast 8 units Lunch 4 units Supper 6 units Changed to a freestyle Leonardo 3. 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 -Irving/Arb: -Statin therapy: Start Atorvastatin 20 mg 05/05/24 -Diabetic eye exam: encouraged to schedule appt. 04/20/24 -Diabetic foot exam: per podiatry, referred by endo 01/04/24 -Continue lifestyle modifications -Continue current medications Assessment & Plan (05/05/2024 11:37 AM EST): Diabetes is controlled. Lab Results Component Value Date HGBA1C 4.8 04/01/2024 HGBA1C 5.9 01/04/2024 Lab Results Component Value Date CREATININE 0.76 05/04/2024 EGFR >60 05/04/2024 MICROALBCREU 4.8 04/01/2024 MICROALBCREU 10.5 07/27/2023 LDLCHOLCAL 55 04/01/2024 Seen by endo 01/04/24 A1c 5.9% with some overnight lows and lows after lunch. We will change medications as follows: Change Lantus to Tresiba 18 units Humalog Breakfast 8 units Lunch 4 units Supper 6 units Changed to a freestyle Leonardo 3. 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 -Irving/Arb: -Statin therapy: Start Atorvastatin 20 mg 05/05/24 -Diabetic eye exam: encouraged to schedule appt. 04/20/24 -Diabetic foot exam: per podiatry, referred by endo 01/04/24 -Continue lifestyle modifications -Continue current medications Assessment & Plan (04/20/2024 9:55 AM EST): Diabetes is controlled. Lab Results Component Value Date HGBA1C 4.8 04/01/2024 HGBA1C 5.9 01/04/2024 Lab Results Component Value Date CREATININE 0.70 04/01/2024 EGFR >60 04/01/2024 MICROALBCREU 4.8 04/01/2024 MICROALBCREU 10.5 07/27/2023 LDLCHOLCAL 55 04/01/2024 Seen by endo 01/04/24 A1c 5.9% with some overnight lows and lows after lunch. We will change medications as follows: Change Lantus to Tresiba 18 units Humalog Breakfast 8 units Lunch 4 units Supper 6 units Changed to a freestyle Leonardo 3. 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 -Irving/Arb: -Statin therapy: Was prescribe Atorvastatin 40 mg 2022, never filled. -Diabetic eye exam: encouraged to schedule appt. 04/20/24 -Diabetic foot exam: per podiatry, referred by esthela 01/04/24 -Continue lifestyle modifications -Continue current medications Assessment & Plan (02/09/2023 12:01 PM EDT): Diabetes is controlled. -No results found for: HGBA1C -No results found for: POCA1C -Followed by Dr Victoria. -Has continuous glucose monitor. -Using insulin 4X a day. -Does not want pump at this time. Lab Results Component Value Date CREATININE 0.79 11/21/2022 -Changes: -Irving/Arb: -Statin therapy: -Diabetic eye exam: -Diabetic foot exam: -Continue lifestyle modifications -Continue current medications Tubular adenoma 10/07/2022 Overview (06/30/2024): -Colonoscopy 06/2014 with flat tubular adenoma -referral to Dr. Villarreal placed 12/30/2022 -re-referred to GI 04/20/24 for colonoscopy -Has appt. 05/26/24 -Reports has not heard from GI 06/30/24, encouraged to call, pt has phone number and will call. Assessment & Plan (06/30/2024 10:50 AM EST): -Colonoscopy 06/2014 with flat tubular adenoma -referral to Dr. Villarreal placed 12/30/2022 -re-referred to GI 04/20/24 for colonoscopy -Has appt. 05/26/24 -Reports has not heard from GI 06/30/24, encouraged to call, pt has phone number and will call. Assessment & Plan (05/05/2024 11:29 AM EST): -Colonoscopy 06/2014 with flat tubular adenoma -referral to Dr. Villarreal placed 12/30/2022 -re-referred to GI 04/20/24 for colonoscopy -Has appt. 05/26/24 Assessment & Plan (04/20/2024 9:49 AM EST): -Colonoscopy 06/2014 with flat tubular adenoma -referral to Dr. Villarreal placed 12/30/2022 -re-referred to GI 04/20/24 for colonoscopy Assessment & Plan (02/09/2023 11:46 AM EDT): Colonoscopy 06/2014 with flat tubular adenoma. Assessment & Plan (10/07/2022 8:53 AM EDT): Colonoscopy 06/2014 with flat tubular adenoma. Chronic hepatitis C 10/07/2022 Overview (04/20/2024): -completed 12 wk Epclusa -VL negative 12/12/2019 -abd US 08/15/2019 Hepatic steatosis without focal lesion -AFP 4.3 08/2019 Assessment & Plan (04/20/2024 12:37 PM EST): -completed 12 wk Epclusa -VL negative 12/12/2019 -abd US 08/15/2019 Hepatic steatosis without focal lesion -AFP 4.3 08/2019 Assessment & Plan (02/09/2023 11:48 AM EDT): -completed 12 wk Epclusa -VL negative 12/12/2019 -abd US 08/15/2019 Hepatic steatosis without focal lesion -AFP 4.3 08/2019 Assessment & Plan (10/08/2022 12:19 PM EDT): -completed 12 wk Epclusa -VL negative 12/12/2019 -abd US 08/15/2019 Hepatic steatosis without focal lesion -AFP 4.3 08/2019 Hepatitis B core antibody positive 10/07/2022 Overview (10/08/2022): Hep B core antibody - positive Surface antigen - negative Surface antibody- negative Heb B DNA negative Pt was vaccination for Hep A and B in the past Assessment & Plan (02/09/2023 11:47 AM EDT): Hep B core antibody - positive Surface antigen - negative Surface antibody- negative Heb B DNA negative Pt was vaccination for Hep A and B in the past Assessment & Plan (10/07/2022 8:54 AM EDT): Hep B core antibody - positive Surface antigen - negative Surface antibody- negative Heb B DNA negative Pt was vaccination for Hep A and B in the past Atrial septal defect 10/07/2022 Overview (06/30/2024): Echo with bubble study was normal per pt. Assessment & Plan (02/09/2023 11:48 AM EDT): Echo with bubble study was normal per pt. Assessment & Plan (10/07/2022 8:55 AM EDT): Echo with bubble study was normal per pt. Low grade squamous intraepit helial lesion on cytologic smear of cervix (LGSIL) 10/07/2022 Overview (10/07/2022): -SHELLIE 1 with hig risk HPV on colpo with Dr. El 01/2015 -Pap 06/2016 ASCUS -Colpo 07/2016 CIN1 -Pap 07/2017 NILM, HPV not detected -DATA ENTRY SPECIALIST note from 04/18/2020 states normal code testing in 2018 and 2019, no code testing due Assessment & Plan (02/09/2023 11:47 AM EDT): -SHELLIE 1 with hig risk HPV on colpo with Dr. El 01/2015 -Pap 06/2016 ASCUS -Colpo 07/2016 CIN1 -Pap 07/2017 NILM, HPV not detected -DATA ENTRY SPECIALIST note from 04/18/2020 states normal code testing in 2018 and 2019, no code testing due Assessment & Plan (10/07/2022 8:56 AM EDT): -SHELLIE 1 with hig risk HPV on colpo with Dr. El 01/2015 -Pap 06/2016 ASCUS -Colpo 07/2016 CIN1 -Pap 07/2017 NILM, HPV not detected -DATA ENTRY SPECIALIST note from 04/18/2020 states normal code testing in 2018 and 2019, no code testing due Dyslipidemia 10/07/2022 Overview (06/30/2024): Lab Results Component Value Date CHOLESTEROL 140 10/03/2020 LDLCHOL 85 10/03/2020 TRIG 98 04/01/2024 TRIG 153 (H) 07/27/2023 HDLCHOL 20 (L) 10/03/2020 CHOLHDLRAT 7.0 (H) 10/03/2020 -continue lifestyle modifications - Atorvastatin 40mg started on 11/2020, pt never filled. Per [facility] most recent note on 04/14/24 recommendation, Please consider restarting atorvastatin 40 mg once daily -Start Atorvastatin 20 mg 05/05/24 -rechecking FLP+HFP in 3 weeks. Assessment & Plan (06/30/2024 10:56 AM EST): Lab Results Component Value Date CHOLESTEROL 140 10/03/2020 LDLCHOL 85 10/03/2020 TRIG 98 04/01/2024 TRIG 153 (H) 07/27/2023 HDLCHOL 20 (L) 10/03/2020 CHOLHDLRAT 7.0 (H) 10/03/2020 -continue lifestyle modifications - Atorvastatin 40mg started on 11/2020, pt never filled. Per [facility] most recent note on 04/14/24 recommendation, Please consider restarting atorvastatin 40 mg once daily -Start Atorvastatin 20 mg 05/05/24 -rechecking FLP+HFP in 3 weeks. Assessment & Plan (05/05/2024 11:31 AM EST): Lab Results Component Value Date CHOLESTEROL 140 10/03/2020 LDLCHOL 85 10/03/2020 TRIG 98 04/01/2024 TRIG 153 (H) 07/27/2023 HDLCHOL 20 (L) 10/03/2020 CHOLHDLRAT 7.0 (H) 10/03/2020 -continue lifestyle modifications - Atorvastatin 40mg started on 11/2020, pt never filled. Per [facility] most recent note on 04/14/24 recommendation, Please consider restarting atorvastatin 40 mg once daily -Start Atorvastatin 20 mg 05/05/24 -rechecking FLP+HFP in 3 weeks. Assessment & Plan (04/20/2024 9:52 AM EST): Lab Results Component Value Date CHOLESTEROL 140 10/03/2020 LDLCHOL 85 10/03/2020 HDLCHOL 20 (L) 10/03/2020 CHOLHDLRAT 7.0 (H) 10/03/2020 -continue lifestyle modifications - Atorvastatin 40mg started on 11/2020, pt never filled. Per [facility] Therapy Managment most recent note on 04/14/24 recommendation, Please consider restarting atorvastatin 40 mg once daily and following with FLP + LFT in 4 weeks Assessment & Plan (02/09/2023 11:48 AM EDT): Lab Results Component Value Date CHOLESTEROL 140 10/03/2020 LDLCHOL 85 10/03/2020 HDLCHOL 20 (L) 10/03/2020 CHOLHDLRAT 7.0 (H) 10/03/2020 -continue lifestyle modifications - Atorvastatin 40mg started on 11/2020 Assessment & Plan (10/07/2022 8:57 AM EDT): Cholesterol profile 10/2020 showed a LDL 108, HDL 16, TG 142 - Atorvastatin 40mg started on 11/2020 Prolonged QT interval 10/07/2022 Overview (10/08/2022): Pt is on methadone. Followed by cardiology and understand risks. Assessment & Plan (02/09/2023 11:47 AM EDT): Pt is on methadone. Followed by cardiology and understand risks. Assessment & Plan (10/07/2022 8:58 AM EDT): Pt is on methadone. Followed by cardiology and understand risks. Essential hypertension 10/07/2022 Overview (05/05/2024): -Blood pressure is at goal -Continue lifestyle modifications -Continue current medications -Started Spirolactone 50 mg 04/20/24 Assessment & Plan (06/30/2024 10:46 AM EST): -Blood pressure is at goal -Continue lifestyle modifications -Continue current medications -Started Spirolactone 50 mg 04/20/24 Assessment & Plan (05/05/2024 11:38 AM EST): -Blood pressure is at goal -Continue lifestyle modifications -Continue current medications -Started Spirolactone 50 mg 04/20/24 Assessment & Plan (04/20/2024 12:38 PM EST): -Blood pressure is at goal -Continue lifestyle modifications -Continue current medications -Start Spirolactone 50 mg 04/20/24 Assessment & Plan (02/09/2023 11:48 AM EDT): -Blood pressure is at goal -Continue lifestyle modifications -Continue current medications Mild intermittent asthma 03/16/2017 Overview (10/08/2022): Controlled Assessment & Plan (04/20/2024 12:35 PM EST): Controlled Assessment & Plan (02/09/2023 11:47 AM EDT): Controlled Assessment & Plan (10/07/2022 8:56 AM EDT): Controlled Tubular adenoma of colon 07/10/2014 COPD (chronic obstructive pulmonary disease) Overview (04/20/2024): -continue Spiriva -albuterol prn -smoking cessation encouraged -CXR in ER 03/29/24 Nonspecific mild interstitial reticulonodular opacification middle and lower lobes. No dense focal consolidation lobar pneumonia. No pleural effusion.(Mild-Moderate, well controlled) Assessment & Plan (06/30/2024 10:54 AM EST): -continue Spiriva -albuterol prn -smoking cessation encouraged -CXR in ER 03/29/24 Nonspecific mild interstitial reticulonodular opacification middle and lower lobes. No dense focal consolidation lobar pneumonia. No pleural effusion.(Mild-Moderate, well controlled) Assessment & Plan (04/20/2024 12:36 PM EST): -continue Spiriva -albuterol prn -smoking cessation encouraged -CXR in ER 03/29/24 Nonspecific mild interstitial reticulonodular opacification middle and lower lobes. No dense focal consolidation lobar pneumonia. No pleural effusion.(Mild-Moderate, well controlled) Assessment & Plan (02/09/2023 11:48 AM EDT): continue Spiriva albuterol prn smoking cessation Assessment & Plan (10/07/2022 8:57 AM EDT): continue Spiriva albuterol prn smoking cessation Tobacco dependence syndrome 09/08/2012 Overview (06/30/2024): -Cigg/day: She cut down from 10 cigs per day Advise use 21 mg nicotine patch around the clock. -Age started: 12 yo -Total years smokin -Pack year history: 26 Encouraged smoking cessation resources such as pharmacomtherapy, [facility] smoking cessation group, and [facility] pharmacy smoking cessation clinic. Declined referral to Collaborative Drug Therapy Managment Program with our PharmD, MANUELITO 05/05/24 Discussed USPSTF recommends annual lung cancer screening with low dose CT in people who meet the following criteria: -ages 50 to 80 years. -have a 20 pack-year smoking history. -currently smoke cigarettes or quit within the past 15 years. -LDCT: ordered 04/20/24. Has appt 05/09/24. Waiting for call back 06/30/24 Assessment & Plan (06/30/2024 10:56 AM EST): Lab Results Component Value Date CHOLESTEROL 140 10/03/2020 LDLCHOL 85 10/03/2020 TRIG 98 04/01/2024 TRIG 153 (H) 07/27/2023 HDLCHOL 20 (L) 10/03/2020 CHOLHDLRAT 7.0 (H) 10/03/2020 -continue lifestyle modifications - Atorvastatin 40mg started on 11/2020, pt never filled. Per Collaborative Drug Therapy Managment most recent note on 04/14/24 recommendation, Please consider restarting atorvastatin 40 mg once daily -Start Atorvastatin 20 mg 05/05/24 -rechecking FLP+HFP in 3 weeks. Assessment & Plan (05/05/2024 11:35 AM EST): -Cigg/day: She cut down from 10 cigs per day Advise use 21 mg nicotine patch around the clock. -Age started: 12 yo -Total years smokin -Pack year history: 26 Encouraged smoking cessation resources such as pharmacomtherapy, [facility] smoking cessation group, and [facility] pharmacy smoking cessation clinic. Declined referral to Collaborative Drug Therapy Managment Program with our PharmDMANUELITO 05/05/24 Discussed USPSTF recommends annual lung cancer screening with low dose CT in people who meet the following criteria: -ages 50 to 80 years. -have a 20 pack-year smoking history. -currently smoke cigarettes or quit within the past 15 years. -LDCT: ordered 04/20/24. Has appt 05/09/24. Assessment & Plan (04/20/2024 9:49 AM EST): -Cigg/day: She cut down from 10 cigs per day Advise use 21 mg nicotine patch around the clock. -Age started: 12 yo -Total years smokin -Pack year history: 27 Encouraged smoking cessation resources such as pharmacomtherapy, [facility] smoking cessation group, and [facility] pharmacy smoking cessation clinic Discussed USPSTF recommends annual lung cancer screening with low dose CT in people who meet the following criteria: -ages 50 to 80 years. -have a 20 pack-year smoking history. -currently smoke cigarettes or quit within the past 15 years. -LDCT: ordered 04/20/24 Assessment & Plan (02/09/2023 11:47 AM EDT): She cut down from 10 cigs per day to 8 cigs a day Advise use 21 mg nicotine patch around the clock. Assessment & Plan (10/07/2022 8:56 AM EDT): She cut down from 10 cigs per day to 8 cigs a day Advise use 21 mg nicotine patch around the clock. Low back pain 09/08/2012 Resolved Problems Problem Noted Date Diagnosed Date Resolved Date Alcoholic liver disease 10/08/202204/16 Assessment & Plan (04/20/2024 9:51 AM EST): Follows with [facility] for cirrhosis. Last visit was on 10/09/23, but pt no showed. Lab Results Component Value Date AST 32 (H) 04/01/2024 ALT 16 04/01/2024 ALT 34 (H) 10/03/2020 ALP 149 (H) 04/01/2024 DIRECTBILIRU 0.6 (H) 12/03/2023 -ordered LFTs 04/20/24 to be done in 2 weeks. Cirrhosis of liver 10/08/2022 History of adenomatous polyp of colon 10/08/2022 10/08/2022 Screening for malignant neoplasm of colon 10/08/2022 10/08/2022 Strep pharyngitis 10/08/2022 02/09/2023 Overview (10/08/2022): -clinic picture highly suspicious for strep pharyngitis -amoxicillin 500mg bid for 10 days, can discontinue if strep send out is negative -droplet precautions discussed -supportive care discussed -ER precautions given Assessment & Plan (10/08/2022 11:43 AM EDT): -clinic picture highly suspicious for strep pharyngitis -amoxicillin 500mg bid for 10 days, can discontinue if strep send out is negative -droplet precautions discussed -supportive care discussed -ER precautions given Type 2 diabetes mellitus without complication 10/08/19 23 10/08/2022 Atypical glandular cells on cervical Pap smear 02/05/2015 02/09/2023 Cyst of ovary 09/08/2012 02/09/2023 Encounters Date Type Department Care Team Description 02/03/2025 Telephone [facility] MEDICINE [address] [place] [phone] Adrianne Moffett MD Labs Only 02/02/2025 Telephone [facility] WALK-IN CENTER [address] [place] [phone] Adrianne Moffett MD 01/24/2025 Orders Only GENERIC EXTERNAL DATA DEPARTMENT Provider, Generic External Data 01/05/2025 2:00 PM EDT Office Visit [facility] WALK-IN [address] [address] Adrianne Moffett MD Numbness and tingling of both feet (Primary Dx); 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), managed as type 1 (CMS/HCC); Screening mammogram for breast cancer 01/05/2025 Telephone [facility] MEDICINE [address] [place] [address] Adrianne Moffett MD 01/05/2025 Travel 01/04/2025 Telephone [facility] [address], [place] [phone] Adrianne Moffett MD No Show 01/03/2025 Telephone [facility] [address] [place] [address] Adrianne Moffett MD CHART PREP from Last 3 Months Immunizations Immunization Administration Dates Next Due Hep B, adult 06/30/2024,05/05/2024,02/09/2023 Influenza injectable quadriv alent preservative free 07/25/2021,03/23/2020,07/14/2019,05/03 Influenza, Split (incl. mirela fied surface antigen) 06/22/2013 Influenza, seasonal, injecta ble, preservative free 04/20/2024 Pfizer Covid-19 Vaccine 12+ 04/20/2024 Pneumococcal Conjugate PCV 20 02/09/2023 Pneumococcal Polysaccharide PPSV23 11/28/2013 RSV Bivalent 07/11/2024 Tdap 05/05/2024,11/28/2013 Zoster, Recombinant 10/18/2024,07/11/2024 Family History Medical History Relation Name Comments Diabetes Brother Cancer Mother Heart disease Mother Diabetes Sister Relation Name Status Comments Brother Mother Sister Social History Tobacco Use Types Packs/Day Years Used Date Smoking Tobacco: Every Day Cigarettes Passive Smoke Exposure: Current Tobacco Cessation:Ready to Q uit: Not Asked; Counseling Given: Not Answered Alcohol Use Standard Drinks/Week Comments Not Currently [...] Answer Date Recorded Internet Access Q1 Yes 12/15/2024 Internet Access Q2 Not on file 12/15/2024 Comments Unknown Sex and Gender Information Value Date Recorded Sex Assigned at Female 04/14/2022 10:15 AM EDT Legal Sex Female 10:15 AM EDT Gender Identity Female 04/14/2022 10:15 AM EDT Sexual Orientation Straight 04/14/2022 10 :15 AM EDT Last Filed Vital Signs Vital Sign Reading Time Taken Comments Blood Pressure 138/92 01/05/2025 1:35 PM EDT Pulse 87 01/05/2025 1:35 PM EDT Temperature 36.6 C (97.8 F) 01/05/2025 1:35 PM EDT Respiratory Rate 18 06/30/2024 10:31 AM EST Oxygen Saturation 96% 06/30/2024 10:31 AM EST Inhaled Oxygen Concentration - - Weight 54.2 kg (119 lb 6.4 oz) 01/05/2025 1:35 P M EDT Height 160 cm (5' 3 ) 01/05/2025 1:35 PM EDT Body Mass Index 21.15 01/05/2025 1:35 PM EDT Plan of Treatment Upcoming Encounters Date Type Department Care Team ([facility] st Contact Info) Description 02/09/2025 11:15 AM EDT Office Visit [facility] MEDICINE [address] [place] [address] Adrianne Moffett MD [address] [place] [address] Health Maintenance Due Date Last Done Comments CT Colonography 1960 FIT DNA/Cologuard 1960 FIT 1960 FOBT 1960 Sigmoidoscopy 1960 Disability Screening 1960 Colonoscopy 07/10/2019 07/10/2014 Colorectal Cancer Screening 07/10/2019 Pap Smear 10/09/2024 10/09/2021 Eye Exam 10/31/2024 10/31/2022, 10/13, 10/31/2022, Additional history exists Mammogram 11/08/2024 11/08/2022, 09/16/2016 Diabetes: Hemoglobin A1C 12/27/2024 025, 04/01/2024, 01/04/2024, Additional history exists Influenza Vaccine (#1) 2025 , 07/25/2021, 03/23/2020, Additional history exists Diabetes: Urine Protein Screening 04/01/2025 04/01/2024, 07/27/2023, 02/28/2022, Additional history exists Lipid Panel 04/01/2025 04/01/2024, 07/16, 02/28/2022, Additional history exists Alcohol/Substance Use Screening 04/20/2025 04/20/2024 Depression Screening 04/20/2025 04/20/2024, 04/20/20 24 SDOH Screening 04/20/2025 04/20/2024 Diabetes: Foot Exam 01/05/2026 01/05/2025, 01/05/2025, 05/05/2024, Additional history exists Tobacco Screening 01/05/2026 01/05/2025 Cervical Cancer Screening 10/09/2026 HPV/Cotest 10/09/2026 10/09/2021, 09/14, 10/09/2021 DTaP/Tdap/Td Vaccines (3 - Td or Tdap) 05/05/2034 05/05/2024, 11/28/2013 HIV Screening Completed 09/28/2018 Pneumococcal Vaccine: 50+ Years Completed 02/09/2023, 11/28/2013 COVID-19 Vaccine Completed 04/20/2024, 03/2022, 09/11/2020, Additional history exists Hepatitis B Vaccines Completed 06/30/2024, 05/05/2024, 02/09/2023 RSV Patients and Patients Aged 60 years or older Completed 07/11/2024 Zoster Vaccines Completed 10/18/2024, 07/11/2024 HIB Vaccines Aged Out No longer eligi ble based on patient's age to complete this topic HPV Vaccines Aged Out No longer eligi ble based on patient's age to complete this topic Hepatitis A Vaccines Discontinued IPV Vaccines Aged Out No longer eligi ble based on patient's age to complete this topic Meningococcal B Vaccine Aged Out No l onger eligible based on patient's age to complete this topic Meningococcal Vaccine Aged Out No drake nalini eligible based on patient's age to complete this topic RSV under 20 months Aged Out No longe r eligible based on patient's age to complete this topic Rotavirus Vaccines Aged Out No longer eligible based on patient's age to complete this topic Procedures Procedure Name Priority Date/Time Associated Diagnosis Comments GLUCOSE, WHOLE BLOOD Routine 01/24/2025 1:24 PM EDT HM HEMOGLOBIN A1C Routine 06/29/2024 LIPID PANEL, STANDARD Routine 04/01/2024 3:31 PM EDT ALBUMIN, RANDOM URINE W/CREATININE Routine 04/01/2024 3:30 PM EDT BI MAMMOGRAM SCREENING TOMOSYNTHESIS BILATERAL Routine 11/08/2022 8:20 AM EDT HPV HIGH RISK PCR Routine 10/09/2021 12: 00 AM EDT PAP SMEAR Routine 10/09/2021 12:00 AM EDT HIV 1/2 ANTIGEN AND ANTIBODY (EXTERNAL RESULTS ONLY) Routine 09/28/2018 12:10 PM EDT HM COLONOSCOPY Routine 07/10/2014 from Last 3 Months or Most Recently Relevant to Health Maintenance Results * (ABNORMAL) Glucose, Whole Blood (01/24/2025 1:24 PM EDT) Pathologist [facility] Glucose, Whole Blood 120(H) 60 - 115 mg/dL [facility] Comment:METER #: [id number] Testing performed in the Endocrinology Department [address] , [address], [facility]. 01/24/2025 1:24 PM EDT 01/24/2025 1:28 PM EDT us Generic External Data Provider LAB BLOOD ORDERAB LES Final Result [facility] [address] [place] [phone] * (ABNORMAL) Hemoglobin A1c (06/29/2024) [facility] Hemoglobin A1C 6.4(A) 4.0 - 6.0 % Comment:with Endocrinology Historical Provider MD HEALTH MAINTENANCE Final Result * (ABNORMAL) Lipid Panel, Standard (04/01/2024 3:31 PM EDT) [facility] Triglycerides 98 <150 mg/dL [facility] Comment:Desirable Triglyceri de: less than 150 mg/dLBorderline High Triglyceride 150-199 mg/dLHigh Triglyceride: 200-499 mg/dLVery High Triglyceride: greater than or equal to 5OO mg/dL Cholesterol 106 <200 mg/dL [facility] Comment:Desirable Cholestero l: less than 200 mg/dLBorderline High Cholesterol: 200-239 mg/dLHigh Cholesterol: greater than 239 mg/dL LDL Cholesterol Calculated 55 <100 mg/dL [facility] Comment:Desirable LDL: less than 100 mg/dLNear Optimal/Above Optimal LDL: 110- 129 mg/dLBorderline High LDL: 130-159 mg/dLHigh LDL: 160-189 mg/dLVery High LDL: greater than or equal to 190 mg/dL HDL Cholesterol 32(L) >40 mg/dL [facility] Comment:Desirable HDL: great er than 40 mg/dL Note: This HDL assay may give artificially low results in patients with liver disease. 04/01/2024 3:31 PM EDT 04/01/2024 3:31 PM EDT us Generic External Data Provider LAB BLOOD ORDERAB LES Final Result Performing Organization Address [facility] de Phone Number [facility] [address] [place] [address] [phone] * Albumin, Random Urine W/Creatinine (04/01/2024 3:30 PM EDT) Creatinine, Urine 226.97 mg/dL [facility] Microalbumin Urine 11.0 mg/L [facility] Microalbum Creatinine Ratio Ur 4.8 <30 ug/mg cr [facility] Comment:Albumin/Creatinine R atio Reference Ranges: Normal: < 30 ug/mg creatinine Microalbuminuria: 30 - 300 ug/mg creatinineClinical Albuminuria: > 300 ug/mg creatinine 04/01/2024 3:30 PM EDT 04/01/2024 4:06 PM EDT us Generic External Data Provider LAB URINE ORDERAB LES Final Result Performing Organization Address [facility] Co de Phone Number [facility] [address] [place] [phone] * BI Mammogram Screening Tomosynthesis Bilateral (11/08/2022 8:20 AM EDT) Anatomical Region Laterality Modality Breast Bilateral Mammography 11/08/2022 8:20 AM EDT Narrative 11/12/2022 7:50 AM EDT [facility] [address] [place] [address] Mammography Report Signed Patient: Nehemiah Hall MR#: [id number] : 1960 Acct:[id number] Age/Sex: 62 / F ADM Date: 11/08/22 Loc: HO.MAMMO Attending Dr: Adrianne Moffett MD Ordering Physician: Adrianne Moffett MD Results: 1N egative Date of Service: 11/08/22 Follow Up: 1 Year From Orig inal Mammogram Procedure(s): MM tomosynthesis screening BI Accession Number(s): [id number] cc: Adrianne Moffett MD EXAMINATION: MM SCREENING DIGITAL BREAST TOMOSYNTHESIS, BILATERAL CLINICAL INFORMATION: Screening. Asymptomatic. History breast cancer, mother. The lifetime risk of breast cancer based on the Tyrer-Cuzick Model is 17%. COMPARISON: Mammography: 09/15/2016, 12/26/2014 TECHNIQUE: Digital breast tomosynthesis is performed in both the craniocaudal and mediolateral oblique views along with computer-aided detection (CAD). Synthesized 2D images are generated from the tomosynthesis. FINDINGS: The breasts are heterogeneously dense, which may obscure small masses (ACR BI-RADS breast composition Category c). There are no significant masses, abnormal calcifications, or other abnormalities. Parenchymal pattern is similar to prior studies. There is no developing density or architectural abnormality. The axilla and skin contours are unremarkable. No significant changes. MM/MM tomosynthesis screening BI IMPRESSION: No mammographic evidence of malignancy. ASSESSMENT: BI-RADS 1: Negative RECOMMENDATION: Routine annual mammography screening. This patient's information was entered into a reminder system with a target due date for their next mammogram. Dictated By: Talha Johnson MD Signed By: <Electronically signed by Talha Johnson MD in OV> 11/12/22 0747 DD/ 0820 TD/TT: Supervisor [employer] Tin[employer]: RAMAN Procedure Note Donotuseinterpreter, Image - 12/11/20[facility] [address] [place] [address] Mammography Report Signed Patient: Nehemiah Hall [facility]#: [id number] : 1Acct:[id number] Age/Sex: 62 / FADM Date: 11/08/22 Loc: MAMMO Attending Dr: Adrianne Moffett MD Ordering Physician: Adrianne Moffett MDResults: 1N egative Date of Service: 11/08/22Follow Up: 1 Year From Orig ina Mammogram Procedure(s): MM tomosynthesis screening BI Accession Number(s): [id number] cc: Adrianne Moffett MD EXAMINATION: MM SCREENING DIGITAL BREAST TOMOSYNTHESIS, BILATERAL CLINICAL INFORMATION: Screening. Asymptomatic. History breast cancer, mother. The lifetime risk of breast cancer based on the Tyrer-Cuzick Model is 17%. COMPARISON: Mammography: 09/15/2016, 12/26/2014 TECHNIQUE: Digital breast tomosynthesis is performed in both the craniocaudal and mediolateral oblique views along with computer-aided detection (CAD). Synthesized 2D images are generated from the tomosynthesis. FINDINGS: The breasts are heterogeneously dense, which may obscure small masses (ACR BI-RADS breast composition Category c). There are no significant masses, abnormal calcifications, or other abnormalities. Parenchymal pattern is similar to prior studies. There is no developing density or architectural abnormality. The axilla and skin contours are unremarkable. No significant changes. MM/MM tomosynthesis screening BI IMPRESSION: No mammographic evidence of malignancy. ASSESSMENT: BI-RADS 1: Negative RECOMMENDATION: Routine annual mammography screening. This patient's information was entered into a reminder system with a target due date for their next mammogram. Dictated By: Talha Johnson MD Signed By: <Electronically signed by Talha Johnson MD in OV> 11/12/22 0747 DD/ 0820 TD/TT: Supervisor [employer] Tinning: RAMAN [facility] External Provider IMG BI PROCEDURES Final Result * HPV High Risk PCR (10/09/2021 12:00 AM EDT) Swab Cervical swab / Unknown Morgan El MD LAB MICROBIOLOGY - GENERAL ORDER ANI Final Result [facility] [address] [place] [phone] * Pap Smear (10/09/2021 12:00 AM EDT) Swab Morgan El MD LAB CYTOLOGY ORDERABLES Final Re sult [facility] [address] [place] [phone] * HIV 1/2 ANTIGEN AND ANTIBODY (EXTERNAL RESULTS ONLY) (09/28/2018 12:10 PM EDT) HIV Ag/Ab Nonreactive 09/28/2018 12:1 0 PM EDT Historical Provider LAB POINT OF CARE TEST DOCKED DEVICE UNSOLICITED RESULTS Final Result * Colonoscopy (07/10/2014) Colonoscopy Tubular Adenoma with Dr. 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 Advance Directives and Living Will 01/06/2025 11:05 AM Helth Care Proxy Advance Directives and Living Will 04/22/2024 11:37 AM Health Care Proxy Care Teams Installation Technician Relationship Specialty Start Date End Date Adrianne Moffett MD [address] [place] [address] PCP - General Family Medicine 08/26/12 Jemal Tay Community Health Worker 12/14/23 Ivana Morales, SENTHIL [address] [place] [address] Hide Or Skin Buffer 12/14/23 Jhoan Villarreal MD [address] [place] [address] Gastroenterology 06/16/24 Victor Hugo Priest [address] [place] [address] Vascular 06/16/24 Morgan El MD [address] [place] [address] [address] [place] [address] Obstetrics and Gynecology 06/16/24 Jhoan Victoria MD [address] [place] [address] Endocrinology 01/25/25 Jeni Guerrero HORTICULTURAL THERAPIST [facility] [place] Endocrinology 06/16/24
--- OUTSIDE RECORDS SUMMARY | 2025-02-07 09:26 | XMS_ITS | Encounter Summary ---
Author Organization [employer] Address [address] [facility] 7t [place] [address] Care Team Providers Care Document Review Attorney Name Role Phone Adrianne Moffett MD Primary Care Provider [phone] Jemal Tay Unavailable Ivana Morales RN Unavailable [phone] Jhoan Villarreal MD Unavailable Victor Hugo Priest Unavailable Morgan El MD Unavailable Jhoan Victoria MD Unavailable [phone] Reason for Visit * Reason Comments Med Refill Encounter Details Date Type Department Care Team (Late st Contact Info) Description 04/01/2023 Refill [facility] MED[facility]INE [address] [place], [place] [phone] Adrianne Moffett MD [address] [place] [address] Alcoholic cirrhosis of liver with ascites (CMS/HCC) Social History Tobacco Use Types Packs/Day Years Used Date Smoking Tobacco: Every Day Cigarettes Passive Smoke Exposure: Current Alcohol Use Standard Drinks/Week Comments Not Currently 0 (1 standard drink = 0.6 oz pur e alcohol) Depression Answer Date Recorded Patient Health Questionnaire-9 Score 0 02/09/2023 Housing Stability Answer Date Recorded What is your housing situation today? I have ran bateman 04/01/[address] you li ve. Do you have problems with any of the following? None of the above 04/01/2023 Food Insecurity Answer Date Recorded Within the [...] getting things needed for daily living? No 04/01/2023 Utilities Answer Date Recorded In the past [...] Description 02/09/2025 11:15 AM EDT Office Visit [facility] MEDICINE [address] [place] [id number] Adrianne Moffett MD [address] [place] [address] documented as of this encounter Visit Diagnoses Diagnosis Alcoholic cirrhosis of liver with ascites (CMS/HCC) documented in this encounter Additional Health Concerns Assessment Noted Time PHQ-9 Depression Total Score: 0 02/10/20 23 11:35 AM EDT documented as of this encounter Care Teams Document Review Attorney Relationship Specialty Start Date End Date Adrianne Moffett MD [address] [place] [address] PCP - General Family Medicine 08/26/12 Jemal Tay Community Health Worker 12/14/23 Ivana Morales RN [address] [place] [address] Foamite Mixer 12/14/23 Jhoan Villarreal MD [address] [place] [address] Gastroenterology 06/16/24 Victor Hugo Priest [address] [place] [address] Vascular 06/16/24 Morgan El MD [address] [place] [address] [address] [place] [address] Obstetrics and Gynecology 06/16/24 Jhoan Victoria MD [address] [facility] [address] [place] [address] Endocrinology 01/25/25 Jeni Guerrero SERVICE REPRESENTATIVE [facility] Endocrinology Endocrinology 06/16/24 documented as of this encounter
--- OUTSIDE RECORDS SUMMARY | 2025-02-07 09:26 | XMS_ITS | Encounter Summary ---
Author Organization [employer] Address [address] [facility] 7t [place] [address] Care Team Providers Care Seo Strategist Name Role Phone Adrianne Moffett MD Primary Care Provider [phone] Jemal Tay Unavailable Ivana Morales RN Unavailable [phone] Jhoan Villarreal MD Unavailable Victor Hugo Priest Unavailable Morgan El MD Unavailable Jhoan Victoria MD Unavailable [phone] Encounter Details Date Type Department Care Team (Late st Contact Info) Description 02/02/2025 Telephone [facility] [address] [place], [place] [phone] Adrianne Moffett MD [address] [place], [place] [phone] Social History Tobacco Use Types Packs/Day Years [...] encounter Miscellaneous Notes * Telephone Encounter - Adrianne Moffett MD - 02/02/2025 3:25 PM EDT Please ask Nehemiah to get her labs before apt next week fasting if possible. Thank you. documented in this encounter Plan of Treatment Upcoming Encounters Date Type Department Care Team (Late st Contact Info) Description 02/09/2025 11:15 AM EDT Office Visit [facility] [address] [place] [address] Adrianne Moffett MD [address] [place] [address] documented as of this encounter Visit Diagnoses Not on filedocumented in this encounter Additional Health Concerns Assessment Noted Time PHQ-9 Depression Total Score: 1 04/20/20 24 10:12 AM EST documented as of this encounter Care Teams Seo Strategist Relationship Specialty Start Date End Date Adrianne Moffett MD [address] [place] [address] PCP - General Family Medicine 08/26/12 Jemal Tay Community Health Worker 12/14/23 Ivana Morales, SENTHIL [address] [place] [id number] Video Engineer 12/14/23 Jhoan Villarreal MD [address] [place] [address] Gastroenterology 06/16/24 Victor Hugo Priest [address] [place] [address] Vascular 06/16/24 Morgan El MD [address] [place] [address] [address] [place] [address] Obstetrics and Gynecology 06/16/24 Jhoan Victoria MD [address] [place] [address] Endocrinology 01/25/25 Jeni Guerrero LINE CONSTRUCTION ENGINEER [facility] [place]ocr[place] Endocrinology 06/16/24 documented as of this encounter
--- OUTSIDE RECORDS SUMMARY | 2025-02-07 09:26 | XMS_ITS | Encounter Summary ---
Author Organization [employer] Address [address] [facility] 7t [place] [address] Care Team Providers Care Grill Prep Cook Name Role Phone Adrianne Moffett MD Primary Care Provider [phone] Jemal Tay Unavailable Ivana Morales RN Unavailable [phone] Jhoan Villarreal MD Unavailable Victor Hugo Priest Unavailable Morgan El MD Unavailable Jhoan Victoria MD Unavailable [phone] Encounter Details Date Type Department Care Team (Late st Contact Info) Description 04/02/2023 Abstract [facility] MED[facility]INE [address] [place], [place] [phone] Adrianne Moffett MD [address] [place], [place] [phone] Social History Tobacco Use Types Packs/Day Years Used Date Smoking Tobacco: Every Day Cigarettes Passive Smoke Exposure: Current Alcohol Use Standard Drinks/Week Comments Not Currently 0 (1 standard drink = 0.6 oz pur e alcohol) Depression Answer Date Recorded Patient Health Questionnaire-9 Score 0 02/09/2023 Housing Stability Answer Date Recorded What is your housing situation today? I have ranandrew bateman 04/01/[address] you [...] Description 02/09/2025 11:15 AM EDT Office Visit [facility] [address] [place] [address] Adrianne Moffett MD [address] [place] [address] documented as of this encounter Visit Diagnoses Not on filedocumented in this encounter Additional Health Concerns Assessment Noted Time PHQ-9 Depression Total Score: 0 02/10/20 23 11:35 AM EDT documented as of this encounter Care Teams Grill Prep Cook Relationship Specialty Start Date End Date Adrianne Moffett MD [address] [place] [address] PCP - General Family Medicine 08/26/12 Jemal Tay Community Health Worker 12/14/23 Ivana Morales RN [address] [place] [address] Cyber Security Manager 12/14/23 Jhoan Villarreal MD [address] [place] [address] Gastroenterology 06/16/24 Victor Hugo Priest [address] [place] [address] Vascular 06/16/24 Morgan El MD [address] [place] [address] Obstetrics and Gynecology 06/16/24 Jhoan Victoria MD [address] [place] [address] [address] [place] [address] Endocrinology 01/25/25 Jeni Guerrero CORPORATE COORDINATOR [facility] Endocrinology Endocrinology 06/16/24 documented as of this encounter
--- OUTSIDE RECORDS SUMMARY | 2025-02-07 09:26 | XMS_ITS | Encounter Summary ---
Author Organization [employer] Address [address] [facility] 7t [place] [address] Care Team Providers Care Staff Software Engineer Name Role Phone Adrianne Moffett MD Primary Care Provider [phone] Jemal Tay Unavailable Ivana Morales RN Unavailable [phone] Jhoan Villarreal MD Unavailable Victor Hugo Priest Unavailable Morgan El MD Unavailable Jhoan Victoria MD Unavailable Reason for Visit * Reason Onset Date Comments Labs Only 02/03/2025 Encounter Details Date Type Department Care Team (Late st Contact Info) Description 02/03/2025 Telephone [facility] MEDICINE [address] [place], [place] [phone] Adrianne Moffett MD [address] [place] [address] Labs Only Social History Tobacco Use Types Packs/Day Years [...] encounter Miscellaneous Notes * Telephone Encounter - Farhana Tay MA - 02/03/2025 10:41 AM EDT T/c pt agreed to get labs prior appointment with pcp documented in this encounter Plan of Treatment Upcoming Encounters Date Type Department Care Team (Late st Contact Info) Description 02/09/2025 11:15 AM EDT Office Visit [facility] [address] [place] [address] Adrianne Moffett MD [address] [place], [place] [phone] documented as of this encounter Visit Diagnoses Not on filedocumented in this encounter Additional Health Concerns Assessment Noted Time PHQ-9 Depression Total Score: 1 04/20/20 24 10:12 AM EST documented as of this encounter Care Teams Staff Software Engineer Relationship Specialty Start Date End Date Adrianne Moffett MD [address] [place] [address] PCP - General Family Medicine 08/26/12 Jemal Tay Community Health Worker 12/14/23 Ivana Morales, SENTHIL [address] [place] [address] Lan Analyst 12/14/23 Jhoan Villarreal MD [address] [place] [address] Gastroenterology 06/16/24 Victor Hugo Priest [address] [place] [address] Vascular 06/16/24 Morgan El MD [address] [place] [address] [address] [place] [address] Obstetrics and Gynecology 06/16/24 Jhoan Victoria MD [address] [place] [address] Endocrinology 01/25/25 Jeni Guerrero PRE PLANNING ADVISOR [facility] Endocrinology 06/16/24 documented as of this encounter
== END 2025-02-07 09:05 | disposition home or self-care (01) ==
LOC: HO.HHCL 09:04
PROVIDERS: PCP Family Medicine; Visit Provider Family Medicine
DX: Z13.89 Encounter for screening for other disorder (principal)

== ENCOUNTER 2025-02-07 09:11 | Outpatient (REF) | payer MEDICAID, SELFPAY ==
[2025-02-07 11:26] LABS: Hemoglobin A1C 126.8057 umol/L; Total Hemoglobin (HGBA1C) 3418.7751 umol/L
[2025-02-07 11:32] LABS: Alanine Aminotransferase 17 U/L (0-31); Albumin Level 4.6 g/dL (3.5-5.0); Alkaline Phosphatase 87 U/L (39-117); Anion Gap 13 (12-20); Aspartate Amino Transferase 55 U/L (5-31); Blood Urea Nitrogen 25 mg/dL (9-16); Calcium 9.7 mg/dL (8.4-10.2); Carbon Dioxide 27 mmol/L (22-29); Chloride 101 mmol/L (96-108); Cholesterol 150 mg/dL (<200); Estimated Glomerular Filt Rate > 60; HDL Cholesterol 51 mg/dL (>40); Potassium 4.4 mmol/L (3.3-5.1); Sodium 137 mmol/L (135-145); Total Protein 8.2 g/dL (6.5-8.0); Triglycerides 170 mg/dL (<150)
[2025-02-07 11:44] LABS: Syphilis Screen Nonreactive (Nonreactive)
[2025-02-07 11:46] LABS: Microalbum/Creatinine Ratio Ur 11.0 ug/mg cr (<30)
[2025-02-07 11:59] LABS: Folate 4.0 ng/mL (> or = 4.0); Vitamin B12 466 pg/mL (200-900)
[2025-02-07 12:22] LABS: Free T4 (Free Thyroxine) 0.92 ng/dL (0.71-1.85)
== END 2025-02-07 09:12 | disposition home or self-care (01) ==
LOC: HO.HHCL 09:11
PROVIDERS: Visit Provider Family Medicine
DX: K70.31 Alcoholic cirrhosis of liver with ascites (principal); E13.9 Other specified diabetes mellitus without complications; R20.0 Anesthesia of skin; R20.2 Paresthesia of skin; Z11.3 Encounter for screening for infections with a predominantly sexual mode of transmission
CPT/HCPCS: 36415; 80048; 80061; 80076; 82043; 82570; 82607; 82746; 83036; 84439; 84443; 86780